=== PATIENT | male | born 1945 | race Caucasian/White ===

== ENCOUNTER → 2020-10-26 13:08 | Outpatient (CLI) | payer MEDICARE, OTHER, SELFPAY ==
--- NOTE | ~2020-10-26 | XR_ITS ---
XR chest 2V DATE: 10/26/2020 13:53 INDICATION: Diaphragm disorder TECHNIQUE: 2 views COMPARISON: 05/25/2016 portable AP chest FINDINGS: Left-sided central venous catheter tip overlies the upper right atrium. Normal heart size. Mild aortic tortuosity. No hilar or mediastinal enlargement is evident. Questionable proximal 0.8 cm soft tissue mass versus summation shadow of overlapping structures at th e lower left lung field. Consider CT thorax to exclude lung mass lesion. Otherwise no pulmonary infiltrate or consolidation, pleural effusion or pulmonary vascular congestion or pneumothorax is evident. There is chronic mild to moderate elevation of the right leaf of the diaphragm. Diffuse osteopenia. Degenerative spurring of the thoracic spine. Surgical clips, right upper quadrant, consistent with cholecystectomy. IMPRESSION: Cannot exclude a left lower lung soft tissue mass versus summation shadow of overlapping vascular and skeletal structures ; CT thorax is recommended. Left central venous catheter in upper right atrium Chronic mild to moderate elevation right leaf of diaphragm Status post cholecystectomy Diffuse osteopenia Reviewed, dictated and finalized at location [facility]. [facility]
--- NOTE | ~2020-10-26 | XR_ITS ---
XR lumbar spine min 4V DATE: 10/26/2020 13:53 INDICATION: Low back pain TECHNIQUE: AP, lateral, coned lateral lumbosacral and bilateral oblique views COMPARISON: None FINDINGS: Diffuse osteopenia. There is mild dextroscoliosis. Normal alignment of the lumbar spine with the exception of minimal anterolisthesis at L5-S1 likely se condary to severe degenerative change noted at the apophyseal joints throughout the mid to lower lumb ar and lumbosacral area. No apparent spondylolysis. There is severe degenerative disc disease at L5-S1. No fracture or bone destruction of the lumbar spine. The sacroiliac joints appear normal. There are multiple osteosclerotic lesions of the iliac bones. Differential diagnosis includes bone is lands versus osteosclerotic metastases of prostate cancer. Surgical clips overlie the right upper quadrant, likely due to cholecystectomy. There are multiple astudillo rgical clips overlying the upper mid abdomen and left lower abdomen. Extensive calcification of the abdominal aorta, without apparent aneurysm. IMPRESSION: Diffuse osteopenia Mild dextroscoliosis Prominent degenerative change at the apophyseal joints in the mid to lower lumbar and lumbosacral are a with associated grade 1 anterolisthesis at L5-S1 Severe degenerative disc disease at L5-S1 Scattered osteosclerotic lesions of the pelvis; differential diagnosis includes bone islands versus o steosclerotic prostate metastases Reviewed, dictated and finalized at location [facility]. [facility] IMPRESSION: Diffuse osteopenia Mild dextroscoliosis Prominent degenerative change at the apophyseal joints in the mid to lower lumb ar and lumbosacral area with associated grade 1 anterolisthesis at L5-S1 Severe degenerative disc disease at L5-S1 Scattered osteosclerotic lesions of the pelvis; differential diagnosis includes bone islands versus osteosclerotic prostate metastases
--- NOTE | ~2020-10-26 | XR_ITS ---
XR sacroiliac joints min 3V DATE: 10/26/2020 13:53 INDICATION: Low back pain TECHNIQUE: AP and oblique views of the sacroiliac joints COMPARISON: None FINDINGS: Diffuse osteopenia. The sacroiliac joints are intact. No erosive change or ankylosis. No sacral fracture or bone destruction is evident. Normal alignment at the pubic symphysis. Asymmetri c narrowing of the left hip joint space. There are osteosclerotic lesions of both iliac bones which may be bone islands versus osteosclerotic metastases from prostate cancer. Recommend clinical correlation and perhaps radionuclide bone scan as clinically appropriate. Severe degenerative disc disease at L5-S1. IMPRESSION: Unremarkable sacroiliac joints Severe degenerative disc disease at L5-S1 Bilateral iliac osteosclerotic lesions; differential diagnosis includes bone islands versus osteoscle rotic metastases of prostate cancer; recommend clinical correlation and perhaps radionuclide bone sca n if appropriate Reviewed, dictated and finalized at [facility]. Reviewed, dictated and finalized at location [facility]. [facility] IMPRESSION: Unremarkable sacroiliac joints Severe degenerative disc disease at L5-S1 Bilateral iliac osteosclerotic lesions; differential diagnosis includes bone is lands versus osteosclerotic metastases of prostate cancer; recommend clinical c orrelation and perhaps radionuclide bone scan if appropriate
== END ==
PROVIDERS: PCP Family Medicine; Visit Provider Family Medicine
DX: M53.3 Sacrococcygeal disorders, not elsewhere classified (principal); M54.5 Low back pain; J98.6 Disorders of diaphragm; M51.37 Other intervertebral disc degeneration, lumbosacral region; M41.86 Other forms of scoliosis, lumbar region; M89.9 Disorder of bone, unspecified; R91.8 Other nonspecific abnormal finding of lung field; Z90.49 Acquired absence of other specified parts of digestive tract; M85.89 Other specified disorders of bone density and structure, multiple sites
CPT/HCPCS: 71046; 72110; 72202

== ENCOUNTER 2020-11-01 07:30 | Outpatient (CLI) | payer MEDICARE, OTHER, SELFPAY ==
--- NOTE | ~2020-11-01 | CT_ITS ---
EXAMINATION: CT diagnostic chest wo con EXAM DATE: 11/01/2020 08:17 INDICATION: Abnormal chest x-ray, possible lung mass. R93.89 - Abnormal findings on diagnostic imagin g of other specified body structures. TECHNIQUE: Spiral CT of the chest without contrast. Axial, coronal and sagittal images were reviewe d. Coronal maximum intensity pixel images of chest reviewed. The dose-length product (DLP) for this examination was 153.52 mGy-cm. The exposure was tailored according to patient size (auto mA exposur e control), and iterative reconstruction (ASIR) was used as additional dose reduction technique. Comp arison is made to prior examination from 04/22/2016. Correlation was made with MR abdomen 02/01/2009. 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 There is mild emphysema. Mild bronchiectasis. Indwelling left subclavian line, t ip at the cavoatrial junction. There is mildly aneurysmal aortic root and ascending aorta at 4.5 cm. There are no pleural or pericardial effusions. Tracheobronchial tree is patent. There is no media stinal, hilar or axillary lymphadenopathy. There is no pneumothorax. Heart normal in size. Ther e is mild coronary arterial calcification, arterial sclerosis. There are surgical changes from left-sided nephrectomy. Stomach is also been resected. There is a jones creatic uncinate 3 cm multicystic mass, size appears unchanged going back to 2008. Scattered small sc lerotic foci are unchanged, stable osseous metastases or bone islands. Probable right thyroid lobe r esection. Cholecystectomy clips. IMPRESSION: 1. No lung mass or acute thoracic findings. 2. Chronic pancreatic multicystic mass. 3. Mildly aneurysmal ascending aorta. 4. Mild bronchiectasis. 5. Mild emphysema. 6. Stable scattered sclerotic lesions. 7. Surgical changes. Reviewed, dictated and finalized at location B. [employer]
== END 2020-11-01 07:31 | disposition home or self-care (01) ==
PROVIDERS: PCP Family Medicine; Visit Provider Family Medicine
DX: R93.89 Abnormal findings on diagnostic imaging of other specified body structures (principal); I71.4 Abdominal aortic aneurysm, without rupture; J47.9 Bronchiectasis, uncomplicated; J43.9 Emphysema, unspecified
CPT/HCPCS: 71250

== ENCOUNTER → 2021-01-25 15:12 | Outpatient (CLI) | payer MEDICARE, OTHER, SELFPAY ==
--- NOTE | ~2021-01-25 | XR_ITS ---
EXAMINATION: XR hand BI arthritis min 3V DATE: 01/25/2021 15:28 INDICATION: Pain in unspecified hand TECHNIQUE: Posteroanterior, lateral, and oblique views of the left and of the right hands as well as a ballcatchers view of both hands were obtained. COMPARISON: None. FINDINGS: Right hand: There is severe osteoarthritis at the triscaphe joint. Mild osteoarthritis is noted at th e first carpometacarpal joint. There is mild osteoarthritis of several interphalangeal joints. The so ft tissues are unremarkable. Bone alignment is normal. There is no fracture. Left hand: There is severe osteoarthritis at the triscaphe joint. Mild osteoarthritis is noted at the first carpometacarpal joint. There is mild osteoarthritis of several interphalangeal joints. The sof t tissues are unremarkable. Bone alignment is normal. There is no fracture. IMPRESSION: 1. Polyarticular osteoarthritis. Reviewed, dictated and finalized at location A.
== END ==
PROVIDERS: PCP Family Medicine; Visit Provider Physician Assistant
DX: M79.643 Pain in unspecified hand (principal); M19.042 Primary osteoarthritis, left hand; M19.041 Primary osteoarthritis, right hand
CPT/HCPCS: 73130

== ENCOUNTER 2023-03-17 12:49 | Outpatient (NON) | payer MEDICARE, OTHER, SELFPAY | END 2023-03-17 12:50 | disposition home or self-care (01) | LOC: ANHLAB 03-18 12:53 | PROVIDERS: PCP Family Medicine; Visit Provider Nurse Practitioner | DX: D49.2 Neoplasm of unspecified behavior of bone, soft tissue, and skin (principal) | CPT/HCPCS: 88305 ==

== ENCOUNTER 2025-04-25 17:34 | Inpatient (IN) | payer MEDICARE, OTHER, SELFPAY ==
--- NOTE | ~2025-04-25 | CT_ITS ---
EXAMINATION: CT chest abdomen pelvis wo con DATE: 04/25/2025 20:28 CDT INDICATION: Sepsis. TECHNIQUE: Computed tomography (CT) of the chest, abdomen, and pelvis was performed without intravenous contrast. The dose-length product was 681.00 mGy- cm. Automated exposure control and iterative reconstruction technique were employed. COMPARISON: Comparison to multiple prior studies sequentially, with oldest reviewed study dated 11/01/2020. FINDINGS: CHEST/abdomen/pelvis CT: There is focal consolidation in the right lower lobe, suspicious for pneumonia. No endobronchial lesions. Dependent atelectasis. There is ascending thoracic aortic aneurysm measuring 4.8 cm. There is atherosclerosis of the aorta and coronary arteries. There are surgical changes of the stomach. There is splenomegaly. 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 Status post cholecystectomy. Left kidney not identified, possibly surgically absent. There are low-density lesions in the right kidney, most likely benign cysts, although not well visualized without contrast. Multiple sclerotic lesions of the pelvis are not significantly changed allowing for differences of technique, suspicious for stable metastases versus bone islands. Correlate for history of malignancy. There is moderate lumbar spondylosis with grade 1 spondylolisthesis at L5-S1. Enlarged prostate gland. There is a right lower quadrant ostomy. No thoracic lymphadenopathy. IMPRESSION: 1. Focal consolidation right lower lobe, suspicious for pneumonia. 2: Increased size of ascending thoracic aortic aneurysm measuring 4.8 cm. 3: Splenomegaly. 4: Stable sclerotic lesions or spine and pelvis, suspicious for stable osseous metastases. Correlate for history of malignancy. Reviewed, dictated and finalized at location A.
--- NOTE | ~2025-04-25 | XR_ITS ---
XR chest 1V portable 04/25/2025 17:59 Indication: Altered mental status Procedure: AP portable chest Comparison: Comparison to multiple prior studies sequentially, with oldest reviewed study dated 05/23/2016. Findings: Elevated right diaphragm which appears chronic. Mild interstitial infiltration bilaterally with peribronchial thickening. Portacatheter tip near the cavoatrial junction. No pneumothorax. No acute osseous abnormality. There are cholecystectomy clips. Impression: 1: Diffuse bilateral interstitial infiltrates which may represent edema or atypical pneumonia. Reviewed, dictated and finalized at location A. Impression: 1: Diffuse bilateral interstitial infiltrates which may represent edema or atyp ical pneumonia.
--- NOTE | ~2025-04-25 | CT_ITS ---
EXAMINATION: CT brain wo con DATE: 04/25/2025 20:19 INDICATION: Altered mental status. TECHNIQUE: Computed tomography (CT) of the head was performed without intravenous contrast. The dose-length product was 681.00 mGy-cm. Automated exposure control and iterative reconstruction technique were employed. COMPARISON: None FINDINGS: Brain parenchymal volume is normal for age. There are scattered moderate periventricular and subcortical white matter changes, most likely related to small vessel ischemic disease (microangiopathy). There is intracranial atherosclerosis. Paranasal sinuses and mastoids are pneumatized. There is mild mucosal thickening of the maxillary sinuses. No depressed skull fractures. IMPRESSION: 1. No acute intracranial abnormality. Reviewed, dictated and finalized at location A.
--- NOTE | ~2025-04-25 | US_ITS ---
EXAMINATION: US renal BI DATE: 05/03/2025 18:00 INDICATION: Acute on chronic kidney disease. TECHNIQUE: Multiple ultrasound grayscale images of the kidneys were obtained. COMPARISON: None. FINDINGS: The right kidney measures 9.9 x 5.7 x 5.1 cm. The left kidney is not visualized and reportedly surgically absent. The right kidney demonstrates normal echogenicity. A couple anechoic right renal cysts the largest measuring 1.2 cm. There is no hydronephrosis. No stones identified. The bladder is normal. IMPRESSION: 1. A couple small right renal cysts. No hydronephrosis. 2. Status post left nephrectomy. Reviewed, dictated and finalized at location A.
[2025-04-25 17:32] VITALS: BP 144/74; PULSE 124; RESP 20; TEMP 37.7; O2SAT 98
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
--- NOTE | 2025-04-25 17:43 | ECG_ITS ---
Test Date: 2025-04-25 17:52:40 Measurements Intervals [place] Rate: 121 P: 8 [place]: 179 QRS: -3 QRSD: 114 T: 25 QT: 332 QTc: 472 Interpretive Statements SINUS TACHYCARDIA RIGHT BUNDLE BRANCH BLOCK CONSIDER INFERIOR INFARCT, AGE INDETERMINATE ABNORMAL ECG No previous ECG available for comparison Electronically Signed On 04-25-2025 19:09:41 CDT by Bharathi Nesbitt D.O.
[2025-04-25 18:02] LABS: Hematocrit 31.4 % (42.0-52.0); Hemoglobin 10.3 g/dL (14.0-18.0); Immature Granulocyte Percent A 0.3 % (0-0.5); Immature Platelet Fraction Pct 3.9 % (0.9-11.2); Lymphocytes Absolute Auto 0.44 K/mm3 (0.9-3.2); Mean Corpuscular HGB Conc 32.8 g/dl (32-36); Mean Corpuscular Hemoglobin 26.8 pg (26-34); Mean Corpuscular Volume 81.8 fl (80-100); Nucleated Red Blood Cells Absolute Auto 0.000 K/mm3 (0.0-0.012); Nucleated Red Blood Cells Perc 0.0 % (0.0-0.2); Platelet Count Result 47 k/mm3 (150-375); Red Blood Count 3.84 M/mm3 (4.6-6.20); White Blood Count 14.5 K/mm3 (4.5-10.0)
[2025-04-25 18:21] LABS: INR 1.2; Prothrombin Time 15.2 Seconds (11.1-14.7)
[2025-04-25 18:22] LABS: Partial Thromboplastin Time 35.9 Seconds (22.3-36.8)
[2025-04-25 18:32] LABS: Ovalocytes 1+; Schistocytes None Seen
[2025-04-25] MEDS: SODIUM CHLORIDE 0.9% IV 1,000 ML 999 ML IV CONT ×2 (18:44)
[2025-04-25] MEDS: SODIUM CHLORIDE 0.9% IV 300 ML 999 ML IV CONT (18:45)
[2025-04-25 18:50] LABS: Alveolar/Arterial O2 Gradient 39.9 mmHg; Carboxyhemoglobin 0.6 % THb (0-2.0); Fractional Inspired Oxygen 21 %; HCO3 ABG 27.0 mEq/l (22.0-26.0); Methemoglobin ABG 0.3 %THb (0-1.5); Oxygen Content ABG 14.9 %vol (16.0-22.0); Oxygen Saturation ABG 94.9 % (95.0-100.0); PCO2 ABG 35.6 mmHg (35.0-45.0); PO2 ABG 67.2 mmHg (80.0-100.0); PO2 FiO2 Ratio Arterial Blood 3.20 %; Reduced Hemoglobin 5.6 %THb (0-5.0)
[2025-04-25 18:51] LABS: Alanine Aminotransferase 16 U/L (6-50); Albumin Level 3.4 g/dL (3.5-5.1); Alkaline Phosphatase 73 U/L (38-126); Anion Gap 7 mmol/L (4-12); Aspartate Amino Transferase 25 U/L (17-59); Bilirubin,Total 1.1 mg/dL (0.2-1.3); Blood Urea Nitrogen 62 mg/dL (9-20); CRP 3.8 mg/dL (<1.0); Calcium 8.5 mg/dL (8.4-10.2); Carbon Dioxide 26 mmol/L (22-30); Chloride 96 mmol/L (98-107); Estimated CRCL calculation 16 ml/min; Estimated Glomerular Filt Rate 20; Glucose 152 mg/dL (65-110); Lipase 54 U/L (23-300); Potassium 4.3 mmol/L (3.4-5.0); Sodium 129 mmol/L (137-145); Total Protein 6.3 g/dL (6.3-8.2)
[2025-04-25 18:52] LABS: Site Drawn RIGHT BRACHIAL
[2025-04-25] MEDS: CEFEPIME 2 GM in SODIUM CHLORIDE 0.9% IV 50 ML 100 ML IVPB (18:53)
[2025-04-25] MEDS: ACETAMINOPHEN 650 MG SUPPOSITORY RECTAL (18:54)
[2025-04-25 19:00] LABS: NT Pro B Type Natriuretic Pept 708 pg/mL (19.9-100); Troponin I 0.020 ng/mL (0.000-0.034)
[2025-04-25 19:22] VITALS: BP 147/72; PULSE 110; RESP 18; O2SAT 97
[2025-04-25 19:30] LABS: Add Urine Microscopic? YES; Appearance Urine Clear (Clear); Glucose Urine UA Negative (Negative); Leukocyte Esterase Ur Negative LEU/UL (Negative); Nitrate Urine Negative (Negative); Non Pathogenic Casts 0-2; Specific Grav Ur 1.014 (1.001-1.035)
[2025-04-25] MEDS: VANCOMYCIN 1,250 MG/NS 250 ML 1,250 MG/250 ML BAG 166.67 MG IVPB (19:50)
[2025-04-25 20:02] VITALS: TEMP 37.2
--- NOTE | 2025-04-25 20:42 | ECG_ITS ---
Test Date: 2025-04-25 20:48:39 Measurements Intervals [place] Rate: 102 P: 17 DC: 188 QRS: 2 QRSD: 117 T: 26 QT: 380 QTc: 496 Interpretive Statements SINUS TACHYCARDIA RIGHT BUNDLE BRANCH BLOCK BASELINE WANDER- II, III ABNORMAL ECG Compared to ECG 04/25/2025 17:52:40 HEART RATE HAS DECREASED Electronically Signed On 04-26-2025 06:15:54 CDT by Bharathi Nesbitt D.O.
[2025-04-25 21:50] LABS: Troponin I 0.022 ng/mL (0.000-0.034)
[2025-04-25] MEDS: SODIUM CHLORIDE 0.9% IV 1,000 ML 75 ML IV CONT (23:10)
[2025-04-26] VITALS (9 sets, daily range): BP systolic 133–155; BP diastolic 71–77; PULSE 92–100; RESP 16–18; TEMP 36.7–37.6; O2SAT 94–99; BMI 26.6
--- NOTE | 2025-04-26 00:50 | PC.NURSE ---
Called placed to to obtain information related to medication. did not answer phone and pt is unable to answer questions related to medication.
[2025-04-26 02:05] LABS: Estimated CRCL calculation 17 ml/min; Estimated Glomerular Filt Rate 21
[2025-04-26 02:17] LABS: Troponin I 0.019 ng/mL (0.000-0.034)
[2025-04-26 09:38] LABS: Influenza A QL RT-PCR Negative (Negative); Influenza B QL RT-PCR Negative (Negative); RSV RNA, RT-PCR Negative (Negative); SARS-CoV-2 RNA PCR Negative (Negative)
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
[2025-04-26] MEDS: SODIUM CHLORIDE 0.9% IV 1,000 ML 75 ML IV CONT (13:45)
[2025-04-26] MEDS: AMINO ACIDS 5%/D15W/E-LYTES/CA 1,000 ML with MULTIVITAMINS-12 INJ VIAL 1 1.25 ML, MULTI... 70 ML IV CONT (15:16)
[2025-04-26 15:21] LABS: Partial Thromboplastin Time 35.7 Seconds (22.3-36.8)
[2025-04-26 15:41] LABS: Alanine Aminotransferase 19 U/L (6-50); Albumin Level 2.9 g/dL (3.5-5.1); Alkaline Phosphatase 65 U/L (38-126); Anion Gap 8 mmol/L (4-12); Aspartate Amino Transferase 26 U/L (17-59); Bilirubin,Total 0.9 mg/dL (0.2-1.3); Blood Urea Nitrogen 47 mg/dL (9-20); Calcium 7.6 mg/dL (8.4-10.2); Carbon Dioxide 22 mmol/L (22-30); Chloride 102 mmol/L (98-107); Estimated CRCL calculation 17 ml/min; Estimated Glomerular Filt Rate 21; Glucose 168 mg/dL (65-110); Magnesium 1.5 mg/dL (1.6-2.3); Potassium 4.3 mmol/L (3.4-5.0); Sodium 132 mmol/L (137-145); Total Protein 5.4 g/dL (6.3-8.2); Transferrin 211 mg/dL (206-381)
[2025-04-26] MEDS: CEFEPIME 2 GM in SODIUM CHLORIDE 0.9% IV 50 ML 100 ML IVPB (19:54)
[2025-04-26] MEDS: VANCOMYCIN 1,250 MG/NS 250 ML 1,250 MG/250 ML BAG 166.67 MG IVPB (20:56)
[2025-04-27] VITALS (9 sets, daily range): BP systolic 142–149; BP diastolic 74–83; PULSE 80–100; RESP 16–20; TEMP 36.4–36.8; O2SAT 97–98
[2025-04-27 05:42] LABS: Hematocrit 27.7 % (42.0-52.0); Hemoglobin 8.6 g/dL (14.0-18.0); Immature Granulocyte Percent A 0.3 % (0-0.5); Immature Platelet Fraction Pct 4.5 % (0.9-11.2); Lymphocytes Absolute Auto 0.44 K/mm3 (0.9-3.2); Mean Corpuscular HGB Conc 31.0 g/dl (32-36); Mean Corpuscular Hemoglobin 26.1 pg (26-34); Mean Corpuscular Volume 83.9 fl (80-100); Nucleated Red Blood Cells Absolute Auto 0.000 K/mm3 (0.0-0.012); Nucleated Red Blood Cells Perc 0.0 % (0.0-0.2); Platelet Count Result 33 k/mm3 (150-375); Red Blood Count 3.30 M/mm3 (4.6-6.20); White Blood Count 6.2 K/mm3 (4.5-10.0)
[2025-04-27 05:55] LABS: Alanine Aminotransferase 14 U/L (6-50); Albumin Level 2.7 g/dL (3.5-5.1); Alkaline Phosphatase 64 U/L (38-126); Anion Gap 5 mmol/L (4-12); Aspartate Amino Transferase 23 U/L (17-59); Bilirubin,Total 0.7 mg/dL (0.2-1.3); Blood Urea Nitrogen 50 mg/dL (9-20); Calcium 7.5 mg/dL (8.4-10.2); Carbon Dioxide 25 mmol/L (22-30); Chloride 102 mmol/L (98-107); Estimated CRCL calculation 18 ml/min; Estimated Glomerular Filt Rate 22; Glucose 223 mg/dL (65-110); Magnesium 1.8 mg/dL (1.6-2.3); Potassium 4.0 mmol/L (3.4-5.0); Sodium 132 mmol/L (137-145); Total Protein 5.6 g/dL (6.3-8.2)
[2025-04-27] MEDS: AMINO ACIDS 5%/D15W/E-LYTES/CA 1,000 ML with MULTIVITAMINS-12 INJ VIAL 1 1.25 ML, MULTI... 70 ML IV CONT ×2 (05:58→20:33)
[2025-04-27 06:00] LABS: Band Neutrophils Percent 0 % (0-6)
[2025-04-27 06:01] LABS: Ovalocytes 1+; Schistocytes None Seen; Triglycerides 46 mg/dL (<150)
--- NOTE | 2025-04-27 08:17 | P.PNIM_ITS ---
Progress Note: A&P Assessment and Plan (1) CKD (chronic kidney disease): Qualifiers: Chronic kidney disease stage: unspecified stage Qualified Code(s): N18.9 - Chronic kidney disease, unspecified Code(s): N18.9 - Chronic kidney disease, unspecified Status: Acute (2) Hyponatremia: Code(s): E87.1 - Hypo-osmolality and hyponatremia Status: Acute (3) AMS (altered mental status): Qualifiers: Altered mental status type: unspecified Qualified Code(s): R41.82 - Altered mental status, unspecified Code(s): R41.82 - Altered mental status, unspecified Status: Acute (4) Pneumonia: Qualifiers: Laterality: right Lung location: lower lobe of lung Pneumonia type: due to unspecified organism Qualified Code(s): J18.9 - Pneumonia, unspecified organism Code(s): J18.9 - Pneumonia, unspecified organism Status: Acute (5) Sepsis: Qualifiers: Sepsis acute organ dysfunction status: unspecified Sepsis type: sepsis due to unspecified organism Qualified Code(s): A41.9 - Sepsis, unspecified organism Code(s): A41.9 - Sepsis, unspecified organism Status: Acute (6) Hypertension: Code(s): I10 - Essential (primary) hypertension Status: Acute (7) On total parenteral nutrition (TPN): Code(s): Z78.9 - Other specified health status Status: Acute Plan Sepsis Secondary to pneumonia Continue with IV antibiotic Follow cultures Continue to monitor CKD stage 4 Baseline creatinine 2.9 Continue to monitor TPN chronic dietitian on board Continue to monitor Hyponatremia Monitor for now acute on chronic anemia no bleeding reported possible dilutional transfuse if Hb<7 continue to monitor Dm2 not on meds A1c 7 in 2020. 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 Patient has been more confused and weak for past couple of days. Yesterday afternoon his symptoms got worse and was brought to ER for further management. In ER patient was found to have WBC 14.5, tachycardic and LILLY CKD CT head negative for acute abnormality. CT chest concerning for right lower lobe pneumonia. Treatment started for sepsis pneumonia with vanc and cefepime. Blood culture was sent. This morning patient is more alert oriented. Follow cultures. Continue antibiotics. Discussed with dietitian. We will start TPN. Creatinine 2.9. Sodium 129. Reviewed previous history. Patient has been in the [facility] several times with similar problem. has been treated for infection. Urine culture previously positive for E coli. 04/27/25 Patient was seen examined at bedside. He is intubated. Denies any chest pain, shortness a friend, abdominal pain, nausea vomiting. WBC improved to 6.2. Hemoglobin dropped to 8.6. No bleeding reported. Continue with IV antibiotics. Continue with TPN. Possible discharge in 1-2 days pending culture result. Exam Narrative: GENERAL: Ill appearing, alert and oriented, in no acute distress. HEAD: Normocephalic, atraumatic. RESPIRATORY: Airway patent, respirations mildly tachypneic, scattered rhonchi ariela, no wheezing. CARDIOVASCULAR: Tachycardic with regular rhythm without murmurs, rubs, or gallops. ABDOMINAL: Soft, no appreciable tenderness, colostomy in LLQ, nondistended. N ormoactive BS. MUSCULOSKELETAL: Moves all extremities. No gross deformities. No peripheral edema. SKIN: Warm, dry, normal color. NEURO: i. Speech clear.alert and oriented, Cranial nerves II-XII grossly intact. No ataxic movements. PSYCHIATRIC: alert and oriented Objective Data Vital Signs Vital Signs: Vital Signs - 24 hr 04/26/25 08:45 04/26/25 12:00 04/26/25 13:51 Temperature 98.9 F Pulse Rate 96 99 Respiratory Rate 18 Blood Pressure 153/77 H Pulse Oximetry 99 Oxygen Delivery Room Air 04/26/25 16:00 04/26/25 20:00 04/26/25 20:35 Temperature Pulse Rate 96 100 Respiratory Rate Blood Pressure Pulse Oximetry 94 Oxygen Delivery Room Air Room Air 04/26/25 21:48 04/27/25 00:00 04/27/25 04:00 Temperature 99.6 F Pulse Rate 98 93 86 Respiratory Rate 16 Blood Pressure 155/71 H Pulse Oximetry 95 Oxygen Delivery 04/27/25 06:00 Temperature 98.2 F Pulse Rate 80 Respiratory Rate 16 Blood Pressure 142/74 H Pulse Oximetry 97 Oxygen Delivery Intake/Output Intake/Output: Intake & Output 04/24/25 04/25/25 04/26/25 04/27/25 23:59 23:59 23:59 23:59 Intake Total 2600 1850 1002.5 Output Total 2550 750 Balance 2600 -700 252.5 Meds/Results Medications: Active Medications Generic Name Dose Route Start Last Admin Trade Name Freq PRN Reason Stop Dose Admin Acetaminophen 650 mg 04/25/25 22:50 Acetaminophen 650 Mg Suppository RECTAL Q6H PRN Mild Pain (1-3) or Fever Allopurinol 100 mg 04/27/25 09:00 Allopurinol 100 Mg Tablet PO DAILY [facility] Cyanocobalamin 100 mcg 05/26/25 09:00 Cyanocobalamin Inj 1,000 Mcg/Ml Vial IM MONTHLY [facility] Cyclobenzaprine HCl 10 mg 04/26/25 13:46 Cyclobenzaprine Hcl 10 Mg Tablet PO TID PRN Muscle Spasm Dextrose 12.5 gm 04/25/25 22:50 Dextrose 50% 25 Gm/50 Ml Syringe IV PUSH PRN PRN Hypoglycemia Protocol Enoxaparin Sodium 30 mg 04/27/25 09:00 Enoxaparin 30 Mg/0.3 Ml Syringe SUB-Q DAILY [facility] Finasteride 5 mg 04/27/25 09:00 Finasteride 5 Mg Tablet PO DAILY ZHANNA Folic Acid 1 mg 04/27/25 09:00 Folic Acid 1 Mg Tablet PO DAILY ZHANNA Glucagon 1 mg 04/25/25 22:50 Glucagon For Inj 1 Mg Vial IM PRN PRN Hypoglycemia Protocol Glucose 15 gm 04/25/25 22:50 Glucose Oral Gel 15 Gm Of Glucse In 37.5 Gm Tube PO PRN PRN Hypoglycemia Protocol Cefepime HCl 2 gm/ Sodium 50 mls @ 100 mls/hr 04/26/25 19:00 04/26/25 20:25 Chloride IVPB Infused Q24H ZHANNA Infusion Dextrose 1,000 mls @ 100 mls/hr 04/25/25 22:50 Dextrose 5% 1,000 Ml IVPB PRN PRN Hypoglycemia Protocol Dextrose 1,000 mls @ 50 mls/hr 04/26/25 13:47 Dextrose 10% IV CONT .Q20H PRN if PN is interrupted Multivitamins 1.25 ml/ 1,002.5 mls @ 70 mls/hr 04/26/25 15:00 04/27/25 05:58 Multivitamins 1.25 ml/ Amino IV CONT 70 mls/hr Acids/Electrolytes/Dextrose .[id number] ZHANNA Administration Protocol Losartan Potassium 25 mg 04/27/25 09:00 Losartan Potassium 25 Mg Tablet PO DAILY ZHANNA Ondansetron HCl 4 mg 04/25/25 22:50 Ondansetron Inj 4 Mg/2 Ml Vial IV PUSH Q4H PRN Nausea Tramadol HCl 50 mg 04/26/25 13:46 Tramadol Hcl (*Crx) 50 Mg Tablet PO Q6H PRN Pain 4-6 Vancomycin HCl 1 each 04/25/25 18:58 Vancomycin For Acute Kidney Injury IVPB PRN PRN Vancomycin Protocol Radiology Results: ITS Impressions Chest X-Ray 04/25/25 18:06 Impression: 1: Diffuse bilateral interstitial infiltrates which may represent edema or atypical pneumonia. Head CT 04/25/25 20:26 IMPRESSION: 1. No acute intracranial abnormality. Chest/Abdomen/Pelvis CT 04/25/25 20:28 IMPRESSION: 1. Focal consolidation right lower lobe, suspicious for pneumonia. 2: Increased size of ascending thoracic aortic aneurysm measuring 4.8 cm. 3: Splenomegaly. 4: Stable sclerotic lesions or spine and pelvis, suspicious for stable osseous metastases. Correlate for history of malignancy. Labs Labs: Laboratory Results - last 24 hr 04/26/25 04/26/25 04/26/25 08:48 14:57 17:47 WBC RBC Hgb Hct MCV MCH MCHC RDW Plt Count MPV Immature Gran % (Auto) Neut % (Auto) Lymph % (Auto) [place] % (Auto) Eos % (Auto) Baso % (Auto) Lymph # (Auto) [place] # (Auto) Eos # (Auto) Baso # (Auto) Abs Immat Gran (auto) Absolute Neuts (auto) Absolute Nucleated RBC Band Neutrophils % Nucleated RBC % Platelet Estimate % Immature Plt Fraction Ovalocytes Schistocytes APTT 35.7 Sodium 132 L Potassium 4.3 Chloride 102 Carbon Dioxide 22 Anion Gap 8 BUN 47 H D Creatinine 2.87 H Estim Creat Clear Calc 17 Estimated GFR 21 L Glucose 168 H POC Capillary Glucose 183 H Calcium 7.6 L Phosphorus Magnesium 1.5 L Transferrin 211 Total Bilirubin 0.9 AST 26 ALT 19 Alkaline Phosphatase 65 Total Protein 5.4 L Albumin 2.9 L Triglycerides Random Vancomycin Influenza A (RT-PCR) Negative Influenza B (RT-PCR) Negative RSV (RT-PCR) Negative SARS-CoV-2 RNA (RT-PCR) Negative 04/26/25 04/26/25 04/27/25 18:53 23:42 05:35 WBC 6.2 RBC 3.30 L Hgb 8.6 L Hct 27.7 L MCV 83.9 MCH 26.1 MCHC 31.0 L RDW 14.0 Plt Count 33 L MPV 11.5 H Immature Gran % (Auto) 0.3 Neut % (Auto) 84.8 H Lymph % (Auto) 7.1 L [place] % (Auto) 6.9 Eos % (Auto) 0.6 Baso % (Auto) 0.3 Lymph # (Auto) 0.44 L [place] # (Auto) 0.4 Eos # (Auto) 0.0 Baso # (Auto) 0.0 Abs Immat Gran (auto) 0.02 Absolute Neuts (auto) 5.3 Absolute Nucleated RBC 0.000 Band Neutrophils % 0 Nucleated RBC % 0.0 Platelet Estimate Decreased % Immature Plt Fraction 4.5 Ovalocytes 1+ Schistocytes None seen APTT Sodium 132 L Potassium 4.0 Chloride 102 Carbon Dioxide 25 Anion Gap 5 BUN 50 H Creatinine 2.83 H Estim Creat Clear Calc 18 Estimated GFR 22 L Glucose 223 H POC Capillary Glucose 214 H Calcium 7.5 L Phosphorus 3.1 Magnesium 1.8 Transferrin Total Bilirubin 0.7 AST 23 ALT 14 Alkaline Phosphatase 64 Total Protein 5.6 L Albumin 2.7 L Triglycerides 46 Random Vancomycin 8.9 L Influenza A (RT-PCR) Influenza B (RT-PCR) RSV (RT-PCR) SARS-CoV-2 RNA (RT-PCR) 04/27/25 05:38 WBC RBC Hgb Hct MCV MCH MCHC RDW Plt Count MPV Immature Gran % (Auto) Neut % (Auto) Lymph % (Auto) [place] % (Auto) Eos % (Auto) Baso % (Auto) Lymph # (Auto) [place] # (Auto) Eos # (Auto) Baso # (Auto) Abs Immat Gran (auto) Absolute Neuts (auto) Absolute Nucleated RBC Band Neutrophils % Nucleated RBC % Platelet Estimate % Immature Plt Fraction Ovalocytes Schistocytes APTT Sodium Potassium Chloride Carbon Dioxide Anion Gap BUN Creatinine Estim Creat Clear Calc Estimated GFR Glucose POC Capillary Glucose 211 H Calcium Phosphorus Magnesium Transferrin Total Bilirubin AST ALT Alkaline Phosphatase Total Protein Albumin Triglycerides Random Vancomycin Influenza A (RT-PCR) Influenza B (RT-PCR) RSV (RT-PCR) SARS-CoV-2 RNA (RT-PCR)
[2025-04-27 09:01] LABS: Hemoglobin A1C 5.6 % (<5.7)
[2025-04-27] MEDS: FOLIC ACID 1 MG TABLET PO (10:29)
[2025-04-27] MEDS: FINASTERIDE 5 MG TABLET PO (10:29)
[2025-04-27] MEDS: LOSARTAN POTASSIUM 25 MG TABLET PO (10:29)
[2025-04-27 11:37] LABS: Partial Thromboplastin Time 36.6 Seconds (22.3-36.8)
[2025-04-27 11:55] LABS: Transferrin 222 mg/dL (206-381)
[2025-04-27] MEDS: FAT EMULSIONS IV 20% 250 ML 20.83 ML IVPB (12:28)
[2025-04-27] MEDS: INSULIN ASPART (*BKC) 100 UNITS/ML SUB-Q ×2 (12:29→17:41)
[2025-04-27] MEDS: CEFEPIME 2 GM in SODIUM CHLORIDE 0.9% IV 50 ML 100 ML IVPB (19:35)
[2025-04-27] MEDS: VANCOMYCIN 1,250 MG/NS 250 ML 1,250 MG/250 ML BAG 166.67 MG IVPB (21:38)
[2025-04-28] VITALS (9 sets, daily range): BP systolic 143–158; BP diastolic 71–78; PULSE 78–91; RESP 16–18; TEMP 36.1–36.8; O2SAT 96–100
[2025-04-28 05:57] LABS: Anion Gap 6 mmol/L (4-12); Blood Urea Nitrogen 48 mg/dL (9-20); Calcium 7.7 mg/dL (8.4-10.2); Carbon Dioxide 24 mmol/L (22-30); Chloride 101 mmol/L (98-107); Estimated CRCL calculation 18 ml/min; Estimated Glomerular Filt Rate 23; Glucose 201 mg/dL (65-110); Potassium 4.0 mmol/L (3.4-5.0); Sodium 131 mmol/L (137-145); Triglycerides 37 mg/dL (<150)
[2025-04-28] MEDS: FOLIC ACID 1 MG TABLET PO (09:02)
[2025-04-28] MEDS: INSULIN ASPART (*BKC) 100 UNITS/ML SUB-Q ×2 (09:02→22:18)
[2025-04-28] MEDS: LOSARTAN POTASSIUM 25 MG TABLET PO (09:02)
[2025-04-28] MEDS: FINASTERIDE 5 MG TABLET PO (09:02)
[2025-04-28] MEDS: FAT EMULSIONS IV 20% 250 ML 20.83 ML IVPB (10:43)
[2025-04-28] MEDS: AMINO ACIDS 5%/D15W/E-LYTES/CA 1,000 ML with MULTIVITAMINS-12 INJ VIAL 1 1.25 ML, MULTI... 70 ML IV CONT (10:43)
--- NOTE | 2025-04-28 12:22 | PCNFU ---
Nutrition Follow-Up Complete: Inability to meet nutrition needs PO related to altered GI function as evidenced by need for full TPN Meet estimated nutrition needs - Goal is being met with TPN and oral intake Goal: Pt current nutrition is Diabetic consistent carb diet, Glucerna BID (220 kcal, 10 g protein); +TPN Clinmix E 5/15 with lipids @ 70 ml/h. Nutrition recommendation: No new recommendations. Continue current nutrition care plan and orders Last recorded weight is 74.1 kg. Bowel Motility: +1 BM 04/27. Colostomy Labs Reviewed: Na 131, BUN 48, Cre 2.69, Glu 201 Meds Noted: Zofran, novolog, Vit B12 Skin: No skin issues Additional Notes: Tolerating TPN and oral diet with intakes 25-100%. TPn Clinmix E 5/15 2 70 ml/h provides 1693 kcal, 84 g protein, 1930 ml total volume. Meets needs @ 23 kcal/kg, 1.1 g protein.kg. Adequate for needs with PO diet. Monitoring intakes, weights, labs, TPN tolerance, plan of care Follow up Thursday/Thursday/
--- NOTE | 2025-04-28 15:22 | P.PNIM_ITS ---
Progress Note: A&P Assessment and Plan (1) CKD (chronic kidney disease): Qualifiers: Chronic kidney disease stage: unspecified stage Qualified Code(s): N18.9 - Chronic kidney disease, unspecified Code(s): N18.9 - Chronic kidney disease, unspecified Status: Acute (2) Hyponatremia: Code(s): E87.1 - Hypo-osmolality and hyponatremia Status: Acute (3) AMS (altered mental status): Qualifiers: Altered mental status type: unspecified Qualified Code(s): R41.82 - Altered mental status, unspecified Code(s): R41.82 - Altered mental status, unspecified Status: Acute (4) Pneumonia: Qualifiers: Laterality: right Lung location: lower lobe of lung Pneumonia type: due to unspecified organism Qualified Code(s): J18.9 - Pneumonia, unspecified organism Code(s): J18.9 - Pneumonia, unspecified organism Status: Acute (5) Sepsis: Qualifiers: Sepsis acute organ dysfunction status: unspecified Sepsis type: sepsis due to unspecified organism Qualified Code(s): A41.9 - Sepsis, unspecified organism Code(s): A41.9 - Sepsis, unspecified organism Status: Acute (6) Hypertension: Code(s): I10 - Essential (primary) hypertension Status: Acute (7) On total parenteral nutrition (TPN): Code(s): Z78.9 - Other specified health status Status: Acute Plan Sepsis Secondary to pneumonia Continue with IV antibiotic blood culture Gram positive cocci Follow cultures Continue to monitor CKD stage 4 Baseline creatinine 2.9 Continue to monitor TPN chronic dietitian on board Continue to monitor Hyponatremia Monitor for now acute on chronic anemia no bleeding reported possible dilutional transfuse if Hb<7 continue to monitor Dm2 not on meds A1c 7 in 2020. 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 Patient has been more confused and weak for past couple of days. Yesterday af ternoon his symptoms got worse and was brought to ER for further management. In ER patient was found to have WBC 14.5, tachycardic and LILLY CKD CT head negative for acute abnormality. CT chest concerning for right lower lobe pneumonia. Treatment started for sepsis pneumonia with vanc and cefepime. Blood culture was sent. This morning patient is more alert oriented. Follow cultures. Continue an tibiotics. Discussed with dietitian. We will start TPN. Creatinine 2.9. Sodium 129. Reviewed previous history. Patient has been in the [facility] several times with similar problem. has been treated for infection. Urine culture previously positive for E coli. 04/27/25 Patient was seen examined at bedside. He is alert and oriented, Denies any chest pain, shortness a friend, abdominal pain, nausea vomiting. WBC improved to 6.2. Hemoglobin dropped to 8.6. No bleeding reported. Continue with IV antibiotics. Continue with TPN. Possible discharge in 1-2 days pending culture result. 04/28/25 Patient was seen examined at bedside. He is alert and oriented, Denies any chest pain, shortness a friend, abdominal pain, nausea vomiting. blood culture positive for Gram positive Cocci. continue vanc and cefepime . follow repeat blood culture results Exam Narrative: GENERAL: Ill appearing, alert and oriented, in no acute distress. HEAD: Normocephalic, atraumatic. RESPIRATORY: Airway patent, respirations mildly tachypneic, scattered rhonchi ariela, no wheezing. CARDIOVASCULAR: Tachycardic with regular rhythm without murmurs, rubs, or gallops. ABDOMINAL: Soft, no appreciable tenderness, colostomy in LLQ, nondistended. Normoactive BS. MUSCULOSKELETAL: Moves all extremities. No gross deformities. No peripheral edema. SKIN: Warm, dry, normal color. NEURO: i. Speech clear.alert and oriented, Cranial nerves II-XII grossly intact. No ataxic movements. PSYCHIATRIC: alert and oriented Objective Data Vital Signs Vital Signs: Vital Signs - 24 hr 04/27/25 16:00 04/27/25 20:00 04/27/25 20:00 Temperature Pulse Rate 97 91 Respiratory Rate Blood Pressure Pulse Oximetry Oxygen Delivery Room Air 04/27/25 21:12 04/28/25 00:00 04/28/25 04:00 Temperature 97.6 F Pulse Rate 92 89 82 Respiratory Rate 20 Blood Pressure 143/78 H Pulse Oximetry 98 Oxygen Delivery 04/28/25 06:00 04/28/25 09:00 Temperature 97.9 F Pulse Rate 78 Respiratory Rate 16 Blood Pressure 143/74 H Pulse Oximetry 96 Oxygen Delivery Room Air Intake/Output Intake/Output: Intake & Output 04/25/25 04/26/25 04/27/25 04/28/25 23:59 23:59 23:59 23:59 Intake Total 2600 1850 2905.0 2451.7 Output Total 2550 1700 1000 Balance 2600 -700 1205.0 1451.7 Meds/Results Medications: Active Medications Generic Name Dose Route Start Last Admin Trade Name Freq PRN Reason Stop Dose Admin Acetaminophen 650 mg 04/25/25 22:50 Acetaminophen 650 Mg Suppository RECTAL Q6H PRN Mild Pain (1-3) or Fever Allopurinol 100 mg 04/27/25 09:00 04/28/25 09:02 Allopurinol 100 Mg Tablet PO 100 mg DAILY [facility] Administration Cyanocobalamin 100 mcg 05/26/25 09:00 Cyanocobalamin Inj 1,000 Mcg/Ml Vial IM MONTHLY [facility] Cyclobenzaprine HCl 10 mg 04/26/25 13:46 Cyclobenzaprine Hcl 10 Mg Tablet PO TID PRN Muscle Spasm Dextrose 12.5 gm 04/27/25 08:27 Dextrose 50% 25 Gm/50 Ml Syringe IV PUSH PRN PRN Hypoglycemia Protocol Enoxaparin Sodium 30 mg 04/27/25 09:00 04/28/25 14:31 Enoxaparin 30 Mg/0.3 Ml Syringe SUB-Q Not Given DAILY [facility] Finasteride 5 mg 04/27/25 09:00 04/28/25 09:02 Finasteride 5 Mg Tablet PO 5 mg DAILY [facility] Administration Folic Acid 1 mg 04/27/25 09:00 04/28/25 09:02 Folic Acid 1 Mg Tablet PO 1 mg DAILY [facility] Administration Glucagon 1 mg 04/27/25 08:27 Glucagon For Inj 1 Mg Vial IM PRN PRN Hypoglycemia Protocol Glucose 15 gm 04/27/25 08:27 Glucose Oral Gel 15 Gm Of Glucse In 37.5 Gm Tube PO PRN PRN Hypoglycemia Protocol Cefepime HCl 2 gm/ Sodium 50 mls @ 100 mls/hr 04/26/25 19:00 04/27/25 20:10 Chloride IVPB Infused Q24H [facility] Infusion Dextrose 1,000 mls @ 50 mls/hr 04/26/25 13:47 Dextrose 10% IV CONT .Q20H PRN if PN is interrupted Multivitamins 1.25 ml/ 1,002.5 mls @ 70 mls/hr 04/26/25 15:00 04/28/25 10:43 Multivitamins 1.25 ml/ Amino IV CONT 70 mls/hr Acids/Electrolytes/Dextrose .[id number] [facility] Administration Protocol Dextrose 1,000 mls @ 100 mls/hr 04/27/25 08:27 Dextrose 5% 1,000 Ml IVPB PRN PRN Hypoglycemia Protocol Fat Emulsion Intravenous 250 mls @ 20.833 mls/hr 04/27/25 11:00 04/28/25 10:43 Lipids 20% IVPB 20.83 mls/hr Q24H [facility] Administration Insulin Aspart 1 - 2 units 04/27/25 21:00 04/27/25 20:51 Insulin Aspart (*Bkc) 100 Units/Ml SUB-Q Not Given HS [facility] Protocol Insulin Aspart 2 - 5 units 04/27/25 12:00 04/28/25 14:31 Insulin Aspart (*Bkc) 100 Units/Ml SUB-Q Not Given TIDWM [facility] Protocol Losartan Potassium 25 mg 04/27/25 09:00 04/28/25 09:02 Losartan Potassium 25 Mg Tablet PO 25 mg DAILY [facility] Administration Ondansetron HCl 4 mg 04/25/25 22:50 Ondansetron Inj 4 Mg/2 Ml Vial IV PUSH Q4H PRN Nausea Tramadol HCl 50 mg 04/26/25 13:46 Tramadol Hcl (*Crx) 50 Mg Tablet PO Q6H PRN Pain 4-6 Vancomycin HCl 1 each 04/25/25 18:58 Vancomycin For Acute Kidney Injury IVPB PRN PRN Vancomycin Protocol Radiology Results: ITS Impressions Chest X-Ray 04/25/25 18:06 Impression: 1: Diffuse bilateral interstitial infiltrates which may represent edema or atypical pneumonia. Head CT 04/25/25 20:26 IMPRESSION: 1. No acute intracranial abnormality. Chest/Abdomen/Pelvis CT 04/25/25 20:28 IMPRESSION: 1. Focal consolidation right lower lobe, suspicious for pneumonia. 2: Increased size of ascending thoracic aortic aneurysm measuring 4.8 cm. 3: Splenomegaly. 4: Stable sclerotic lesions or spine and pelvis, suspicious for stable osseous metastases. Correlate for history of malignancy. Labs Labs: Laboratory Results - last 24 hr 04/27/25 04/27/25 04/27/25 17:02 20:27 20:35 Sodium Potassium Chloride Carbon Dioxide Anion Gap BUN Creatinine Estim Creat Clear Calc Estimated GFR Glucose POC Capillary Glucose 242 H 161 H Calcium Phosphorus Triglycerides Random Vancomycin 12.9 04/28/25 04/28/25 04/28/25 05:32 07:58 11:50 Sodium 131 L Potassium 4.0 Chloride 101 Carbon Dioxide 24 Anion Gap 6 BUN 48 H Creatinine 2.69 H Estim Creat Clear Calc 18 Estimated GFR 23 L Glucose 201 H POC Capillary Glucose 230 H 187 H Calcium 7.7 L Phosphorus 3.3 Triglycerides 37 Random Vancomycin
[2025-04-28] MEDS: CEFEPIME 2 GM in SODIUM CHLORIDE 0.9% IV 50 ML 100 ML IVPB (19:34)
[2025-04-29] VITALS (10 sets, daily range): BP systolic 128–140; BP diastolic 64–71; PULSE 79–90; RESP 16–18; TEMP 36.6–36.9; O2SAT 99–100
[2025-04-29] MEDS: VANCOMYCIN 1,250 MG/NS 250 ML 1,250 MG/250 ML BAG 166.67 MG IVPB (00:33)
[2025-04-29] MEDS: AMINO ACIDS 5%/D15W/E-LYTES/CA 1,000 ML with MULTIVITAMINS-12 INJ VIAL 1 1.25 ML, MULTI... 70 ML IV CONT ×2 (01:24→15:30)
--- NOTE | 2025-04-29 07:37 | P.PNIM_ITS ---
Progress Note: A&P Assessment and Plan (1) CKD (chronic kidney disease): Qualifiers: Chronic kidney disease stage: unspecified stage Qualified Code(s): N18.9 - Chronic kidney disease, unspecified Code(s): N18.9 - Chronic kidney disease, unspecified Status: Acute (2) Hyponatremia: Code(s): E87.1 - Hypo-osmolality and hyponatremia Status: Acute (3) AMS (altered mental status): Qualifiers: Altered mental status type: unspecified Qualified Code(s): R41.82 - Altered mental status, unspecified Code(s): R41.82 - Altered mental status, unspecified Status: Acute (4) Pneumonia: Qualifiers: Laterality: right Lung location: lower lobe of lung Pneumonia type: due to unspecified organism Qualified Code(s): J18.9 - Pneumonia, unspecified organism Code(s): J18.9 - Pneumonia, unspecified organism Status: Acute (5) Sepsis: Qualifiers: Sepsis acute organ dysfunction status: unspecified Sepsis type: sepsis due to unspecified organism Qualified Code(s): A41.9 - Sepsis, unspecified organism Code(s): A41.9 - Sepsis, unspecified organism Status: Acute (6) Hypertension: Code(s): I10 - Essential (primary) hypertension Status: Acute (7) On total parenteral nutrition (TPN): Code(s): Z78.9 - Other specified health status Status: Acute Plan Sepsis Secondary to pneumonia Continue with IV antibiotic blood culture Gram positive cocci Follow cultures Continue to monitor CKD stage 4 Baseline creatinine 2.9 Continue to monitor TPN chronic dietitian on board Continue to monitor Hyponatremia Monitor for now acute on chronic anemia no bleeding reported possible dilutional transfuse if Hb<7 continue to monitor Dm2 not on meds A1c 7 in 2020. 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 Patient has been more confused and weak for past couple of days. Yesterday af ternoon his symptoms got worse and was brought to ER for further management. In ER patient was found to have WBC 14.5, tachycardic and LILLY CKD CT head negative for acute abnormality. CT chest concerning for right lower lobe pneumonia. Treatment started for sepsis pneumonia with vanc and cefepime. Blood culture was sent. This morning patient is more alert oriented. Follow cultures. Continue an tibiotics. Discussed with dietitian. We will start TPN. Creatinine 2.9. Sodium 129. Reviewed previous history. Patient has been in the [facility] several times with similar problem. has been treated for infection. Urine culture previously positive for E coli. 04/27/25 Patient was seen examined at bedside. He is alert and oriented, Denies any chest pain, shortness a friend, abdominal pain, nausea vomiting. WBC improved to 6.2. Hemoglobin dropped to 8.6. No bleeding reported. Continue with IV antibiotics. Continue with TPN. Possible discharge in 1-2 days pending culture result. 04/28/25 Patient was seen examined at bedside. He is alert and oriented, Denies any chest pain, shortness a friend, abdominal pain, nausea vomiting. blood culture positive for Gram positive Cocci. continue vanc and cefepime . follow repeat blood culture results 04/29/25: No acute events reported overnight. Pending blood culture and urine culture. Review of Systems Review of Systems: ROS unobtainable: Yes unobtainable due to mental status Exam Narrative: GENERAL: Ill appearing, alert and oriented, in no acute distress. HEAD: Normocephalic, atraumatic. RESPIRATORY: Airway patent, respirations mildly tachypneic, scattered rhonchi ariela, no wheezing. CARDIOVASCULAR: Tachycardic with regular rhythm without murmurs, rubs, or gallops. ABDOMINAL: Soft, no appreciable tenderness, colostomy in LLQ, nondistended. Normoactive BS. MUSCULOSKELETAL: Moves all extremities. No gross deformities. No peripheral edema. SKIN: Warm, dry, normal color. NEURO: i. Speech clear.alert and oriented, Cranial nerves II-XII grossly intact. No ataxic movements. PSYCHIATRIC: alert and oriented Objective Data Vital Signs Vital Signs: Vital Signs - 24 hr 04/28/25 08:00 04/28/25 09:00 04/28/25 12:00 Temperature Pulse Rate 82 80 Respiratory Rate Blood Pressure Pulse Oximetry Oxygen Delivery Room Air 04/28/25 14:00 04/28/25 16:00 04/28/25 20:00 Temperature 98.2 F Pulse Rate 91 88 Respiratory Rate 16 Blood Pressure 146/71 H Pulse Oximetry 100 Oxygen Delivery Room Air 04/28/25 20:00 04/28/25 20:39 04/29/25 00:00 Temperature 96.9 F L Pulse Rate 82 82 84 Respiratory Rate 18 Blood Pressure 158/78 H Pulse Oximetry 99 Oxygen Delivery 04/29/25 04:00 04/29/25 06:52 Temperature 98.0 F Pulse Rate 90 85 Respiratory Rate 16 Blood Pressure 128/64 Pulse Oximetry 99 Oxygen Delivery Intake/Output Intake/Output: Intake & Output 04/26/25 04/27/25 04/28/25 04/29/25 23:59 23:59 23:59 23:59 Intake Total 1850 2905.0 4051.7 1202.5 Output Total 2550 1700 2700 700 Balance -700 1205.0 1351.7 502.5 Meds/Results Medications: Active Medications Generic Name Dose Route Start Last Admin Trade Name Freq PRN Reason Stop Dose Admin Acetaminophen 650 mg 04/25/25 22:50 Acetaminophen 650 Mg Suppository RECTAL Q6H PRN Mild Pain (1-3) or Fever Allopurinol 100 mg 04/27/25 09:00 04/28/25 09:02 Allopurinol 100 Mg Tablet PO 100 mg DAILY [facility] Administration Cyanocobalamin 100 mcg 05/26/25 09:00 Cyanocobalamin Inj 1,000 Mcg/Ml Vial IM MONTHLY [facility] Cyclobenzaprine HCl 10 mg 04/26/25 13:46 Cyclobenzaprine Hcl 10 Mg Tablet PO TID PRN Muscle Spasm Dextrose 12.5 gm 04/27/25 08:27 Dextrose 50% 25 Gm/50 Ml Syringe IV PUSH PRN PRN Hypoglycemia Protocol Enoxaparin Sodium 30 mg 04/27/25 09:00 04/28/25 14:31 Enoxaparin 30 Mg/0.3 Ml Syringe SUB-Q Not Given DAILY [facility] Finasteride 5 mg 04/27/25 09:00 04/28/25 09:02 Finasteride 5 Mg Tablet PO 5 mg DAILY [facility] Administration Folic Acid 1 mg 04/27/25 09:00 04/28/25 09:02 Folic Acid 1 Mg Tablet PO 1 mg DAILY [facility] Administration Glucagon 1 mg 04/27/25 08:27 Glucagon For Inj 1 Mg Vial IM PRN PRN Hypoglycemia Protocol Glucose 15 gm 04/27/25 08:27 Glucose Oral Gel 15 Gm Of Glucse In 37.5 Gm Tube PO PRN PRN Hypoglycemia Protocol Cefepime HCl 2 gm/ Sodium 50 mls @ 100 mls/hr 04/26/25 19:00 04/28/25 20:05 Chloride IVPB Infused Q24H [facility] Infusion Dextrose 1,000 mls @ 50 mls/hr 04/26/25 13:47 Dextrose 10% IV CONT .Q20H PRN if PN is interrupted Multivitamins 1.25 ml/ 1,002.5 mls @ 70 mls/hr 04/26/25 15:00 04/29/25 01:24 Multivitamins 1.25 ml/ Amino IV CONT 70 mls/hr Acids/Electrolytes/Dextrose .[id number] [facility] Administration Protocol Dextrose 1,000 mls @ 100 mls/hr 04/27/25 08:27 Dextrose 5% 1,000 Ml IVPB PRN PRN Hypoglycemia Protocol Fat Emulsion Intravenous 250 mls @ 20.833 mls/hr 04/27/25 11:00 04/28/25 22:45 Lipids 20% IVPB Infused Q24H [facility] Infusion Insulin Aspart 1 - 2 units 04/27/25 21:00 04/28/25 22:18 Insulin Aspart (*Bkc) 100 Units/Ml SUB-Q 1 units HS [facility] Administration Protocol Insulin Aspart 2 - 5 units 04/27/25 12:00 04/28/25 17:11 Insulin Aspart (*Bkc) 100 Units/Ml SUB-Q Not Given TIDWM [facility] Protocol Losartan Potassium 25 mg 04/27/25 09:00 04/28/25 09:02 Losartan Potassium 25 Mg Tablet PO 25 mg DAILY [facility] Administration Ondansetron HCl 4 mg 04/25/25 22:50 Ondansetron Inj 4 Mg/2 Ml Vial IV PUSH Q4H PRN Nausea Tramadol HCl 50 mg 04/26/25 13:46 Tramadol Hcl (*Crx) 50 Mg Tablet PO Q6H PRN Pain 4-6 Vancomycin HCl 1 each 04/25/25 18:58 Vancomycin For Acute Kidney Injury IVPB PRN PRN Vancomycin Protocol Radiology Results: ITS Impressions Chest X-Ray 04/25/25 18:06 Impression: 1: Diffuse bilateral interstitial infiltrates which may represent edema or atypical pneumonia. Head CT 04/25/25 20:26 IMPRESSION: 1. No acute intracranial abnormality. Chest/Abdomen/Pelvis CT 04/25/25 20:28 IMPRESSION: 1. Focal consolidation right lower lobe, suspicious for pneumonia. 2: Increased size of ascending thoracic aortic aneurysm measuring 4.8 cm. 3: Splenomegaly. 4: Stable sclerotic lesions or spine and pelvis, suspicious for stable osseous metastases. Correlate for history of malignancy. Labs Labs: Laboratory Results - last 24 hr 04/28/25 04/28/25 04/28/25 07:58 11:50 17:02 POC Capillary Glucose 230 H 187 H 186 H Phosphorus Random Vancomycin 04/28/25 04/28/25 04/29/25 20:43 23:18 05:44 POC Capillary Glucose 206 H Phosphorus 4.4 Random Vancomycin 16.2 Hospitalist MIPS Advance Care Plan I have confirmed that the patient's Advanced Care Plan is present, code status is documented, or surrogate decision maker is listed in patient medical record.: Yes Medication Reconciliation I have utilized all available resources to obtain, update and review the patients current medications (includes all prescriptions, OTC, herbals, cannabis, and nutritional supplements).: Yes
[2025-04-29 08:13] LABS: Hematocrit 28.5 % (42.0-52.0); Hemoglobin 8.9 g/dL (14.0-18.0); Immature Platelet Fraction Pct 7.6 % (0.9-11.2); Mean Corpuscular HGB Conc 31.2 g/dl (32-36); Mean Corpuscular Hemoglobin 26.0 pg (26-34); Mean Corpuscular Volume 83.3 fl (80-100); Platelet Count Result 43 k/mm3 (150-375); Red Blood Count 3.42 M/mm3 (4.6-6.20); White Blood Count 6.8 K/mm3 (4.5-10.0)
[2025-04-29] MEDS: INSULIN ASPART (*BKC) 100 UNITS/ML SUB-Q (08:13)
[2025-04-29] MEDS: LOSARTAN POTASSIUM 25 MG TABLET PO (08:15)
[2025-04-29] MEDS: FINASTERIDE 5 MG TABLET PO (08:15)
[2025-04-29] MEDS: ENOXAPARIN 30 MG/0.3 ML SYRINGE SUB-Q (08:15)
[2025-04-29] MEDS: FOLIC ACID 1 MG TABLET PO (08:16)
[2025-04-29 08:31] LABS: Alanine Aminotransferase 15 U/L (6-50); Albumin Level 2.9 g/dL (3.5-5.1); Alkaline Phosphatase 81 U/L (38-126); Anion Gap 6 mmol/L (4-12); Aspartate Amino Transferase 20 U/L (17-59); Bilirubin,Total 0.4 mg/dL (0.2-1.3); Blood Urea Nitrogen 50 mg/dL (9-20); Calcium 8.1 mg/dL (8.4-10.2); Carbon Dioxide 23 mmol/L (22-30); Chloride 102 mmol/L (98-107); Estimated CRCL calculation 19 ml/min; Estimated Glomerular Filt Rate 24; Glucose 218 mg/dL (65-110); Potassium 4.5 mmol/L (3.4-5.0); Sodium 131 mmol/L (137-145); Total Protein 5.9 g/dL (6.3-8.2)
[2025-04-29] MEDS: FAT EMULSIONS IV 20% 250 ML 20.83 ML IVPB (10:52)
[2025-04-29] MEDS: CENTRAL LINE FLUSH 10 ML IV PUSH ×2 (13:43→20:33)
[2025-04-29] MEDS: CYCLOBENZAPRINE HCL 10 MG TABLET PO (14:15)
[2025-04-29] MEDS: CEFEPIME 2 GM in SODIUM CHLORIDE 0.9% IV 50 ML 100 ML IVPB (18:09)
[2025-04-30] VITALS (10 sets, daily range): BP systolic 128–150; BP diastolic 75–84; PULSE 78–100; RESP 16–20; TEMP 36.6–36.7; O2SAT 95–100
[2025-04-30 04:44] LABS: Hematocrit 29.0 % (42.0-52.0); Hemoglobin 9.1 g/dL (14.0-18.0); Immature Platelet Fraction Pct 7.4 % (0.9-11.2); Mean Corpuscular HGB Conc 31.4 g/dl (32-36); Mean Corpuscular Hemoglobin 26.3 pg (26-34); Mean Corpuscular Volume 83.8 fl (80-100); Red Blood Count 3.46 M/mm3 (4.6-6.20); White Blood Count 9.0 K/mm3 (4.5-10.0)
[2025-04-30 04:45] LABS: Platelet Count Result 49 k/mm3 (150-375)
[2025-04-30 05:04] LABS: Alanine Aminotransferase 17 U/L (6-50); Albumin Level 3.0 g/dL (3.5-5.1); Alkaline Phosphatase 83 U/L (38-126); Anion Gap 8 mmol/L (4-12); Aspartate Amino Transferase 23 U/L (17-59); Bilirubin,Total 0.4 mg/dL (0.2-1.3); Blood Urea Nitrogen 55 mg/dL (9-20); Calcium 8.4 mg/dL (8.4-10.2); Carbon Dioxide 20 mmol/L (22-30); Chloride 102 mmol/L (98-107); Estimated CRCL calculation 19 ml/min; Estimated Glomerular Filt Rate 23; Glucose 310 mg/dL (65-110); Potassium 4.9 mmol/L (3.4-5.0); Sodium 130 mmol/L (137-145); Total Protein 6.1 g/dL (6.3-8.2)
[2025-04-30] MEDS: CENTRAL LINE FLUSH 10 ML IV PUSH ×3 (06:00→21:49)
[2025-04-30] MEDS: AMINO ACIDS 5%/D15W/E-LYTES/CA 1,000 ML with MULTIVITAMINS-12 INJ VIAL 1 1.25 ML, MULTI... 70 ML IV CONT ×2 (06:00→23:42)
[2025-04-30] MEDS: VANCOMYCIN HCL 1,000 MG in SODIUM CHLORIDE 0.9% IV 250 ML 250 MG IVPB (06:32)
--- NOTE | 2025-04-30 07:40 | PM.IMPN ---
Progress Note: A&P Assessment and Plan (1) CKD (chronic kidney disease): Qualifiers: Chronic kidney disease stage: unspecified stage Qualified Code(s): N18.9 - Chronic kidney disease, unspecified Code(s): N18.9 - Chronic kidney disease, unspecified Status: Acute (2) Hyponatremia: Code(s): E87.1 - Hypo-osmolality and hyponatremia Status: Acute (3) AMS (altered mental status): Qualifiers: Altered mental status type: unspecified Qualified Code(s): R41.82 - Altered mental status, unspecified Code(s): R41.82 - Altered mental status, unspecified Status: Acute (4) Pneumonia: Qualifiers: Laterality: right Lung location: lower lobe of lung Pneumonia type: due to unspecified organism Qualified Code(s): J18.9 - Pneumonia, unspecified organism Code(s): J18.9 - Pneumonia, unspecified organism Status: Acute (5) Sepsis: Qualifiers: Sepsis acute organ dysfunction status: unspecified Sepsis type: sepsis due to unspecified organism Qualified Code(s): A41.9 - Sepsis, unspecified organism Code(s): A41.9 - Sepsis, unspecified organism Status: Acute (6) Hypertension: Code(s): I10 - Essential (primary) hypertension Status: Acute (7) On total parenteral nutrition (TPN): Code(s): Z78.9 - Other specified health status Status: Acute Plan Sepsis Secondary to pneumonia Continue with IV antibiotic Blood culture Gram positive cocci Follow cultures Continue to monitor Bacteremia Possible source PNA Blood culture from 04/25 shows Staph aureus Repeat blood culture pending No echo on file Consulted cardiology for TIMUR Started Vancomycin Monitor leukocytosis Continue cefepime Consulted ID CKD stage 4 Baseline creatinine 2.9 Continue to monitor TPN chronic dietitian on board Continue to monitor Hyponatremia Monitor for now acute on chronic anemia no bleeding reported possible dilutional transfuse if Hb<7 continue to monitor Dm2 not on meds A1c 7 in 2020. 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 Patient has been more confused and weak for past couple of days. Yesterday afternoon his symptoms got worse and was brought to ER for further management.In ER patient was found to have WBC 14.5, tachycardic and LILLY on CKD .CT head negative for acute abnormality. CT chest concerning for right lower lobe pneumonia. Treatment started for sepsis pneumonia with vanc and cefepime. Blood culture was sent. This morning patient is more alert oriented. Follow cultures. Continue antibiotics. Discussed with dietitian. We will start TPN.Creatinine 2.9. Sodium 129.Reviewed previous history. Patient has been in the [facility] several times with similar problem. has been treated for infection. Urine culture previously positive for E coli. 04/27/25 Patient was seen examined at bedside. He is alert and oriented, Denies any chest pain, shortness a friend, abdominal pain, nausea vomiting.WBC improved to 6.2. Hemoglobin dropped to 8.6. No bleeding reported. Continue with IV antibiotics. Continue with TPN.Possible discharge in 1-2 days pending culture result. 04/28/25 Patient was seen examined at bedside. He is alert and oriented, Denies any chest pain, shortness a friend, abdominal pain, nausea vomiting.blood culture positive for Gram positive Cocci. continue vanc and cefepime . follow repeat blood culture results 04/29/25: No acute events reported overnight. Pending blood culture and urine culture. 04/30/25:Patient BC positive for Staph Aureus. Will need to talk to ID or ID pharmacist in regards to culture report which says both susceptible and resistant to PCN to distinguish between MRSA vs MSSA. Will start Vancomycin and consult cardiology for possible TIMUR. Discussed the plan with and the patient who agrees with the plan Review of Systems Review of Systems: ROS unobtainable: Yes unobtainable due to mental status Exam Narrative: GENERAL: Ill appearing, alert and oriented, in no acute distress. HEAD: Normocephalic, atraumatic. RESPIRATORY: Airway patent, respirations mildly tachypneic, scattered rhonchi ariela, no wheezing. CARDIOVASCULAR: Tachycardic with regular rhythm without murmurs, rubs, or gallops. ABDOMINAL: Soft, no appreciable tenderness, colostomy in LLQ, nondistended. Normoactive BS. MUSCULOSKELETAL: Moves all extremities. No gross deformities. No peripheral edema. SKIN: Warm, dry, normal color. NEURO: i. Speech clear.alert and oriented, Cranial nerves II-XII grossly intact. No ataxic movements. PSYCHIATRIC: alert and oriented Objective Data Vital Signs Vital Signs: Vital Signs - 24 hr 04/29/25 08:00 04/29/25 08:16 04/29/25 12:02 Temperature Pulse Rate 79 86 Respiratory Rate 16 Blood Pressure Pulse Oximetry 99 Oxygen Delivery Room Air 04/29/25 14:00 04/29/25 16:03 04/29/25 20:00 Temperature 98.4 F Pulse Rate 84 82 86 Respiratory Rate 18 18 Blood Pressure 138/64 Pulse Oximetry 100 100 Oxygen Delivery Room Air 04/29/25 20:00 04/29/25 20:42 04/30/25 00:00 Temperature 97.9 F Pulse Rate 86 89 79 Respiratory Rate 18 Blood Pressure 140/71 Pulse Oximetry 100 Oxygen Delivery 04/30/25 04:00 04/30/25 06:00 Temperature 98.0 F Pulse Rate 95 83 Respiratory Rate 18 Blood Pressure 150/84 H Pulse Oximetry 98 Oxygen Delivery Intake/Output Intake/Output: Intake & Output 04/27/25 04/28/25 04/29/25 04/30/25 23:59 23:59 23:59 23:59 Intake Total 2905.0 4051.7 3809.5 1002.5 Output Total 1700 2700 3650 300 Balance 1205.0 1351.7 159.5 702.5 Meds/Results Medications: Active Medications Generic Name Dose Route Start Last Admin Trade Name Freq PRN Reason Stop Dose Admin Acetaminophen 650 mg 04/25/25 22:50 Acetaminophen 650 Mg Suppository RECTAL Q6H PRN Mild Pain (1-3) or Fever Allopurinol 100 mg 04/27/25 09:00 04/29/25 08:16 Allopurinol 100 Mg Tablet PO 100 mg DAILY ZHANNA Administration Cyanocobalamin 100 mcg 05/26/25 09:00 Cyanocobalamin Inj 1,000 Mcg/Ml Vial IM MONTHLY ZHANNA Cyclobenzaprine HCl 10 mg 04/26/25 13:46 04/29/25 14:15 Cyclobenzaprine Hcl 10 Mg Tablet PO 10 mg TID PRN Administration Muscle Spasm Dextrose 12.5 gm 04/27/25 08:27 Dextrose 50% 25 Gm/50 Ml Syringe IV PUSH PRN PRN Hypoglycemia Protocol Enoxaparin Sodium 30 mg 04/27/25 09:00 04/29/25 08:15 Enoxaparin 30 Mg/0.3 Ml Syringe SUB-Q 30 mg DAILY ZHANNA Administration Finasteride 5 mg 04/27/25 09:00 04/29/25 08:15 Finasteride 5 Mg Tablet PO 5 mg DAILY ZHANNA Administration Folic Acid 1 mg 04/27/25 09:00 04/29/25 08:16 Folic Acid 1 Mg Tablet PO 1 mg DAILY ZHANNA Administration Glucagon 1 mg 04/27/25 08:27 Glucagon For Inj 1 Mg Vial IM PRN PRN Hypoglycemia Protocol Glucose 15 gm 04/27/25 08:27 Glucose Oral Gel 15 Gm Of Glucse In 37.5 Gm Tube PO PRN PRN Hypoglycemia Protocol Cefepime HCl 2 gm/ Sodium 50 mls @ 100 mls/hr 04/26/25 19:00 04/29/25 18:40 Chloride IVPB Infused Q24H ZHANNA Infusion Dextrose 1,000 mls @ 50 mls/hr 04/26/25 13:47 Dextrose 10% IV CONT .Q20H PRN if PN is interrupted Multivitamins 1.25 ml/ 1,002.5 mls @ 70 mls/hr 04/26/25 15:00 04/30/25 06:00 Multivitamins 1.25 ml/ Amino IV CONT 70 mls/hr Acids/Electrolytes/Dextrose .[id number] ZHANNA Administration Protocol Dextrose 1,000 mls @ 100 mls/hr 04/27/25 08:27 Dextrose 5% 1,000 Ml IVPB PRN PRN Hypoglycemia Protocol Fat Emulsion Intravenous 250 mls @ 20.833 mls/hr 04/27/25 11:00 04/29/25 22:55 Lipids 20% IVPB Infused Q24H ZHANNA Infusion Insulin Aspart 1 - 2 units 04/27/25 21:00 04/29/25 20:33 Insulin Aspart (*Bkc) 100 Units/Ml SUB-Q Not Given HS [facility] Protocol Insulin Aspart 2 - 5 units 04/27/25 12:00 04/29/25 17:17 Insulin Aspart (*Bkc) 100 Units/Ml SUB-Q Not Given TIDWM [facility] Protocol Losartan Potassium 25 mg 04/27/25 09:00 04/29/25 08:15 Losartan Potassium 25 Mg Tablet PO 25 mg DAILY ZHANNA Administration Ondansetron HCl 4 mg 04/25/25 22:50 Ondansetron Inj 4 Mg/2 Ml Vial IV PUSH Q4H PRN Nausea Sodium Chloride 10 ml 04/29/25 14:00 04/30/25 06:00 Central Line Flush IV PUSH 10 ml Q8HR ZHANNA Administration Sodium Chloride 10 ml 04/29/25 07:58 Central Line Flush IV PUSH PRN PRN with TPN bag changes Sodium Chloride 20 ml 04/29/25 07:58 Central Line Flush IV PUSH PRN PRN after blood draws Tramadol HCl 50 mg 04/26/25 13:46 Tramadol Hcl (*Crx) 50 Mg Tablet PO Q6H PRN Pain 4-6 Vancomycin HCl 1 each 04/25/25 18:58 Vancomycin For Acute Kidney Injury IVPB PRN PRN Vancomycin Protocol Radiology Results: ITS Impressions Chest X-Ray 04/25/25 18:06 Impression: 1: Diffuse bilateral interstitial infiltrates which may represent edema or atypical pneumonia. Head CT 04/25/25 20:26 IMPRESSION: 1. No acute intracranial abnormality. Chest/Abdomen/Pelvis CT 04/25/25 20:28 IMPRESSION: 1. Focal consolidation right lower lobe, suspicious for pneumonia. 2: Increased size of ascending thoracic aortic aneurysm measuring 4.8 cm. 3: Splenomegaly. 4: Stable sclerotic lesions or spine and pelvis, suspicious for stable osseous metastases. Correlate for history of malignancy. Labs Labs: Laboratory Results - last 24 hr 04/29/25 04/29/25 04/29/25 07:58 08:05 11:53 WBC 6.8 RBC 3.42 L Hgb 8.9 L Hct 28.5 L MCV 83.3 MCH 26.0 MCHC 31.2 L RDW 14.0 Plt Count 43 L MPV 12.1 H % Immature Plt Fraction 7.6 Sodium 131 L Potassium 4.5 Chloride 102 Carbon Dioxide 23 Anion Gap 6 BUN 50 H Creatinine 2.55 H Estim Creat Clear Calc 19 Estimated GFR 24 L Glucose 218 H POC Capillary Glucose 224 H 165 H Calcium 8.1 L Phosphorus Total Bilirubin 0.4 AST 20 ALT 15 Alkaline Phosphatase 81 Total Protein 5.9 L Albumin 2.9 L Random Vancomycin 04/29/25 04/29/25 04/29/25 17:06 20:22 20:31 WBC RBC Hgb Hct MCV MCH MCHC RDW Plt Count MPV % Immature Plt Fraction Sodium Potassium Chloride Carbon Dioxide Anion Gap BUN Creatinine Estim Creat Clear Calc Estimated GFR Glucose POC Capillary Glucose 180 H 132 H 162 H Calcium Phosphorus Total Bilirubin AST ALT Alkaline Phosphatase Total Protein Albumin Random Vancomycin 04/30/25 04/30/25 04:33 04:34 WBC 9.0 RBC 3.46 L Hgb 9.1 L Hct 29.0 L MCV 83.8 MCH 26.3 MCHC 31.4 L RDW 13.8 Plt Count 49 L MPV 11.7 H % Immature Plt Fraction 7.4 Sodium 130 L Potassium 4.9 Chloride 102 Carbon Dioxide 20 L Anion Gap 8 BUN 55 H Creatinine 2.66 H Estim Creat Clear Calc 19 Estimated GFR 23 L Glucose 310 H POC Capillary Glucose Calcium 8.4 Phosphorus 4.7 H Total Bilirubin 0.4 AST 23 ALT 17 Alkaline Phosphatase 83 Total Protein 6.1 L Albumin 3.0 L Random Vancomycin 18.6 Hospitalist MIPS Advance Care Plan I have confirmed that the patient's Advanced Care Plan is present, code status is documented, or surrogate decision maker is listed in patient medical record.: Yes Medication Reconciliation I have utilized all available resources to obtain, update and review the patients current medications (includes all prescriptions, OTC, herbals, cannabis, and nutritional supplements).: Yes
[2025-04-30] MEDS: FINASTERIDE 5 MG TABLET PO (08:22)
[2025-04-30] MEDS: FOLIC ACID 1 MG TABLET PO (08:22)
[2025-04-30] MEDS: LOSARTAN POTASSIUM 25 MG TABLET PO (08:22)
[2025-04-30 10:18] LABS: Triglycerides 35 mg/dL (<150)
[2025-04-30] MEDS: FAT EMULSIONS IV 20% 250 ML 20.83 ML IVPB (12:43)
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
[2025-04-30] MEDS: ceFAZolin 2 GM in SODIUM CHLORIDE 0.9% IV 50 ML 100 ML IVPB (18:35)
[2025-05-01] VITALS (9 sets, daily range): BP systolic 124–148; BP diastolic 64–71; PULSE 8–105; RESP 16–20; TEMP 36.7–37.2; O2SAT 98–100
--- NOTE | 2025-05-01 | ECHO_ITS ---
Patient Info Name: Qing Reinoso Age: 79 years : 1945 Gender: Male Ht: 66 in Wt: 164 lbs BSA: 1.88 m2 HR: 95 bpm BP: 124 / 64 mmHg Technical Quality: Fair Exam Date: 05/01/2025 10:05 AM Patient Status: I Admit Date: 04/25/2025 Exam Type: CA echo doppler color flow Complete two-dimensional, color flow and Doppler transthoracic echocardiogram is performed. Staff Referring Physician: Allison Torres Tapper Hand: Anamaria Villarreal Attending Provider: Leticia Reese DO Summary 1. Complete two-dimensional, color flow and Doppler transthoracic echocardiogram is performed. 2. Left ventricular chamber dimension is normal. 3. Left ventricular systolic function is normal, estimated at 60-65. 4. There is mild concentric increased left ventricular wall thickness. 5. The left ventricular diastolic function is grade I diastolic dysfunction. 6. E/e' 6 is not elevated. 7. There is trace mitral valve regurgitation. 8. There is mild tricuspid valve regurgitation. 9. No pulmonary hypertension, estimated pulmonary arterial systolic pressure is 30 mmHg. 10. The aortic root size at the sinus of Valsalva is borderline dilated at 4.2 cm. Left Ventricle E/e' 6 is not elevated. Left ventricular chamber dimension is normal. Left ventricular systolic function is normal, estimated at 60-65. There is mild concentric increased left ventricular wall thickness. The left ventricular diastolic function is grade I diastolic dysfunction. Right Ventricle Right ventricular chamber dimension is normal. Right ventricular systolic function is normal. Left Atria Left atrial chamber dimension is normal. Right Atria Right atrial chamber dimension is normal. Aortic Valve The aortic valve is trileaflet. There is no aortic valve stenosis. There is no aortic valve regurgitation. No aortic valve vegetation visualized. Pulmonic Valve There is no pulmonic regurgitation. No pulmonic valve vegetation visualized. Mitral Valve There is no mitral valve stenosis. There is trace mitral valve regurgitation. No mitral valve vegetation visualized. Tricuspid Valve There is mild tricuspid valve regurgitation. No pulmonary hypertension, estimated pulmonary arterial systolic pressure is 30 mmHg. No tricuspid valve vegetation visualized. Pericardium/Pleural There is no pericardial effusion. Inferior Vena Cava Normal inferior vena cava with >50% collapse upon inspiration consistent with normal right atrial pressure, 5 mmHg. Aorta The aortic root size at the sinus of Valsalva is borderline dilated at 4.2 cm. Left Ventricular Outflow Tract Name Value Normal LVOT 2D LVOT Diameter 2.2 cm LVOT Doppler LVOT Peak Velocity 88 cm/s LVOT Peak Gradient 3 mmHg LVOT Mean Gradient 2 mmHg LVOT VTI 17 cm LVOT VTI/AV VTI Ratio 0.8 LVOT Stroke Volume 66 ml LVOT CO 14.8 l/min LVOT CI 7.9 l/min/m2 Pulmonic Valve Name Value Normal PV Doppler PV Peak Velocity 124 cm/s PV Peak Gradient 6 mmHg Mitral Valve Name Value Normal MV Diastolic Function MV E Peak Velocity 67 cm/s MV A Peak Velocity 125 cm/s MV E/A 0.5 MV Decel Time (PW) 192 ms MV Annular TDI MV E/e' (Lateral) 6.8 Tricuspid Valve Name Value Normal TV Regurgitation Doppler TR Peak Velocity 252 cm/s TR Peak Gradient 25 mmHg Estimated PAP/RSVP RA Pressure 5 mmHg <=5 PA Systolic Pressure 30 mmHg <36 RV Systolic Pressure 30 mmHg <36 TV Annular TDI TV Lateral Kelly s' Velocity 12.9 cm/s >=9.5 Aorta Name Value Normal Ascending Aorta Ao Root Diameter (MM) 4.4 cm Ao Root Diam Index (MM) 2.4 cm/m2 Aortic Valve Name Value Normal AV Doppler AV Peak Velocity 110 cm/s AV Peak Gradient 5 mmHg AV Mean Gradient 3 mmHg AV VTI 21 cm AV Area (Cont Eq VTI) 3.2 cm2 >=3.0 AV Area (Cont Eq Carlos) 3.1 cm2 AV DI (Carlos) 0.80 AV Regurgitation 2D LVOT Area 3.9 cm2 Ventricles Name Value Normal LV Dimensions 2D/MM IVS Diastolic Thickness (2D) 1.3 cm 0.6-1.0 LVID Diastole (2D) 4.3 cm 4.2-5.8 LVIW Diastolic Thickness (2D) 1.0 cm 0.6-1.0 LVID Systole (2D) 3.2 cm 2.5-4.0 LVOT Diameter 2.2 cm LV Mass (2D Cubed) 177.97 g 88.00-224.00 LV Mass Index (2D Cubed) 95 g/m2 49-115 Relative Wall Thickness (2D) 0.48 <=0.42 LV Fractional Shortening/Ejection Fraction 2D/MM LV Fractional Shortening (2D) 26 % 25-43 LV EF (2D Teichholz) 51 % LV Diastolic Volume (4C MOD) 96 ml LV EF (4C MOD) 47 % LV Diastolic Volume (2C MOD) 79 ml LV EF (2C MOD) 53 % LV Diastolic Volume (BP MOD) 86 ml 62-150 LV Diastolic Volume Index (BP MOD) 46 ml/m2 34-74 LV Systolic Volume (BP MOD) 45 ml 21-61 LV Systolic Volume Index (BP MOD) 24 ml/m2 11-31 LV EF (BP MOD) 48 % 52-72 LV Diastolic Length (4C) 8.4 cm LV Systolic Length (4C) 6.2 cm LV Stroke Volume (4C MOD) 45 ml RV Dimensions 2D/MM RVID Diastole (2D) 3.3 cm 2.1-3.5 Atria Name Value Normal LA Dimensions LA Dimension (MM) 2.8 cm 3.0-4.0 LA Volume (4C A-L) 46 ml LA Volume (BP A-L) 50 ml RA Dimensions RA Systolic Major [place] Length (4C) 4.7 cm 2.1-2.7 RA Area (4C) 15.0 cm2 <=18.0 Report Signatures
[2025-05-01] MEDS: CENTRAL LINE FLUSH 10 ML IV PUSH ×2 (05:30→18:05)
[2025-05-01] MEDS: ceFAZolin 2 GM in SODIUM CHLORIDE 0.9% IV 50 ML 100 ML IVPB ×2 (05:34→18:05)
[2025-05-01 05:38] LABS: Hematocrit 27.3 % (42.0-52.0); Hemoglobin 8.8 g/dL (14.0-18.0); Immature Granulocyte Percent A 1.5 % (0-0.5); Immature Platelet Fraction Pct 6.1 % (0.9-11.2); Lymphocytes Absolute Auto 0.46 K/mm3 (0.9-3.2); Mean Corpuscular HGB Conc 32.2 g/dl (32-36); Mean Corpuscular Hemoglobin 26.3 pg (26-34); Mean Corpuscular Volume 81.7 fl (80-100); Nucleated Red Blood Cells Absolute Auto 0.000 K/mm3 (0.0-0.012); Nucleated Red Blood Cells Perc 0.0 % (0.0-0.2); Platelet Count Result 53 k/mm3 (150-375); Red Blood Count 3.34 M/mm3 (4.6-6.20); White Blood Count 12.9 K/mm3 (4.5-10.0)
[2025-05-01 05:56] LABS: Alanine Aminotransferase 18 U/L (6-50); Albumin Level 3.0 g/dL (3.5-5.1); Alkaline Phosphatase 93 U/L (38-126); Anion Gap 6 mmol/L (4-12); Aspartate Amino Transferase 27 U/L (17-59); Bilirubin,Total 0.3 mg/dL (0.2-1.3); Blood Urea Nitrogen 63 mg/dL (9-20); Calcium 8.2 mg/dL (8.4-10.2); Carbon Dioxide 20 mmol/L (22-30); Chloride 103 mmol/L (98-107); Estimated CRCL calculation 18 ml/min; Estimated Glomerular Filt Rate 23; Glucose 289 mg/dL (65-110); INR 1.2; Magnesium 1.9 mg/dL (1.6-2.3); Partial Thromboplastin Time 30.6 Seconds (22.3-36.8); Potassium 5.0 mmol/L (3.4-5.0); Prothrombin Time 15.1 Seconds (11.1-14.7); Sodium 129 mmol/L (137-145); Total Protein 6.0 g/dL (6.3-8.2)
[2025-05-01 06:02] LABS: Transferrin 261 mg/dL (206-381)
[2025-05-01 06:04] LABS: Anisocytosis 1+; Hypochromasia 1+; Poikilocytosis 1+
[2025-05-01 06:05] LABS: Crenated RBC 1+; Microcytosis 2+ (NORMAL); Ovalocytes 2+; Schistocytes Rare
--- NOTE | 2025-05-01 07:56 | PM.PNCARD ---
Progress Note: A&P Assessment and Plan (1) Hypertension: Code(s): I10 - Essential (primary) hypertension Status: Acute Assessment and Plan: Stable. (2) Pneumonia: Qualifiers: Laterality: right Lung location: lower lobe of lung Pneumonia type: due to unspecified organism Qualified Code(s): J18.9 - Pneumonia, unspecified organism Code(s): J18.9 - Pneumonia, unspecified organism Status: Acute Assessment and Plan: On antibiotics. (3) Bacteremia: Code(s): R78.81 - Bacteremia Status: Acute Assessment and Plan: Discuss risks/benefits/alternative to TIMUR and patient states he wants to think about it. At first, he said all of his doctors are at [facility] and he wants to be transferred there. Obtain echo today. We'll see if there is a need for TIMUR depending on quality of images. Subjective Date/time seen: 05/01/25 07:56 Interval history: Denies chest pain or sob. Exam Const: General: cooperative, healthy appearing and comfortable Orientation/consciousness: oriented to person, oriented to place and oriented to time Resp: Auscultation: clear to auscultation bilaterally, no crackles, no rales, no rhonchi and no wheezes Cardio: Rate: regular rate Rhythm: regular rhythm Heart sounds: no murmurs Peripheral pulses: dorsalis pedis present Neuro: General: oriented to person, oriented to place and oriented to time Extrem: Right lower extremity: no edema Left lower extremity: no edema Objective Data Vital Signs Vital Signs: Vital Signs - 24 hr 04/30/25 08:00 04/30/25 08:00 04/30/25 12:00 Temperature Pulse Rate 78 93 Respiratory Rate Blood Pressure Pulse Oximetry Oxygen Delivery Room Air Fraction of Inspired Oxygen 04/30/25 14:00 04/30/25 16:00 04/30/25 20:00 Temperature 98 F Pulse Rate 96 98 97 Respiratory Rate 18 16 Blood Pressure 130/75 Pulse Oximetry 100 100 Oxygen Delivery Room Air Fraction of Inspired Oxygen 04/30/25 20:00 04/30/25 21:24 04/30/25 21:25 Temperature 98.0 F Pulse Rate 97 100 98 Respiratory Rate 20 20 Blood Pressure 128/78 Pulse Oximetry 99 95 Oxygen Delivery Room Air Fraction of Inspired Oxygen 05/01/25 00:00 05/01/25 04:00 05/01/25 06:00 Temperature 99.0 F Pulse Rate 87 103 H 105 H Respiratory Rate 20 Blood Pressure 124/64 Pulse Oximetry 98 Oxygen Delivery Fraction of Inspired Oxygen Intake/Output Intake/Output: Intake & Output 04/28/25 04/29/25 04/30/25 05/01/25 23:59 23:59 23:59 23:59 Intake Total 4051.7 3809.5 3535.0 500 Output Total 2700 3650 1100 900 Balance 1351.7 159.5 2435.0 -400 Meds/Results Medications: Active Medications Generic Name Dose Route Start Last Admin Trade Name Freq PRN Reason Stop Dose Admin Acetaminophen 650 mg 04/25/25 22:50 Acetaminophen 650 Mg Suppository RECTAL Q6H PRN Mild Pain (1-3) or Fever Allopurinol 100 mg 04/27/25 09:00 04/30/25 08:22 Allopurinol 100 Mg Tablet PO 100 mg DAILY ZHANNA Administration Cyanocobalamin 100 mcg 05/26/25 09:00 Cyanocobalamin Inj 1,000 Mcg/Ml Vial IM MONTHLY [facility]ANNA Cyclobenzaprine HCl 10 mg 04/26/25 13:46 04/29/25 14:15 Cyclobenzaprine Hcl 10 Mg Tablet PO 10 mg TID PRN Administration Muscle Spasm Dextrose 12.5 gm 04/27/25 08:27 Dextrose 50% 25 Gm/50 Ml Syringe IV PUSH PRN PRN Hypoglycemia Protocol Enoxaparin Sodium 30 mg 04/27/25 09:00 04/30/25 08:08 Enoxaparin 30 Mg/0.3 Ml Syringe SUB-Q Not Given DAILY [facility]ANNA Finasteride 5 mg 04/27/25 09:00 04/30/25 08:22 Finasteride 5 Mg Tablet PO 5 mg DAILY ZHANNA Administration Folic Acid 1 mg 04/27/25 09:00 04/30/25 08:22 Folic Acid 1 Mg Tablet PO 1 mg DAILY ZHANNA Administration Glucagon 1 mg 04/27/25 08:27 Glucagon For Inj 1 Mg Vial IM PRN PRN Hypoglycemia Protocol Glucose 15 gm 04/27/25 08:27 Glucose Oral Gel 15 Gm Of Glucse In 37.5 Gm Tube PO PRN PRN Hypoglycemia Protocol Dextrose 1,000 mls @ 50 mls/hr 04/26/25 13:47 Dextrose 10% IV CONT .Q20H PRN if PN is interrupted Multivitamins 1.25 ml/ 1,002.5 mls @ 70 mls/hr 04/26/25 15:00 04/30/25 23:42 Multivitamins 1.25 ml/ Amino IV CONT 70 mls/hr Acids/Electrolytes/Dextrose .[id number] ZHANNA Administration Protocol Dextrose 1,000 mls @ 100 mls/hr 04/27/25 08:27 Dextrose 5% 1,000 Ml IVPB PRN PRN Hypoglycemia Protocol Fat Emulsion Intravenous 250 mls @ 20.833 mls/hr 04/27/25 11:00 05/01/25 00:44 Lipids 20% IVPB Infused Q24H [facility]ANNA Infusion Cefazolin Sodium 2 gm/ Sodium 50 mls @ 100 mls/hr 04/30/25 18:00 05/01/25 06:04 Chloride IVPB Infused Q12H Z[facility]ANNA Infusion Insulin Aspart 1 - 2 units 04/27/25 21:00 04/30/25 21:46 Insulin Aspart (*Bkc) 100 Units/Ml SUB-Q Not Given HS [facility] Protocol Insulin Aspart 2 - 5 units 04/27/25 12:00 04/30/25 17:31 Insulin Aspart (*Bkc) 100 Units/Ml SUB-Q Not Given TIDWM [facility] Protocol Losartan Potassium 25 mg 04/27/25 09:00 04/30/25 08:22 Losartan Potassium 25 Mg Tablet PO 25 mg DAILY [facility]ANNA Administration Ondansetron HCl 4 mg 04/25/25 22:50 Ondansetron Inj 4 Mg/2 Ml Vial IV PUSH Q4H PRN Nausea Perflutren Lipid Microsphere 0 ml 04/30/25 15:48 Perflutren Lipid Microspheres 1.5 Ml Vial Diluted To 10 Ml Total Volume IV PUSH 05/03/25 15:48 ONCE PRN adequate visualization Protocol Sodium Chloride 10 ml 04/29/25 14:00 05/01/25 05:30 Central Line Flush IV PUSH 10 ml Q8HR ZHANNA Administration Sodium Chloride 10 ml 04/29/25 07:58 Central Line Flush IV PUSH PRN PRN with TPN bag changes Sodium Chloride 20 ml 04/29/25 07:58 Central Line Flush IV PUSH PRN PRN after blood draws Tramadol HCl 50 mg 04/26/25 13:46 Tramadol Hcl (*Crx) 50 Mg Tablet PO Q6H PRN Pain 4-6 Vancomycin HCl 1 each 04/25/25 18:58 Vancomycin For Acute Kidney Injury IVPB PRN PRN Vancomycin Protocol Radiology Results: ITS Impressions Chest X-Ray 04/25/25 18:06 Impression: 1: Diffuse bilateral interstitial infiltrates which may represent edema or atypical pneumonia. Head CT 04/25/25 20:26 IMPRESSION: 1. No acute intracranial abnormality. Chest/Abdomen/Pelvis CT 04/25/25 20:28 IMPRESSION: 1. Focal consolidation right lower lobe, suspicious for pneumonia. 2: Increased size of ascending thoracic aortic aneurysm measuring 4.8 cm. 3: Splenomegaly. 4: Stable sclerotic lesions or spine and pelvis, suspicious for stable osseous metastases. Correlate for history of malignancy. Labs Labs: Laboratory Results - last 24 hr 04/30/25 04/30/25 04/30/25 04:34 07:51 11:14 WBC RBC Hgb Hct MCV MCH MCHC RDW Plt Count MPV Immature Gran % (Auto) Neut % (Auto) Lymph % (Auto) Crisp % (Auto) Eos % (Auto) Baso % (Auto) Lymph # (Auto) Crisp # (Auto) Eos # (Auto) Baso # (Auto) Abs Immat Gran (auto) Absolute Neuts (auto) Absolute Nucleated RBC Band Neutrophils % Nucleated RBC % Platelet Estimate % Immature Plt Fraction Hypochromasia Poikilocytosis Anisocytosis Microcytosis Ovalocytes Crenated Cell Schistocytes PT INR APTT Sodium Potassium Chloride Carbon Dioxide Anion Gap BUN Creatinine Estim Creat Clear Calc Estimated GFR Glucose POC Capillary Glucose 191 H 151 H Calcium Phosphorus Magnesium Transferrin Total Bilirubin AST ALT Alkaline Phosphatase Total Protein Albumin Triglycerides 35 Random Vancomycin 04/30/25 04/30/25 05/01/25 16:18 21:18 05:22 WBC 12.9 H RBC 3.34 L Hgb 8.8 L Hct 27.3 L MCV 81.7 MCH 26.3 MCHC 32.2 RDW 14.0 Plt Count 53 L MPV 11.3 H Immature Gran % (Auto) 1.5 H Neut % (Auto) 88.0 H Lymph % (Auto) 3.6 L Crisp % (Auto) 5.8 Eos % (Auto) 0.9 Baso % (Auto) 0.2 Lymph # (Auto) 0.46 L Crisp # (Auto) 0.8 H Eos # (Auto) 0.1 Baso # (Auto) 0.0 Abs Immat Gran (auto) 0.19 H Absolute Neuts (auto) 11.3 H Absolute Nucleated RBC 0.000 Band Neutrophils % Not Reportable Nucleated RBC % 0.0 Platelet Estimate Decreased % Immature Plt Fraction 6.1 Hypochromasia 1+ Poikilocytosis 1+ Anisocytosis 1+ Microcytosis 2+ Ovalocytes 2+ Crenated Cell 1+ Schistocytes Rare PT 15.1 H INR 1.2 APTT 30.6 Sodium 129 L Potassium 5.0 Chloride 103 Carbon Dioxide 20 L Anion Gap 6 BUN 63 H Creatinine 2.73 H Estim Creat Clear Calc 18 Estimated GFR 23 L Glucose 289 H POC Capillary Glucose 159 H 131 H Calcium 8.2 L Phosphorus 4.0 Magnesium 1.9 Transferrin 261 Total Bilirubin 0.3 AST 27 ALT 18 Alkaline Phosphatase 93 Total Protein 6.0 L Albumin 3.0 L Triglycerides Random Vancomycin 23.9 H
[2025-05-01] MEDS: FOLIC ACID 1 MG TABLET PO (09:17)
[2025-05-01] MEDS: LOSARTAN POTASSIUM 25 MG TABLET PO (09:17)
[2025-05-01] MEDS: FINASTERIDE 5 MG TABLET PO (09:17)
[2025-05-01] MEDS: AMINO ACIDS 5%/D15W/E-LYTES/CA 1,000 ML with MULTIVITAMINS-12 INJ VIAL 1 1.25 ML, MULTI... 70 ML IV CONT (10:54)
[2025-05-01] MEDS: FAT EMULSIONS IV 20% 250 ML 20.8 ML IVPB (10:54)
--- NOTE | 2025-05-01 15:14 | P.PNIM_ITS ---
Progress Note: A&P Assessment and Plan (1) CKD (chronic kidney disease): Qualifiers: Chronic kidney disease stage: unspecified stage Qualified Code(s): N18.9 - Chronic kidney disease, unspecified Code(s): N18.9 - Chronic kidney disease, unspecified Status: Acute (2) Hyponatremia: Code(s): E87.1 - Hypo-osmolality and hyponatremia Status: Acute (3) AMS (altered mental status): Qualifiers: Altered mental status type: unspecified Qualified Code(s): R41.82 - Altered mental status, unspecified Code(s): R41.82 - Altered mental status, unspecified Status: Acute (4) Pneumonia: Qualifiers: Laterality: right Lung location: lower lobe of lung Pneumonia type: due to unspecified organism Qualified Code(s): J18.9 - Pneumonia, unspecified organism Code(s): J18.9 - Pneumonia, unspecified organism Status: Acute (5) Sepsis: Qualifiers: Sepsis acute organ dysfunction status: unspecified Sepsis type: sepsis due to unspecified organism Qualified Code(s): A41.9 - Sepsis, unspecified organism Code(s): A41.9 - Sepsis, unspecified organism Status: Acute (6) Hypertension: Code(s): I10 - Essential (primary) hypertension Status: Acute (7) On total parenteral nutrition (TPN): Code(s): Z78.9 - Other specified health status Status: Acute Plan Sepsis Secondary to pneumonia Continue with IV antibiotic Blood culture Gram positive cocci identified as MSSA Follow cultures Continue to monitor Bacteremia Possible source PNA Blood culture from 04/25 shows Staph aureus Repeat blood culture coming back positive again No echo on file TTE with no endocarditis. Cardiology on board potential TIMUR planned Started Vancomycin Monitor leukocytosis Antibiotics switched to Ancef Consulted ID CKD stage 4 Baseline creatinine 2.9 Continue to monitor TPN chronic dietitian on board Continue to monitor Hyponatremia Monitor for now acute on chronic anemia no bleeding reported possible dilutional transfuse if Hb<7 continue to monitor Dm2 not on meds A1c 7 in 2020. 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 Remains afebrile. Getting TTE today. Cardiology on board. Review of Systems Review of Systems: All systems reviewed & are unremarkable except as noted in HPI and below Exam Narrative: GENERAL: Ill appearing, alert and oriented, in no acute distress. HEAD: Normocephalic, atraumatic. RESPIRATORY: Airway patent, no respiratory distress clear to auscultation CARDIOVASCULAR: Regular rate regular rhythm without murmurs, rubs, or gallops. ABDOMINAL: Soft, no appreciable tenderness, colostomy in LLQ, nondistended. Normoactive BS. MUSCULOSKELETAL: Moves all extremities. No gross deformities. No peripheral edema. SKIN: Warm, dry, normal color. NEURO: i. Speech clear.alert and oriented, Cranial nerves II-XII grossly intact. No ataxic movements. PSYCHIATRIC: alert and oriented Objective Data Vital Signs Vital Signs: Vital Signs - 24 hr 04/30/25 16:00 04/30/25 20:00 04/30/25 20:00 Temperature Pulse Rate 98 97 97 Respiratory Rate 16 Blood Pressure Pulse Oximetry 100 Oxygen Delivery Room Air Fraction of Inspired Oxygen 04/30/25 21:24 04/30/25 21:25 05/01/25 00:00 Temperature 98.0 F Pulse Rate 100 98 87 Respiratory Rate 20 20 Blood Pressure 128/78 Pulse Oximetry 99 95 Oxygen Delivery Room Air Fraction of Inspired Oxygen 21 05/01/25 04:00 05/01/25 06:00 05/01/25 08:00 Temperature 99.0 F Pulse Rate 103 H 105 H 96 Respiratory Rate 20 Blood Pressure 124/64 Pulse Oximetry 98 Oxygen Delivery Fraction of Inspired Oxygen 05/01/25 08:00 05/01/25 13:45 Temperature 98.6 F Pulse Rate 93 Respiratory Rate 16 Blood Pressure 134/71 Pulse Oximetry 100 Oxygen Delivery Room Air Fraction of Inspired Oxygen Intake/Output Intake/Output: Intake & Output 04/28/25 04/29/25 04/30/25 05/01/25 23:59 23:59 23:59 23:59 Intake Total 4051.7 3809.5 3535.0 1524 Output Total 2700 3650 1100 900 Balance 1351.7 159.5 2435.0 624 Meds/Results Medications: Active Medications Generic Name Dose Route Start Last Admin Trade Name Micheleq PRN Reason Stop Dose Admin Acetaminophen 650 mg 04/25/25 22:50 Acetaminophen 650 Mg Suppository RECTAL Q6H PRN Mild Pain (1-3) or Fever Allopurinol 100 mg 04/27/25 09:00 05/01/25 09:17 Allopurinol 100 Mg Tablet PO 100 mg DAILY ZHANNA Administration Cyanocobalamin 100 mcg 05/26/25 09:00 Cyanocobalamin Inj 1,000 Mcg/Ml Vial IM MONTHLY [facility] Cyclobenzaprine HCl 10 mg 04/26/25 13:46 04/29/25 14:15 Cyclobenzaprine Hcl 10 Mg Tablet PO 10 mg TID PRN Administration Muscle Spasm Dextrose 12.5 gm 04/27/25 08:27 Dextrose 50% 25 Gm/50 Ml Syringe IV PUSH PRN PRN Hypoglycemia Protocol Enoxaparin Sodium 30 mg 04/27/25 09:00 05/01/25 09:02 Enoxaparin 30 Mg/0.3 Ml Syringe SUB-Q Not Given DAILY [facility] Finasteride 5 mg 04/27/25 09:00 05/01/25 09:17 Finasteride 5 Mg Tablet PO 5 mg DAILY ZHANNA Administration Folic Acid 1 mg 04/27/25 09:00 05/01/25 09:17 Folic Acid 1 Mg Tablet PO 1 mg DAILY ZHANNA Administration Glucagon 1 mg 04/27/25 08:27 Glucagon For Inj 1 Mg Vial IM PRN PRN Hypoglycemia Protocol Glucose 15 gm 04/27/25 08:27 Glucose Oral Gel 15 Gm Of Glucse In 37.5 Gm Tube PO PRN PRN Hypoglycemia Protocol Dextrose 1,000 mls @ 50 mls/hr 04/26/25 13:47 Dextrose 10% IV CONT .Q20H PRN if PN is interrupted Multivitamins 1.25 ml/ 1,002.5 mls @ 70 mls/hr 04/26/25 15:00 05/01/25 10:54 Multivitamins 1.25 ml/ Amino IV CONT 70 mls/hr Acids/Electrolytes/Dextrose .[id number] ZHANNA Administration Protocol Dextrose 1,000 mls @ 100 mls/hr 04/27/25 08:27 Dextrose 5% 1,000 Ml IVPB PRN PRN Hypoglycemia Protocol Fat Emulsion Intravenous 250 mls @ 20.833 mls/hr 04/27/25 11:00 05/01/25 10:54 Lipids 20% IVPB 20.8 mls/hr Q24H [facility] Administration Cefazolin Sodium 2 gm/ Sodium 50 mls @ 100 mls/hr 04/30/25 18:00 05/01/25 06 :04 Chloride IVPB Infused Q12H [facility]HANNA Infusion Insulin Aspart 1 - 2 units 04/27/25 21:00 04/30/25 21:46 Insulin Aspart (*Bkc) 100 Units/Ml SUB-Q Not Given HS [facility] Protocol Insulin Aspart 2 - 5 units 04/27/25 12:00 05/01/25 11:47 Insulin Aspart (*Bkc) 100 Units/Ml SUB-Q Not Given TIDWM [facility] Protocol Losartan Potassium 25 mg 04/27/25 09:00 05/01/25 09:17 Losartan Potassium 25 Mg Tablet PO 25 mg DAILY ZHANNA Administration Ondansetron HCl 4 mg 04/25/25 22:50 Ondansetron Inj 4 Mg/2 Ml Vial IV PUSH Q4H PRN Nausea Perflutren Lipid Microsphere 0 ml 04/30/25 15:48 Perflutren Lipid Microspheres 1.5 Ml Vial Diluted To 10 Ml Total Volume IV PUSH 05/03/25 15:48 ONCE PRN adequate visualization Protocol Sodium Chloride 10 ml 04/29/25 14:00 05/01/25 05:30 Central Line Flush IV PUSH 10 ml Q8HR ZHANNA Administration Sodium Chloride 10 ml 04/29/25 07:58 Central Line Flush IV PUSH PRN PRN with TPN bag changes Sodium Chloride 20 ml 04/29/25 07:58 Central Line Flush IV PUSH PRN PRN after blood draws Tramadol HCl 50 mg 04/26/25 13:46 Tramadol Hcl (*Crx) 50 Mg Tablet PO Q6H PRN Pain 4-6 Trazodone HCl 25 mg 05/01/25 21:00 Trazodone Hcl 25 Mg Tablet PO [facility] Radiology Results: ITS Impressions Chest X-Ray 04/25/25 18:06 Impression: 1: Diffuse bilateral interstitial infiltrates which may represent edema or atypi shoaib pneumonia. Head CT 04/25/25 20:26 IMPRESSION: 1. No acute intracranial abnormality. Chest/Abdomen/Pelvis CT 04/25/25 20:28 IMPRESSION: 1. Focal consolidation right lower lobe, suspicious for pneumonia. 2: Increased size of ascending thoracic aortic aneurysm measuring 4.8 cm. 3: Splenomegaly. 4: Stable sclerotic lesions or spine and pelvis, suspicious for stable osseous metastases. Correlate for history of malignancy. Labs Labs: Laboratory Results - last 24 hr 04/30/25 04/30/25 05/01/25 16:18 21:18 05:22 WBC 12.9 H RBC 3.34 L Hgb 8.8 L Hct 27.3 L MCV 81.7 MCH 26.3 MCHC 32.2 RDW 14.0 Plt Count 53 L MPV 11.3 H Immature Gran % (Auto) 1.5 H Neut % (Auto) 88.0 H Lymph % (Auto) 3.6 L [place]ansom % (Auto) 5.8 Eos % (Auto) 0.9 Baso % (Auto) 0.2 Lymph # (Auto) 0.46 L [place]ansom # (Auto) 0.8 H Eos # (Auto) 0.1 Baso # (Auto) 0.0 Abs Immat Gran (auto) 0.19 H Absolute Neuts (auto) 11.3 H Absolute Nucleated RBC 0.000 Band Neutrophils % Not Reportable Nucleated RBC % 0.0 Platelet Estimate Decreased % Immature Plt Fraction 6.1 Hypochromasia 1+ Poikilocytosis 1+ Anisocytosis 1+ Microcytosis 2+ Ovalocytes 2+ Crenated Cell 1+ Schistocytes Rare PT 15.1 H INR 1.2 APTT 30.6 Sodium 129 L Potassium 5.0 Chloride 103 Carbon Dioxide 20 L Anion Gap 6 BUN 63 H Creatinine 2.73 H Estim Creat Clear Calc 18 Estimated GFR 23 L Glucose 289 H POC Capillary Glucose 159 H 131 H Calcium 8.2 L Phosphorus 4.0 Magnesium 1.9 Transferrin 261 Total Bilirubin 0.3 AST 27 ALT 18 Alkaline Phosphatase 93 Total Protein 6.0 L Albumin 3.0 L Random Vancomycin 23.9 H 05/01/25 05/01/25 07:51 12:08 WBC RBC Hgb Hct MCV MCH MCHC RDW Plt Count MPV Immature Gran % (Auto) Neut % (Auto) Lymph % (Auto) [place] % (Auto) Eos % (Auto) Baso % (Auto) Lymph # (Auto) [place]ansom # (Auto) Eos # (Auto) Baso # (Auto) Abs Immat Gran (auto) Absolute Neuts (auto) Absolute Nucleated RBC Band Neutrophils % Nucleated RBC % Platelet Estimate % Immature Plt Fraction Hypochromasia Poikilocytosis Anisocytosis Microcytosis Ovalocytes Crenated Cell Schistocytes PT INR APTT Sodium Potassium Chloride Carbon Dioxide Anion Gap BUN Creatinine Estim Creat Clear Calc Estimated GFR Glucose POC Capillary Glucose 191 H 157 H Calcium Phosphorus Magnesium Transferrin Total Bilirubin AST ALT Alkaline Phosphatase Total Protein Albumin Random Vancomycin
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
[2025-05-02] VITALS (10 sets, daily range): BP systolic 120–135; BP diastolic 63–75; PULSE 88–107; RESP 18–20; TEMP 36.6–36.7; O2SAT 100
[2025-05-02] MEDS: CENTRAL LINE FLUSH 10 ML IV PUSH ×4 (00:02→22:43)
[2025-05-02] MEDS: AMINO ACIDS 5%/D15W/E-LYTES/CA 1,000 ML with MULTIVITAMINS-12 INJ VIAL 1 1.25 ML, MULTI... 70 ML IV CONT ×2 (01:35→15:43)
[2025-05-02 05:00] LABS: Triglycerides 35 mg/dL (<150)
[2025-05-02] MEDS: ceFAZolin 2 GM in SODIUM CHLORIDE 0.9% IV 50 ML 100 ML IVPB ×2 (05:23→17:44)
--- NOTE | 2025-05-02 07:40 | PM.PNCARD ---
Progress Note: A&P Assessment and Plan (1) Hypertension: Code(s): I10 - Essential (primary) hypertension Status: Acute Assessment and Plan: Stable. (2) Pneumonia: Qualifiers: Laterality: right Lung location: lower lobe of lung Pneumonia type: due to unspecified organism Qualified Code(s): J18.9 - Pneumonia, unspecified organism Code(s): J18.9 - Pneumonia, unspecified organism Status: Acute Assessment and Plan: On antibiotics. (3) Bacteremia: Code(s): R78.81 - Bacteremia Status: Acute Assessment and Plan: Discuss risks/benefits/alternative to TIMUR and patient states he wants to think about it. At first, he said all of his doctors are at [facility] and he wants to be transferred there. 05/01/25 TTE: Good quality images. EF 60-65%, mild LVH, grade I diastolic dysfunction (E/e' 6), trace MR, mild TR, aortic root dilated at 4.2 cm, no vegetations involving valves. He had another set of blood cultures drawn on 05/01/25. If positive for bacteremia, then will need TIMUR. Subjective Date/time seen: 05/02/25 07:40 Interval history: Denies chest pain or sob. No complaints today. Exam Const: General: cooperative, healthy appearing and comfortable Orientation/consciousness: oriented to person, oriented to place and oriented to time Resp: Auscultation: clear to auscultation bilaterally, no crackles, no rales, no rhonchi and no wheezes Cardio: Rate: regular rate Rhythm: regular rhythm Heart sounds: no murmurs Peripheral pulses: dorsalis pedis present Neuro: General: oriented to person, oriented to place and oriented to time Extrem: Right lower extremity: no edema Left lower extremity: no edema Objective Data Vital Signs Vital Signs: Vital Signs - 24 hr 05/01/25 08:00 05/01/25 08:00 05/01/25 12:00 Temperature Pulse Rate 96 91 Respiratory Rate Blood Pressure Pulse Oximetry Oxygen Delivery Room Air 05/01/25 13:45 05/01/25 16:00 05/01/25 20:00 Temperature 98.6 F Pulse Rate 93 90 Respiratory Rate 16 Blood Pressure 134/71 Pulse Oximetry 100 Oxygen Delivery Room Air 05/01/25 20:00 05/01/25 20:32 05/02/25 00:00 Temperature 98.0 F Pulse Rate 8 L 84 107 H Respiratory Rate 18 Blood Pressure 148/71 H Pulse Oximetry 100 Oxygen Delivery 05/02/25 04:00 05/02/25 04:26 Temperature 97.9 F Pulse Rate 100 101 H Respiratory Rate 20 Blood Pressure 120/75 Pulse Oximetry 100 Oxygen Delivery Intake/Output Intake/Output: Intake & Output 04/29/25 04/30/25 05/01/25 05/02/25 23:59 23:59 23:59 23:59 Intake Total 3809.5 3535.0 2164 1172.5 Output Total 3650 1100 900 Balance 159.5 2435.0 1264 1172.5 Meds/Results Medications: Active Medications Generic Name Dose Route Start Last Admin Trade Name Freq PRN Reason Stop Dose Admin Acetaminophen 650 mg 04/25/25 22:50 Acetaminophen 650 Mg Suppository RECTAL Q6H PRN Mild Pain (1-3) or Fever Allopurinol 100 mg 04/27/25 09:00 05/01/25 09:17 Allopurinol 100 Mg Tablet PO 100 mg DAILY ZHANNA Administration Cyanocobalamin 100 mcg 05/26/25 09:00 Cyanocobalamin Inj 1,000 Mcg/Ml Vial IM MONTHLY ZHANNA Cyclobenzaprine HCl 10 mg 04/26/25 13:46 04/29/25 14:15 Cyclobenzaprine Hcl 10 Mg Tablet PO 10 mg TID PRN Administration Muscle Spasm Dextrose 12.5 gm 04/27/25 08:27 Dextrose 50% 25 Gm/50 Ml Syringe IV PUSH PRN PRN Hypoglycemia Protocol Enoxaparin Sodium 30 mg 04/27/25 09:00 05/01/25 09:02 Enoxaparin 30 Mg/0.3 Ml Syringe SUB-Q Not Given DAILY ZHANNA Finasteride 5 mg 04/27/25 09:00 05/01/25 09:17 Finasteride 5 Mg Tablet PO 5 mg DAILY ZHANNA Administration Folic Acid 1 mg 04/27/25 09:00 05/01/25 09:17 Folic Acid 1 Mg Tablet PO 1 mg DAILY ZHANNA Administration Glucagon 1 mg 04/27/25 08:27 Glucagon For Inj 1 Mg Vial IM PRN PRN Hypoglycemia Protocol Glucose 15 gm 04/27/25 08:27 Glucose Oral Gel 15 Gm Of Glucse In 37.5 Gm Tube PO PRN PRN Hypoglycemia Protocol Dextrose 1,000 mls @ 50 mls/hr 04/26/25 13:47 Dextrose 10% IV CONT .Q20H PRN if PN is interrupted Multivitamins 1.25 ml/ 1,002.5 mls @ 70 mls/hr 04/26/25 15:00 05/02/25 01:35 Multivitamins 1.25 ml/ Amino IV CONT 70 mls/hr Acids/Electrolytes/Dextrose .[id number] ZHANNA Administration Protocol Dextrose 1,000 mls @ 100 mls/hr 04/27/25 08:27 Dextrose 5% 1,000 Ml IVPB PRN PRN Hypoglycemia Protocol Fat Emulsion Intravenous 250 mls @ 20.833 mls/hr 04/27/25 11:00 05/01/25 10:54 Lipids 20% IVPB 20.8 mls/hr Q24H ZHANNA Administration Cefazolin Sodium 2 gm/ Sodium 50 mls @ 100 mls/hr 04/30/25 18:00 05/02/25 05:53 Chloride IVPB Infused Q12H ZHANNA Infusion Insulin Aspart 1 - 2 units 04/27/25 21:00 05/01/25 21:22 Insulin Aspart (*Bkc) 100 Units/Ml SUB-Q Not Given HS ZHANNA Protocol Insulin Aspart 2 - 5 units 04/27/25 12:00 05/01/25 17:07 Insulin Aspart (*Bkc) 100 Units/Ml SUB-Q Not Given TIDWM ZHANNA Protocol Losartan Potassium 25 mg 04/27/25 09:00 05/01/25 09:17 Losartan Potassium 25 Mg Tablet PO 25 mg DAILY ZHANNA Administration Ondansetron HCl 4 mg 04/25/25 22:50 Ondansetron Inj 4 Mg/2 Ml Vial IV PUSH Q4H PRN Nausea Perflutren Lipid Microsphere 0 ml 04/30/25 15:48 Perflutren Lipid Microspheres 1.5 Ml Vial Diluted To 10 Ml Total Volume IV PUSH 05/03/25 15:48 ONCE PRN adequate visualization Protocol Sodium Chloride 10 ml 04/29/25 14:00 05/02/25 05:54 Central Line Flush IV PUSH 10 ml Q8HR ZHANNA Administration Sodium Chloride 10 ml 04/29/25 07:58 Central Line Flush IV PUSH PRN PRN with TPN bag changes Sodium Chloride 20 ml 04/29/25 07:58 Central Line Flush IV PUSH PRN PRN after blood draws Tramadol HCl 50 mg 04/26/25 13:46 Tramadol Hcl (*Crx) 50 Mg Tablet PO Q6H PRN Pain 4-6 Trazodone HCl 25 mg 05/01/25 21:00 05/01/25 20:28 Trazodone Hcl 25 Mg Tablet PO 25 mg HS ZHANNA Administration Radiology Results: ITS Impressions Chest X-Ray 04/25/25 18:06 Impression: 1: Diffuse bilateral interstitial infiltrates which may represent edema or atypical pneumonia. Head CT 04/25/25 20:26 IMPRESSION: 1. No acute intracranial abnormality. Chest/Abdomen/Pelvis CT 04/25/25 20:28 IMPRESSION: 1. Focal consolidation right lower lobe, suspicious for pneumonia. 2: Increased size of ascending thoracic aortic aneurysm measuring 4.8 cm. 3: Splenomegaly. 4: Stable sclerotic lesions or spine and pelvis, suspicious for stable osseous metastases. Correlate for history of malignancy. Labs Labs: Laboratory Results - last 24 hr 05/01/25 05/01/25 05/01/25 07:51 12:08 16:49 POC Capillary Glucose 191 H 157 H 172 H Phosphorus Triglycerides 05/01/25 05/02/25 20:36 04:26 POC Capillary Glucose 168 H Phosphorus 4.4 Triglycerides 35
[2025-05-02] MEDS: ENOXAPARIN 30 MG/0.3 ML SYRINGE SUB-Q (08:47)
[2025-05-02] MEDS: LOSARTAN POTASSIUM 25 MG TABLET PO (08:48)
[2025-05-02] MEDS: FOLIC ACID 1 MG TABLET PO (08:48)
[2025-05-02] MEDS: FINASTERIDE 5 MG TABLET PO (08:48)
--- NOTE | 2025-05-02 10:22 | WPDINFPN2 ---
Progress Note: A&P Assessment and Plan (1) MSSA bacteremia: Code(s): R78.81 - Bacteremia; B95.61 - Methicillin susceptible Staphylococcus aureus infection as the cause of diseases classified elsewhere Status: Acute (2) CLABSI (central line-associated bloodstream infection): Code(s): T80.211A - Bloodstream infection due to central venous catheter, initial encounter Status: Acute (3) On total parenteral nutrition (TPN): Code(s): Z78.9 - Other specified health status Status: Acute (4) CKD (chronic kidney disease): Qualifiers: Chronic kidney disease stage: unspecified stage Qualified Code(s): N18.9 - Chronic kidney disease, unspecified Code(s): N18.9 - Chronic kidney disease, unspecified Status: Acute (5) Sepsis: Qualifiers: Sepsis acute organ dysfunction status: unspecified Sepsis type: sepsis due to unspecified organism Qualified Code(s): A41.9 - Sepsis, unspecified organism Code(s): A41.9 - Sepsis, unspecified organism Status: Acute Plan # MSSA bacteremia present on admission. Likely secondary to longstanding PICC ( CLABSI ) versus MSSA pneumonia. -- immediate follow-up blood cultures still positive but in less number of bottles. # Chronic PICC use for supplemental TPN in the setting of distal esophageal and total gastrectomy. -- History of prior PICC CLBSI's. -- may have limited access sites for new PICC placement. 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 # Chronic kidney disease stage 4. Plan: -- continue cefazolin 2 g IV q.12 hours. -- follow repeat blood cultures. -- if 05/01 repeat blood cultures again positive for MSSA would proceed with TIMUR. -- ideally, would recommend PICC removal and replacement. However, per patient history he may be running out of IV access sites. Consequently, if able to clear blood stream may consider an attempt at a line salvage with plan for 2 weeks of IV antibiotics from 1st true negative blood culture (05/01?) followed by a variable course of oral antibiotics (Keflex). -- patient requested if line absolutely requires removal and replacement he be transferred to [facility]. -- further recommendations to follow. Patient was seen via video telehealth consultation with the assistance of staff. Chart, data, and patient independently reviewed. Patient was located at [facility] while I was located in my [place] office. Received verbal consent from patient. Subjective Date/time seen: 05/02/25 10:22 Interval history: 05/02/2025: afebrile and with stable vital signs. Repeat blood cultures pending. at bedside and confirms patient's prior CLABSI's have involved multiple organisms over time. However, last line infection appears to also have involved MSSA in December or January and PICC was changed at that time. Blood cultures 04/25: Positive MSSA In multiple bottles. Blood cultures 04/27: Positive MSSA in 1/4 bottles. Blood cultures 05/01: Pending Review of Systems Review of Systems: Improved weakness. No pain to left chest PICC site. All systems reviewed & are unremarkable except as noted in HPI and below Exam Narrative: Awake and alert and interactive. Normocephalic and without conjunctivitis. Nonlabored respirations. Abdomen without significant distention. No rash. Left upper extremity PICC site without inflammation. Objective Data Vital Signs Vital Signs: Vital Signs - 24 hr 05/01/25 12:00 05/01/25 13:45 05/01/25 16:00 Temperature 98.6 F Pulse Rate 91 93 90 Respiratory Rate 16 Blood Pressure 134/71 Pulse Oximetry 100 Oxygen Delivery 05/01/25 20:00 05/01/25 20:00 05/01/25 20:32 Temperature 98.0 F Pulse Rate 8 L 84 Respiratory Rate 18 Blood Pressure 148/71 H Pulse Oximetry 100 Oxygen Delivery Room Air 05/02/25 00:00 05/02/25 04:00 05/02/25 04:26 Temperature 97.9 F Pulse Rate 107 H 100 101 H Respiratory Rate 20 Blood Pressure 120/75 Pulse Oximetry 100 Oxygen Delivery Intake/Output Intake/Output: Intake & Output 04/29/25 04/30/25 05/01/25 05/02/25 23:59 23:59 23:59 23:59 Intake Total 3809.5 3535.0 2414 1172.5 Output Total 3650 1100 900 Balance 159.5 2435.0 1514 1172.5 Meds/Results Medications: Active Medications Generic Name Dose Route Start Last Admin Trade Name Freq PRN Reason Stop Dose Admin Acetaminophen 650 mg 04/25/25 22:50 Acetaminophen 650 Mg Suppository RECTAL Q6H PRN Mild Pain (1-3) or Fever Allopurinol 100 mg 04/27/25 09:00 05/02/25 08:48 Allopurinol 100 Mg Tablet PO 100 mg DAILY ZHANNA Administration Cyanocobalamin 100 mcg 05/26/25 09:00 Cyanocobalamin Inj 1,000 Mcg/Ml Vial IM MONTHLY ZHANNA Cyclobenzaprine HCl 10 mg 04/26/25 13:46 04/29/25 14:15 Cyclobenzaprine Hcl 10 Mg Tablet PO 10 mg TID PRN Administration Muscle Spasm Dextrose 12.5 gm 04/27/25 08:27 Dextrose 50% 25 Gm/50 Ml Syringe IV PUSH PRN PRN Hypoglycemia Protocol Enoxaparin Sodium 30 mg 04/27/25 09:00 05/02/25 08:47 Enoxaparin 30 Mg/0.3 Ml Syringe SUB-Q 30 mg DAILY ZHANNA Administration Finasteride 5 mg 04/27/25 09:00 05/02/25 08:48 Finasteride 5 Mg Tablet PO 5 mg DAILY ZHANNA Administration Folic Acid 1 mg 04/27/25 09:00 05/02/25 08:48 Folic Acid 1 Mg Tablet PO 1 mg DAILY ZHANNA Administration Glucagon 1 mg 04/27/25 08:27 Glucagon For Inj 1 Mg Vial IM PRN PRN Hypoglycemia Protocol Glucose 15 gm 04/27/25 08:27 Glucose Oral Gel 15 Gm Of Glucse In 37.5 Gm Tube PO PRN PRN Hypoglycemia Protocol Dextrose 1,000 mls @ 50 mls/hr 04/26/25 13:47 Dextrose 10% IV CONT .Q20H PRN if PN is interrupted Multivitamins 1.25 ml/ 1,002.5 mls @ 70 mls/hr 04/26/25 15:00 05/02/25 01:35 Multivitamins 1.25 ml/ Amino IV CONT 70 mls/hr Acids/Electrolytes/Dextrose .[id number] ZHANNA Administration Protocol Dextrose 1,000 mls @ 100 mls/hr 04/27/25 08:27 Dextrose 5% 1,000 Ml IVPB PRN PRN Hypoglycemia Protocol Fat Emulsion Intravenous 250 mls @ 20.833 mls/hr 04/27/25 11:00 05/01/25 22:56 Lipids 20% IVPB Infused Q24H ZHANNA Infusion Cefazolin Sodium 2 gm/ Sodium 50 mls @ 100 mls/hr 04/30/25 18:00 05/02/25 05:53 Chloride IVPB Infused Q12H ZHANNA Infusion Insulin Aspart 1 - 2 units 04/27/25 21:00 05/01/25 21:22 Insulin Aspart (*Bkc) 100 Units/Ml SUB-Q Not Given HS ZHANNA Protocol Insulin Aspart 2 - 5 units 04/27/25 12:00 05/02/25 08:10 Insulin Aspart (*Bkc) 100 Units/Ml SUB-Q Not Given TIDWM [facility] Protocol Losartan Potassium 25 mg 04/27/25 09:00 05/02/25 08:48 Losartan Potassium 25 Mg Tablet PO 25 mg DAILY ZHANNA Administration Ondansetron HCl 4 mg 04/25/25 22:50 Ondansetron Inj 4 Mg/2 Ml Vial IV PUSH Q4H PRN Nausea Perflutren Lipid Microsphere 0 ml 04/30/25 15:48 Perflutren Lipid Microspheres 1.5 Ml Vial Diluted To 10 Ml Total Volume IV PUSH 05/03/25 15:48 ONCE PRN adequate visualization Protocol Sodium Chloride 10 ml 04/29/25 14:00 05/02/25 05:54 Central Line Flush IV PUSH 10 ml Q8HR ZHANNA Administration Sodium Chloride 10 ml 04/29/25 07:58 Central Line Flush IV PUSH PRN PRN with TPN bag changes Sodium Chloride 20 ml 04/29/25 07:58 Central Line Flush IV PUSH PRN PRN after blood draws Tramadol HCl 50 mg 04/26/25 13:46 Tramadol Hcl (*Crx) 50 Mg Tablet PO Q6H PRN Pain 4-6 Trazodone HCl 25 mg 05/01/25 21:00 05/01/25 20:28 Trazodone Hcl 25 Mg Tablet PO 25 mg HS ZHANNA Administration Radiology Results: ITS Impressions Chest X-Ray 04/25/25 18:06 Impression: 1: Diffuse bilateral interstitial infiltrates which may represent edema or atypical pneumonia. Head CT 04/25/25 20:26 IMPRESSION: 1. No acute intracranial abnormality. Chest/Abdomen/Pelvis CT 04/25/25 20:28 IMPRESSION: 1. Focal consolidation right lower lobe, suspicious for pneumonia. 2: Increased size of ascending thoracic aortic aneurysm measuring 4.8 cm. 3: Splenomegaly. 4: Stable sclerotic lesions or spine and pelvis, suspicious for stable osseous metastases. Correlate for history of malignancy. Labs Labs: Laboratory Results - last 24 hr 05/01/25 05/01/25 05/01/25 12:08 16:49 20:36 POC Capillary Glucose 157 H 172 H 168 H Phosphorus Triglycerides 05/02/25 05/02/25 04:26 07:55 POC Capillary Glucose 189 H Phosphorus 4.4 Triglycerides 35
[2025-05-02] MEDS: FAT EMULSIONS IV 20% 250 ML 20.8 ML IVPB (10:30)
--- NOTE | 2025-05-02 10:59 | PCNFU ---
Nutrition Follow-Up Complete: Inability to meet nutrition needs PO related to altered GI function as evidenced by need for full TPN Goal:Meet estimated nutrition needs Pt current nutrition is TPN at 70 ml/hr with DBCC diet and supplements. Last recorded weight is 74.4 kg, stable Bowel Motility: Last reported BM 05/01 Labs Reviewed:Glu 289, BUN 63, Cr 2.73, Na 129, Alb 3.0 Meds Noted: B12, NovoLog, Folic Acid Skin: WNL Additional Notes: Patient remains on TPN at 70 ml/hr, which is providing 1693 kcal/84 gm protein. Patient is tolerating DBCC diet with Glucerna BID. Plans for TIMUR. Agree with diet orders at this time. Monitoring intakes, weights, labs, TPN tolerance, plan of care Follow up Thursday/Thursday
--- NOTE | 2025-05-02 12:05 | PM.IMPN ---
Progress Note: A&P Assessment and Plan (1) CKD (chronic kidney disease): Qualifiers: Chronic kidney disease stage: unspecified stage Qualified Code(s): N18.9 - Chronic kidney disease, unspecified Code(s): N18.9 - Chronic kidney disease, unspecified Status: Acute (2) Hyponatremia: Code(s): E87.1 - Hypo-osmolality and hyponatremia Status: Acute (3) AMS (altered mental status): Qualifiers: Altered mental status type: unspecified Qualified Code(s): R41.82 - Altered mental status, unspecified Code(s): R41.82 - Altered mental status, unspecified Status: Acute (4) Pneumonia: Qualifiers: Laterality: right Lung location: lower lobe of lung Pneumonia type: due to unspecified organism Qualified Code(s): J18.9 - Pneumonia, unspecified organism Code(s): J18.9 - Pneumonia, unspecified organism Status: Acute (5) Sepsis: Qualifiers: Sepsis acute organ dysfunction status: unspecified Sepsis type: sepsis due to unspecified organism Qualified Code(s): A41.9 - Sepsis, unspecified organism Code(s): A41.9 - Sepsis, unspecified organism Status: Acute (6) Hypertension: Code(s): I10 - Essential (primary) hypertension Status: Acute (7) On total parenteral nutrition (TPN): Code(s): Z78.9 - Other specified health status Status: Acute Plan Sepsis Secondary to pneumonia Continue with IV antibiotic Blood culture Gram positive cocci identified as MSSA Follow cultures Continue to monitor Bacteremia Possible source PNA Blood culture from 04/25 12/09 shows Staph aureus Repeat blood culture 04/27 09/10 positive for Gram-positive cocci Repeat blood culture 05/01: Pending TTE with no endocarditis. 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 Remains afebrile. TTE discussed with the patient. Review of Systems Review of Systems: All systems reviewed & are unremarkable except as noted in HPI and below Exam Narrative: GENERAL: Well appearing, alert and oriented, in no acute distress. HEAD: Normocephalic, atraumatic. RESPIRATORY: Airway patent, no respiratory distress clear to auscultation CARDIOVASCULAR: Regular rate regular rhythm without murmurs, rubs, or gallops. ABDOMINAL: Soft, no appreciable tenderness, colostomy in LLQ, nondistended. Normoactive BS. MUSCULOSKELETAL: Moves all extremities. No gross deformities. No peripheral edema. SKIN: Warm, dry, normal color. NEURO: Speech clear.alert and oriented, Cranial nerves II-XII grossly intact. No ataxic movements. PSYCHIATRIC: alert and oriented Objective Data Vital Signs Vital Signs: Vital Signs - 24 hr 05/01/25 13:45 05/01/25 16:00 05/01/25 20:00 Temperature 98.6 F Pulse Rate 93 90 Respiratory Rate 16 Blood Pressure 134/71 Pulse Oximetry 100 Oxygen Delivery Room Air Fraction of Inspired Oxygen 05/01/25 20:00 05/01/25 20:32 05/02/25 00:00 Temperature 98.0 F Pulse Rate 8 L 84 107 H Respiratory Rate 18 Blood Pressure 148/71 H Pulse Oximetry 100 Oxygen Delivery Fraction of Inspired Oxygen 05/02/25 04:00 05/02/25 04:26 05/02/25 08:03 Temperature 97.9 F Pulse Rate 100 101 H 95 Respiratory Rate 20 Blood Pressure 120/75 Pulse Oximetry 100 Oxygen Delivery Fraction of Inspired Oxygen 05/02/25 08:48 Temperature Pulse Rate Respiratory Rate 20 Blood Pressure Pulse Oximetry 100 Oxygen Delivery Room Air Fraction of Inspired Oxygen 21 Intake/Output Intake/Output: Intake & Output 04/29/25 04/30/25 05/01/25 05/02/25 23:59 23:59 23:59 23:59 Intake Total 3809.5 3535.0 2414 1292.5 Output Total 3650 1100 900 350 Balance 159.5 2435.0 1514 942.5 Meds/Results Medications: Active Medications Generic Name Dose Route Start Last Admin Trade Name Freq PRN Reason Stop Dose Admin Acetaminophen 650 mg 04/25/25 22:50 Acetaminophen 650 Mg Suppository RECTAL Q6H PRN Mild Pain (1-3) or Fever Allopurinol 100 mg 04/27/25 09:00 05/02/25 08:48 Allopurinol 100 Mg Tablet PO 100 mg DAILY ZHANNA Administration Cyanocobalamin 100 mcg 05/26/25 09:00 Cyanocobalamin Inj 1,000 Mcg/Ml Vial IM MONTHLY ZHANNA Cyclobenzaprine HCl 10 mg 04/26/25 13:46 04/29/25 14:15 Cyclobenzaprine Hcl 10 Mg Tablet PO 10 mg TID PRN Administration Muscle Spasm Dextrose 12.5 gm 04/27/25 08:27 Dextrose 50% 25 Gm/50 Ml Syringe IV PUSH PRN PRN Hypoglycemia Protocol Enoxaparin Sodium 30 mg 04/27/25 09:00 05/02/25 08:47 Enoxaparin 30 Mg/0.3 Ml Syringe SUB-Q 30 mg DAILY ZHANNA Administration Finasteride 5 mg 04/27/25 09:00 05/02/25 08:48 Finasteride 5 Mg Tablet PO 5 mg DAILY ZHANNA Administration Folic Acid 1 mg 04/27/25 09:00 05/02/25 08:48 Folic Acid 1 Mg Tablet PO 1 mg DAILY ZHANNA Administration Glucagon 1 mg 04/27/25 08:27 Glucagon For Inj 1 Mg Vial IM PRN PRN Hypoglycemia Protocol Glucose 15 gm 04/27/25 08:27 Glucose Oral Gel 15 Gm Of Glucse In 37.5 Gm Tube PO PRN PRN Hypoglycemia Protocol Dextrose 1,000 mls @ 50 mls/hr 04/26/25 13:47 Dextrose 10% IV CONT .Q20H PRN if PN is interrupted Multivitamins 1.25 ml/ 1,002.5 mls @ 70 mls/hr 04/26/25 15:00 05/02/25 01:35 Multivitamins 1.25 ml/ Amino IV CONT 70 mls/hr Acids/Electrolytes/Dextrose .[id number] ZHANNA Administration Protocol Dextrose 1,000 mls @ 100 mls/hr 04/27/25 08:27 Dextrose 5% 1,000 Ml IVPB PRN PRN Hypoglycemia Protocol Fat Emulsion Intravenous 250 mls @ 20.833 mls/hr 04/27/25 11:00 05/02/25 10:30 Lipids 20% IVPB 20.8 mls/hr Q24H ZHANNA Administration Cefazolin Sodium 2 gm/ Sodium 50 mls @ 100 mls/hr 04/30/25 18:00 05/02/25 05:53 Chloride IVPB Infused Q12H ZHANNA Infusion Insulin Aspart 1 - 2 units 04/27/25 21:00 05/01/25 21:22 Insulin Aspart (*Bkc) 100 Units/Ml SUB-Q Not Given HS ZHANNA Protocol Insulin Aspart 2 - 5 units 04/27/25 12:00 05/02/25 11:41 Insulin Aspart (*Bkc) 100 Units/Ml SUB-Q Not Given TIDWM ZHANNA Protocol Losartan Potassium 25 mg 04/27/25 09:00 05/02/25 08:48 Losartan Potassium 25 Mg Tablet PO 25 mg DAILY ZHANNA Administration Ondansetron HCl 4 mg 04/25/25 22:50 Ondansetron Inj 4 Mg/2 Ml Vial IV PUSH Q4H PRN Nausea Perflutren Lipid Microsphere 0 ml 04/30/25 15:48 Perflutren Lipid Microspheres 1.5 Ml Vial Diluted To 10 Ml Total Volume IV PUSH 05/03/25 15:48 ONCE PRN adequate visualization Protocol Sodium Chloride 10 ml 04/29/25 14:00 05/02/25 05:54 Central Line Flush IV PUSH 10 ml Q8HR ZHANNA Administration Sodium Chloride 10 ml 04/29/25 07:58 Central Line Flush IV PUSH PRN PRN with TPN bag changes Sodium Chloride 20 ml 04/29/25 07:58 Central Line Flush IV PUSH PRN PRN after blood draws Tramadol HCl 50 mg 04/26/25 13:46 Tramadol Hcl (*Crx) 50 Mg Tablet PO Q6H PRN Pain 4-6 Trazodone HCl 25 mg 05/01/25 21:00 05/01/25 20:28 Trazodone Hcl 25 Mg Tablet PO 25 mg HS ZHANNA Administration Radiology Results: ITS Impressions Chest X-Ray 04/25/25 18:06 Impression: 1: Diffuse bilateral interstitial infiltrates which may represent edema or atypical pneumonia. Head CT 04/25/25 20:26 IMPRESSION: 1. No acute intracranial abnormality. Chest/Abdomen/Pelvis CT 04/25/25 20:28 IMPRESSION: 1. Focal consolidation right lower lobe, suspicious for pneumonia. 2: Increased size of ascending thoracic aortic aneurysm measuring 4.8 cm. 3: Splenomegaly. 4: Stable sclerotic lesions or spine and pelvis, suspicious for stable osseous metastases. Correlate for history of malignancy. Labs Labs: Laboratory Results - last 24 hr 05/01/25 05/01/25 05/01/25 12:08 16:49 20:36 POC Capillary Glucose 157 H 172 H 168 H Phosphorus Triglycerides 05/02/25 05/02/25 05/02/25 04:26 07:55 11:23 POC Capillary Glucose 189 H 166 H Phosphorus 4.4 Triglycerides 35
[2025-05-03] VITALS (10 sets, daily range): BP systolic 105–134; BP diastolic 57–76; PULSE 85–113; RESP 16–20; TEMP 36.7–37.5; O2SAT 96–100
[2025-05-03] MEDS: traMADol HCL (*CRX) 50 MG TABLET PO (05:17)
[2025-05-03] MEDS: ceFAZolin 2 GM in SODIUM CHLORIDE 0.9% IV 50 ML 100 ML IVPB ×2 (05:18→17:20)
[2025-05-03] MEDS: CENTRAL LINE FLUSH 10 ML IV PUSH ×2 (05:22→16:38)
[2025-05-03] MEDS: CENTRAL LINE FLUSH 20 ML IV PUSH (05:22)
[2025-05-03 05:26] LABS: Hematocrit 28.2 % (42.0-52.0); Hemoglobin 9.0 g/dL (14.0-18.0); Immature Granulocyte Percent A 3.4 % (0-0.5); Immature Platelet Fraction Pct 5.5 % (0.9-11.2); Lymphocytes Absolute Auto 0.54 K/mm3 (0.9-3.2); Mean Corpuscular HGB Conc 31.9 g/dl (32-36); Mean Corpuscular Hemoglobin 26.1 pg (26-34); Mean Corpuscular Volume 81.7 fl (80-100); Nucleated Red Blood Cells Absolute Auto 0.000 K/mm3 (0.0-0.012); Nucleated Red Blood Cells Perc 0.0 % (0.0-0.2); Platelet Count Result 64 k/mm3 (150-375); Red Blood Count 3.45 M/mm3 (4.6-6.20); White Blood Count 13.3 K/mm3 (4.5-10.0)
[2025-05-03 05:44] LABS: Band Neutrophils Percent 0 % (0-6); Crenated RBC Occasional; Ovalocytes 1+; Schistocytes None Seen
[2025-05-03 05:48] LABS: Alanine Aminotransferase 14 U/L (6-50); Albumin Level 3.3 g/dL (3.5-5.1); Alkaline Phosphatase 134 U/L (38-126); Anion Gap 9 mmol/L (4-12); Aspartate Amino Transferase 30 U/L (17-59); Bilirubin,Total 0.4 mg/dL (0.2-1.3); Blood Urea Nitrogen 73 mg/dL (9-20); Calcium 8.2 mg/dL (8.4-10.2); Carbon Dioxide 17 mmol/L (22-30); Chloride 103 mmol/L (98-107); Estimated CRCL calculation 16 ml/min; Estimated Glomerular Filt Rate 20; Glucose 195 mg/dL (65-110); Magnesium 2.1 mg/dL (1.6-2.3); Potassium 5.3 mmol/L (3.4-5.0); Sodium 129 mmol/L (137-145); Total Protein 6.4 g/dL (6.3-8.2)
[2025-05-03] MEDS: AMINO ACIDS 5%/D15W/E-LYTES/CA 1,000 ML with MULTIVITAMINS-12 INJ VIAL 1 1.25 ML, MULTI... 70 ML IV CONT (06:10)
[2025-05-03] MEDS: LOSARTAN POTASSIUM 25 MG TABLET PO (09:15)
[2025-05-03] MEDS: FINASTERIDE 5 MG TABLET PO (09:15)
[2025-05-03] MEDS: CYCLOBENZAPRINE HCL 10 MG TABLET PO (09:15)
[2025-05-03] MEDS: FOLIC ACID 1 MG TABLET PO (09:15)
--- NOTE | 2025-05-03 10:58 | WPDINFPN2 ---
Progress Note: A&P Assessment and Plan (1) MSSA bacteremia: Code(s): R78.81 - Bacteremia; B95.61 - Methicillin susceptible Staphylococcus aureus infection as the cause of diseases classified elsewhere Status: Acute (2) CLABSI (central line-associated bloodstream infection): Code(s): T80.211A - Bloodstream infection due to central venous catheter, initial encounter Status: Acute (3) On total parenteral nutrition (TPN): Code(s): Z78.9 - Other specified health status Status: Acute (4) CKD (chronic kidney disease): Qualifiers: Chronic kidney disease stage: unspecified stage Qualified Code(s): N18.9 - Chronic kidney disease, unspecified Code(s): N18.9 - Chronic kidney disease, unspecified Status: Acute (5) Sepsis: Qualifiers: Sepsis acute organ dysfunction status: unspecified Sepsis type: sepsis due to unspecified organism Qualified Code(s): A41.9 - Sepsis, unspecified organism Code(s): A41.9 - Sepsis, unspecified organism Status: Acute Plan # MSSA bacteremia present on admission. Likely secondary to longstanding PICC ( CLABSI ) versus MSSA pneumonia. -- immediate follow-up blood cultures still positive but in less number of bottles. -- 05/01 blood cultures preliminarily negative # Chronic PICC use for supplemental TPN in the setting of distal esophageal and total gastrectomy. -- History of prior PICC CLBSI's. -- may have limited access sites for new PICC placement. 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 # Chronic kidney disease stage 4. Plan: -- continue cefazolin 2 g IV q.12 hours. -- follow repeat blood cultures. -- if 05/01 repeat blood cultures again positive for MSSA would proceed with TIMUR. -- ideally, would recommend PICC removal and replacement. However, per patient history he may be running out of IV access sites. Consequently, if able to clear blood stream may consider an attempt at a line salvage with plan for 2 weeks of IV antibiotics from 1st true negative blood culture (05/01?) followed by a variable course of oral antibiotics (Keflex). -- patient requested if line absolutely requires removal and replacement he be transferred to [facility]. -- further recommendations to follow. Patient was seen via video telehealth consultation with the assistance of staff. Chart, data, and patient independently reviewed. Patient was located at [facility] while I was located in my [place] office. Received verbal consent from patient. Subjective Date/time seen: 05/03/25 10:58 Interval history: 05/02/2025: afebrile and with stable vital signs. Repeat blood cultures pending. at bedside and confirms patient's prior CLABSI's have involved multiple organisms over time. However, last line infection appears to also have involved MSSA in December or January and PICC was changed at that time. 05/03/2025: No new complaints today. 05/01 blood cultures reported as preliminarily negative. Blood cultures 04/25: Positive MSSA In multiple bottles. Blood cultures 04/27: Positive MSSA in 1/4 bottles. Blood cultures 05/01: Preliminary negative Review of Systems Review of Systems: Improved weakness. No pain to left chest PICC site. All systems reviewed & are unremarkable except as noted in HPI and below Exam Narrative: Awake and alert and interactive. sleepy this morning. Normocephalic and without conjunctivitis. Nonlabored respirations. Abdomen without significant distention. No rash. Left upper extremity PICC site without inflammation. Objective Data Vital Signs Vital Signs: Vital Signs - 24 hr 05/02/25 12:03 05/02/25 14:00 05/02/25 16:03 Temperature Pulse Rate 102 H 97 92 Respiratory Rate 18 Blood Pressure 131/63 Pulse Oximetry 100 Oxygen Delivery 05/02/25 19:52 05/02/25 20:00 05/02/25 20:00 Temperature 98.0 F Pulse Rate 89 88 Respiratory Rate 20 Blood Pressure 135/72 Pulse Oximetry 100 Oxygen Delivery Room Air 05/03/25 00:00 05/03/25 04:00 05/03/25 04:15 Temperature 98.0 F Pulse Rate 102 H 113 H 111 H Respiratory Rate 20 Blood Pressure 134/76 Pulse Oximetry 96 Oxygen Delivery 05/03/25 09:40 05/03/25 09:40 Temperature Pulse Rate 108 H Respiratory Rate Blood Pressure Pulse Oximetry Oxygen Delivery Room Air Intake/Output Intake/Output: Intake & Output 04/30/25 05/01/25 05/02/25 05/03/25 23:59 23:59 23:59 23:59 Intake Total 3535.0 2414 3531.8 1315 Output Total 7244 379 9136 525 Balance 2435.0 1514 2356.8 790 Meds/Results Medications: Active Medications Generic Name Dose Route Start Last Admin Trade Name Freq PRN Reason Stop Dose Admin Acetaminophen 650 mg 04/25/25 22:50 Acetaminophen 650 Mg Suppository RECTAL Q6H PRN Mild Pain (1-3) or Fever Allopurinol 100 mg 04/27/25 09:00 05/03/25 09:15 Allopurinol 100 Mg Tablet PO 100 mg DAILY ZHANNA Administration Cyanocobalamin 100 mcg 05/26/25 09:00 Cyanocobalamin Inj 1,000 Mcg/Ml Vial IM MONTHLY ZHANNA Cyclobenzaprine HCl 10 mg 04/26/25 13:46 05/03/25 09:15 Cyclobenzaprine Hcl 10 Mg Tablet PO 10 mg TID PRN Administration Muscle Spasm Dextrose 12.5 gm 04/27/25 08:27 Dextrose 50% 25 Gm/50 Ml Syringe IV PUSH PRN PRN Hypoglycemia Protocol Enoxaparin Sodium 30 mg 04/27/25 09:00 05/03/25 09:15 Enoxaparin 30 Mg/0.3 Ml Syringe SUB-Q Not Given DAILY [facility] Finasteride 5 mg 04/27/25 09:00 05/03/25 09:15 Finasteride 5 Mg Tablet PO 5 mg DAILY ZHANNA Administration Folic Acid 1 mg 04/27/25 09:00 05/03/25 09:15 Folic Acid 1 Mg Tablet PO 1 mg DAILY ZHANNA Administration Glucagon 1 mg 04/27/25 08:27 Glucagon For Inj 1 Mg Vial IM PRN PRN Hypoglycemia Protocol Glucose 15 gm 04/27/25 08:27 Glucose Oral Gel 15 Gm Of Glucse In 37.5 Gm Tube PO PRN PRN Hypoglycemia Protocol Dextrose 1,000 mls @ 50 mls/hr 04/26/25 13:47 Dextrose 10% IV CONT .Q20H PRN if PN is interrupted Multivitamins 1.25 ml/ 1,002.5 mls @ 70 mls/hr 04/26/25 15:00 05/03/25 06:10 Multivitamins 1.25 ml/ Amino IV CONT 70 mls/hr Acids/Electrolytes/Dextrose .[id number] ZHANNA Administration Protocol Dextrose 1,000 mls @ 100 mls/hr 04/27/25 08:27 Dextrose 5% 1,000 Ml IVPB PRN PRN Hypoglycemia Protocol Fat Emulsion Intravenous 250 mls @ 20.833 mls/hr 04/27/25 11:00 05/02/25 22:43 Lipids 20% IVPB Infused Q24H ZHANNA Infusion Cefazolin Sodium 2 gm/ Sodium 50 mls @ 100 mls/hr 04/30/25 18:00 05/03/25 05:48 Chloride IVPB Infused Q12H ZHANNA Infusion Insulin Aspart 1 - 2 units 04/27/25 21:00 05/02/25 22:41 Insulin Aspart (*Bkc) 100 Units/Ml SUB-Q Not Given HS ZHANNA Protocol Insulin Aspart 2 - 5 units 04/27/25 12:00 05/03/25 09:14 Insulin Aspart (*Bkc) 100 Units/Ml SUB-Q Not Given TIDWM ZHANNA Protocol Losartan Potassium 25 mg 04/27/25 09:00 05/03/25 09:15 Losartan Potassium 25 Mg Tablet PO 25 mg DAILY ZHANNA Administration Ondansetron HCl 4 mg 04/25/25 22:50 Ondansetron Inj 4 Mg/2 Ml Vial IV PUSH Q4H PRN Nausea Perflutren Lipid Microsphere 0 ml 04/30/25 15:48 Perflutren Lipid Microspheres 1.5 Ml Vial Diluted To 10 Ml Total Volume IV PUSH 05/03/25 15:48 ONCE PRN adequate visualization Protocol Sodium Chloride 10 ml 04/29/25 14:00 05/03/25 05:22 Central Line Flush IV PUSH 10 ml Q8HR ZHANNA Administration Sodium Chloride 10 ml 04/29/25 07:58 Central Line Flush IV PUSH PRN PRN with TPN bag changes Sodium Chloride 20 ml 04/29/25 07:58 05/03/25 05:22 Central Line Flush IV PUSH 20 ml PRN PRN Administration after blood draws Tramadol HCl 50 mg 04/26/25 13:46 05/03/25 05:17 Tramadol Hcl (*Crx) 50 Mg Tablet PO 50 mg Q6H PRN Administration Pain 4-6 Trazodone HCl 25 mg 05/01/25 21:00 05/02/25 22:43 Trazodone Hcl 25 Mg Tablet PO 25 mg HS ZHANNA Administration Radiology Results: ITS Impressions Chest X-Ray 04/25/25 18:06 Impression: 1: Diffuse bilateral interstitial infiltrates which may represent edema or atypical pneumonia. Head CT 04/25/25 20:26 IMPRESSION: 1. No acute intracranial abnormality. Chest/Abdomen/Pelvis CT 04/25/25 20:28 IMPRESSION: 1. Focal consolidation right lower lobe, suspicious for pneumonia. 2: Increased size of ascending thoracic aortic aneurysm measuring 4.8 cm. 3: Splenomegaly. 4: Stable sclerotic lesions or spine and pelvis, suspicious for stable osseous metastases. Correlate for history of malignancy. Labs Labs: Laboratory Results - last 24 hr 05/02/25 05/02/25 05/02/25 11:23 16:33 19:54 WBC RBC Hgb Hct MCV MCH MCHC RDW Plt Count MPV Immature Gran % (Auto) Neut % (Auto) Lymph % (Auto) Arroyo % (Auto) Eos % (Auto) Baso % (Auto) Lymph # (Auto) [place]roy[place] # (Auto) Eos # (Auto) Baso # (Auto) Abs Immat Gran (auto) Absolute Neuts (auto) Absolute Nucleated RBC Band Neutrophils % Nucleated RBC % Platelet Estimate % Immature Plt Fraction Ovalocytes Crenated Cell Schistocytes Sodium Potassium Chloride Carbon Dioxide Anion Gap BUN Creatinine Estim Creat Clear Calc Estimated GFR Glucose POC Capillary Glucose 166 H 169 H 196 H Calcium Phosphorus Magnesium Total Bilirubin AST ALT Alkaline Phosphatase Total Protein Albumin 05/03/25 05/03/25 05/03/25 05:00 05:01 07:55 WBC 13.3 H RBC 3.45 L Hgb 9.0 L Hct 28.2 L MCV 81.7 MCH 26.1 MCHC 31.9 L RDW 13.9 Plt Count 64 L MPV 11.0 H Immature Gran % (Auto) 3.4 H Neut % (Auto) 86.3 H Lymph % (Auto) 4.1 L Arroyo % (Auto) 5.3 Eos % (Auto) 0.7 Baso % (Auto) 0.2 Lymph # (Auto) 0.54 L [place]royo # (Auto) 0.7 H Eos # (Auto) 0.1 Baso # (Auto) 0.0 Abs Immat Gran (auto) 0.45 H Absolute Neuts (auto) 11.5 H Absolute Nucleated RBC 0.000 Band Neutrophils % 0 Nucleated RBC % 0.0 Platelet Estimate Decreased % Immature Plt Fraction 5.5 Ovalocytes 1+ Crenated Cell Occasional Schistocytes None seen Sodium 129 L Potassium 5.3 H Chloride 103 Carbon Dioxide 17 L Anion Gap 9 BUN 73 H D Creatinine 3.03 H Estim Creat Clear Calc 16 Estimated GFR 20 L Glucose 195 H POC Capillary Glucose 182 H Calcium 8.2 L Phosphorus 4.6 H Magnesium 2.1 Total Bilirubin 0.4 AST 30 ALT 14 Alkaline Phosphatase 134 H Total Protein 6.4 Albumin 3.3 L
--- NOTE | 2025-05-03 13:41 | PM.IMPN ---
Progress Note: A&P Assessment and Plan (1) Hyperkalemia: Code(s): E87.5 - Hyperkalemia Status: Acute (2) Sepsis: Qualifiers: Sepsis acute organ dysfunction status: unspecified Sepsis type: sepsis due to unspecified organism Qualified Code(s): A41.9 - Sepsis, unspecified organism Code(s): A41.9 - Sepsis, unspecified organism Status: Acute (3) Bacteremia: Code(s): R78.81 - Bacteremia Status: Acute (4) Pneumonia: Qualifiers: Laterality: right Lung location: lower lobe of lung Pneumonia type: due to unspecified organism Qualified Code(s): J18.9 - Pneumonia, unspecified organism Code(s): J18.9 - Pneumonia, unspecified organism Status: Acute (5) CKD (chronic kidney disease): Qualifiers: Chronic kidney disease stage: unspecified stage Qualified Code(s): N18.9 - Chronic kidney disease, unspecified Code(s): N18.9 - Chronic kidney disease, unspecified Status: Acute (6) On total parenteral nutrition (TPN): Code(s): Z78.9 - Other specified health status Status: Acute (7) Hyponatremia: Code(s): E87.1 - Hypo-osmolality and hyponatremia Status: Acute (8) AMS (altered mental status): Qualifiers: Altered mental status type: unspecified Qualified Code(s): R41.82 - Altered mental status, unspecified Code(s): R41.82 - Altered mental status, unspecified Status: Acute (9) Anemia: Code(s): D64.9 - Anemia, unspecified Status: Acute Plan Hyperkalemia Potassium elevated this morning. Repeat potassium was even higher at 6.6. Appropriate treatment was started. Lokelma started. Nephrology consulted. Stop TPN. IV fluids started. Start telemetry Check TSH. Check cortisol. Stop Cozaar. Repeat potassium improved. Follow closely. Sepsis Secondary to pneumonia and/or bacteremia. Blood cultures growing oxacillin sensitive Staph aureus. Continue with IV antibiotic ID consulted. Appreciate input. Follow cultures Continue to monitor Bacteremia Possible source PNA versus central line. BCx 04/25 4/4 positive for DANE BCx 04/27 1/4 positive for DANE BCx 05/01 NGTD TTE with no endocarditis. Cardiology on board for potential TIMUR if patient with persistent bacteremia Plan for line salvage goal as very limited option for IV line Started Vancomycin which has now been discontinued. Abx switched to Ancef No fevers. WBC climbed to 13K and unchanged today. Continue Ancef. Monitor leukocytosis PNA As above CKD stage 4 Baseline creatinine 2.9. Cr stable but up to 35 today. Stop TPN. Start IV fluids. Nephrology consult Continue to monitor and remained stable TPN chronic. Takes TPN 3x/week. Dietitian on board Continue to monitor Hyponatremia Sodium low but stable 129-132 range. Probably chronic. Check TSH and cortisol Nephrology consult Monitor for now AMS Patient confused. Head CT showing no acute process. Check TSH, B12, folate Acute on chronic anemia Hgb low but stable in the 8-9 range. No bleeding reported possible dilutional Check B12, folate, iron studies transfuse if Hgb<7 to a stable Hgb continue to monitor Dm2 A1c 5.6%. Diet controlled. The patient's blood glucose was reviewed on 05/03 Glucose remains reasonably well controlled. Continue AccuCheks covering with sliding scale. Hypoglycemia protocol available as needed. 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 Eating okay here. Monitor calorie intake Thyroid carcinoma status post resection Not on levothyroxine No recent TSH. 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 Assuming care. Chart reviewed. Patient states he is feeling well. Denies chest pain or shortness of breath. He has not been up walking. No nausea or vomiting. He feels tired and did sleep poorly last night. He is confused at the time my evaluation thus history is suspect. Nursing has noted that he becomes mildly tachycardic with activity. He is eating reasonably well. He only uses TPN 3 days a week at home. Exam Narrative: AF 99.5 105/57 95 18 99% ra Gen - Somnolent but easily arousable. No acute respiratory distress. Chest - CTA bilaterally, nml RR. Left upper chest tunneled dual lumen catheter CV - RRR S1/S. Tele showing occasional episodes of sinus tachycardia to 130's Abd - Soft, NT/ND, Positive BS, RLQ colostomy noted Ext - No pedal edema Neuro - Alert but confused. Oriented x1. PEDERSEN. Psych - somnolent but easily arouses and answers questions appropriately Skin - Warm to touch Objective Data Vital Signs Vital Signs: Vital Signs - 24 hr 05/02/25 14:00 05/02/25 16:03 05/02/25 19:52 Temperature 98.0 F Pulse Rate 97 92 89 Respiratory Rate 18 20 Blood Pressure 131/63 135/72 Pulse Oximetry 100 100 Oxygen Delivery 05/02/25 20:00 05/02/25 20:00 05/03/25 00:00 Temperature Pulse Rate 88 102 H Respiratory Rate Blood Pressure Pulse Oximetry Oxygen Delivery Room Air 05/03/25 04:00 05/03/25 04:15 05/03/25 09:40 Temperature 98.0 F Pulse Rate 113 H 111 H Respiratory Rate 20 Blood Pressure 134/76 Pulse Oximetry 96 Oxygen Delivery Room Air 05/03/25 09:40 05/03/25 12:00 05/03/25 12:48 Temperature 99.5 F Pulse Rate 108 H 97 95 Respiratory Rate 18 Blood Pressure 105/57 L Pulse Oximetry 99 Oxygen Delivery Intake/Output Intake/Output: Intake & Output 04/30/25 05/01/25 05/02/25 05/03/25 23:59 23:59 23:59 23:59 Intake Total 3535.0 2414 3531.8 1315 Output Total 3179 036 0253 525 Balance 2435.0 1514 2356.8 790 Meds/Results Medications: Active Medications Generic Name Dose Route Start Last Admin Trade Name Freq PRN Reason Stop Dose Admin Acetaminophen 650 mg 04/25/25 22:50 Acetaminophen 650 Mg Suppository RECTAL Q6H PRN Mild Pain (1-3) or Fever Allopurinol 100 mg 04/27/25 09:00 05/03/25 09:15 Allopurinol 100 Mg Tablet PO 100 mg DAILY ZHANNA Administration Cyanocobalamin 100 mcg 05/26/25 09:00 Cyanocobalamin Inj 1,000 Mcg/Ml Vial IM MONTHLY ZHANNA Cyclobenzaprine HCl 10 mg 04/26/25 13:46 05/03/25 09:15 Cyclobenzaprine Hcl 10 Mg Tablet PO 10 mg TID PRN Administration Muscle Spasm Dextrose 12.5 gm 04/27/25 08:27 Dextrose 50% 25 Gm/50 Ml Syringe IV PUSH PRN PRN Hypoglycemia Protocol Enoxaparin Sodium 30 mg 04/27/25 09:00 05/03/25 09:15 Enoxaparin 30 Mg/0.3 Ml Syringe SUB-Q Not Given DAILY [facility] Finasteride 5 mg 04/27/25 09:00 05/03/25 09:15 Finasteride 5 Mg Tablet PO 5 mg DAILY ZHANNA Administration Folic Acid 1 mg 04/27/25 09:00 05/03/25 09:15 Folic Acid 1 Mg Tablet PO 1 mg DAILY ZHANNA Administration Glucagon 1 mg 04/27/25 08:27 Glucagon For Inj 1 Mg Vial IM PRN PRN Hypoglycemia Protocol Glucose 15 gm 04/27/25 08:27 Glucose Oral Gel 15 Gm Of Glucse In 37.5 Gm Tube PO PRN PRN Hypoglycemia Protocol Dextrose 1,000 mls @ 50 mls/hr 04/26/25 13:47 Dextrose 10% IV CONT .Q20H PRN if PN is interrupted Multivitamins 1.25 ml/ 1,002.5 mls @ 70 mls/hr 04/26/25 15:00 05/03/25 06:10 Multivitamins 1.25 ml/ Amino IV CONT 70 mls/hr Acids/Electrolytes/Dextrose .[id number] ZHANNA Administration Protocol Dextrose 1,000 mls @ 100 mls/hr 04/27/25 08:27 Dextrose 5% 1,000 Ml IVPB PRN PRN Hypoglycemia Protocol Fat Emulsion Intravenous 250 mls @ 20.833 mls/hr 04/27/25 11:00 05/03/25 12:54 Lipids 20% IVPB Not Given Q24H [facility] Cefazolin Sodium 2 gm/ Sodium 50 mls @ 100 mls/hr 04/30/25 18:00 05/03/25 05:48 Chloride IVPB Infused Q12H ZHANNA Infusion Insulin Aspart 1 - 2 units 04/27/25 21:00 05/02/25 22:41 Insulin Aspart (*Bkc) 100 Units/Ml SUB-Q Not Given HS ZHANNA Protocol Insulin Aspart 2 - 5 units 04/27/25 12:00 05/03/25 11:55 Insulin Aspart (*Bkc) 100 Units/Ml SUB-Q Not Given TIDWM ZHANNA Protocol Losartan Potassium 25 mg 04/27/25 09:00 05/03/25 09:15 Losartan Potassium 25 Mg Tablet PO 25 mg DAILY ZHANNA Administration Miscellaneous Information 0 each 05/03/25 00:01 Clarify Dose Of Vitamin B12 Monthyly Injection- Dose Normally Is 1000mcg. Thank You. XX 06/02/25 00:00 CLARIFY ZHANNA Ondansetron HCl 4 mg 04/25/25 22:50 Ondansetron Inj 4 Mg/2 Ml Vial IV PUSH Q4H PRN Nausea Perflutren Lipid Microsphere 0 ml 04/30/25 15:48 Perflutren Lipid Microspheres 1.5 Ml Vial Diluted To 10 Ml Total Volume IV PUSH 05/03/25 15:48 ONCE PRN adequate visualization Protocol Sodium Chloride 10 ml 04/29/25 14:00 05/03/25 05:22 Central Line Flush IV PUSH 10 ml Q8HR ZHANNA Administration Sodium Chloride 10 ml 04/29/25 07:58 Central Line Flush IV PUSH PRN PRN with TPN bag changes Sodium Chloride 20 ml 04/29/25 07:58 05/03/25 05:22 Central Line Flush IV PUSH 20 ml PRN PRN Administration after blood draws Tramadol HCl 50 mg 04/26/25 13:46 05/03/25 05:17 Tramadol Hcl (*Crx) 50 Mg Tablet PO 50 mg Q6H PRN Administration Pain 4-6 Trazodone HCl 25 mg 05/01/25 21:00 05/02/25 22:43 Trazodone Hcl 25 Mg Tablet PO 25 mg HS ZHANNA Administration Radiology Results: ITS Impressions Chest X-Ray 04/25/25 18:06 Impression: 1: Diffuse bilateral interstitial infiltrates which may represent edema or atypical pneumonia. Head CT 04/25/25 20:26 IMPRESSION: 1. No acute intracranial abnormality. Chest/Abdomen/Pelvis CT 04/25/25 20:28 IMPRESSION: 1. Focal consolidation right lower lobe, suspicious for pneumonia. 2: Increased size of ascending thoracic aortic aneurysm measuring 4.8 cm. 3: Splenomegaly. 4: Stable sclerotic lesions or spine and pelvis, suspicious for stable osseous metastases. Correlate for history of malignancy. Labs Labs: Laboratory Results - last 24 hr 05/02/25 05/02/25 05/03/25 16:33 19:54 05:00 WBC 13.3 H RBC 3.45 L Hgb 9.0 L Hct 28.2 L MCV 81.7 MCH 26.1 MCHC 31.9 L RDW 13.9 Plt Count 64 L MPV 11.0 H Immature Gran % (Auto) 3.4 H Neut % (Auto) 86.3 H Lymph % (Auto) 4.1 L [place] % (Auto) 5.3 Eos % (Auto) 0.7 Baso % (Auto) 0.2 Lymph # (Auto) 0.54 L [place] # (Auto) 0.7 H Eos # (Auto) 0.1 Baso # (Auto) 0.0 Abs Immat Gran (auto) 0.45 H Absolute Neuts (auto) 11.5 H Absolute Nucleated RBC 0.000 Band Neutrophils % 0 Nucleated RBC % 0.0 Platelet Estimate Decreased % Immature Plt Fraction 5.5 Ovalocytes 1+ Crenated Cell Occasional Schistocytes None seen Sodium Potassium Chloride Carbon Dioxide Anion Gap BUN Creatinine Estim Creat Clear Calc Estimated GFR Glucose POC Capillary Glucose 169 H 196 H Calcium Phosphorus Magnesium Total Bilirubin AST ALT Alkaline Phosphatase Total Protein Albumin 05/03/25 05/03/25 05/03/25 05:01 07:55 11:24 WBC RBC Hgb Hct MCV MCH MCHC RDW Plt Count MPV Immature Gran % (Auto) Neut % (Auto) Lymph % (Auto) [place] % (Auto) Eos % (Auto) Baso % (Auto) Lymph # (Auto) [place] # (Auto) Eos # (Auto) Baso # (Auto) Abs Immat Gran (auto) Absolute Neuts (auto) Absolute Nucleated RBC Band Neutrophils % Nucleated RBC % Platelet Estimate % Immature Plt Fraction Ovalocytes Crenated Cell Schistocytes Sodium 129 L Potassium 5.3 H Chloride 103 Carbon Dioxide 17 L Anion Gap 9 BUN 73 H D Creatinine 3.03 H Estim Creat Clear Calc 16 Estimated GFR 20 L Glucose 195 H POC Capillary Glucose 182 H 165 H Calcium 8.2 L Phosphorus 4.6 H Magnesium 2.1 Total Bilirubin 0.4 AST 30 ALT 14 Alkaline Phosphatase 134 H Total Protein 6.4 Albumin 3.3 L
[2025-05-03 16:11] LABS: Anion Gap 8 mmol/L (4-12); Blood Urea Nitrogen 76 mg/dL (9-20); Calcium 8.1 mg/dL (8.4-10.2); Carbon Dioxide 18 mmol/L (22-30); Chloride 103 mmol/L (98-107); Estimated CRCL calculation 14 ml/min; Estimated Glomerular Filt Rate 17; Glucose 201 mg/dL (65-110); Potassium 6.6 mmol/L (3.4-5.0); Sodium 129 mmol/L (137-145)
--- NOTE | 2025-05-03 16:20 | ECG_ITS ---
Test Date: 2025-05-03 16:39:03 Measurements Intervals [place] Rate: 91 P: 19 [place]: 175 QRS: 3 QRSD: 118 T: 22 QT: 369 QTc: 454 Interpretive Statements SINUS RHYTHM RIGHT BUNDLE BRANCH BLOCK ABNORMAL ECG Compared to ECG 04/25/2025 20:48:39 HEART RATE HAS DECREASED Electronically Signed On 05-03-2025 18:49:41 CDT by Bharathi Nesbitt D.O.
[2025-05-03 16:27] LABS: Iron 19 ug/dL (49-181)
[2025-05-03 16:35] LABS: Percent Iron Saturation 5 % (20-50)
[2025-05-03] MEDS: SODIUM ZIRCONIUM CYCLOSILICATE 10 GM POWD.PACK PO ×2 (16:38→21:06)
[2025-05-03] MEDS: SODIUM BICARBONATE 8.4% 50 MEQ/50 ML SYRINGE IV PUSH (16:38)
[2025-05-03] MEDS: CALCIUM GLUC 1,000 MG/NS 50 ML 1,000 MG/50 ML BAG 100 MG IVPB (16:38)
[2025-05-03] MEDS: SODIUM CHLORIDE 0.9% IV 1,000 ML 70 ML IV CONT (16:40)
[2025-05-03 17:03] LABS: Ferritin 35.00 ng/mL (11.1-264)
[2025-05-03] MEDS: ALBUTEROL SULFATE NEB 2.5 MG/3 ML INH INHALATION (17:17)
[2025-05-03 17:18] LABS: Add Urine Microscopic? YES; Appearance Urine Clear (Clear); Glucose Urine UA Negative (Negative); Leukocyte Esterase Ur Trace LEU/UL (Negative); Nitrate Urine Negative (Negative); Non Pathogenic Casts 0-2; Specific Grav Ur 1.016 (1.001-1.035)
[2025-05-03 17:23] LABS: Vitamin B12 960.0 pg/mL (239-931)
[2025-05-03 17:41] LABS: Total Protein Urine Random 245 mg/dL; Ur Ttl Prot Creatinine Ratio 2.32 mg/mg (0-0.20)
[2025-05-03 17:51] LABS: Urine Eos QC 2nd Tech Confirmed
[2025-05-03 18:28] LABS: Anion Gap 8 mmol/L (4-12); Blood Urea Nitrogen 79 mg/dL (9-20); Calcium 8.8 mg/dL (8.4-10.2); Carbon Dioxide 19 mmol/L (22-30); Chloride 103 mmol/L (98-107); Creatine Kinase 31 U/L (55-170); Estimated CRCL calculation 15 ml/min; Estimated Glomerular Filt Rate 19; Glucose 126 mg/dL (65-110); Potassium 5.4 mmol/L (3.4-5.0); Sodium 130 mmol/L (137-145)
[2025-05-03 20:47] LABS: Thyroid Stimulating Hormone Reflex 2.860 uIU/mL (0.465-4.68)
[2025-05-04] VITALS (10 sets, daily range): BP systolic 104–145; BP diastolic 63–72; PULSE 78–104; RESP 16–18; TEMP 36.2–36.6; O2SAT 98–100
[2025-05-04] MEDS: CENTRAL LINE FLUSH 10 ML IV PUSH ×3 (00:24→23:09)
[2025-05-04 00:35] LABS: Potassium 5.9 mmol/L (3.4-5.0)
--- NOTE | 2025-05-04 00:55 | P.PNCROSS_ITS ---
Event Note Event Note Event Note: 0050: RN reported that potassium level was drawn at midnight per order of cros s-coverage provider and result was 5.9 which is elevated from the 5.4 result after initial treatment for hyperkalemia. Patient has been getting more TPN while in the hospital than he usually uses. Renal function has also been slowly worsening. Earlier today Nephrology consult was requested but they have not seen patient or made recommendations yet. 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 I reviewed Hospitalist note and labs before placing orders for insulin, dextrose, sodium bicarb and furosemide. Patient is already on Lokelma and has received 2 doses. Bladder scan showed just over 500 mL in the bladder and patient was able to void 500 mL when asked to do so. We will check potassium again with morning labs and really appreciate Nephrology review and recommendations.
[2025-05-04] MEDS: FUROSEMIDE INJ 40 MG/4 ML VIAL IV PUSH (01:02)
[2025-05-04] MEDS: DEXTROSE 50% 25 GM/50 ML SYRINGE IV PUSH ×2 (01:09→21:28)
[2025-05-04] MEDS: SODIUM BICARBONATE 8.4% 50 MEQ/50 ML SYRINGE IV PUSH (01:09)
[2025-05-04] MEDS: INSULIN HUMAN REGULAR (*BKC) 100 UNITS/ML 10 UNITS IV PUSH ×2 (01:13→21:32)
[2025-05-04] MEDS: ceFAZolin 2 GM in SODIUM CHLORIDE 0.9% IV 50 ML 100 ML IVPB ×2 (05:33→18:07)
[2025-05-04] MEDS: CENTRAL LINE FLUSH 20 ML IV PUSH ×2 (05:36→23:08)
[2025-05-04 05:54] LABS: Hematocrit 27.2 % (42.0-52.0); Hemoglobin 8.6 g/dL (14.0-18.0); Immature Granulocyte Percent A 3.3 % (0-0.5); Immature Platelet Fraction Pct 5.1 % (0.9-11.2); Lymphocytes Absolute Auto 0.70 K/mm3 (0.9-3.2); Mean Corpuscular HGB Conc 31.6 g/dl (32-36); Mean Corpuscular Hemoglobin 25.7 pg (26-34); Mean Corpuscular Volume 81.2 fl (80-100); Nucleated Red Blood Cells Absolute Auto 0.000 K/mm3 (0.0-0.012); Nucleated Red Blood Cells Perc 0.0 % (0.0-0.2); Platelet Count Result 71 k/mm3 (150-375); Red Blood Count 3.35 M/mm3 (4.6-6.20); White Blood Count 11.4 K/mm3 (4.5-10.0)
[2025-05-04 05:57] LABS: Alanine Aminotransferase 24 U/L (6-50); Albumin Level 3.2 g/dL (3.5-5.1); Alkaline Phosphatase 172 U/L (38-126); Anion Gap 10 mmol/L (4-12); Aspartate Amino Transferase 53 U/L (17-59); Bilirubin,Total 0.4 mg/dL (0.2-1.3); Blood Urea Nitrogen 82 mg/dL (9-20); Calcium 8.0 mg/dL (8.4-10.2); Carbon Dioxide 20 mmol/L (22-30); Chloride 102 mmol/L (98-107); Estimated CRCL calculation 14 ml/min; Estimated Glomerular Filt Rate 17; Glucose 132 mg/dL (65-110); Magnesium 2.2 mg/dL (1.6-2.3); Potassium 4.7 mmol/L (3.4-5.0); Sodium 132 mmol/L (137-145); Total Protein 6.4 g/dL (6.3-8.2); Triglycerides 67 mg/dL (<150)
[2025-05-04 06:17] LABS: Anisocytosis 1+; Burr Cells 1+; Ovalocytes 1+
[2025-05-04 06:18] LABS: Schistocytes None Seen
[2025-05-04] MEDS: FINASTERIDE 5 MG TABLET PO (08:45)
[2025-05-04] MEDS: FOLIC ACID 1 MG TABLET PO (08:45)
[2025-05-04] MEDS: SODIUM CHLORIDE 0.9% IV 1,000 ML 70 ML IV CONT (08:49)
[2025-05-04] MEDS: SODIUM ZIRCONIUM CYCLOSILICATE 10 GM POWD.PACK PO ×2 (10:50→21:38)
--- NOTE | 2025-05-04 11:02 | P.PNINF_ITS ---
Progress Note: A&P Assessment and Plan (1) MSSA bacteremia: Code(s): R78.81 - Bacteremia; B95.61 - Methicillin susceptible Staphylococcus aureus infection as the cause of diseases classified elsewhere Status: Acute (2) CLABSI (central line-associated bloodstream infection): Code(s): T80.211A - Bloodstream infection due to central venous catheter, initial encounter Status: Acute (3) On total parenteral nutrition (TPN): Code(s): Z78.9 - Other specified health status Status: Acute (4) CKD (chronic kidney disease): Qualifiers: Chronic kidney disease stage: unspecified stage Qualified Code(s): N18.9 - Chronic kidney disease, unspecified Code(s): N18.9 - Chronic kidney disease, unspecified Status: Acute (5) Sepsis: Qualifiers: Sepsis acute organ dysfunction status: unspecified Sepsis type: sepsis due to unspecified organism Qualified Code(s): A41.9 - Sepsis, unspecified organism Code(s): A41.9 - Sepsis, unspecified organism Status: Acute Plan # MSSA bacteremia present on admission. Likely secondary to longstanding PICC ( CLABSI ) versus MSSA pneumonia. -- immediate follow-up blood cultures still positive but in less number of bottles. -- 05/01 blood cultures preliminarily negative In 24 hours. # Chronic PICC use for supplemental TPN in the setting of distal esophageal and total gastrectomy. -- History of prior PICC CLBSI's. -- may have limited access sites for new PICC placement. 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 # Chronic kidney disease stage 4. Plan: -- continue cefazolin 2 g IV q.12 hours. -- follow repeat blood cultures. -- if 05/01 repeat blood cultures again positive for MSSA would proceed with TIMUR. -- ideally, would recommend PICC removal and replacement. However, per patient history he may be running out of IV access sites. Consequently, if able to clear blood stream may consider an attempt at a line salvage with plan for 2 weeks of IV antibiotics from 1st true negative blood culture (05/01?) followed by a variable course of oral antibiotics (Keflex -- likely an additional 2 weeks). -- patient requested if line absolutely requires removal and replacement he be transferred to [facility]. -- discussed with patient and his was at bedside. Patient was seen via video telehealth consultation with the assistance of staff. Chart, data, and patient independently reviewed. Patient was located at [facility] while I was located in my [place] office. Received verbal consent from patient. Subjective Date/time seen: 05/04/25 11:02 Interval history: 05/02/2025: afebrile and with stable vital signs. Repeat blood cultures pending. at bedside and confirms patient's prior CLABSI's have involved multiple organisms over time. However, last line infection appears to also have involved MSSA in December or January and PICC was changed at that time. 05/03/2025: No new complaints today. 05/01 blood cultures reported as preliminarily negative. 05/04/2025: Afebrile with resolving leukocytosis. 05/01 blood cultures negative at 24 hours. Feels better. Blood cultures 04/25: Positive MSSA In multiple bottles. Blood cultures 04/27: Positive MSSA in 1/4 bottles. Blood cultures 05/01: Negative at 24 hours. Review of Systems Review of Systems: Improved weakness. No pain to left chest PICC site. All systems reviewed & are unremarkable except as noted in HPI and below Exam Narrative: Awake and alert and interactive. Normocephalic and without conjunctivitis. Nonlabored respirations. Abdomen without significant distention. No rash. Left upper extremity PICC site without inflammation. Objective Data Vital Signs Vital Signs: Vital Signs - 24 hr 05/03/25 12:00 05/03/25 12:48 05/03/25 16:00 Temperature 99.5 F Pulse Rate 97 95 94 Respiratory Rate 18 Blood Pressure 105/57 L Pulse Oximetry 99 Oxygen Delivery Fraction of Inspired Oxygen 05/03/25 20:00 05/03/25 20:05 05/03/25 21:38 Temperature 98.5 F Pulse Rate 94 86 85 Respiratory Rate 16 Blood Pressure 134/64 Pulse Oximetry 100 100 Oxygen Delivery Room Air Fraction of Inspired Oxygen 21 05/04/25 00:00 05/04/25 04:00 05/04/25 05:47 Temperature 97.2 F L Pulse Rate 82 103 H 104 H Respiratory Rate 16 Blood Pressure 104/63 Pulse Oximetry 98 Oxygen Delivery Fraction of Inspired Oxygen 05/04/25 08:44 05/04/25 08:45 05/04/25 08:45 Temperature 97.5 F L Pulse Rate 95 95 95 Respiratory Rate 16 16 Blood Pressure 129/70 Pulse Oximetry 99 99 Oxygen Delivery Room Air Fraction of Inspired Oxygen 05/04/25 09:10 Temperature Pulse Rate Respiratory Rate Blood Pressure Pulse Oximetry Oxygen Delivery Room Air Fraction of Inspired Oxygen Intake/Output Intake/Output: Intake & Output 05/01/25 05/02/25 05/03/25 05/04/25 23:59 23:59 23:59 23:59 Intake Total 2414 3531.8 1685 1540 Output Total 900 1175 1225 1200 Balance 1514 2356.8 460 340 Meds/Results Medications: Active Medications Generic Name Dose Route Start Last Admin Trade Name Freq PRN Reason Stop Dose Admin Acetaminophen 650 mg 04/25/25 22:50 Acetaminophen 650 Mg Suppository RECTAL Q6H PRN Mild Pain (1-3) or Fever Allopurinol 100 mg 04/27/25 09:00 05/04/25 08:45 Allopurinol 100 Mg Tablet PO 100 mg DAILY ZHANNA Administration Cyanocobalamin 1,000 mcg 05/26/25 09:00 Cyanocobalamin Inj 1,000 Mcg/Ml Vial IM MONTHLY ZHANNA Cyclobenzaprine HCl 10 mg 04/26/25 13:46 05/03/25 09:15 Cyclobenzaprine Hcl 10 Mg Tablet PO 10 mg TID PRN Administration Muscle Spasm Dextrose 12.5 gm 04/27/25 08:27 Dextrose 50% 25 Gm/50 Ml Syringe IV PUSH PRN PRN Hypoglycemia Protocol Enoxaparin Sodium 30 mg 04/27/25 09:00 05/04/25 08:54 Enoxaparin 30 Mg/0.3 Ml Syringe SUB-Q Not Given DAILY ZHANNA Finasteride 5 mg 04/27/25 09:00 05/04/25 08:45 Finasteride 5 Mg Tablet PO 5 mg DAILY ZHANNA Administration Folic Acid 1 mg 04/27/25 09:00 05/04/25 08:45 Folic Acid 1 Mg Tablet PO 1 mg DAILY ZHANNA Administration Glucagon 1 mg 04/27/25 08:27 Glucagon For Inj 1 Mg Vial IM PRN PRN Hypoglycemia Protocol Glucose 15 gm 04/27/25 08:27 Glucose Oral Gel 15 Gm Of Glucse In 37.5 Gm Tube PO PRN PRN Hypoglycemia Protocol Dextrose 1,000 mls @ 50 mls/hr 04/26/25 13:47 Dextrose 10% IV CONT .Q20H PRN if PN is interrupted Dextrose 1,000 mls @ 100 mls/hr 04/27/25 08:27 Dextrose 5% 1,000 Ml IVPB PRN PRN Hypoglycemia Protocol Cefazolin Sodium 2 gm/ Sodium 50 mls @ 100 mls/hr 04/30/25 18:00 05/04/25 06:05 Chloride IVPB Infused Q12H ZHANNA Infusion Multivitamins 1.25 ml/ 1,002.5 mls @ 70 mls/hr 05/05/25 20:00 Multivitamins 1.25 ml/ Amino IV CONT Acids/Electrolytes/Dextrose [id number] ZHANNA Protocol Sodium Chloride 1,000 mls @ 70 mls/hr 05/03/25 16:25 05/04/25 08:49 Normal Saline Iv IV CONT 70 mls/hr .[id number] ZHANNA Administration Insulin Aspart 1 - 2 units 04/27/25 21:00 05/04/25 00:23 Insulin Aspart (*Bkc) 100 Units/Ml SUB-Q Not Given HS ZHNANA Protocol Insulin Aspart 2 - 5 units 04/27/25 12:00 05/04/25 08:40 Insulin Aspart (*Bkc) 100 Units/Ml SUB-Q Not Given TIDWM ZHANNA Protocol Sodium Chloride 10 ml 04/29/25 14:00 05/04/25 05:36 Central Line Flush IV PUSH 10 ml Q8HR ZHANNA Administration Sodium Chloride 10 ml 04/29/25 07:58 Central Line Flush IV PUSH PRN PRN with TPN bag changes Sodium Chloride 20 ml 04/29/25 07:58 05/04/25 05:36 Central Line Flush IV PUSH 20 ml PRN PRN Administration after blood draws Sodium Zirconium Cyclosilicate 10 gm 05/03/25 16:20 05/04/25 10:50 Sodium Zirconium Cyclosilicate 10 Gm Powd.Pack PO 05/05/25 16:19 10 gm TID@1000,1500,2200 ZHANNA Administration Trazodone HCl 25 mg 05/01/25 21:00 05/03/25 21:06 Trazodone Hcl 25 Mg Tablet PO 25 mg HS ZHANNA Administration Radiology Results: ITS Impressions Chest X-Ray 04/25/25 18:06 Impression: 1: Diffuse bilateral interstitial infiltrates which may represent edema or atypical pneumonia. Head CT 04/25/25 20:26 IMPRESSION: 1. No acute intracranial abnormality. Chest/Abdomen/Pelvis CT 04/25/25 20:28 IMPRESSION: 1. Focal consolidation right lower lobe, suspicious for pneumonia. 2: Increased size of ascending thoracic aortic aneurysm measuring 4.8 cm. 3: Splenomegaly. 4: Stable sclerotic lesions or spine and pelvis, suspicious for stable osseous metastases. Correlate for history of malignancy. Renal Ultrasound 05/03/25 18:21 IMPRESSION: 1. A couple small right renal cysts. No hydronephrosis. 2. Status post left nephrectomy. Labs Labs: Laboratory Results - last 24 hr 05/03/25 05/03/25 05/03/25 11:24 14:02 14:03 WBC RBC Hgb Hct MCV MCH MCHC RDW Plt Count MPV Immature Gran % (Auto) Neut % (Auto) Lymph % (Auto) [place] % (Auto) Eos % (Auto) Baso % (Auto) Lymph # (Auto) [place] # (Auto) Eos # (Auto) Baso # (Auto) Abs Immat Gran (auto) Absolute Neuts (auto) Absolute Nucleated RBC Band Neutrophils % Nucleated RBC % Platelet Estimate % Immature Plt Fraction Anisocytosis Ovalocytes [place] Cells Schistocytes Sodium 129 L Potassium 6.6 H* Chloride 103 Carbon Dioxide 18 L Anion Gap 8 BUN 76 H Creatinine 3.50 H Estim Creat Clear Calc 14 Estimated GFR 17 L Glucose 201 H POC Capillary Glucose 165 H Calcium 8.1 L Phosphorus Magnesium Iron 19 L TIBC 348 % Saturation 5 L Ferritin 35.00 Total Bilirubin AST ALT Alkaline Phosphatase Total Creatine Kinase Total Protein Albumin Triglycerides Vitamin B12 960.0 H Folate > 20.0 H TSH (Reflex) 2.860 Random Cortisol Urine Color Urine Appearance Urine pH Ur Specific [place] Urine Protein Urine Glucose (UA) Urine Ketones Ur Blood (Man) Urine Nitrate Urine Bilirubin Urine Urobilinogen Leukocyte Esterase Rfl Urine RBC Urine WBC Ur Squamous Epith Cells Urine Bacteria Urine Casts Urine Eosinophils U Random Total Protein Ur Random Sodium Urine Creatinine Protein/Creat Ratio 2 Complement C3 Complement C4 05/03/25 05/03/25 05/03/25 16:40 17:07 17:07 WBC RBC Hgb Hct MCV MCH MCHC RDW Plt Count MPV Immature Gran % (Auto) Neut % (Auto) Lymph % (Auto) [place] % (Auto) Eos % (Auto) Baso % (Auto) Lymph # (Auto) [place] # (Auto) Eos # (Auto) Baso # (Auto) Abs Immat Gran (auto) Absolute Neuts (auto) Absolute Nucleated RBC Band Neutrophils % Nucleated RBC % Platelet Estimate % Immature Plt Fraction Anisocytosis Ovalocytes [place] Cells Schistocytes Sodium Potassium Chloride Carbon Dioxide Anion Gap BUN Creatinine Estim Creat Clear Calc Estimated GFR Glucose POC Capillary Glucose 149 H Calcium Phosphorus Magnesium Iron TIBC % Saturation Ferritin Total Bilirubin AST ALT Alkaline Phosphatase Total Creatine Kinase Total Protein Albumin Triglycerides Vitamin B12 Folate TSH (Reflex) Random Cortisol Urine Color Yellow Urine Appearance Clear Urine pH 5.5 Ur Specific [place] 1.016 Urine Protein 3+ H Urine Glucose (UA) Negative Urine Ketones Negative Ur Blood (Man) 1+ H Urine Nitrate Negative Urine Bilirubin Negative Urine Urobilinogen 0.2 Leukocyte Esterase Rfl Trace H Urine RBC 0-2 Urine WBC 0-5 Ur Squamous Epith Cells None seen Urine Bacteria None seen Urine Casts 0-2 Urine Eosinophils None seen U Random Total Protein 245 Ur Random Sodium 29 Urine Creatinine 105.8 Cancelled Protein/Creat Ratio 2 2.32 H Complement C3 Complement C4 05/03/25 05/03/25 05/04/25 17:49 21:01 00:00 WBC RBC Hgb Hct MCV MCH MCHC RDW Plt Count MPV Immature Gran % (Auto) Neut % (Auto) Lymph % (Auto) [place] % (Auto) Eos % (Auto) Baso % (Auto) Lymph # (Auto) [place] # (Auto) Eos # (Auto) Baso # (Auto) Abs Immat Gran (auto) Absolute Neuts (auto) Absolute Nucleated RBC Band Neutrophils % Nucleated RBC % Platelet Estimate % Immature Plt Fraction Anisocytosis Ovalocytes [place] Cells Schistocytes Sodium 130 L Potassium 5.4 H 5.9 H Chloride 103 Carbon Dioxide 19 L Anion Gap 8 BUN 79 H Creatinine 3.24 H Estim Creat Clear Calc 15 Estimated GFR 19 L Glucose 126 H POC Capillary Glucose 124 H Calcium 8.8 Phosphorus Magnesium Iron TIBC % Saturation Ferritin Total Bilirubin AST ALT Alkaline Phosphatase Total Creatine Kinase 31 L Total Protein Albumin Triglycerides Vitamin B12 Folate TSH (Reflex) Random Cortisol Urine Color Urine Appearance Urine pH Ur Specific [place] Urine Protein Urine Glucose (UA) Urine Ketones Ur Blood (Man) Urine Nitrate Urine Bilirubin Urine Urobilinogen Leukocyte Esterase Rfl Urine RBC Urine WBC Ur Squamous Epith Cells Urine Bacteria Urine Casts Urine Eosinophils U Random Total Protein Ur Random Sodium Urine Creatinine Protein/Creat Ratio 2 Complement C3 97 Complement C4 24.4 05/04/25 05/04/25 05/04/25 01:58 05:31 05:31 WBC 11.4 H RBC 3.35 L Hgb 8.6 L Hct 27.2 L MCV 81.2 MCH 25.7 L MCHC 31.6 L RDW 14.1 Plt Count 71 L MPV 11.7 H Immature Gran % (Auto) 3.3 H Neut % (Auto) 82.1 H Lymph % (Auto) 6.2 L [place] % (Auto) 7.2 Eos % (Auto) 0.8 Baso % (Auto) 0.4 Lymph # (Auto) 0.70 L [place] # (Auto) 0.8 H Eos # (Auto) 0.1 Baso # (Auto) 0.0 Abs Immat Gran (auto) 0.37 H Absolute Neuts (auto) 9.4 H Absolute Nucleated RBC 0.000 Band Neutrophils % Not Reportable Nucleated RBC % 0.0 Platelet Estimate Decreased % Immature Plt Fraction 5.1 Anisocytosis 1+ Ovalocytes 1+ [place] Cells 1+ Schistocytes None seen Sodium 132 L Cancelled Potassium 4.7 Chloride Carbon Dioxide Anion Gap BUN Creatinine Estim Creat Clear Calc Estimated GFR Glucose POC Capillary Glucose 179 H Calcium Phosphorus Magnesium Iron TIBC % Saturation Ferritin Total Bilirubin AST ALT Alkaline Phosphatase Total Creatine Kinase Total Protein Albumin Triglycerides Vitamin B12 Folate TSH (Reflex) Random Cortisol Urine Color Urine Appearance Urine pH Ur Specific [place] Urine Protein Urine Glucose (UA) Urine Ketones Ur Blood (Man) Urine Nitrate Urine Bilirubin Urine Urobilinogen Leukocyte Esterase Rfl Urine RBC Urine WBC Ur Squamous Epith Cells Urine Bacteria Urine Casts Urine Eosinophils U Random Total Protein Ur Random Sodium Urine Creatinine Protein/Creat Ratio 2 Complement C3 Complement C4 05/04/25 05/04/25 05/04/25 05:31 05:31 05:31 WBC RBC Hgb Hct MCV MCH MCHC RDW Plt Count MPV Immature Gran % (Auto) Neut % (Auto) Lymph % (Auto) [place] % (Auto) Eos % (Auto) Baso % (Auto) Lymph # (Auto) [place] # (Auto) Eos # (Auto) Baso # (Auto) Abs Immat Gran (auto) Absolute Neuts (auto) Absolute Nucleated RBC Band Neutrophils % Nucleated RBC % Platelet Estimate % Immature Plt Fraction Anisocytosis Ovalocytes [place] Cells Schistocytes Sodium Potassium Cancelled Chloride 102 Cancelled Carbon Dioxide 20 L Cancelled Anion Gap 10 BUN Creatinine Estim Creat Clear Calc Estimated GFR Glucose POC Capillary Glucose Calcium Phosphorus Magnesium Iron TIBC % Saturation Ferritin Total Bilirubin AST ALT Alkaline Phosphatase Total Creatine Kinase Total Protein Albumin Triglycerides Vitamin B12 Folate TSH (Reflex) Random Cortisol Urine Color Urine Appearance Urine pH Ur Specific [place] Urine Protein Urine Glucose (UA) Urine Ketones Ur Blood (Man) Urine Nitrate Urine Bilirubin Urine Urobilinogen Leukocyte Esterase Rfl Urine RBC Urine WBC Ur Squamous Epith Cells Urine Bacteria Urine Casts Urine Eosinophils U Random Total Protein Ur Random Sodium Urine Creatinine Protein/Creat Ratio 2 Complement C3 Complement C4 05/04/25 05/04/25 05/04/25 05:31 05:31 05:31 WBC RBC Hgb Hct MCV MCH MCHC RDW Plt Count MPV Immature Gran % (Auto) Neut % (Auto) Lymph % (Auto) [place] % (Auto) Eos % (Auto) Baso % (Auto) Lymph # (Auto) [place] # (Auto) Eos # (Auto) Baso # (Auto) Abs Immat Gran (auto) Absolute Neuts (auto) Absolute Nucleated RBC Band Neutrophils % Nucleated RBC % Platelet Estimate % Immature Plt Fraction Anisocytosis Ovalocytes [place] Cells Schistocytes Sodium Potassium Chloride Carbon Dioxide Anion Gap Cancelled BUN 82 H Cancelled Creatinine 3.55 H Cancelled Estim Creat Clear Calc 14 Estimated GFR Glucose POC Capillary Glucose Calcium Phosphorus Magnesium Iron TIBC % Saturation Ferritin Total Bilirubin AST ALT Alkaline Phosphatase Total Creatine Kinase Total Protein Albumin Triglycerides Vitamin B12 Folate TSH (Reflex) Random Cortisol Urine Color Urine Appearance Urine pH Ur Specific [place] Urine Protein Urine Glucose (UA) Urine Ketones Ur Blood (Man) Urine Nitrate Urine Bilirubin Urine Urobilinogen Leukocyte Esterase Rfl Urine RBC Urine WBC Ur Squamous Epith Cells Urine Bacteria Urine Casts Urine Eosinophils U Random Total Protein Ur Random Sodium Urine Creatinine Protein/Creat Ratio 2 Complement C3 Complement C4 05/04/25 05/04/25 05/04/25 05:31 05:31 05:31 WBC RBC Hgb Hct MCV MCH MCHC RDW Plt Count MPV Immature Gran % (Auto) Neut % (Auto) Lymph % (Auto) [place] % (Auto) Eos % (Auto) Baso % (Auto) Lymph # (Auto) [place] # (Auto) Eos # (Auto) Baso # (Auto) Abs Immat Gran (auto) Absolute Neuts (auto) Absolute Nucleated RBC Band Neutrophils % Nucleated RBC % Platelet Estimate % Immature Plt Fraction Anisocytosis Ovalocytes [place] Cells Schistocytes Sodium Potassium Chloride Carbon Dioxide Anion Gap BUN Creatinine Estim Creat Clear Calc Cancelled Estimated GFR 17 L Cancelled Glucose 132 H Cancelled POC Capillary Glucose Calcium 8.0 L Phosphorus Magnesium Iron TIBC % Saturation Ferritin Total Bilirubin AST ALT Alkaline Phosphatase Total Creatine Kinase Total Protein Albumin Triglycerides Vitamin B12 Folate TSH (Reflex) Random Cortisol Urine Color Urine Appearance Urine pH Ur Specific [place] Urine Protein Urine Glucose (UA) Urine Ketones Ur Blood (Man) Urine Nitrate Urine Bilirubin Urine Urobilinogen Leukocyte Esterase Rfl Urine RBC Urine WBC Ur Squamous Epith Cells Urine Bacteria Urine Casts Urine Eosinophils U Random Total Protein Ur Random Sodium Urine Creatinine Protein/Creat Ratio 2 Complement C3 Complement C4 05/04/25 05/04/25 05/04/25 05:31 05:31 05:31 WBC RBC Hgb Hct MCV MCH MCHC RDW Plt Count MPV Immature Gran % (Auto) Neut % (Auto) Lymph % (Auto) [place] % (Auto) Eos % (Auto) Baso % (Auto) Lymph # (Auto) [place] # (Auto) Eos # (Auto) Baso # (Auto) Abs Immat Gran (auto) Absolute Neuts (auto) Absolute Nucleated RBC Band Neutrophils % Nucleated RBC % Platelet Estimate % Immature Plt Fraction Anisocytosis Ovalocytes [place] Cells Schistocytes Sodium Potassium Chloride Carbon Dioxide Anion Gap BUN Creatinine Estim Creat Clear Calc Estimated GFR Glucose POC Capillary Glucose Calcium Cancelled Phosphorus 5.8 H Cancelled Magnesium 2.2 Iron TIBC % Saturation Ferritin Total Bilirubin 0.4 AST 53 ALT 24 Alkaline Phosphatase 172 H Total Creatine Kinase Total Protein 6.4 Albumin 3.2 L Cancelled Triglycerides 67 Vitamin B12 Folate TSH (Reflex) Random Cortisol Urine Color Urine Appearance Urine pH Ur Specific [place] Urine Protein Urine Glucose (UA) Urine Ketones Ur Blood (Man) Urine Nitrate Urine Bilirubin Urine Urobilinogen Leukocyte Esterase Rfl Urine RBC Urine WBC Ur Squamous Epith Cells Urine Bacteria Urine Casts Urine Eosinophils U Random Total Protein Ur Random Sodium Urine Creatinine Protein/Creat Ratio 2 Complement C3 Complement C4 05/04/25 05/04/25 05:31 08:19 WBC RBC Hgb Hct MCV MCH MCHC RDW Plt Count MPV Immature Gran % (Auto) Neut % (Auto) Lymph % (Auto) [place] % (Auto) Eos % (Auto) Baso % (Auto) Lymph # (Auto) [place] # (Auto) Eos # (Auto) Baso # (Auto) Abs Immat Gran (auto) Absolute Neuts (auto) Absolute Nucleated RBC Band Neutrophils % Nucleated RBC % Platelet Estimate % Immature Plt Fraction Anisocytosis Ovalocytes [place] Cells Schistocytes Sodium Potassium Chloride Carbon Dioxide Anion Gap BUN Creatinine Estim Creat Clear Calc Estimated GFR Glucose POC Capillary Glucose 114 H Calcium Phosphorus Magnesium Iron TIBC % Saturation Ferritin Total Bilirubin AST ALT Alkaline Phosphatase Total Creatine Kinase Total Protein Albumin Triglycerides Cancelled Vitamin B12 Folate TSH (Reflex) Random Cortisol 8.15 Urine Color Urine Appearance Urine pH Ur Specific [place] Urine Protein Urine Glucose (UA) Urine Ketones Ur Blood (Man) Urine Nitrate Urine Bilirubin Urine Urobilinogen Leukocyte Esterase Rfl Urine RBC Urine WBC Ur Squamous Epith Cells Urine Bacteria Urine Casts Urine Eosinophils U Random Total Protein Ur Random Sodium Urine Creatinine Protein/Creat Ratio 2 Complement C3 Complement C4
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
--- NOTE | 2025-05-04 17:06 | P.PNIM_ITS ---
Progress Note: A&P Assessment and Plan (1) Hyperkalemia: Code(s): E87.5 - Hyperkalemia Status: Acute (2) Sepsis: Qualifiers: Sepsis acute organ dysfunction status: unspecified Sepsis type: sepsis due to unspecified organism Qualified Code(s): A41.9 - Sepsis, unspecified organism Code(s): A41.9 - Sepsis, unspecified organism Status: Acute (3) Bacteremia: Code(s): R78.81 - Bacteremia Status: Acute (4) Pneumonia: Qualifiers: Laterality: right Lung location: lower lobe of lung Pneumonia type: due to unspecified organism Qualified Code(s): J18.9 - Pneumonia, unspecified organism Code(s): J18.9 - Pneumonia, unspecified organism Status: Acute (5) CKD (chronic kidney disease): Qualifiers: Chronic kidney disease stage: unspecified stage Qualified Code(s): N18.9 - Chronic kidney disease, unspecified Code(s): N18.9 - Chronic kidney disease, unspecified Status: Acute (6) On total parenteral nutrition (TPN): Code(s): Z78.9 - Other specified health status Status: Acute (7) Hyponatremia: Code(s): E87.1 - Hypo-osmolality and hyponatremia Status: Acute (8) AMS (altered mental status): Qualifiers: Altered mental status type: unspecified Qualified Code(s): R41.82 - Altered mental status, unspecified Code(s): R41.82 - Altered mental status, unspecified Status: Acute (9) Anemia: Code(s): D64.9 - Anemia, unspecified Status: Acute Plan Hyperkalemia Potassium elevated yesterday to 6.6 treated appropriately with improvement. He received a 2nd round and potassium normal today. TSH normal. Cortisol normal. Cozaar stopped. TPN held Nephrology consulted and appreciate their input. Follow potassium level. Follow closely. Sepsis Secondary to pneumonia and/or bacteremia. Blood cultures growing oxacillin sensitive Staph aureus. Continue with IV antibiotic ID consulted. Appreciate thier input. Follow cultures Continue to monitor Bacteremia Possible source PNA versus central line. BCx 04/25 4/4 positive for DANE BCx 04/27 1/3 positive for DANE BCx 05/01 1/2 positive for gram positive cocci in one of the aerobic bottles TTE with no endocarditis. Cardiology on board Plan for line salvage goal as very limited option for IV line Started Vancomycin which has now been discontinued. Abx switched to Ancef No fevers. WBC better at 11K BCx (05/01) could be contaminant vs persistent infection. ID feels best to proceed with TIMUR at this point. If BCx (05/01) set shows Staph, then he shannon need the central line removed. Spoke with Cardiology and they will attempt to get TIMUR performed tomorrow. Patient was made aware of these findings and the plan. Continue Ancef. Monitor WBC PNA CT of chest showing focal consolidation in the RLL. Will have bedside swallow evaluation As above CKD stage 4 Baseline creatinine 2.9 but worsened past few days to 3.5. Complement normal. Urine eos negative. Prot/Cr ratio 2.3gm. FENa 0.7% TPN stopped. Started IV fluids. Nephrology consulted and appreciate their input Continue to monitor TPN chronic. Takes TPN 4x/week. Dietitian on board. TPN on hold Continue to monitor Hyponatremia Sodium low but stable 129-132 range. Probably chronic. TSH and cortisol okay Nephrology consulted Monitor for now AMS Patient was confused. Head CT showing no acute process. TSH, B12, folate levels okay Mental status much better. Follow for now Acute on chronic anemia Hgb low but stable in the 8-9 range. No bleeding reported possible dilutional B12, folate normal. Iron studies consistent with iron deficiency. Related to poor dietary iron absorption? transfuse if Hgb<7 to a stable Hgb. IV iron if okay with others continue to monitor Dm2 A1c 5.6%. Diet controlled. The patient's blood glucose was reviewed on 05/04 Glucose remains well controlled. Continue AccuCheks covering with sliding scale. Hypoglycemia protocol available as needed. 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 Eating okay here. Monitor calorie intake Thyroid carcinoma status post partial resection Not on levothyroxine TSH okay. 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 Slept well. No CP or SOB. Slight cough. Patient now states he takes TPN 4 days /week for 10hrs/day. He uses TPN on various days Exam Narrative: AF 97.7 126/67 94 17 100% ra Gen - NARD. Sitting up in chair reading a book. Chest - scattered inspiratory rhonchi. Left upper chest tunneled dual lumen catheter CV - RRR S1/S. Tele showing PVCs Abd - Soft, NT/ND, Positive BS, RLQ colostomy noted Ext - No pedal edema Neuro - Alert and oriented x4. PEDERSEN. Psych - pleasant and cooperative Skin - warm and dry Objective Data Vital Signs Vital Signs: Vital Signs - 24 hr 05/03/25 20:00 05/03/25 20:05 05/03/25 21:38 Temperature 98.5 F Pulse Rate 94 86 85 Respiratory Rate 16 Blood Pressure 134/64 Pulse Oximetry 100 100 Oxygen Delivery Room Air Fraction of Inspired Oxygen 21 05/04/25 00:00 05/04/25 04:00 05/04/25 05:47 Temperature 97.2 F L Pulse Rate 82 103 H 104 H Respiratory Rate 16 Blood Pressure 104/63 Pulse Oximetry 98 Oxygen Delivery Fraction of Inspired Oxygen 05/04/25 08:44 05/04/25 08:45 05/04/25 08:45 Temperature 97.5 F L Pulse Rate 95 95 95 Respiratory Rate 16 16 Blood Pressure 129/70 Pulse Oximetry 99 99 Oxygen Delivery Room Air Fraction of Inspired Oxygen 05/04/25 09:10 05/04/25 12:00 05/04/25 14:00 Temperature 97.7 F Pulse Rate 93 94 Respiratory Rate 17 Blood Pressure 126/67 Pulse Oximetry 100 Oxygen Delivery Room Air Fraction of Inspired Oxygen Intake/Output Intake/Output: Intake & Output 05/01/25 05/02/25 05/03/25 05/04/25 23:59 23:59 23:59 23:59 Intake Total 2414 3531.8 1685 1762 Output Total 900 1175 1225 1200 Balance 1514 2356.8 414 562 Meds/Results Medications: Active Medications Generic Name Dose Route Start Last Admin Trade Name Freq PRN Reason Stop Dose Admin Acetaminophen 650 mg 04/25/25 22:50 Acetaminophen 650 Mg Suppository RECTAL Q6H PRN Mild Pain (1-3) or Fever Allopurinol 100 mg 04/27/25 09:00 05/04/25 08:45 Allopurinol 100 Mg Tablet PO 100 mg DAILY ZHANNA Administration Cyanocobalamin 1,000 mcg 05/26/25 09:00 Cyanocobalamin Inj 1,000 Mcg/Ml Vial IM MONTHLY ZHANNA Cyclobenzaprine HCl 10 mg 04/26/25 13:46 05/03/25 09:15 Cyclobenzaprine Hcl 10 Mg Tablet PO 10 mg TID PRN Administration Muscle Spasm Dextrose 12.5 gm 04/27/25 08:27 Dextrose 50% 25 Gm/50 Ml Syringe IV PUSH PRN PRN Hypoglycemia Protocol Enoxaparin Sodium 30 mg 04/27/25 09:00 05/04/25 08:54 Enoxaparin 30 Mg/0.3 Ml Syringe SUB-Q Not Given DAILY ZHANNA Finasteride 5 mg 04/27/25 09:00 05/04/25 08:45 Finasteride 5 Mg Tablet PO 5 mg DAILY ZHANNA Administration Folic Acid 1 mg 04/27/25 09:00 05/04/25 08:45 Folic Acid 1 Mg Tablet PO 1 mg DAILY ZHANNA Administration Glucagon 1 mg 04/27/25 08:27 Glucagon For Inj 1 Mg Vial IM PRN PRN Hypoglycemia Protocol Glucose 15 gm 04/27/25 08:27 Glucose Oral Gel 15 Gm Of Glucse In 37.5 Gm Tube PO PRN PRN Hypoglycemia Protocol Dextrose 1,000 mls @ 50 mls/hr 04/26/25 13:47 Dextrose 10% IV CONT .Q20H PRN if PN is interrupted Dextrose 1,000 mls @ 100 mls/hr 04/27/25 08:27 Dextrose 5% 1,000 Ml IVPB PRN PRN Hypoglycemia Protocol Cefazolin Sodium 2 gm/ Sodium 50 mls @ 100 mls/hr 04/30/25 18:00 05/04/25 06:05 Chloride IVPB Infused Q12H ZHANNA Infusion Multivitamins 1.25 ml/ 1,002.5 mls @ 70 mls/hr 05/05/25 20:00 Multivitamins 1.25 ml/ Amino IV CONT Acids/Electrolytes/Dextrose MoWeFr@2000 [facility] Protocol Sodium Chloride 1,000 mls @ 70 mls/hr 05/03/25 16:25 05/04/25 08:49 Normal Saline Iv IV CONT 70 mls/hr .[id number] ZHANNA Administration Insulin Aspart 1 - 2 units 04/27/25 21:00 05/04/25 00:23 Insulin Aspart (*Bkc) 100 Units/Ml SUB-Q Not Given HS ZHANNA Protocol Insulin Aspart 2 - 5 units 04/27/25 12:00 05/04/25 13:00 Insulin Aspart (*Bkc) 100 Units/Ml SUB-Q Not Given TIDWM [facility] Protocol Sodium Chloride 10 ml 04/29/25 14:00 05/04/25 05:36 Central Line Flush IV PUSH 10 ml Q8HR ZHANNA Administration Sodium Chloride 10 ml 04/29/25 07:58 Central Line Flush IV PUSH PRN PRN with TPN bag changes Sodium Chloride 20 ml 04/29/25 07:58 05/04/25 05:36 Central Line Flush IV PUSH 20 ml PRN PRN Administration after blood draws Sodium Zirconium Cyclosilicate 10 gm 05/03/25 16:20 05/04/25 10:50 Sodium Zirconium Cyclosilicate 10 Gm Powd.Pack PO 05/05/25 16:19 10 gm On Hold: 05/04/25 13:01 TID@1000,1500,2200 ZHANNA Administration Trazodone HCl 25 mg 05/01/25 21:00 05/03/25 21:06 Trazodone Hcl 25 Mg Tablet PO 25 mg HS ZHANNA Administration Radiology Results: ITS Impressions Chest X-Ray 04/25/25 18:06 Impression: 1: Diffuse bilateral interstitial infiltrates which may represent edema or atypical pneumonia. Head CT 04/25/25 20:26 IMPRESSION: 1. No acute intracranial abnormality. Chest/Abdomen/Pelvis CT 04/25/25 20:28 IMPRESSION: 1. Focal consolidation right lower lobe, suspicious for pneumonia. 2: Increased size of ascending thoracic aortic aneurysm measuring 4.8 cm. 3: Splenomegaly. 4: Stable sclerotic lesions or spine and pelvis, suspicious for stable osseous metastases. Correlate for history of malignancy. Renal Ultrasound 05/03/25 18:21 IMPRESSION: 1. A couple small right renal cysts. No hydronephrosis. 2. Status post left nephrectomy. Labs Labs: Laboratory Results - last 24 hr 05/03/25 05/03/25 05/03/25 14:02 14:03 17:07 WBC RBC Hgb Hct MCV MCH MCHC RDW Plt Count MPV Immature Gran % (Auto) Neut % (Auto) Lymph % (Auto) [place] % (Auto) Eos % (Auto) Baso % (Auto) Lymph # (Auto) [place] # (Auto) Eos # (Auto) Baso # (Auto) Abs Immat Gran (auto) Absolute Neuts (auto) Absolute Nucleated RBC Band Neutrophils % Nucleated RBC % Platelet Estimate % Immature Plt Fraction Anisocytosis Ovalocytes [place] Cells Schistocytes Sodium Potassium Chloride Carbon Dioxide Anion Gap BUN Creatinine Estim Creat Clear Calc Estimated GFR Glucose POC Capillary Glucose Calcium Phosphorus Magnesium Total Bilirubin AST ALT Alkaline Phosphatase Total Creatine Kinase Total Protein Albumin Triglycerides Vitamin B12 960.0 H Folate > 20.0 H TSH (Reflex) 2.860 Random Cortisol Urine Color Yellow Urine Appearance Clear Urine pH 5.5 Ur Specific [place] 1.016 Urine Protein 3+ H Urine Glucose (UA) Negative Urine Ketones Negative Ur Blood (Man) 1+ H Urine Nitrate Negative Urine Bilirubin Negative Urine Urobilinogen 0.2 Leukocyte Esterase Rfl Trace H Urine RBC 0-2 Urine WBC 0-5 Ur Squamous Epith Cells None seen Urine Bacteria None seen Urine Casts 0-2 Urine Eosinophils None seen U Random Total Protein 245 Ur Random Sodium 29 Urine Creatinine 105.8 Protein/Creat Ratio 2 Complement C3 Complement C4 05/03/25 05/03/25 05/03/25 17:07 17:49 21:01 WBC RBC Hgb Hct MCV MCH MCHC RDW Plt Count MPV Immature Gran % (Auto) Neut % (Auto) Lymph % (Auto) [place] % (Auto) Eos % (Auto) Baso % (Auto) Lymph # (Auto) [place] # (Auto) Eos # (Auto) Baso # (Auto) Abs Immat Gran (auto) Absolute Neuts (auto) Absolute Nucleated RBC Band Neutrophils % Nucleated RBC % Platelet Estimate % Immature Plt Fraction Anisocytosis Ovalocytes [place] Cells Schistocytes Sodium 130 L Potassium 5.4 H Chloride 103 Carbon Dioxide 19 L Anion Gap 8 BUN 79 H Creatinine 3.24 H Estim Creat Clear Calc 15 Estimated GFR 19 L Glucose 126 H POC Capillary Glucose 124 H Calcium 8.8 Phosphorus Magnesium Total Bilirubin AST ALT Alkaline Phosphatase Total Creatine Kinase 31 L Total Protein Albumin Triglycerides Vitamin B12 Folate TSH (Reflex) Random Cortisol Urine Color Urine Appearance Urine pH Ur Specific [place] Urine Protein Urine Glucose (UA) Urine Ketones Ur Blood (Man) Urine Nitrate Urine Bilirubin Urine Urobilinogen Leukocyte Esterase Rfl Urine RBC Urine WBC Ur Squamous Epith Cells Urine Bacteria Urine Casts Urine Eosinophils U Random Total Protein Ur Random Sodium Urine Creatinine Cancelled Protein/Creat Ratio 2 2.32 H Complement C3 97 Complement C4 24.4 05/04/25 05/04/25 05/04/25 00:00 01:58 05:31 WBC 11.4 H RBC 3.35 L Hgb 8.6 L Hct 27.2 L MCV 81.2 MCH 25.7 L MCHC 31.6 L RDW 14.1 Plt Count 71 L MPV 11.7 H Immature Gran % (Auto) 3.3 H Neut % (Auto) 82.1 H Lymph % (Auto) 6.2 L [place] % (Auto) 7.2 Eos % (Auto) 0.8 Baso % (Auto) 0.4 Lymph # (Auto) 0.70 L [place] # (Auto) 0.8 H Eos # (Auto) 0.1 Baso # (Auto) 0.0 Abs Immat Gran (auto) 0.37 H Absolute Neuts (auto) 9.4 H Absolute Nucleated RBC 0.000 Band Neutrophils % Not Reportable Nucleated RBC % 0.0 Platelet Estimate Decreased % Immature Plt Fraction 5.1 Anisocytosis 1+ Ovalocytes 1+ Brina Cells 1+ Schistocytes None seen Sodium 132 L Potassium 5.9 H Chloride Carbon Dioxide Anion Gap BUN Creatinine Estim Creat Clear Calc Estimated GFR Glucose POC Capillary Glucose 179 H Calcium Phosphorus Magnesium Total Bilirubin AST ALT Alkaline Phosphatase Total Creatine Kinase Total Protein Albumin Triglycerides Vitamin B12 Folate TSH (Reflex) Random Cortisol Urine Color Urine Appearance Urine pH Ur Specific [place] Urine Protein Urine Glucose (UA) Urine Ketones Ur Blood (Man) Urine Nitrate Urine Bilirubin Urine Urobilinogen Leukocyte Esterase Rfl Urine RBC Urine WBC Ur Squamous Epith Cells Urine Bacteria Urine Casts Urine Eosinophils U Random Total Protein Ur Random Sodium Urine Creatinine Protein/Creat Ratio 2 Complement C3 Complement C4 05/04/25 05/04/25 05/04/25 05:31 05:31 05:31 WBC RBC Hgb Hct MCV MCH MCHC RDW Plt Count MPV Immature Gran % (Auto) Neut % (Auto) Lymph % (Auto) [place] % (Auto) Eos % (Auto) Baso % (Auto) Lymph # (Auto) [place] # (Auto) Eos # (Auto) Baso # (Auto) Abs Immat Gran (auto) Absolute Neuts (auto) Absolute Nucleated RBC Band Neutrophils % Nucleated RBC % Platelet Estimate % Immature Plt Fraction Anisocytosis Ovalocytes [place] Cells Schistocytes Sodium Cancelled Potassium 4.7 Cancelled Chloride 102 Cancelled Carbon Dioxide 20 L Anion Gap BUN Creatinine Estim Creat Clear Calc Estimated GFR Glucose POC Capillary Glucose Calcium Phosphorus Magnesium Total Bilirubin AST ALT Alkaline Phosphatase Total Creatine Kinase Total Protein Albumin Triglycerides Vitamin B12 Folate TSH (Reflex) Random Cortisol Urine Color Urine Appearance Urine pH Ur Specific [place] Urine Protein Urine Glucose (UA) Urine Ketones Ur Blood (Man) Urine Nitrate Urine Bilirubin Urine Urobilinogen Leukocyte Esterase Rfl Urine RBC Urine WBC Ur Squamous Epith Cells Urine Bacteria Urine Casts Urine Eosinophils U Random Total Protein Ur Random Sodium Urine Creatinine Protein/Creat Ratio 2 Complement C3 Complement C4 05/04/25 05/04/25 05/04/25 05:31 05:31 05:31 WBC RBC Hgb Hct MCV MCH MCHC RDW Plt Count MPV Immature Gran % (Auto) Neut % (Auto) Lymph % (Auto) [place] % (Auto) Eos % (Auto) Baso % (Auto) Lymph # (Auto) [place] # (Auto) Eos # (Auto) Baso # (Auto) Abs Immat Gran (auto) Absolute Neuts (auto) Absolute Nucleated RBC Band Neutrophils % Nucleated RBC % Platelet Estimate % Immature Plt Fraction Anisocytosis Ovalocytes [place] Cells Schistocytes Sodium Potassium Chloride Carbon Dioxide Cancelled Anion Gap 10 Cancelled BUN 82 H Cancelled Creatinine 3.55 H Estim Creat Clear Calc Estimated GFR Glucose POC Capillary Glucose Calcium Phosphorus Magnesium Total Bilirubin AST ALT Alkaline Phosphatase Total Creatine Kinase Total Protein Albumin Triglycerides Vitamin B12 Folate TSH (Reflex) Random Cortisol Urine Color Urine Appearance Urine pH Ur Specific [place] Urine Protein Urine Glucose (UA) Urine Ketones Ur Blood (Man) Urine Nitrate Urine Bilirubin Urine Urobilinogen Leukocyte Esterase Rfl Urine RBC Urine WBC Ur Squamous Epith Cells Urine Bacteria Urine Casts Urine Eosinophils U Random Total Protein Ur Random Sodium Urine Creatinine Protein/Creat Ratio 2 Complement C3 Complement C4 05/04/25 05/04/25 05/04/25 05:31 05:31 05:31 WBC RBC Hgb Hct MCV MCH MCHC RDW Plt Count MPV Immature Gran % (Auto) Neut % (Auto) Lymph % (Auto) [place] % (Auto) Eos % (Auto) Baso % (Auto) Lymph # (Auto) [place] # (Auto) Eos # (Auto) Baso # (Auto) Abs Immat Gran (auto) Absolute Neuts (auto) Absolute Nucleated RBC Band Neutrophils % Nucleated RBC % Platelet Estimate % Immature Plt Fraction Anisocytosis Ovalocytes [place] Cells Schistocytes Sodium Potassium Chloride Carbon Dioxide Anion Gap BUN Creatinine Cancelled Estim Creat Clear Calc 14 Cancelled Estimated GFR 17 L Cancelled Glucose 132 H POC Capillary Glucose Calcium Phosphorus Magnesium Total Bilirubin AST ALT Alkaline Phosphatase Total Creatine Kinase Total Protein Albumin Triglycerides Vitamin B12 Folate TSH (Reflex) Random Cortisol Urine Color Urine Appearance Urine pH Ur Specific [place] Urine Protein Urine Glucose (UA) Urine Ketones Ur Blood (Man) Urine Nitrate Urine Bilirubin Urine Urobilinogen Leukocyte Esterase Rfl Urine RBC Urine WBC Ur Squamous Epith Cells Urine Bacteria Urine Casts Urine Eosinophils U Random Total Protein Ur Random Sodium Urine Creatinine Protein/Creat Ratio 2 Complement C3 Complement C4 05/04/25 05/04/25 05/04/25 05:31 05:31 05:31 WBC RBC Hgb Hct MCV MCH MCHC RDW Plt Count MPV Immature Gran % (Auto) Neut % (Auto) Lymph % (Auto) [place] % (Auto) Eos % (Auto) Baso % (Auto) Lymph # (Auto) [place] # (Auto) Eos # (Auto) Baso # (Auto) Abs Immat Gran (auto) Absolute Neuts (auto) Absolute Nucleated RBC Band Neutrophils % Nucleated RBC % Platelet Estimate % Immature Plt Fraction Anisocytosis Ovalocytes [place] Cells Schistocytes Sodium Potassium Chloride Carbon Dioxide Anion Gap BUN Creatinine Estim Creat Clear Calc Estimated GFR Glucose Cancelled POC Capillary Glucose Calcium 8.0 L Cancelled Phosphorus 5.8 H Cancelled Magnesium 2.2 Total Bilirubin 0.4 AST 53 ALT 24 Alkaline Phosphatase 172 H Total Creatine Kinase Total Protein 6.4 Albumin 3.2 L Triglycerides Vitamin B12 Folate TSH (Reflex) Random Cortisol Urine Color Urine Appearance Urine pH Ur Specific [place] Urine Protein Urine Glucose (UA) Urine Ketones Ur Blood (Man) Urine Nitrate Urine Bilirubin Urine Urobilinogen Leukocyte Esterase Rfl Urine RBC Urine WBC Ur Squamous Epith Cells Urine Bacteria Urine Casts Urine Eosinophils U Random Total Protein Ur Random Sodium Urine Creatinine Protein/Creat Ratio 2 Complement C3 Complement C4 05/04/25 05/04/25 05/04/25 05:31 05:31 08:19 WBC RBC Hgb Hct MCV MCH MCHC RDW Plt Count MPV Immature Gran % (Auto) Neut % (Auto) Lymph % (Auto) [place] % (Auto) Eos % (Auto) Baso % (Auto) Lymph # (Auto) [place] # (Auto) Eos # (Auto) Baso # (Auto) Abs Immat Gran (auto) Absolute Neuts (auto) Absolute Nucleated RBC Band Neutrophils % Nucleated RBC % Platelet Estimate % Immature Plt Fraction Anisocytosis Ovalocytes [place] Cells Schistocytes Sodium Potassium Chloride Carbon Dioxide Anion Gap BUN Creatinine Estim Creat Clear Calc Estimated GFR Glucose POC Capillary Glucose 114 H Calcium Phosphorus Magnesium Total Bilirubin AST ALT Alkaline Phosphatase Total Creatine Kinase Total Protein Albumin Cancelled Triglycerides 67 Cancelled Vitamin B12 Folate TSH (Reflex) Random Cortisol 8.15 Urine Color Urine Appearance Urine pH Ur Specific [place] Urine Protein Urine Glucose (UA) Urine Ketones Ur Blood (Man) Urine Nitrate Urine Bilirubin Urine Urobilinogen Leukocyte Esterase Rfl Urine RBC Urine WBC Ur Squamous Epith Cells Urine Bacteria Urine Casts Urine Eosinophils U Random Total Protein Ur Random Sodium Urine Creatinine Protein/Creat Ratio 2 Complement C3 Complement C4 05/04/25 11:57 WBC RBC Hgb Hct MCV MCH MCHC RDW Plt Count MPV Immature Gran % (Auto) Neut % (Auto) Lymph % (Auto) [place] % (Auto) Eos % (Auto) Baso % (Auto) Lymph # (Auto) [place] # (Auto) Eos # (Auto) Baso # (Auto) Abs Immat Gran (auto) Absolute Neuts (auto) Absolute Nucleated RBC Band Neutrophils % Nucleated RBC % Platelet Estimate % Immature Plt Fraction Anisocytosis Ovalocytes [place] Cells Schistocytes Sodium Potassium Chloride Carbon Dioxide Anion Gap BUN Creatinine Estim Creat Clear Calc Estimated GFR Glucose POC Capillary Glucose 131 H Calcium Phosphorus Magnesium Total Bilirubin AST ALT Alkaline Phosphatase Total Creatine Kinase Total Protein Albumin Triglycerides Vitamin B12 Folate TSH (Reflex) Random Cortisol Urine Color Urine Appearance Urine pH Ur Specific [place] Urine Protein Urine Glucose (UA) Urine Ketones Ur Blood (Man) Urine Nitrate Urine Bilirubin Urine Urobilinogen Leukocyte Esterase Rfl Urine RBC Urine WBC Ur Squamous Epith Cells Urine Bacteria Urine Casts Urine Eosinophils U Random Total Protein Ur Random Sodium Urine Creatinine Protein/Creat Ratio 2 Complement C3 Complement C4
[2025-05-04 17:52] LABS: Thyroid Stimulating Hormone 1.860 uIU/mL (0.465-4.680)
[2025-05-04 20:02] LABS: Anion Gap 11 mmol/L (4-12); Blood Urea Nitrogen 77 mg/dL (9-20); Calcium 8.0 mg/dL (8.4-10.2); Carbon Dioxide 18 mmol/L (22-30); Chloride 104 mmol/L (98-107); Estimated CRCL calculation 14 ml/min; Estimated Glomerular Filt Rate 17; Glucose 153 mg/dL (65-110); Potassium 5.8 mmol/L (3.4-5.0); Sodium 133 mmol/L (137-145)
--- NOTE | 2025-05-04 20:09 | PC.NURSE ---
MARK HODGSON NOTIFIED OF POTASSIUM 5.8
[2025-05-04] MEDS: CALCIUM GLUC 1,000 MG/NS 50 ML 1,000 MG/50 ML BAG 100 MG IVPB (21:33)
[2025-05-04 23:26] LABS: Anion Gap 9 mmol/L (4-12); Blood Urea Nitrogen 78 mg/dL (9-20); Calcium 8.3 mg/dL (8.4-10.2); Carbon Dioxide 19 mmol/L (22-30); Chloride 105 mmol/L (98-107); Estimated CRCL calculation 14 ml/min; Estimated Glomerular Filt Rate 16; Glucose 136 mg/dL (65-110); Potassium 4.9 mmol/L (3.4-5.0); Sodium 133 mmol/L (137-145)
[2025-05-05] VITALS (15 sets, daily range): BP systolic 119–158; BP diastolic 61–90; PULSE 93–108; RESP 15–24; TEMP 36.5–36.7; O2SAT 98–100
--- NOTE | 2025-05-05 | ECHO_ITS ---
Patient Info Name: Qing Reinoso Age: 79 years : 1945 Gender: Male Ht: 66 in Wt: 157 lbs BSA: 1.83 m2 Technical Quality: Good Exam Date: 05/05/2025 11:29 AM Patient Status: I Admit Date: 04/25/2025 Exam Type: CA echo transesophageal Complete two-dimensional, color flow and Doppler transesophageal study is performed. Staff Referring Physician: Jerald Jimenes MD Tool Lathe Operator: Maribell Moore Attending Provider: Leticia Reese DO Summary 1. Left ventricular chamber dimension is normal. 2. Left ventricular systolic function is normal with an ejection fraction of 60-65% by visual estimation. 3. The left ventricular diastolic function is indeterminate as it was not assessed. 4. Left atrial chamber dimension is mildly enlarged. 5. There is mild mitral valve regurgitation. 6. There is trace tricuspid valve regurgitation. Procedure Details Risks/benefits/alternative to TIMUR discuss with patient and he gave informed consent. He was monitored electrocardiographically, vitals and pulse ox. He was in normal rhythm HR 95 bpm, BP 150/80 mmHg, pulse ox 95% on NC. Cetcaine spray x 1 to posterior oropharynx. Versed 2 mg and Fentanyl 50 mcg IV given for conscious sedation. TIMUR probe advanced without incident but could not get images of the heart. TIMUR probe withdrawn and reinserted and he swallowed without incident into esophagus. Multiple images obtained. TIMUR probe withdrawn and no blood noted on TIMUR probe tip. He tolerated procedure well with no complications. Left Ventricle Left ventricular chamber dimension is normal. Left ventricular systolic function is normal with an ejection fraction of 60-65% by visual estimation. The left ventricular diastolic function is indeterminate as it was not assessed. Right Ventricle Right ventricular chamber dimension is normal. Right ventricular systolic function is normal. Left Atria Left atrial chamber dimension is mildly enlarged. Right Atria Right atrial chamber dimension is normal. Atrial Septum Intact interatrial septum visualized by 2D and color flow imaging. Atrial Appendage There is no mass visualized in the left atrial appendage. Aortic Valve The aortic valve is trileaflet. There is no aortic valve stenosis. There is no aortic valve regurgitation. No aortic valve vegetation visualized. Pulmonic Valve There is no pulmonic regurgitation. No pulmonic valve vegetation visualized. Mitral Valve There is no mitral valve stenosis. There is mild mitral valve regurgitation. No mitral valve vegetation visualized. Tricuspid Valve There is trace tricuspid valve regurgitation. RVSP is not measured. Pericardium/Pleural There is no pericardial effusion. Inferior Vena Cava Inferior vena cava is not well visualized. Aorta The aortic root size at the sinus of Valsalva is not well visualized. Report Signatures
[2025-05-05] MEDS: CYCLOBENZAPRINE HCL 10 MG TABLET PO ×2 (00:12→09:06)
[2025-05-05] MEDS: SODIUM CHLORIDE 0.9% IV 1,000 ML 70 ML IV CONT ×2 (00:15→16:26)
[2025-05-05] MEDS: ceFAZolin 2 GM in SODIUM CHLORIDE 0.9% IV 50 ML 100 ML IVPB ×2 (05:19→17:30)
[2025-05-05] MEDS: CENTRAL LINE FLUSH 20 ML IV PUSH (05:22)
[2025-05-05] MEDS: CENTRAL LINE FLUSH 10 ML IV PUSH ×2 (05:23→21:30)
[2025-05-05 05:51] LABS: Hematocrit 27.2 % (42.0-52.0); Hemoglobin 8.5 g/dL (14.0-18.0); Immature Granulocyte Percent A 2.3 % (0-0.5); Immature Platelet Fraction Pct 4.7 % (0.9-11.2); Lymphocytes Absolute Auto 0.73 K/mm3 (0.9-3.2); Mean Corpuscular HGB Conc 31.3 g/dl (32-36); Mean Corpuscular Hemoglobin 26.0 pg (26-34); Mean Corpuscular Volume 83.2 fl (80-100); Nucleated Red Blood Cells Absolute Auto 0.000 K/mm3 (0.0-0.012); Nucleated Red Blood Cells Perc 0.0 % (0.0-0.2); Platelet Count Result 71 k/mm3 (150-375); Red Blood Count 3.27 M/mm3 (4.6-6.20); White Blood Count 12.5 K/mm3 (4.5-10.0)
[2025-05-05 06:11] LABS: Albumin Level 3.2 g/dL (3.5-5.1); Anion Gap 9 mmol/L (4-12); Blood Urea Nitrogen 76 mg/dL (9-20); Calcium 8.0 mg/dL (8.4-10.2); Carbon Dioxide 19 mmol/L (22-30); Chloride 107 mmol/L (98-107); Estimated CRCL calculation 14 ml/min; Estimated Glomerular Filt Rate 17; Glucose 101 mg/dL (65-110); Magnesium 2.1 mg/dL (1.6-2.3); Potassium 4.9 mmol/L (3.4-5.0); Sodium 135 mmol/L (137-145)
--- NOTE | 2025-05-05 06:14 | PC.NURSE ---
10 BEAT RUN OF V-TACH NOTED ON TELEMETRY, STRIP SHOWN TO DR MCLAUGHLIN
--- NOTE | 2025-05-05 08:28 | PC.NURSE ---
RN called Dr. Jimenes and got the okay to put Lovenox on hold and give morning medications. RN called cardiology to see if patient was going to have TIMUR done today. Cardiology said they were going to return call and let RN know. Dr. Jimenes spoke to them last night and said they were doing it today. RN is keeping patient NPO other than medications.
[2025-05-05] MEDS: FOLIC ACID 1 MG TABLET PO (09:06)
[2025-05-05] MEDS: FINASTERIDE 5 MG TABLET PO (09:06)
[2025-05-05] MEDS: SODIUM ZIRCONIUM CYCLOSILICATE 10 GM POWD.PACK PO ×2 (09:06→16:19)
--- NOTE | 2025-05-05 09:49 | PC.NURSE ---
RN ordered BMP for hour after Lokelma administration per provider communication notification.
--- NOTE | 2025-05-05 10:06 | PCSTNOTE ---
Bedside swallow evaluation on hold while awaiting TIMUR procedure today, unsure of time. BSE to follow, if possible, or tomorrow. Dr. Jimenes requested hold; ALEIDA Cooper, aware.
--- NOTE | 2025-05-05 10:37 | PC.NURSE ---
RN called patient's to update her on procedure, but no call and no voice message box.
--- NOTE | 2025-05-05 10:45 | PC.NURSE ---
BMP order was canceled by verbal order from Dr. Jimenes. Lab was already in process of drawing. RN spoke to r and d lab technician on floor and lab management.
--- NOTE | 2025-05-05 10:46 | PC.NURSE ---
RN obtained consent for TIMUR.
--- NOTE | 2025-05-05 11:15 | P.PNINF_ITS ---
Progress Note: A&P Assessment and Plan (1) MSSA bacteremia: Code(s): R78.81 - Bacteremia; B95.61 - Methicillin susceptible Staphylococcus aureus infection as the cause of diseases classified elsewhere Status: Acute (2) CLABSI (central line-associated bloodstream infection): Code(s): T80.211A - Bloodstream infection due to central venous catheter, initial encounter Status: Acute (3) On total parenteral nutrition (TPN): Code(s): Z78.9 - Other specified health status Status: Acute (4) CKD (chronic kidney disease): Qualifiers: Chronic kidney disease stage: unspecified stage Qualified Code(s): N18.9 - Chronic kidney disease, unspecified Code(s): N18.9 - Chronic kidney disease, unspecified Status: Acute (5) Sepsis: Qualifiers: Sepsis acute organ dysfunction status: unspecified Sepsis type: sepsis due to unspecified organism Qualified Code(s): A41.9 - Sepsis, unspecified organism Code(s): A41.9 - Sepsis, unspecified organism Status: Acute Plan # MSSA bacteremia present on admission. Likely secondary to longstanding PICC ( CLABSI ). -- blood cultures positive through 05/01. -- immediate follow-up blood cultures (04/27) still positive but in less number of bottles. -- TTE performed today negative for vegetations. # Chronic PICC use for supplemental TPN in the setting of distal esophageal and total gastrectomy. -- History of prior PICC CLABSI's. -- may have limited access sites for new PICC placement. 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 # Chronic kidney disease stage 4. Plan: -- continue cefazolin 2 g IV q.12 hours. -- add daptomycin 500 mg IV Q 48 hours. -- repeat 2 sets of blood cultures 05/07/2025. Continue to monitor blood cultures performed 05/05. -- typically, staphylococcus aureus-associated CLABSI warrants line removal and replacement. This has been delayed pending response to therapy given patient's report of limited further access sites. However, with positive blood cultures through 05/01 line salvage may no longer be possible. Discussed with Dr. Jimenes: Plan to reach out to [facility] for possible transfer for new line placement in the setting of limited access sites. Patient was seen via video telehealth consultation with the assistance of staff. Chart, data, and patient independently reviewed. Patient was located at [facility] while I was located in my [place] office. Received verbal consent from patient. Subjective Date/time seen: 05/05/25 11:15 Interval history: 05/02/2025: afebrile and with stable vital signs. Repeat blood cultures pending. at bedside and confirms patient's prior CLABSI's have involved multiple organisms over time. However, last line infection appears to also have involved MSSA in December or January and PICC was changed at that time. 05/03/2025: No new complaints today. 05/01 blood cultures reported as preliminarily negative. 05/04/2025: Afebrile with resolving leukocytosis. / blood cultures negative at 24 hours. Feels better. 05/05/2025: Afebrile. Slight increase in white blood cell count. Most recent blood culture performed 05/01 now with report of delayed growth Staph coccus aureus in 1 of 2 bottles. Blood cultures 04/25: Positive MSSA In multiple bottles. Blood cultures 04/27: Positive MSSA in 1/4 bottles. Blood cultures 05/01: delayed positive growth of staph aureus in 1 of 2 bottles. Review of Systems Review of Systems: Improved weakness. No pain to left chest PICC site. All systems reviewed & are unremarkable except as noted in HPI and below Exam Narrative: Awake and alert and interactive. Normocephalic and without conjunctivitis. Nonlabored respirations. Abdomen without significant distention. No rash. Left upper chest PICC site without inflammation. Objective Data Vital Signs Vital Signs: Vital Signs - 24 hr 05/04/25 12:00 05/04/25 14:00 05/04/25 16:00 Temperature 97.7 F Pulse Rate 93 94 87 Respiratory Rate 17 Blood Pressure 126/67 Pulse Oximetry 100 Oxygen Delivery 05/04/25 20:00 05/04/25 22:00 05/05/25 00:00 Temperature 98 F Pulse Rate 78 85 103 H Respiratory Rate 18 Blood Pressure 145/72 H Pulse Oximetry 100 Oxygen Delivery 05/05/25 04:00 05/05/25 05:20 05/05/25 08:00 Temperature 98.1 F Pulse Rate 102 H 100 96 Respiratory Rate 16 Blood Pressure 119/61 Pulse Oximetry 98 Oxygen Delivery 05/05/25 09:15 Temperature Pulse Rate Respiratory Rate Blood Pressure Pulse Oximetry Oxygen Delivery Room Air Intake/Output Intake/Output: Intake & Output 05/02/25 05/03/25 05/04/25 05/05/25 23:59 23:59 23:59 23:59 Intake Total 3531.8 1685 2937 200 Output Total 1175 1225 1200 500 Balance 2356.8 460 1737 -300 Meds/Results Medications: Active Medications Generic Name Dose Route Start Last Admin Trade Name Freq PRN Reason Stop Dose Admin Acetaminophen 650 mg 04/25/25 22:50 Acetaminophen 650 Mg Suppository RECTAL Q6H PRN Mild Pain (1-3) or Fever Allopurinol 100 mg 04/27/25 09:00 05/05/25 09:06 Allopurinol 100 Mg Tablet PO 100 mg DAILY [facility]NA Administration Cyanocobalamin 1,000 mcg 05/26/25 09:00 Cyanocobalamin Inj 1,000 Mcg/Ml Vial IM MONTHLY [facility] Cyclobenzaprine HCl 10 mg 04/26/25 13:46 05/05/25 09:06 Cyclobenzaprine Hcl 10 Mg Tablet PO 10 mg TID PRN Administration Muscle Spasm Dextrose 12.5 gm 04/27/25 08:27 Dextrose 50% 25 Gm/50 Ml Syringe IV PUSH PRN PRN Hypoglycemia Protocol Enoxaparin Sodium 30 mg 04/27/25 09:00 05/05/25 07:51 Enoxaparin 30 Mg/0.3 Ml Syringe SUB-Q Not Given On Hold: 05/05/25 09:00 DAILY [facility]ANNA Resume: 05/12/25 09:00 Finasteride 5 mg 04/27/25 09:00 05/05/25 09:06 Finasteride 5 Mg Tablet PO 5 mg DAILY [facility]NA Administration Folic Acid 1 mg 04/27/25 09:00 05/05/25 09:06 Folic Acid 1 Mg Tablet PO 1 mg DAILY [facility]NA Administration Glucagon 1 mg 04/27/25 08:27 Glucagon For Inj 1 Mg Vial IM PRN PRN Hypoglycemia Protocol Glucose 15 gm 04/27/25 08:27 Glucose Oral Gel 15 Gm Of Glucse In 37.5 Gm Tube PO PRN PRN Hypoglycemia Protocol Dextrose 1,000 mls @ 50 mls/hr 04/26/25 13:47 Dextrose 10% IV CONT .Q20H PRN if PN is interrupted Dextrose 1,000 mls @ 100 mls/hr 04/27/25 08:27 Dextrose 5% 1,000 Ml IVPB PRN PRN Hypoglycemia Protocol Cefazolin Sodium 2 gm/ Sodium 50 mls @ 100 mls/hr 04/30/25 18:00 05/05/25 05:50 Chloride IVPB Infused Q12H Z[facility]ANNA Infusion Multivitamins 1.25 ml/ 1,002.5 mls @ 70 mls/hr 05/05/25 20:00 Multivitamins 1.25 ml/ Amino IV CONT Acids/Electrolytes/Dextrose MoWeFr@2000 [facility]NA Protocol Sodium Chloride 1,000 mls @ 70 mls/hr 05/03/25 16:25 05/05/25 00:15 Normal Saline Iv IV CONT 70 mls/hr .[id number] Z[facility]ANNA Administration Insulin Aspart 1 - 2 units 04/27/25 21:00 05/04/25 21:41 Insulin Aspart (*Bkc) 100 Units/Ml SUB-Q Not Given HS [facility]NA Protocol Insulin Aspart 2 - 5 units 04/27/25 12:00 05/05/25 09:13 Insulin Aspart (*Bkc) 100 Units/Ml SUB-Q Not Given TIDWM [facility] Protocol Sodium Chloride 10 ml 04/29/25 14:00 05/05/25 05:23 Central Line Flush IV PUSH 10 ml Q8HR ZHANNA Administration Sodium Chloride 10 ml 04/29/25 07:58 Central Line Flush IV PUSH PRN PRN with TPN bag changes Sodium Chloride 20 ml 04/29/25 07:58 05/05/25 05:22 Central Line Flush IV PUSH 20 ml PRN PRN Administration after blood draws Sodium Zirconium Cyclosilicate 10 gm 05/03/25 16:20 05/05/25 09:06 Sodium Zirconium Cyclosilicate 10 Gm Powd.Pack PO 05/05/25 16:19 10 gm TID@1000,1500,2200 [facility]ANNA Administration Trazodone HCl 25 mg 05/01/25 21:00 05/04/25 23:08 Trazodone Hcl 25 Mg Tablet PO 25 mg HS ZHANNA Administration Radiology Results: ITS Impressions Chest X-Ray 04/25/25 18:06 Impression: 1: Diffuse bilateral interstitial infiltrates which may represent edema or atypical pneumonia. Head CT 04/25/25 20:26 IMPRESSION: 1. No acute intracranial abnormality. Chest/Abdomen/Pelvis CT 04/25/25 20:28 IMPRESSION: 1. Focal consolidation right lower lobe, suspicious for pneumonia. 2: Increased size of ascending thoracic aortic aneurysm measuring 4.8 cm. 3: Splenomegaly. 4: Stable sclerotic lesions or spine and pelvis, suspicious for stable osseous metastases. Correlate for history of malignancy. Renal Ultrasound 05/03/25 18:21 IMPRESSION: 1. A couple small right renal cysts. No hydronephrosis. 2. Status post left nephrectomy. Labs Labs: Laboratory Results - last 24 hr 05/04/25 05/04/25 05/04/25 05:28 11:57 17:07 WBC RBC Hgb Hct MCV MCH MCHC RDW Plt Count MPV Immature Gran % (Auto) Neut % (Auto) Lymph % (Auto) [place] % (Auto) Eos % (Auto) Baso % (Auto) Lymph # (Auto) [place] # (Auto) Eos # (Auto) Baso # (Auto) Abs Immat Gran (auto) Absolute Neuts (auto) Absolute Nucleated RBC Nucleated RBC % % Immature Plt Fraction Sodium Potassium Chloride Carbon Dioxide Anion Gap BUN Creatinine Estim Creat Clear Calc Estimated GFR Glucose POC Capillary Glucose 131 H 119 H Calcium Phosphorus Magnesium Albumin TSH 1.860 05/04/25 05/04/25 05/04/25 19:43 21:50 23:03 WBC RBC Hgb Hct MCV MCH MCHC RDW Plt Count MPV Immature Gran % (Auto) Neut % (Auto) Lymph % (Auto) [place] % (Auto) Eos % (Auto) Baso % (Auto) Lymph # (Auto) [place] # (Auto) Eos # (Auto) Baso # (Auto) Abs Immat Gran (auto) Absolute Neuts (auto) Absolute Nucleated RBC Nucleated RBC % % Immature Plt Fraction Sodium 133 L 133 L Potassium 5.8 H 4.9 Chloride 104 105 Carbon Dioxide 18 L 19 L Anion Gap 11 9 BUN 77 H 78 H Creatinine 3.58 H 3.64 H Estim Creat Clear Calc 14 14 Estimated GFR 17 L 16 L Glucose 153 H 136 H POC Capillary Glucose 210 H Calcium 8.0 L 8.3 L Phosphorus Magnesium Albumin TSH 05/05/25 05/05/25 05:01 07:50 WBC 12.5 H RBC 3.27 L Hgb 8.5 L Hct 27.2 L MCV 83.2 MCH 26.0 MCHC 31.3 L RDW 14.1 Plt Count 71 L MPV 11.1 H Immature Gran % (Auto) 2.3 H Neut % (Auto) 83.9 H Lymph % (Auto) 5.8 L [place] % (Auto) 6.7 Eos % (Auto) 1.1 Baso % (Auto) 0.2 Lymph # (Auto) 0.73 L [place] # (Auto) 0.8 H Eos # (Auto) 0.1 Baso # (Auto) 0.0 Abs Immat Gran (auto) 0.29 H Absolute Neuts (auto) 10.5 H Absolute Nucleated RBC 0.000 Nucleated RBC % 0.0 % Immature Plt Fraction 4.7 Sodium 135 L Potassium 4.9 Chloride 107 Carbon Dioxide 19 L Anion Gap 9 BUN 76 H Creatinine 3.58 H Estim Creat Clear Calc 14 Estimated GFR 17 L Glucose 101 POC Capillary Glucose 103 Calcium 8.0 L Phosphorus 5.3 H Magnesium 2.1 Albumin 3.2 L TSH
--- NOTE | 2025-05-05 11:35 | PCNFU ---
Nutrition Follow-Up Complete: Inability to meet nutrition needs PO related to altered GI function as evidenced by need for full TPN Meet estimated nutrition needs - Progressing. TPN is on hold but likely to resume this evening. Goal: Pt current nutrition is NPO. Nutrition on hold because of hypokalemia, TIMUR scheduled. Nutrition recommendation: Resume TPN when medically appropriate: Suggest plain formula without electrolytes. Resume lipids. Clinmix Plain 01/19 with lipids: 1 bag 4x per week. Run 70 ml/h for 14 hours. Diabetic consistent carbs diet. Last recorded weight is 71.3 kg. Bowel Motility: +1 BM 05/05 Labs Reviewed: Hgb 8.5, Hct 27.2, Alb 3.2, Na 135, GFR 17, BUN 76, Cre 3.58 Meds Noted: B12, Novolog, Zofran Skin: WNL Additional Notes: Spoke to MD and pharmacist. Current orders are 1 bag TPN 3x week, without lipids. 1 bag provides 710 kcal, 50 g protein. Recommending adding lipids with each bag. MD said pt told him he runs TPn 4 days a week and not 3. Can increase to 4x week if desired. Also recommend TPN without lipids because of persistent hypokalemia. Monitoring intakes, weights, labs, TPN tolerance, plan of care Follow up Thursday/Thursday/
[2025-05-05] MEDS: fentaNYL CITRATE INJ (*CRX) 100 MCG/2 ML VIAL 50 MCG IV PUSH (11:52)
[2025-05-05] MEDS: MIDAZOLAM HCL (*CRX) 2 MG/2 ML VIAL IV PUSH (11:52)
--- NOTE | 2025-05-05 12:30 | P.PNCA_ITS ---
Progress Note: A&P Assessment and Plan (1) Hypertension: Code(s): I10 - Essential (primary) hypertension Status: Acute Assessment and Plan: Stable. (2) Pneumonia: Qualifiers: Laterality: right Lung location: lower lobe of lung Pneumonia type: due to unspecified organism Qualified Code(s): J18.9 - Pneumonia, unspecified organism Code(s): J18.9 - Pneumonia, unspecified organism Status: Acute Assessment and Plan: On antibiotics. (3) Bacteremia: Code(s): R78.81 - Bacteremia Status: Acute Assessment and Plan: Discuss risks/benefits/alternative to TIMUR and patient states he wants to think about it. At first, he said all of his doctors are at [facility] and he wants to be transferred there. 05/01/25 TTE: Good quality images. EF 60-65%, mild LVH, grade I diastolic dysfunction (E/e' 6), trace MR, mild TR, aortic root dilated at 4.2 cm, no vegetations involving valves. He had another set of blood cultures drawn on 05/01/25 that showed positive gram positive. Performed TIMUR today which showed no vegetations and therefore no endocarditis. Will sign off, please call with any questions. Subjective Date/time seen: 05/05/25 12:30 Interval history: Denies chest pain or sob. No complaints today. Exam Const: General: cooperative, healthy appearing and comfortable Orientation/consciousness: oriented to person, oriented to place and oriented to time Resp: Auscultation: clear to auscultation bilaterally, no crackles, no rales, no rhonchi and no wheezes Cardio: Rate: regular rate Rhythm: regular rhythm Heart sounds: no murmurs Peripheral pulses: dorsalis pedis present Neuro: General: oriented to person, oriented to place and oriented to time Extrem: Right lower extremity: no edema Left lower extremity: no edema Objective Data Vital Signs Vital Signs: Vital Signs - 24 hr 05/04/25 14:00 05/04/25 16:00 05/04/25 20:00 Temperature 97.7 F Pulse Rate 94 87 78 Respiratory Rate 17 Blood Pressure 126/67 Pulse Oximetry 100 Oxygen Delivery Oxygen Flow Rate 05/04/25 22:00 05/05/25 00:00 05/05/25 04:00 Temperature 98 F Pulse Rate 85 103 H 102 H Respiratory Rate 18 Blood Pressure 145/72 H Pulse Oximetry 100 Oxygen Delivery Oxygen Flow Rate 05/05/25 05:20 05/05/25 08:00 05/05/25 09:15 Temperature 98.1 F Pulse Rate 100 96 Respiratory Rate 16 Blood Pressure 119/61 Pulse Oximetry 98 Oxygen Delivery Room Air Oxygen Flow Rate 05/05/25 11:35 05/05/25 11:40 05/05/25 11:45 Temperature Pulse Rate 102 H 101 H 108 H Respiratory Rate 19 16 24 H Blood Pressure 127/81 123/88 158/90 H Pulse Oximetry 100 100 100 Oxygen Delivery Room Air Nasal Cannula Nasal Cannula Oxygen Flow Rate 2.0 2.0 05/05/25 11:50 05/05/25 11:55 05/05/25 12:00 Temperature Pulse Rate 105 H 107 H 105 H Respiratory Rate 21 H 23 H 15 Blood Pressure 143/78 H 138/81 119/69 Pulse Oximetry 100 100 98 Oxygen Delivery Nasal Cannula Nasal Cannula Room Air Oxygen Flow Rate 2.0 2.0 05/05/25 12:00 05/05/25 12:15 Temperature Pulse Rate 106 H 105 H Respiratory Rate 20 Blood Pressure 119/69 Pulse Oximetry 100 Oxygen Delivery Room Air Oxygen Flow Rate Intake/Output Intake/Output: Intake & Output 05/02/25 05/03/25 05/04/25 05/05/25 23:59 23:59 23:59 23:59 Intake Total 3531.8 1685 2937 200 Output Total 1175 1225 1200 500 Balance 2356.8 460 1737 -300 Meds/Results Medications: Active Medications Generic Name Dose Route Start Last Admin Trade Name Micheleq PRN Reason Stop Dose Admin Acetaminophen 650 mg 04/25/25 22:50 Acetaminophen 650 Mg Suppository RECTAL Q6H PRN Mild Pain (1-3) or Fever Allopurinol 100 mg 04/27/25 09:00 05/05/25 09:06 Allopurinol 100 Mg Tablet PO 100 mg DAILY [facility] Administration Cyanocobalamin 1,000 mcg 05/26/25 09:00 Cyanocobalamin Inj 1,000 Mcg/Ml Vial IM MONTHLY [facility]ANNA Cyclobenzaprine HCl 10 mg 04/26/25 13:46 05/05/25 09:06 Cyclobenzaprine Hcl 10 Mg Tablet PO 10 mg TID PRN Administration Muscle Spasm Dextrose 12.5 gm 04/27/25 08:27 Dextrose 50% 25 Gm/50 Ml Syringe IV PUSH PRN PRN Hypoglycemia Protocol Enoxaparin Sodium 30 mg 04/27/25 09:00 05/05/25 07:51 Enoxaparin 30 Mg/0.3 Ml Syringe SUB-Q Not Given On Hold: 05/05/25 09:00 DAILY ZHANNA Resume: 05/12/25 09:00 Finasteride 5 mg 04/27/25 09:00 05/05/25 09:06 Finasteride 5 Mg Tablet PO 5 mg DAILY ZHANNA Administration Folic Acid 1 mg 04/27/25 09:00 05/05/25 09:06 Folic Acid 1 Mg Tablet PO 1 mg DAILY ZHANNA Administration Glucagon 1 mg 04/27/25 08:27 Glucagon For Inj 1 Mg Vial IM PRN PRN Hypoglycemia Protocol Glucose 15 gm 04/27/25 08:27 Glucose Oral Gel 15 Gm Of Glucse In 37.5 Gm Tube PO PRN PRN Hypoglycemia Protocol Dextrose 1,000 mls @ 50 mls/hr 04/26/25 13:47 Dextrose 10% IV CONT .Q20H PRN if PN is interrupted Dextrose 1,000 mls @ 100 mls/hr 04/27/25 08:27 Dextrose 5% 1,000 Ml IVPB PRN PRN Hypoglycemia Protocol Cefazolin Sodium 2 gm/ Sodium 50 mls @ 100 mls/hr 04/30/25 18:00 05/05/25 05:50 Chloride IVPB Infused Q12H [facility]ANNA Infusion Multivitamins 1.25 ml/ 1,002.5 mls @ 70 mls/hr 05/05/25 20:00 Multivitamins 1.25 ml/ Amino IV CONT Acids/Electrolytes/Dextrose MoWeFr@2000 [facility] Protocol Sodium Chloride 1,000 mls @ 70 mls/hr 05/03/25 16:25 05/05/25 00:15 Normal Saline Iv IV CONT 70 mls/hr .[id number] ZHANNA Administration Insulin Aspart 1 - 2 units 04/27/25 21:00 05/04/25 21:41 Insulin Aspart (*Bkc) 100 Units/Ml SUB-Q Not Given HS [facility]ANNA Protocol Insulin Aspart 2 - 5 units 04/27/25 12:00 05/05/25 09:13 Insulin Aspart (*Bkc) 100 Units/Ml SUB-Q Not Given TIDWM [facility] Protocol Sodium Chloride 10 ml 04/29/25 14:00 05/05/25 05:23 Central Line Flush IV PUSH 10 ml Q8HR Z[facility]ANNA Administration Sodium Chloride 10 ml 04/29/25 07:58 Central Line Flush IV PUSH PRN PRN with TPN bag changes Sodium Chloride 20 ml 04/29/25 07:58 05/05/25 05:22 Central Line Flush IV PUSH 20 ml PRN PRN Administration after blood draws Sodium Zirconium Cyclosilicate 10 gm 05/03/25 16:20 05/05/25 09:06 Sodium Zirconium Cyclosilicate 10 Gm Powd.Pack PO 05/05/25 16:19 10 gm TID@1000,1500,2200 [facility]NA Administration Trazodone HCl 25 mg 05/01/25 21:00 05/04/25 23:08 Trazodone Hcl 25 Mg Tablet PO 25 mg HS ZHANNA Administration Radiology Results: ITS Impressions Chest X-Ray 04/25/25 18:06 Impression: 1: Diffuse bilateral interstitial infiltrates which may represent edema or atypical pneumonia. Head CT 04/25/25 20:26 IMPRESSION: 1. No acute intracranial abnormality. Chest/Abdomen/Pelvis CT 04/25/25 20:28 IMPRESSION: 1. Focal consolidation right lower lobe, suspicious for pneumonia. 2: Increased size of ascending thoracic aortic aneurysm measuring 4.8 cm. 3: Splenomegaly. 4: Stable sclerotic lesions or spine and pelvis, suspicious for stable osseous metastases. Correlate for history of malignancy. Renal Ultrasound 05/03/25 18:21 IMPRESSION: 1. A couple small right renal cysts. No hydronephrosis. 2. Status post left nephrectomy. Labs Labs: Laboratory Results - last 24 hr 05/04/25 05/04/25 05/04/25 05:28 17:07 19:43 WBC RBC Hgb Hct MCV MCH MCHC RDW Plt Count MPV Immature Gran % (Auto) Neut % (Auto) Lymph % (Auto) [place] % (Auto) Eos % (Auto) Baso % (Auto) Lymph # (Auto) [place] # (Auto) Eos # (Auto) Baso # (Auto) Abs Immat Gran (auto) Absolute Neuts (auto) Absolute Nucleated RBC Nucleated RBC % % Immature Plt Fraction Sodium 133 L Potassium 5.8 H Chloride 104 Carbon Dioxide 18 L Anion Gap 11 BUN 77 H Creatinine 3.58 H Estim Creat Clear Calc 14 Estimated GFR 17 L Glucose 153 H POC Capillary Glucose 119 H Calcium 8.0 L Phosphorus Magnesium Albumin TSH 1.860 05/04/25 05/04/25 05/05/25 21:50 23:03 05:01 WBC 12.5 H RBC 3.27 L Hgb 8.5 L Hct 27.2 L MCV 83.2 MCH 26.0 MCHC 31.3 L RDW 14.1 Plt Count 71 L MPV 11.1 H Immature Gran % (Auto) 2.3 H Neut % (Auto) 83.9 H Lymph % (Auto) 5.8 L [place] % (Auto) 6.7 Eos % (Auto) 1.1 Baso % (Auto) 0.2 Lymph # (Auto) 0.73 L [place] # (Auto) 0.8 H Eos # (Auto) 0.1 Baso # (Auto) 0.0 Abs Immat Gran (auto) 0.29 H Absolute Neuts (auto) 10.5 H Absolute Nucleated RBC 0.000 Nucleated RBC % 0.0 % Immature Plt Fraction 4.7 Sodium 133 L 135 L Potassium 4.9 4.9 Chloride 105 107 Carbon Dioxide 19 L 19 L Anion Gap 9 9 BUN 78 H 76 H Creatinine 3.64 H 3.58 H Estim Creat Clear Calc 14 14 Estimated GFR 16 L 17 L Glucose 136 H 101 POC Capillary Glucose 210 H Calcium 8.3 L 8.0 L Phosphorus 5.3 H Magnesium 2.1 Albumin 3.2 L TSH 05/05/25 07:50 WBC RBC Hgb Hct MCV MCH MCHC RDW Plt Count MPV Immature Gran % (Auto) Neut % (Auto) Lymph % (Auto) [place] % (Auto) Eos % (Auto) Baso % (Auto) Lymph # (Auto) [place] # (Auto) Eos # (Auto) Baso # (Auto) Abs Immat Gran (auto) Absolute Neuts (auto) Absolute Nucleated RBC Nucleated RBC % % Immature Plt Fraction Sodium Potassium Chloride Carbon Dioxide Anion Gap BUN Creatinine Estim Creat Clear Calc Estimated GFR Glucose POC Capillary Glucose 103 Calcium Phosphorus Magnesium Albumin TSH
--- NOTE | 2025-05-05 13:06 | P.PNNP_ITS ---
Progress Note: A&P Assessment and Plan (1) Acute kidney injury: Code(s): N17.9 - Acute kidney failure, unspecified Status: Acute Assessment and Plan: * as noted by trend of labs on 05/03 * suspect due to several issues: * prerenal factors * continues ARB use * sepsis/infection/bactermia * other(?) * evaluation to date noted: * renal ultrasound with solitary right kidney without obstruction * urine electrolytes prerenal * urine eosinophils negative * ++ proteinuria * CPK low * continues to make reasonable urine output * follow trend of repeat labs and UOP 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) * previous obstruction with bouts of nephrolithiasis (s/p lithotripsy) * recurrent infections/bacteremia & hospitalizations with associated LILLY/ARF episodes * previous history of DM (resolved with weight loss) * hypertension * age-related change * follows with [facility] for CKD management (3) Hyperkalemia: Code(s): E87.5 - Hyperkalemia Status: Acute Assessment and Plan: * doing better at this itme * suspect due to several issues: * ARB use * worsening CKD * TPN * infection * TSH and cortisol okay * off losartan * off TPN * on scheduled lokelma * follow trend of repeat K+ levels (4) Sepsis: Qualifiers: Sepsis acute organ dysfunction status: unspecified Sepsis type: sepsis due to unspecified organism Qualified Code(s): A41.9 - Sepsis, unspecified organism Code(s): A41.9 - Sepsis, unspecified organism Status: Acute Assessment and Plan: * presumed secondary to pneumonia and/or bacteremia * culture data noted (see #5) * stable hemodynamics noted * continue current therapy (5) Bacteremia: Code(s): R78.81 - Bacteremia Status: Acute Assessment and Plan: * suspected source is pneumonia versus central line * culture data noted: * blood cultures from 04/25 -- 4/4 positive for DANE * blood culture from 04/27 -- 1/3 positive for DANE * blood culture from 05/01 -- 1/2 positive for DANE in one of the aerobic bottles * blood culture from 05/05 -- pending * Infectious Disease following * was on Vancomycin but switched to Ancef * attempting line salvage since very limited option for IV access * TTE (on 05/01) and TIMUR (on 05/05) - both negative for endocarditis/vegetations * need central line changed/exchanged (would likely transfer to [facility] since he gets majority of his care there) (6) Pneumonia: Qualifiers: Laterality: right Lung location: lower lobe of lung Pneumonia type: d ue to unspecified organism Qualified Code(s): J18.9 - Pneumonia, unspecified organism Code(s): J18.9 - Pneumonia, unspecified organism Status: Acute Assessment and Plan: * CT of chest showing focal consolidation in the RLL * culture data as already noted (see #5) * contine current therapy (7) Hyponatremia: Code(s): E87.1 - Hypo-osmolality and hyponatremia Status: Acute Assessment and Plan: * suspect a chronic issues * running in the 129 - 135mmol/L range * TSH and cortisol okay; extensive malignancy history noted (but no active issues) * pneumonia playing a role as well(?) * porbably more related to TPN, CKD, and now LILLY * follow trend of sodium (8) Anemia: Code(s): D64.9 - Anemia, unspecified Status: Acute Assessment and Plan: * probably related to known CKD worsened by LILLY and acute illness * anemia studies with iron deficiency with normal b12 and folate * unable to give IV iron in the context of infection/bacteremia * PRBC transfusion per protocol * follow trend of H/H (9) On total parenteral nutrition (TPN): Code(s): Z78.9 - Other specified health status Status: Acute Assessment and Plan: * chronic issue. * takes TPN 4x/week * TPN on hold as unable to remove potassium from TPN (10) Diabetes: Code(s): E11.9 - Type 2 diabetes mellitus without complications Status: Chronic Assessment and Plan: * controlled by diet * improved/stabilized with weight loss * follow accu-cheks * glycemic control per hospitalist Will continue to follow. L Subjective Date/time seen: 05/05/25 13:06 Interval history: Follow-up for acute kidney injury/acute renal failure on chronic kidney disease and hyperkalemia. Eating and drinking okay and TPN remains on hold due to issues with hyperkalemia; renal function/creatinine continues to fluctuate but making reasonable urine output; s/p TIMUR earlier today without evidenece of vegatations/endocarditis; no apparent distress noted at the time of my visit. Exam 2 Narrative: General: elderly but WD/WN male in NAD Heart: tachycardic, normal S1 and S2; no rub Lungs: some bibasilar crackles (L > R) Abdomen: soft, nontender, nondistended, positive bowel sounds; + RLQ colostomy Extremities: no cyanosis or clubbing; no edema Skin: warm and dry Objective Data Vital Signs Vital Signs: Vital Signs Temp Pulse Resp BP Pulse Ox O2 Del Method O2 Flow Rate 05/05/25 12:15 105 H 20 119/69 100 Room Air 05/05/25 12:00 106 H 05/05/25 12:00 105 H 15 119/69 98 Room Air 05/05/25 11:55 107 H 23 H 138/81 100 Nasal Cannula 2.0 05/05/25 11:50 105 H 21 H 143/78 H 100 Nasal Cannula 2.0 05/05/25 11:45 108 H 24 H 158/90 H 100 Nasal Cannula 2.0 05/05/25 11:40 101 H 16 123/88 100 Nasal Cannula 2.0 05/05/25 11:35 102 H 19 127/81 100 Room Air 05/05/25 09:15 Room Air 05/05/25 08:00 96 05/05/25 05:20 98.1 F 100 16 119/61 98 05/05/25 04:00 102 H 05/05/25 00:00 103 H 05/04/25 22:00 98 F 85 18 145/72 H 100 05/04/25 20:00 78 Intake/Output Intake/Output: Intake & Output 05/02/25 05/03/25 05/04/25 05/05/25 23:59 23:59 23:59 23:59 Intake Total 3531.8 1685 2937 1200 Output Total 1175 1225 1200 500 Balance 2356.8 460 1737 700 Meds/Results Medications: Active Medications Generic Name Dose Route Start Last Admin Trade Name Micheleq PRN Reason Stop Dose Admin Acetaminophen 650 mg 04/25/25 22:50 Acetaminophen 650 Mg Suppository RECTAL Q6H PRN Mild Pain (1-3) or Fever Allopurinol 100 mg 04/27/25 09:00 05/05/25 09:06 Allopurinol 100 Mg Tablet PO 100 mg DAILY ZHANNA Administration Cyanocobalamin 1,000 mcg 05/26/25 09:00 Cyanocobalamin Inj 1,000 Mcg/Ml Vial IM MONTHLY ZHANNA Cyclobenzaprine HCl 10 mg 04/26/25 13:46 05/05/25 09:06 Cyclobenzaprine Hcl 10 Mg Tablet PO 10 mg TID PRN Administration Muscle Spasm Dextrose 12.5 gm 04/27/25 08:27 Dextrose 50% 25 Gm/50 Ml Syringe IV PUSH PRN PRN Hypoglycemia Protocol Enoxaparin Sodium 30 mg 04/27/25 09:00 05/05/25 07:51 Enoxaparin 30 Mg/0.3 Ml Syringe SUB-Q Not Given On Hold: 05/05/25 09:00 DAILY ZHANNA Resume: 05/12/25 09:00 Finasteride 5 mg 04/27/25 09:00 05/05/25 09:06 Finasteride 5 Mg Tablet PO 5 mg DAILY ZHANNA Administration Folic Acid 1 mg 04/27/25 09:00 05/05/25 09:06 Folic Acid 1 Mg Tablet PO 1 mg DAILY ZHANNA Administration Glucagon 1 mg 04/27/25 08:27 Glucagon For Inj 1 Mg Vial IM PRN PRN Hypoglycemia Protocol Glucose 15 gm 04/27/25 08:27 Glucose Oral Gel 15 Gm Of Glucse In 37.5 Gm Tube PO PRN PRN Hypoglycemia Protocol Dextrose 1,000 mls @ 50 mls/hr 04/26/25 13:47 Dextrose 10% IV CONT .Q20H PRN if PN is interrupted Dextrose 1,000 mls @ 100 mls/hr 04/27/25 08:27 Dextrose 5% 1,000 Ml IVPB PRN PRN Hypoglycemia Protocol Cefazolin Sodium 2 gm/ Sodium 50 mls @ 100 mls/hr 04/30/25 18:00 05/05/25 05:50 Chloride IVPB Infused Q12H ZHANNA Infusion Multivitamins 1.25 ml/ 1,002.5 mls @ 70 mls/hr 05/05/25 20:00 Multivitamins 1.25 ml/ Amino IV CONT Acids/Electrolytes/Dextrose [id number] [facility] Protocol Sodium Chloride 1,000 mls @ 70 mls/hr 05/03/25 16:25 05/05/25 16:26 Normal Saline Iv IV CONT 70 mls/hr .[id number] ZHANNA Administration Daptomycin 500 mg/ Sodium 50 mls @ 100 mls/hr 05/05/25 16:00 05/05/25 16:19 Chloride IVPB 100 mls/hr Q48H ZHANNA Administration Insulin Aspart 1 - 2 units 04/27/25 21:00 05/04/25 21:41 Insulin Aspart (*Bkc) 100 Units/Ml SUB-Q Not Given HS [facility] Protocol Insulin Aspart 2 - 5 units 04/27/25 12:00 05/05/25 16:16 Insulin Aspart (*Bkc) 100 Units/Ml SUB-Q Not Given TIDWM [facility] Protocol Sodium Chloride 10 ml 04/29/25 14:00 05/05/25 16:17 Central Line Flush IV PUSH Not Given Q8HR ZHANNA Sodium Chloride 10 ml 04/29/25 07:58 Central Line Flush IV PUSH PRN PRN with TPN bag changes Sodium Chloride 20 ml 04/29/25 07:58 05/05/25 05:22 Central Line Flush IV PUSH 20 ml PRN PRN Administration after blood draws Trazodone HCl 25 mg 05/01/25 21:00 05/04/25 23:08 Trazodone Hcl 25 Mg Tablet PO 25 mg HS ZHANNA Administration Radiology Results: ITS Impressions Chest X-Ray 04/25/25 18:06 Impression: 1: Diffuse bilateral interstitial infiltrates which may represent edema or atypical pneumonia. Head CT 04/25/25 20:26 IMPRESSION: 1. No acute intracranial abnormality. Chest/Abdomen/Pelvis CT 04/25/25 20:28 IMPRESSION: 1. Focal consolidation right lower lobe, suspicious for pneumonia. 2: Increased size of ascending thoracic aortic aneurysm measuring 4.8 cm. 3: Splenomegaly. 4: Stable sclerotic lesions or spine and pelvis, suspicious for stable osseous metastases. Correlate for history of malignancy. Renal Ultrasound 05/03/25 18:21 IMPRESSION: 1. A couple small right renal cysts. No hydronephrosis. 2. Status post left nephrectomy. Labs Labs: Laboratory Tests 05/05/25 05:01 05/05/25 05:01 Calcium 8.0 L Phosphorus 5.3 H Magnesium 2.1 Albumin 3.2 L Microbiology 05/01/25 15:52 Blood Blood Culture - Final Staphylococcus aureus 05/01/25 15:52 Blood Blood Culture - Preliminary 04/27/25 18:06 Blood Blood Culture - Final
--- NOTE | 2025-05-05 13:50 | PCOTNOTE ---
Attempted to see pt for OT evaluation twice today. First time, pt was getting ready to leave for a TIMUR. Second attempt, pt with infectious disease doctor and still drowsy from earlier procedure. Will continue to follow.
--- NOTE | 2025-05-05 15:21 | P.PNIM_ITS ---
Progress Note: A&P Assessment and Plan (1) Hyperkalemia: Code(s): E87.5 - Hyperkalemia Status: Acute Assessment and Plan: Potassium was elevated to 6.6 treated appropriately with improvement. TSH normal. Cortisol normal. Cozaar stopped. TPN held Potassium better at 4.9 Nephrology consulted and appreciate their input. Follow potassium level. Follow closely. (2) Sepsis: Qualifiers: Sepsis acute organ dysfunction status: unspecified Sepsis type: sepsis due to unspecified organism Qualified Code(s): A41.9 - Sepsis, unspecified organism Code(s): A41.9 - Sepsis, unspecified organism Status: Acute Assessment and Plan: Secondary to pneumonia and/or bacteremia. Blood cultures growing oxacillin sensitive Staph aureus. Continue with IV antibiotic ID consulted. Appreciate their input. Follow cultures Continue to monitor (3) Bacteremia: Code(s): R78.81 - Bacteremia Status: Acute Assessment and Plan: Possible source PNA versus central line. BCx 04/25 4/4 positive for DANE BCx 04/27 1/3 positive for DANE BCx 05/01 1/2 positive for DANE in one of the aerobic bottles BCx 05/05 pending Started Vancomycin but now discontinued. Abx switched to Ancef Attempting line salvage since very limited option for IV access No fevers. WBC better at 11-13K past few days Cardiology consulted and appreciate their input. TTE 05/01 with no endocarditis. Spoke with Cardiology and patient had TIMUR today again showing no vegetations. Continue Ancef. Monitor WBC. Discussed with ID: Plan to add Daptomycin and recommended talking to [facility] about transfer for central line exchange. Repeat BCx on Thursday (4) Pneumonia: Qualifiers: Laterality: right Lung location: lower lobe of lung Pneumonia type: due to unspecified organism Qualified Code(s): J18.9 - Pneumonia, unspecified organism Code(s): J18.9 - Pneumonia, unspecified organism Status: Acute Assessment and Plan: CT of chest showing focal consolidation in the RLL. Bedside swallow evaluation ordered As above (5) CKD (chronic kidney disease): Qualifiers: Chronic kidney disease stage: unspecified stage Qualified Code(s): N18.9 - Chronic kidney disease, unspecified Code(s): N18.9 - Chronic kidney disease, unspecified Status: Acute Assessment and Plan: Baseline creatinine 2.9 but worsened past few days to 3.6 Complement normal. Urine eos negative. Prot/Cr ratio 2.3gm. FENa 0.7%. TPN stopped. Started IV fluids. Nephrology consulted and appreciate their input Continue to monitor (6) On total parenteral nutrition (TPN): Code(s): Z78.9 - Other specified health status Status: Acute Assessment and Plan: chronic. Takes TPN 4x/week. Dietitian on board. TPN on hold because can't remove potassium from TPN Continue to monitor. Discuss with Nephrology - continue to hold TPN (7) Hyponatremia: Code(s): E87.1 - Hypo-osmolality and hyponatremia Status: Acute Assessment and Plan: Sodium low but stable 129-135 range. Probably chronic. TSH and cortisol okay Nephrology consulted Monitor for now (8) AMS (altered mental status): Qualifiers: Altered mental status type: unspecified Qualified Code(s): R41.82 - Altered mental status, unspecified Code(s): R41.82 - Altered mental status, unspecified Status: Acute Assessment and Plan: Patient was confused. Head CT showing no acute process. TSH, B12, folate levels okay Mental status much better. Follow for now (9) Anemia: Code(s): D64.9 - Anemia, unspecified Status: Acute Assessment and Plan: Acute on chronic anemia. Hgb low but stable in the 8-9 range. No bleeding reported so possibly dilutional B12, folate normal. Iron studies consistent with iron deficiency. Related to poor dietary iron absorption? Transfuse if Hgb<7 to a stable Hgb. IV iron when okay with others and BCx clear continue to monitor (10) NSVT (nonsustained ventricular tachycardia): Code(s): I47.29 - Other ventricular tachycardia Status: Acute Assessment and Plan: Patient with 2 runs of NSVT. Potassium >4 but <5. Mag >2. Echo as above. Monitor on tele. Plan DM2 - A1c 5.6%. Diet controlled. The patient's blood glucose was reviewed on 05/05 Glucose remains well controlled. Continue AccuCheks covering with sliding scale. Hypoglycemia protocol available as needed. 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 Eating okay here. Tank House Operator following Monitor calorie intake Thyroid carcinoma - status post partial thyroid resection Not on levothyroxine TSH okay. 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 He slept poorly last night. No CP or SOB. Eating okay. Voiding well. +BMs. Exam Narrative: AF 97.7 122/76 100 18 99% ra Gen - NARD Chest - left base crackles, nml RR. Left upper chest tunneled dual lumen catheter CV - RRR S1/S. Tele showing 10b and 8b run NSVT Abd - Soft, NT/ND, Positive BS, RLQ ostomy noted Ext - No pedal edema Neuro - Alert and appropriate Psych - pleasant and cooperative Skin - warm and dry Objective Data Vital Signs Vital Signs: Vital Signs - 24 hr 05/04/25 16:00 05/04/25 20:00 05/04/25 22:00 Temperature 98 F Pulse Rate 87 78 85 Respiratory Rate 18 Blood Pressure 145/72 H Pulse Oximetry 100 Oxygen Delivery Oxygen Flow Rate 05/05/25 00:00 05/05/25 04:00 05/05/25 05:20 Temperature 98.1 F Pulse Rate 103 H 102 H 100 Respiratory Rate 16 Blood Pressure 119/61 Pulse Oximetry 98 Oxygen Delivery Oxygen Flow Rate 05/05/25 08:00 05/05/25 09:15 05/05/25 11:35 Temperature Pulse Rate 96 102 H Respiratory Rate 19 Blood Pressure 127/81 Pulse Oximetry 100 Oxygen Delivery Room Air Room Air Oxygen Flow Rate 05/05/25 11:40 05/05/25 11:45 05/05/25 11:50 Temperature Pulse Rate 101 H 108 H 105 H Respiratory Rate 16 24 H 21 H Blood Pressure 123/88 158/90 H 143/78 H Pulse Oximetry 100 100 100 Oxygen Delivery Nasal Cannula Nasal Cannula Nasal Cannula Oxygen Flow Rate 2.0 2.0 2.0 05/05/25 11:55 05/05/25 12:00 05/05/25 12:00 Temperature Pulse Rate 107 H 105 H 106 H Respiratory Rate 23 H 15 Blood Pressure 138/81 119/69 Pulse Oximetry 100 98 Oxygen Delivery Nasal Cannula Room Air Oxygen Flow Rate 2.0 05/05/25 12:15 05/05/25 14:09 Temperature 97.7 F Pulse Rate 105 H 100 Respiratory Rate 20 18 Blood Pressure 119/69 122/76 Pulse Oximetry 100 99 Oxygen Delivery Room Air Oxygen Flow Rate Intake/Output Intake/Output: Intake & Output 05/02/25 05/03/25 05/04/25 05/05/25 23:59 23:59 23:59 23:59 Intake Total 3531.8 1685 2937 200 Output Total 1175 1225 1200 500 Balance 2356.8 460 1737 -300 Meds/Results Medications: Active Medications Generic Name Dose Route Start Last Admin Trade Name Freq PRN Reason Stop Dose Admin Acetaminophen 650 mg 04/25/25 22:50 Acetaminophen 650 Mg Suppository RECTAL Q6H PRN Mild Pain (1-3) or Fever Allopurinol 100 mg 04/27/25 09:00 05/05/25 09:06 Allopurinol 100 Mg Tablet PO 100 mg DAILY [facility] Administration Cyanocobalamin 1,000 mcg 05/26/25 09:00 Cyanocobalamin Inj 1,000 Mcg/Ml Vial IM MONTHLY ZHANNA Cyclobenzaprine HCl 10 mg 04/26/25 13:46 05/05/25 09:06 Cyclobenzaprine Hcl 10 Mg Tablet PO 10 mg TID PRN Administration Muscle Spasm Dextrose 12.5 gm 04/27/25 08:27 Dextrose 50% 25 Gm/50 Ml Syringe IV PUSH PRN PRN Hypoglycemia Protocol Enoxaparin Sodium 30 mg 04/27/25 09:00 05/05/25 07:51 Enoxaparin 30 Mg/0.3 Ml Syringe SUB-Q Not Given On Hold: 05/05/25 09:00 DAILY ZHANNA Resume: 05/12/25 09:00 Finasteride 5 mg 04/27/25 09:00 05/05/25 09:06 Finasteride 5 Mg Tablet PO 5 mg DAILY ZHANNA Administration Folic Acid 1 mg 04/27/25 09:00 05/05/25 09:06 Folic Acid 1 Mg Tablet PO 1 mg DAILY ZHANNA Administration Glucagon 1 mg 04/27/25 08:27 Glucagon For Inj 1 Mg Vial IM PRN PRN Hypoglycemia Protocol Glucose 15 gm 04/27/25 08:27 Glucose Oral Gel 15 Gm Of Glucse In 37.5 Gm Tube PO PRN PRN Hypoglycemia Protocol Dextrose 1,000 mls @ 50 mls/hr 04/26/25 13:47 Dextrose 10% IV CONT .Q20H PRN if PN is interrupted Dextrose 1,000 mls @ 100 mls/hr 04/27/25 08:27 Dextrose 5% 1,000 Ml IVPB PRN PRN Hypoglycemia Protocol Cefazolin Sodium 2 gm/ Sodium 50 mls @ 100 mls/hr 04/30/25 18:00 05/05/25 05:50 Chloride IVPB Infused Q12H ZHANNA Infusion Multivitamins 1.25 ml/ 1,002.5 mls @ 70 mls/hr 05/05/25 20:00 Multivitamins 1.25 ml/ Amino IV CONT Acids/Electrolytes/Dextrose [id number] [facility] Protocol Sodium Chloride 1,000 mls @ 70 mls/hr 05/03/25 16:25 05/05/25 00:15 Normal Saline Iv IV CONT 70 mls/hr .[id number] ZHANNA Administration Daptomycin 500 mg/ Sodium 50 mls @ 100 mls/hr 05/05/25 16:00 Chloride IVPB Q48H ZHANNA Insulin Aspart 1 - 2 units 04/27/25 21:00 05/04/25 21:41 Insulin Aspart (*Bkc) 100 Units/Ml SUB-Q Not Given HS [facility] Protocol Insulin Aspart 2 - 5 units 04/27/25 12:00 05/05/25 09:13 Insulin Aspart (*Bkc) 100 Units/Ml SUB-Q Not Given TIDWM [facility] Protocol Sodium Chloride 10 ml 04/29/25 14:00 05/05/25 05:23 Central Line Flush IV PUSH 10 ml Q8HR ZHANNA Administration Sodium Chloride 10 ml 04/29/25 07:58 Central Line Flush IV PUSH PRN PRN with TPN bag changes Sodium Chloride 20 ml 04/29/25 07:58 05/05/25 05:22 Central Line Flush IV PUSH 20 ml PRN PRN Administration after blood draws Sodium Zirconium Cyclosilicate 10 gm 05/03/25 16:20 05/05/25 09:06 Sodium Zirconium Cyclosilicate 10 Gm Powd.Pack PO 05/05/25 16:19 10 gm TID@1000,1500,2200 ZHANNA Administration Trazodone HCl 25 mg 05/01/25 21:00 05/04/25 23:08 Trazodone Hcl 25 Mg Tablet PO 25 mg HS ZHANNA Administration Radiology Results: ITS Impressions Chest X-Ray 04/25/25 18:06 Impression: 1: Diffuse bilateral interstitial infiltrates which may represent edema or atypical pneumonia. Head CT 04/25/25 20:26 IMPRESSION: 1. No acute intracranial abnormality. Chest/Abdomen/Pelvis CT 04/25/25 20:28 IMPRESSION: 1. Focal consolidation right lower lobe, suspicious for pneumonia. 2: Increased size of ascending thoracic aortic aneurysm measuring 4.8 cm. 3: Splenomegaly. 4: Stable sclerotic lesions or spine and pelvis, suspicious for stable osseous metastases. Correlate for history of malignancy. Renal Ultrasound 05/03/25 18:21 IMPRESSION: 1. A couple small right renal cysts. No hydronephrosis. 2. Status post left nephrectomy. Labs Labs: Laboratory Results - last 24 hr 05/03/25 05/04/25 05/04/25 17:49 05:28 17:07 WBC RBC Hgb Hct MCV MCH MCHC RDW Plt Count MPV Immature Gran % (Auto) Neut % (Auto) Lymph % (Auto) [place] % (Auto) Eos % (Auto) Baso % (Auto) Lymph # (Auto) [place] # (Auto) Eos # (Auto) Baso # (Auto) Abs Immat Gran (auto) Absolute Neuts (auto) Absolute Nucleated RBC Nucleated RBC % % Immature Plt Fraction Sodium Potassium Chloride Carbon Dioxide Anion Gap BUN Creatinine Estim Creat Clear Calc Estimated GFR Glucose POC Capillary Glucose 119 H Calcium Phosphorus Magnesium Albumin TSH 1.860 Tot Complement (CH50) 48 05/04/25 05/04/25 05/04/25 19:43 21:50 23:03 WBC RBC Hgb Hct MCV MCH MCHC RDW Plt Count MPV Immature Gran % (Auto) Neut % (Auto) Lymph % (Auto) [place] % (Auto) Eos % (Auto) Baso % (Auto) Lymph # (Auto) [place] # (Auto) Eos # (Auto) Baso # (Auto) Abs Immat Gran (auto) Absolute Neuts (auto) Absolute Nucleated RBC Nucleated RBC % % Immature Plt Fraction Sodium 133 L 133 L Potassium 5.8 H 4.9 Chloride 104 105 Carbon Dioxide 18 L 19 L Anion Gap 11 9 BUN 77 H 78 H Creatinine 3.58 H 3.64 H Estim Creat Clear Calc 14 14 Estimated GFR 17 L 16 L Glucose 153 H 136 H POC Capillary Glucose 210 H Calcium 8.0 L 8.3 L Phosphorus Magnesium Albumin TSH Tot Complement (CH50) 05/05/25 05/05/25 05/05/25 05:01 07:50 12:48 WBC 12.5 H RBC 3.27 L Hgb 8.5 L Hct 27.2 L MCV 83.2 MCH 26.0 MCHC 31.3 L RDW 14.1 Plt Count 71 L MPV 11.1 H Immature Gran % (Auto) 2.3 H Neut % (Auto) 83.9 H Lymph % (Auto) 5.8 L [place] % (Auto) 6.7 Eos % (Auto) 1.1 Baso % (Auto) 0.2 Lymph # (Auto) 0.73 L [place] # (Auto) 0.8 H Eos # (Auto) 0.1 Baso # (Auto) 0.0 Abs Immat Gran (auto) 0.29 H Absolute Neuts (auto) 10.5 H Absolute Nucleated RBC 0.000 Nucleated RBC % 0.0 % Immature Plt Fraction 4.7 Sodium 135 L Potassium 4.9 Chloride 107 Carbon Dioxide 19 L Anion Gap 9 BUN 76 H Creatinine 3.58 H Estim Creat Clear Calc 14 Estimated GFR 17 L Glucose 101 POC Capillary Glucose 103 99 Calcium 8.0 L Phosphorus 5.3 H Magnesium 2.1 Albumin 3.2 L TSH Tot Complement (CH50)
[2025-05-05] MEDS: DAPTOmycin 500 MG in SODIUM CHLORIDE 0.9% IV 50 ML 100 MG IVPB (16:19)
[2025-05-05] MEDS: INSULIN ASPART (*BKC) 100 UNITS/ML SUB-Q (21:28)
[2025-05-06] VITALS (9 sets, daily range): BP systolic 124–149; BP diastolic 64–75; PULSE 76–97; RESP 16–20; TEMP 36.1–36.6; O2SAT 98–100
[2025-05-06] MEDS: ACETAMINOPHEN 325 MG TABLET 650 MG PO (01:09)
[2025-05-06] MEDS: CENTRAL LINE FLUSH 10 ML IV PUSH ×3 (05:17→21:20)
[2025-05-06] MEDS: ceFAZolin 2 GM in SODIUM CHLORIDE 0.9% IV 50 ML 100 ML IVPB ×2 (05:17→17:51)
[2025-05-06 05:32] LABS: Hematocrit 26.1 % (42.0-52.0); Hemoglobin 8.2 g/dL (14.0-18.0); Mean Corpuscular HGB Conc 31.4 g/dl (32-36); Mean Corpuscular Hemoglobin 26.1 pg (26-34); Mean Corpuscular Volume 83.1 fl (80-100); Red Blood Count 3.14 M/mm3 (4.6-6.20); White Blood Count 13.0 K/mm3 (4.5-10.0)
[2025-05-06 05:35] LABS: Platelet Count Result 73 k/mm3 (150-375)
[2025-05-06 06:04] LABS: Albumin Level 3.0 g/dL (3.5-5.1); Anion Gap 11 mmol/L (4-12); Blood Urea Nitrogen 67 mg/dL (9-20); Calcium 7.7 mg/dL (8.4-10.2); Carbon Dioxide 17 mmol/L (22-30); Chloride 110 mmol/L (98-107); Creatine Kinase 39 U/L (55-170); Estimated CRCL calculation 14 ml/min; Estimated Glomerular Filt Rate 17; Glucose 95 mg/dL (65-110); Potassium 5.0 mmol/L (3.4-5.0); Sodium 138 mmol/L (137-145)
[2025-05-06] MEDS: FOLIC ACID 1 MG TABLET PO (08:52)
[2025-05-06] MEDS: FINASTERIDE 5 MG TABLET PO (08:52)
[2025-05-06] MEDS: SODIUM BICARBONATE TAB 325 MG TABLET PO ×2 (08:52→17:52)
[2025-05-06] MEDS: SODIUM CHLORIDE 0.9% IV 1,000 ML 70 ML IV CONT (08:54)
--- NOTE | 2025-05-06 09:25 | PCSTNOTE ---
Please refer to the Bedside Swallow Evaluation in the EMR. Please note, silent aspiration cannot be ruled out at bedside. The patient is a 79 year old male admitted for Sepsis and possible Pneumonia. Orders received to complete a BSE and r/o aspiration risk. The patient was assessed with his morning meal seated upright in a chair. Nursing and FOOT TENDER reported no noted difficulty. The patient demonstrates good oral motor movement and range. He does state he has a few missing teeth which impacts how long he needs to chew. Oral Stage: Timely oral preparation and transit for all consistencies. Some extra time required with meats(serna) to effectively masticate due to dentition. Pharyngeal Stage: Timely swallow initiation for all consistencies without viewed clinical signs of aspiration such as coughing, choking, or change in vocal quality. Recommend continue current diet and no further speech services indicated at this time.
[2025-05-06 10:23] LABS: Triglycerides 85 mg/dL (<150)
--- NOTE | 2025-05-06 10:47 | P.PNNP_ITS ---
Progress Note: A&P Assessment and Plan (1) Acute kidney injury: Code(s): N17.9 - Acute kidney failure, unspecified Status: Acute Assessment and Plan: * creatinine is above his usual baseline. * suspect due to several issues: * prerenal factors * continues ARB use * sepsis/infection/bactermia * other(?) * evaluation to date noted: * renal ultrasound with solitary right kidney without obstruction * urine electrolytes prerenal * urine eosinophils negative * ++ proteinuria * CPK low * Creatinine is around the same for the last 3-4 days With some variation from draw to draw. * patient still has positive blood cultures. * TIMUR done and no vegetations seen. * He is getting antibiotics but may need that line out. 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) * previous obstruction with bouts of nephrolithiasis (s/p lithotripsy) * recurrent infections/bacteremia & hospitalizations with associated LILLY/ARF episodes * previous history of DM (resolved with weight loss) * hypertension * age-related change * follows with [facility] for CKD management (3) Hyperkalemia: Code(s): E87.5 - Hyperkalemia Status: Acute Assessment and Plan: * doing better at this itme * suspect due to several issues: * ARB use * worsening CKD * TPN * infection * TSH and cortisol okay * off losartan * Potassium doing okay off the Lokelma * check another level tomorrow (4) Sepsis: Qualifiers: Sepsis acute organ dysfunction status: unspecified Sepsis type: sepsis due to unspecified organism Qualified Code(s): A41.9 - Sepsis, unspecified organism Code(s): A41.9 - Sepsis, unspecified organism Status: Acute Assessment and Plan: * presumed secondary to pneumonia and/or bacteremia * culture data noted (see #5) * stable hemodynamics noted * id following * continue current therapy (5) Bacteremia: Code(s): R78.81 - Bacteremia Status: Acute Assessment and Plan: * suspected source is pneumonia versus central line * culture data noted: * blood cultures from 04/25 -- / positive for DANE * blood culture from 04/27 -- 1/ positive for DANE * blood culture from 05/01 -- 1/2 positive for DANE in one of the aerobic bottles * blood culture from 05/05 -- pending * Infectious Disease following * was on Vancomycin but switched to Ancef * attempting line salvage since very limited option for IV access * TTE (on 05/01) and TIMUR (on 05/05) - both negative for endocarditis/vegetations * need central line changed/exchanged (would likely transfer to [facility] since he gets majority of his care there) (6) Pneumonia: Qualifiers: Laterality: right Lung location: lower lobe of lung Pneumonia type: due to unspecified organism Qualified Code(s): J18.9 - Pneumonia, unspecified organism Code(s): J18.9 - Pneumonia, unspecified organism Status: Acute Assessment and Plan: * CT of chest showing focal consolidation in the RLL * culture data as already noted (see #5) * contine current therapy (7) Hyponatremia: Code(s): E87.1 - Hypo-osmolality and hyponatremia Status: Acute Assessment and Plan: * suspect a chronic issues * running in the 129 - 135mmol/L range * TSH and cortisol okay; extensive malignancy history noted (but no active issues) * pneumonia playing a role as well(?) * porbably more related to TPN, CKD, and now LILLY * sodium levels normal today (8) Anemia: Code(s): D64.9 - Anemia, unspecified Status: Acute Assessment and Plan: * probably related to known CKD worsened by LILLY and acute illness * anemia studies with iron deficiency with normal b12 and folate * unable to give IV iron in the context of infection/bacteremia * hemoglobin slowly lower. * Will start Epogen (9) On total parenteral nutrition (TPN): Code(s): Z78.9 - Other specified health status Status: Acute Assessment and Plan: * chronic issue. * takes TPN 4x/week * TPN on hold as unable to remove potassium from TPN (10) Diabetes: Code(s): E11.9 - Type 2 diabetes mellitus without complications Status: Chronic Assessment and Plan: * controlled by diet * improved/stabilized with weight loss * follow accu-cheks * glycemic control per hospitalist Will continue to follow. Subjective Date/time seen: 05/06/25 10:47 Interval history: patient is sitting up in a chair. No chest pain or shortness of breath eating okay but does not like the food Exam Narrative: General: elderly but WD/WN male in NAD Heart: tachycardic, normal S1 and S2; no rub or gallop Lungs: fairly clear bilaterally Abdomen: soft, nontender, nondistended, positive bowel sounds; + RLQ colostomy Extremities: no cyanosis or clubbing; no edema Skin: w no rash Objective Data Vital Signs Vital Signs: Vital Signs - 24 hr 05/05/25 11:35 05/05/25 11:40 05/05/25 11:45 Temperature Pulse Rate 102 H 101 H 108 H Respiratory Rate 19 16 24 H Blood Pressure 127/81 123/88 158/90 H Pulse Oximetry 100 100 100 Oxygen Delivery Room Air Nasal Cannula Nasal Cannula Oxygen Flow Rate 2.0 2.0 05/05/25 11:50 05/05/25 11:55 05/05/25 12:00 Temperature Pulse Rate 105 H 107 H 105 H Respiratory Rate 21 H 23 H 15 Blood Pressure 143/78 H 138/81 119/69 Pulse Oximetry 100 100 98 Oxygen Delivery Nasal Cannula Nasal Cannula Room Air Oxygen Flow Rate 2.0 2.0 05/05/25 12:00 05/05/25 12:15 05/05/25 14:09 Temperature 97.7 F Pulse Rate 106 H 105 H 100 Respiratory Rate 20 18 Blood Pressure 119/69 122/76 Pulse Oximetry 100 99 Oxygen Delivery Room Air Oxygen Flow Rate 05/05/25 16:00 05/05/25 20:00 05/05/25 20:00 Temperature Pulse Rate 101 H 95 93 Respiratory Rate Blood Pressure Pulse Oximetry 100 Oxygen Delivery Room Air Oxygen Flow Rate 05/05/25 20:36 05/06/25 00:00 05/06/25 04:00 Temperature 97.9 F Pulse Rate 93 97 97 Respiratory Rate 20 Blood Pressure 137/78 Pulse Oximetry 100 Oxygen Delivery Oxygen Flow Rate 05/06/25 05:45 Temperature 97.9 F Pulse Rate 92 Respiratory Rate 20 Blood Pressure 124/64 Pulse Oximetry 98 Oxygen Delivery Oxygen Flow Rate Intake/Output Intake/Output: Intake & Output 05/03/25 05/04/25 05/05/25 05/06/25 23:59 23:59 23:59 23:59 Intake Total 1685 2937 1450 1368 Output Total 1225 1200 900 100 Balance 460 4089 979 6061 Meds/Results Medications: Active Medications Generic Name Dose Route Start Last Admin Trade Name Freq PRN Reason Stop Dose Admin Acetaminophen 650 mg 04/25/25 22:50 Acetaminophen 650 Mg Suppository RECTAL Q6H PRN Mild Pain (1-3) or Fever Acetaminophen 650 mg 05/06/25 00:58 05/06/25 01:09 Acetaminophen 325 Mg Tablet PO 650 mg Q4H PRN Administration Mild Pain (1-3) or Fever Allopurinol 100 mg 04/27/25 09:00 05/06/25 08:52 Allopurinol 100 Mg Tablet PO 100 mg DAILY ZHANNA Administration Cyanocobalamin 1,000 mcg 05/26/25 09:00 Cyanocobalamin Inj 1,000 Mcg/Ml Vial IM MONTHLY ZHANNA Cyclobenzaprine HCl 10 mg 04/26/25 13:46 05/05/25 09:06 Cyclobenzaprine Hcl 10 Mg Tablet PO 10 mg TID PRN Administration Muscle Spasm Dextrose 12.5 gm 04/27/25 08:27 Dextrose 50% 25 Gm/50 Ml Syringe IV PUSH PRN PRN Hypoglycemia Protocol Enoxaparin Sodium 30 mg 04/27/25 09:00 05/05/25 07:51 Enoxaparin 30 Mg/0.3 Ml Syringe SUB-Q Not Given On Hold: 05/05/25 09:00 DAILY ZHANNA Resume: 05/12/25 09:00 Finasteride 5 mg 04/27/25 09:00 05/06/25 08:52 Finasteride 5 Mg Tablet PO 5 mg DAILY ZHANNA Administration Folic Acid 1 mg 04/27/25 09:00 05/06/25 08:52 Folic Acid 1 Mg Tablet PO 1 mg DAILY ZHANNA Administration Glucagon 1 mg 04/27/25 08:27 Glucagon For Inj 1 Mg Vial IM PRN PRN Hypoglycemia Protocol Glucose 15 gm 04/27/25 08:27 Glucose Oral Gel 15 Gm Of Glucse In 37.5 Gm Tube PO PRN PRN Hypoglycemia Protocol Dextrose 1,000 mls @ 50 mls/hr 04/26/25 13:47 Dextrose 10% IV CONT .Q20H PRN if PN is interrupted Dextrose 1,000 mls @ 100 mls/hr 04/27/25 08:27 Dextrose 5% 1,000 Ml IVPB PRN PRN Hypoglycemia Protocol Cefazolin Sodium 2 gm/ Sodium 50 mls @ 100 mls/hr 04/30/25 18:00 05/06/25 05:47 Chloride IVPB Infused Q12H ZHANNA Infusion Multivitamins 1.25 ml/ 1,002.5 mls @ 70 mls/hr 05/05/25 20:00 Multivitamins 1.25 ml/ Amino IV CONT Acids/Electrolytes/Dextrose [id number] ZHANNA On Hold: 05/05/25 20:00 Protocol Sodium Chloride 1,000 mls @ 70 mls/hr 05/03/25 16:25 05/06/25 08:54 Normal Saline Iv IV CONT 70 mls/hr .[id number] ZHANNA Administration Daptomycin 500 mg/ Sodium 50 mls @ 100 mls/hr 05/05/25 16:00 05/05/25 16:19 Chloride IVPB 100 mls/hr Q48H ZHANNA Administration Insulin Aspart 1 - 2 units 04/27/25 21:00 05/05/25 21:28 Insulin Aspart (*Bkc) 100 Units/Ml SUB-Q 1 units HS ZHANNA Administration Protocol Insulin Aspart 2 - 5 units 04/27/25 12:00 05/06/25 08:50 Insulin Aspart (*Bkc) 100 Units/Ml SUB-Q Not Given TIDWM ZHANNA Protocol Sodium Bicarbonate 325 mg 05/06/25 09:00 05/06/25 08:52 Sodium Bicarbonate Tab 325 Mg Tablet PO 325 mg BID ZHANNA Administration Sodium Chloride 10 ml 04/29/25 14:00 05/06/25 05:17 Central Line Flush IV PUSH 10 ml Q8HR ZHANNA Administration Sodium Chloride 10 ml 04/29/25 07:58 Central Line Flush IV PUSH PRN PRN with TPN bag changes Sodium Chloride 20 ml 04/29/25 07:58 05/05/25 05:22 Central Line Flush IV PUSH 20 ml PRN PRN Administration after blood draws Trazodone HCl 25 mg 05/01/25 21:00 05/05/25 21:29 Trazodone Hcl 25 Mg Tablet PO 25 mg HS ZHANNA Administration Radiology Results: ITS Impressions Chest X-Ray 04/25/25 18:06 Impression: 1: Diffuse bilateral interstitial infiltrates which may represent edema or atypical pneumonia. Head CT 04/25/25 20:26 IMPRESSION: 1. No acute intracranial abnormality. Chest/Abdomen/Pelvis CT 04/25/25 20:28 IMPRESSION: 1. Focal consolidation right lower lobe, suspicious for pneumonia. 2: Increased size of ascending thoracic aortic aneurysm measuring 4.8 cm. 3: Splenomegaly. 4: Stable sclerotic lesions or spine and pelvis, suspicious for stable osseous metastases. Correlate for history of malignancy. Renal Ultrasound 05/03/25 18:21 IMPRESSION: 1. A couple small right renal cysts. No hydronephrosis. 2. Status post left nephrectomy. Labs Labs: Laboratory Results - last 24 hr 05/03/25 05/05/25 05/05/25 17:49 12:48 17:24 WBC RBC Hgb Hct MCV MCH MCHC RDW Plt Count MPV Sodium Potassium Chloride Carbon Dioxide Anion Gap BUN Creatinine Estim Creat Clear Calc Estimated GFR Glucose POC Capillary Glucose 99 134 H Calcium Phosphorus Total Creatine Kinase Albumin Triglycerides Tot Complement (CH50) 48 05/05/25 05/06/25 05/06/25 20:30 05:19 07:54 WBC 13.0 H RBC 3.14 L Hgb 8.2 L Hct 26.1 L MCV 83.1 MCH 26.1 MCHC 31.4 L RDW 13.9 Plt Count 73 L MPV 11.0 H Sodium 138 Potassium 5.0 Chloride 110 H Carbon Dioxide 17 L Anion Gap 11 BUN 67 H Creatinine 3.50 H Estim Creat Clear Calc 14 Estimated GFR 17 L Glucose 95 POC Capillary Glucose 215 H 89 Calcium 7.7 L Phosphorus 5.0 H Total Creatine Kinase 39 L Albumin 3.0 L Triglycerides 85 Tot Complement (CH50)
[2025-05-06] MEDS: NEOMYCIN/POLYMYXIN/BACITRACIN OINTMENT PACKET 1 PACKET (11:53)
[2025-05-06] MEDS: EPOETIN ALFA-EPBX 10,000 UNITS/ML VIAL 10000 UNITS SUB-Q (11:54)
--- NOTE | 2025-05-06 12:39 | PHAR ---
Home meds of VitcD 25176 units, Vitamin A 36894 units and Coral calcium plus (500mg Ca, 250mg Mg per 3 capsules) sent to Pharmacy to verify. Unable to verify due to no markings on pills. Rn advised to enter orders for these meds if patient is to take them while here.
--- NOTE | 2025-05-06 13:45 | P.PNIM_ITS ---
Progress Note: A&P Assessment and Plan (1) Hyperkalemia: Code(s): E87.5 - Hyperkalemia Status: Acute Assessment and Plan: Potassium was elevated to 6.6 treated appropriately with improvement. TSH normal. Cortisol normal. Cozaar stopped. TPN held Lokelma started and Potassium better Lokelma stopped now now. Potassium 5 today. Nephrology consulted and appreciate their input. Follow potassium level. Follow closely. (2) Sepsis: Qualifiers: Sepsis acute organ dysfunction status: unspecified Sepsis type: sepsis due to unspecified organism Qualified Code(s): A41.9 - Sepsis, unspecified organism Code(s): A41.9 - Sepsis, unspecified organism Status: Acute Assessment and Plan: Secondary to pneumonia and/or bacteremia. Blood cultures growing oxacillin sensitive Staph aureus. Continue with IV antibiotic ID consulted. Appreciate their input. Follow cultures Continue to monitor (3) Bacteremia: Code(s): R78.81 - Bacteremia Status: Acute Assessment and Plan: Possible source PNA versus central line. BCx 04/25 4/4 positive for DANE BCx 04/27 1/3 positive for DANE BCx 05/01 1/2 positive for DANE in one of the aerobic bottles BCx 05/05 pending Started Vancomycin but now discontinued. Abx switched to Ancef Attempting line salvage since very limited option for IV access No fevers. WBC stable at 11-13K past few days Cardiology consulted and appreciate their input. TTE 05/01 with no endocarditis. TIMUR 05/05 again showing no vegetations. Discussed with ID: Plan to add Daptomycin (05/05) and repeat BCx on Thursday Spoke with [facility] about transfer for central line exchange but they felt that since patient does not have great options for line exchange, they recommended continuing current plan. If BCx remain positive despite Daptomycin, then transfer to [facility]. Continue Ancef and Dapto. Monitor BCx results. Monitor WBC. (4) Pneumonia: Qualifiers: Laterality: right Lung location: lower lobe of lung Pneumonia type: due to unspecified organism Qualified Code(s): J18.9 - Pneumonia, unspecified organism Code(s): J18.9 - Pneumonia, unspecified organism Status: Acute Assessment and Plan: CT of chest showing focal consolidation in the RLL. Bedside swallow evaluation showing no concerns As above (5) CKD (chronic kidney disease): Qualifiers: Chronic kidney disease stage: unspecified stage Qualified Code(s): N18.9 - Chronic kidney disease, unspecified Code(s): N18.9 - Chronic kidney disease, unspecified Status: Acute Assessment and Plan: Patient s/p left nephrectomy. Baseline creatinine 2.9 but worsened past few days to 3.6 Complement normal. Urine eos negative. Prot/Cr ratio 2.3gm. FENa 0.7%. TPN stopped. Started IV fluids. Cr unchanged at 3.5, bicarb 17. Nephrology consulted and appreciate their input. Continue to monitor. Add oral bicarb (6) On total parenteral nutrition (TPN): Code(s): Z78.9 - Other specified health status Status: Acute Assessment and Plan: chronic. Takes TPN 4x/week. Dietitian on board. TPN on hold because can't remove potassium from TPN Continue to monitor. Discuss with Nephrology yesterday - continue to hold TPN (7) Hyponatremia: Code(s): E87.1 - Hypo-osmolality and hyponatremia Status: Acute Assessment and Plan: Sodium low but improved to 138 TSH and cortisol okay Nephrology following Monitor for now (8) AMS (altered mental status): Qualifiers: Altered mental status type: unspecified Qualified Code(s): R41.82 - Altered mental status, unspecified Code(s): R41.82 - Altered mental status, unspecified Status: Acute Assessment and Plan: Patient with episode of confusion Head CT showing no acute process. TSH, B12, folate levels okay Mental status much better. Follow for now (9) Anemia: Code(s): D64.9 - Anemia, unspecified Status: Acute Assessment and Plan: Acute on chronic anemia. Hgb low but stable in the 8-9 range. No bleeding reported so possibly dilutional B12, folate normal. Iron studies consistent with iron deficiency. Related to poor dietary iron absorption? Transfuse if Hgb<7 to a stable Hgb. IV iron when okay with others and BCx clear Continue to monitor. Add oral iron. (10) NSVT (nonsustained ventricular tachycardia): Code(s): I47.29 - Other ventricular tachycardia Status: Acute Assessment and Plan: Patient with 2 runs of NSVT on 05/05. Potassium 5. Mag >2. Echo as above. No recurrence. Monitor on tele. Plan DM2 - A1c 5.6%. Diet controlled. The patient's blood glucose was reviewed on 05/06 Glucose remains well controlled. Continue AccuCheks covering with sliding scale. Hypoglycemia protocol available as needed. 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 Eating okay here. Customer Manager following Monitor calorie intake off TPN Thyroid carcinoma - status post partial thyroid resection Not on levothyroxine TSH okay. 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 No obvious evidence of dumping. 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 Slept okay. No n/v. No diarrhea. no fever or chills. No night sweats. No CP or SOb. Exam Narrative: AF 97.9 124/64 92 20 98% ra Gen - NARD up to the chair Chest - CTA bilaterally, nml RR. Left upper chest tunneled dual lumen catheter CV - RRR S1/S. Tele showing PVCs Abd - Soft, NT/ND, RLQ ostomy noted Ext - No pedal edema Neuro - Alert and appropriate Psych - pleasant and cooperative Skin - warm and dry Objective Data Vital Signs Vital Signs: Vital Signs - 24 hr 05/05/25 14:09 05/05/25 16:00 05/05/25 20:00 Temperature 97.7 F Pulse Rate 100 101 H 95 Respiratory Rate 18 Blood Pressure 122/76 Pulse Oximetry 99 100 Oxygen Delivery Room Air 05/05/25 20:00 05/05/25 20:36 05/06/25 00:00 Temperature 97.9 F Pulse Rate 93 93 97 Respiratory Rate 20 Blood Pressure 137/78 Pulse Oximetry 100 Oxygen Delivery 05/06/25 04:00 05/06/25 05:45 05/06/25 10:11 Temperature 97.9 F Pulse Rate 97 92 Respiratory Rate 20 Blood Pressure 124/64 Pulse Oximetry 98 Oxygen Delivery Room Air Intake/Output Intake/Output: Intake & Output 05/03/25 05/04/25 05/05/25 05/06/25 23:59 23:59 23:59 23:59 Intake Total 1685 2937 1500 1608 Output Total 1225 1200 900 100 Balance 460 4533 237 9368 Meds/Results Medications: Active Medications Generic Name Dose Route Start Last Admin Trade Name Freq PRN Reason Stop Dose Admin Acetaminophen 650 mg 04/25/25 22:50 Acetaminophen 650 Mg Suppository RECTAL Q6H PRN Mild Pain (1-3) or Fever Acetaminophen 650 mg 05/06/25 00:58 05/06/25 01:09 Acetaminophen 325 Mg Tablet PO 650 mg Q4H PRN Administration Mild Pain (1-3) or Fever Allopurinol 100 mg 04/27/25 09:00 05/06/25 08:52 Allopurinol 100 Mg Tablet PO 100 mg DAILY [facility] Administration Cyanocobalamin 1,000 mcg 05/26/25 09:00 Cyanocobalamin Inj 1,000 Mcg/Ml Vial IM MONTHLY [facility] Cyclobenzaprine HCl 10 mg 04/26/25 13:46 05/05/25 09:06 Cyclobenzaprine Hcl 10 Mg Tablet PO 10 mg TID PRN Administration Muscle Spasm Dextrose 12.5 gm 04/27/25 08:27 Dextrose 50% 25 Gm/50 Ml Syringe IV PUSH PRN PRN Hypoglycemia Protocol Enoxaparin Sodium 30 mg 04/27/25 09:00 05/05/25 07:51 Enoxaparin 30 Mg/0.3 Ml Syringe SUB-Q Not Given On Hold: 05/05/25 09:00 DAILY ZHANNA Resume: 05/12/25 09:00 Epoetin Vic-epbx 10,000 units 05/06/25 10:55 05/06/25 11:54 Epoetin Vic-Epbx 10,000 Units/Ml Vial SUB-Q 10,000 units TUTHSA@09 ZHANNA Administration Finasteride 5 mg 04/27/25 09:00 05/06/25 08:52 Finasteride 5 Mg Tablet PO 5 mg DAILY [facility] Administration Folic Acid 1 mg 04/27/25 09:00 05/06/25 08:52 Folic Acid 1 Mg Tablet PO 1 mg DAILY ZHANNA Administration Glucagon 1 mg 04/27/25 08:27 Glucagon For Inj 1 Mg Vial IM PRN PRN Hypoglycemia Protocol Glucose 15 gm 04/27/25 08:27 Glucose Oral Gel 15 Gm Of Glucse In 37.5 Gm Tube PO PRN PRN Hypoglycemia Protocol Dextrose 1,000 mls @ 50 mls/hr 04/26/25 13:47 Dextrose 10% IV CONT .Q20H PRN if PN is interrupted Dextrose 1,000 mls @ 100 mls/hr 04/27/25 08:27 Dextrose 5% 1,000 Ml IVPB PRN PRN Hypoglycemia Protocol Cefazolin Sodium 2 gm/ Sodium 50 mls @ 100 mls/hr 04/30/25 18:00 05/06/25 05:47 Chloride IVPB Infused Q12H [facility]ANNA Infusion Multivitamins 1.25 ml/ 1,002.5 mls @ 70 mls/hr 05/05/25 20:00 Multivitamins 1.25 ml/ Amino IV CONT Acids/Electrolytes/Dextrose [id number]@2000 ZHANNA On Hold: 05/05/25 20:00 Protocol Sodium Chloride 1,000 mls @ 70 mls/hr 05/03/25 16:25 05/06/25 08:54 Normal Saline Iv IV CONT 70 mls/hr .[id number] [facility]ANNA Administration Daptomycin 500 mg/ Sodium 50 mls @ 100 mls/hr 05/05/25 16:00 05/05/25 16:49 Chloride IVPB Infused Q48H [facility] Infusion Insulin Aspart 1 - 2 units 04/27/25 21:00 05/05/25 21:28 Insulin Aspart (*Bkc) 100 Units/Ml SUB-Q 1 units HS ZHANNA Administration Protocol Insulin Aspart 2 - 5 units 04/27/25 12:00 05/06/25 12:34 Insulin Aspart (*Bkc) 100 Units/Ml SUB-Q Not Given TIDWM [facility] Protocol Sodium Bicarbonate 325 mg 05/06/25 09:00 05/06/25 08:52 Sodium Bicarbonate Tab 325 Mg Tablet PO 325 mg BID [facility]ANNA Administration Sodium Chloride 10 ml 04/29/25 14:00 05/06/25 05:17 Central Line Flush IV PUSH 10 ml Q8HR [facility]NA Administration Sodium Chloride 10 ml 04/29/25 07:58 Central Line Flush IV PUSH PRN PRN with TPN bag changes Sodium Chloride 20 ml 04/29/25 07:58 05/05/25 05:22 Central Line Flush IV PUSH 20 ml PRN PRN Administration after blood draws Trazodone HCl 25 mg 05/01/25 21:00 05/05/25 21:29 Trazodone Hcl 25 Mg Tablet PO 25 mg HS ZHANNA Administration Radiology Results: ITS Impressions Chest X-Ray 04/25/25 18:06 Impression: 1: Diffuse bilateral interstitial infiltrates which may represent edema or atypical pneumonia. Head CT 04/25/25 20:26 IMPRESSION: 1. No acute intracranial abnormality. Chest/Abdomen/Pelvis CT 04/25/25 20:28 IMPRESSION: 1. Focal consolidation right lower lobe, suspicious for pneumonia. 2: Increased size of ascending thoracic aortic aneurysm measuring 4.8 cm. 3: Splenomegaly. 4: Stable sclerotic lesions or spine and pelvis, suspicious for stable osseous metastases. Correlate for history of malignancy. Renal Ultrasound 05/03/25 18:21 IMPRESSION: 1. A couple small right renal cysts. No hydronephrosis. 2. Status post left nephrectomy. Labs Labs: Laboratory Results - last 24 hr 05/03/25 05/05/25 05/05/25 17:49 17:24 20:30 WBC RBC Hgb Hct MCV MCH MCHC RDW Plt Count MPV Sodium Potassium Chloride Carbon Dioxide Anion Gap BUN Creatinine Estim Creat Clear Calc Estimated GFR Glucose POC Capillary Glucose 134 H 215 H Calcium Phosphorus Total Creatine Kinase Albumin Triglycerides Tot Complement (CH50) 48 05/06/25 05/06/25 05/06/25 05:19 07:54 11:24 WBC 13.0 H RBC 3.14 L Hgb 8.2 L Hct 26.1 L MCV 83.1 MCH 26.1 MCHC 31.4 L RDW 13.9 Plt Count 73 L MPV 11.0 H Sodium 138 Potassium 5.0 Chloride 110 H Carbon Dioxide 17 L Anion Gap 11 BUN 67 H Creatinine 3.50 H Estim Creat Clear Calc 14 Estimated GFR 17 L Glucose 95 POC Capillary Glucose 89 85 Calcium 7.7 L Phosphorus 5.0 H Total Creatine Kinase 39 L Albumin 3.0 L Triglycerides 85 Tot Complement (CH50)
[2025-05-06] MEDS: FERROUS SULFATE LIQUID 325 MG/7.4 ML ELIXIR PO (15:35)
[2025-05-07] VITALS (9 sets, daily range): BP systolic 140–146; BP diastolic 71–75; PULSE 78–100; RESP 16–18; TEMP 36.2–36.9; O2SAT 95–100
[2025-05-07] MEDS: ceFAZolin 2 GM in SODIUM CHLORIDE 0.9% IV 50 ML 100 ML IVPB ×2 (05:52→18:05)
[2025-05-07] MEDS: DEXTROSE 5%/0.9% SOD CHL 1,000 ML 60 ML IV CONT (05:52)
[2025-05-07] MEDS: CENTRAL LINE FLUSH 10 ML IV PUSH ×3 (05:52→22:01)
[2025-05-07 07:21] LABS: Anion Gap 16 mmol/L (4-12); Blood Urea Nitrogen 57 mg/dL (9-20); Calcium 8.1 mg/dL (8.4-10.2); Carbon Dioxide 8 mmol/L (22-30); Chloride 113 mmol/L (98-107); Estimated CRCL calculation 15 ml/min; Estimated Glomerular Filt Rate 18; Glucose 99 mg/dL (65-110); Potassium 5.0 mmol/L (3.4-5.0); Sodium 137 mmol/L (137-145)
[2025-05-07] MEDS: SODIUM BICARBONATE TAB 325 MG TABLET PO ×2 (08:33→16:27)
[2025-05-07] MEDS: CALCIUM/VITAMIN D 500 MG/5 MCG (200 I.U.) TABLET PO (08:33)
[2025-05-07] MEDS: FOLIC ACID 1 MG TABLET PO (08:33)
[2025-05-07] MEDS: FINASTERIDE 5 MG TABLET PO (08:33)
[2025-05-07] MEDS: FERROUS SULFATE LIQUID 325 MG/7.4 ML ELIXIR PO (08:33)
--- NOTE | 2025-05-07 11:47 | P.PNNP_ITS ---
Progress Note: A&P Assessment and Plan (1) Acute kidney injury: Code(s): N17.9 - Acute kidney failure, unspecified Status: Acute Assessment and Plan: * creatinine is above his usual baseline. * suspect due to several issues: * prerenal factors * continues ARB use * sepsis/infection/bactermia * other(?) * evaluation to date noted: * renal ultrasound with solitary right kidney without obstruction * urine electrolytes prerenal * urine eosinophils negative * ++ proteinuria * CPK low * Creatinine is a little better than yesterday. * For some reason his bicarbonate level is much lower. He is feeling fine. I think this is probably a lab abnormality. Will repeat this. * patient still has positive blood cultures. * TIMUR done and no vegetations seen. * He is getting antibiotics but may need that line out. 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) * previous obstruction with bouts of nephrolithiasis (s/p lithotripsy) * recurrent infections/bacteremia & hospitalizations with associated LILLY/ARF episodes * previous history of DM (resolved with weight loss) * hypertension * age-related change * follows with [facility] for CKD management (3) Hyperkalemia: Code(s): E87.5 - Hyperkalemia Status: Acute Assessment and Plan: * doing better at this itme * suspect due to several issues: * ARB use * worsening CKD * TPN * infection * TSH and cortisol okay * off losartan * Potassium doing okay off the Lokelma * Will check a potassium in the morning (4) Sepsis: Qualifiers: Sepsis acute organ dysfunction status: unspecified Sepsis type: sepsis due to unspecified organism Qualified Code(s): A41.9 - Sepsis, unspecified organism Code(s): A41.9 - Sepsis, unspecified organism Status: Acute Assessment and Plan: * presumed secondary to pneumonia and/or bacteremia * culture data noted (see #5) * stable hemodynamics and generally he looks good. * id following * continue current therapy (5) Bacteremia: Code(s): R78.81 - Bacteremia Status: Acute Assessment and Plan: * suspected source is pneumonia versus central line * culture data noted: * blood cultures from 04/25 -- / positive for DANE * blood culture from 04/27 -- 1/3 positive for DANE * blood culture from 05/01 -- 1/ positive for DANE in one of the aerobic bottles * blood culture from 05/05 -- pending * Infectious Disease following * was on Vancomycin but switched to Ancef * attempting line salvage since very limited option for IV access * TTE (on 05/01) and TIMUR (on 05/05) - both negative for endocarditis/vegetations * need central line changed/exchanged (would likely transfer to [facility] since he gets majority of his care there) (6) Pneumonia: Qualifiers: Laterality: right Lung location: lower lobe of lung Pneumonia type: due to unspecified organism Qualified Code(s): J18.9 - Pneumonia, unspecified organism Code(s): J18.9 - Pneumonia, unspecified organism Status: Acute Assessment and Plan: * CT of chest showing focal consolidation in the RLL * culture data as already noted (see #5) * contine current therapy (7) Hyponatremia: Code(s): E87.1 - Hypo-osmolality and hyponatremia Status: Acute Assessment and Plan: * sodium levels normal today (8) Anemia: Code(s): D64.9 - Anemia, unspecified Status: Acute Assessment and Plan: * probably related to known CKD worsened by LILLY and acute illness * anemia studies with iron deficiency with normal b12 and folate * unable to give IV iron in the context of infection/bacteremia * hemoglobin slowly lower. * On Epogen. * Check a CBC in the (9) On total parenteral nutrition (TPN): Code(s): Z78.9 - Other specified health status Status: Acute Assessment and Plan: * chronic issue. * takes TPN 4x/week * TPN on hold as unable to remove potassium from TPN (10) Diabetes: Code(s): E11.9 - Type 2 diabetes mellitus without complications Status: Chronic Assessment and Plan: * controlled by diet * improved/stabilized with weight loss * follow accu-cheks * glycemic control per hospitalist Will continue to follow. Subjective Date/time seen: 05/07/25 11:47 Interval history: patient is feeling okay. Up in a chair he is not having any shortness of breath or pain anywhere. He ate a good breakfast. Exam Narrative: General: elderly but WD/WN male in NAD Heart: tachycardic, normal S1 and S2; no rub or gallop Lungs: fairly clear bilaterally Abdomen: soft, nontender, nondistended, positive bowel sounds; + RLQ colostomy Extremities: no cyanosis or clubbing; no edema Skin: no rash Objective Data Vital Signs Vital Signs: Vital Signs - 24 hr 05/06/25 12:00 05/06/25 13:50 05/06/25 16:00 Temperature 97.0 F L Pulse Rate 91 91 76 Respiratory Rate 18 Blood Pressure 141/75 H Pulse Oximetry 100 Oxygen Delivery 05/06/25 20:00 05/06/25 20:00 05/06/25 20:20 Temperature 98 F Pulse Rate 82 79 Respiratory Rate 16 Blood Pressure 149/67 H Pulse Oximetry 98 Oxygen Delivery Room Air 05/07/25 00:00 05/07/25 04:00 05/07/25 04:55 Temperature 97.1 F L Pulse Rate 85 91 97 Respiratory Rate 16 Blood Pressure 140/75 Pulse Oximetry 97 Oxygen Delivery 05/07/25 08:00 05/07/25 08:00 Temperature Pulse Rate 96 Respiratory Rate Blood Pressure Pulse Oximetry Oxygen Delivery Room Air Intake/Output Intake/Output: Intake & Output 05/04/25 05/05/25 05/06/25 05/07/25 23:59 23:59 23:59 23:59 Intake Total 2937 1500 3273 558 Output Total 1200 128 796 2439 Balance [phone] [id number] Meds/Results Medications: Active Medications Generic Name Dose Route Start Last Admin Trade Name Freq PRN Reason Stop Dose Admin Acetaminophen 650 mg 04/25/25 22:50 Acetaminophen 650 Mg Suppository RECTAL Q6H PRN Mild Pain (1-3) or Fever Acetaminophen 650 mg 05/06/25 00:58 05/06/25 01:09 Acetaminophen 325 Mg Tablet PO 650 mg Q4H PRN Administration Mild Pain (1-3) or Fever Allopurinol 100 mg 04/27/25 09:00 05/07/25 08:33 Allopurinol 100 Mg Tablet PO 100 mg DAILY [facility] Administration Calcium Carbonate 500 mg 05/07/25 09:00 05/07/25 08:33 Calcium/Vitamin D 500 Mg/5 Mcg (200 I.U.) Tablet PO 500 mg DAILY [facility] Administration Cyanocobalamin 1,000 mcg 05/26/25 09:00 Cyanocobalamin Inj 1,000 Mcg/Ml Vial IM MONTHLY [facility] Cyclobenzaprine HCl 10 mg 04/26/25 13:46 05/05/25 09:06 Cyclobenzaprine Hcl 10 Mg Tablet PO 10 mg TID PRN Administration Muscle Spasm Dextrose 12.5 gm 04/27/25 08:27 Dextrose 50% 25 Gm/50 Ml Syringe IV PUSH PRN PRN Hypoglycemia Protocol Enoxaparin Sodium 30 mg 04/27/25 09:00 05/05/25 07:51 Enoxaparin 30 Mg/0.3 Ml Syringe SUB-Q Not Given On Hold: 05/05/25 09:00 DAILY [facility] Resume: 05/12/25 09:00 Epoetin Vic-epbx 10,000 units 05/06/25 10:55 05/06/25 11:54 Epoetin Vic-Epbx 10,000 Units/Ml Vial SUB-Q 10,000 units TUTA@09 [facility] Administration Ferrous Sulfate 325 mg 05/06/25 14:00 05/07/25 08:33 Ferrous Sulfate Liquid 325 Mg/7.4 Ml Elixir PO 325 mg QAM [facility] Administration Finasteride 5 mg 04/27/25 09:00 05/07/25 08:33 Finasteride 5 Mg Tablet PO 5 mg DAILY [facility] Administration Folic Acid 1 mg 04/27/25 09:00 05/07/25 08:33 Folic Acid 1 Mg Tablet PO 1 mg DAILY [facility] Administration Glucagon 1 mg 04/27/25 08:27 Glucagon For Inj 1 Mg Vial IM PRN PRN Hypoglycemia Protocol Glucose 15 gm 04/27/25 08:27 Glucose Oral Gel 15 Gm Of Glucse In 37.5 Gm Tube PO PRN PRN Hypoglycemia Protocol Dextrose 1,000 mls @ 50 mls/hr 04/26/25 13:47 Dextrose 10% IV CONT .Q20H PRN if PN is interrupted Dextrose 1,000 mls @ 100 mls/hr 04/27/25 08:27 Dextrose 5% 1,000 Ml IVPB PRN PRN Hypoglycemia Protocol Cefazolin Sodium 2 gm/ Sodium 50 mls @ 100 mls/hr 04/30/25 18:00 05/07/25 05:52 Chloride IVPB 100 mls/hr Q12H [facility] Administration Multivitamins 1.25 ml/ 1,002.5 mls @ 70 mls/hr 05/05/25 20:00 Multivitamins 1.25 ml/ Amino IV CONT Acids/Electrolytes/Dextrose [id number] [facility] On Hold: 05/05/25 20:00 Protocol Daptomycin 500 mg/ Sodium 50 mls @ 100 mls/hr 05/05/25 16:00 05/05/25 16:49 Chloride IVPB Infused Q48H [facility] Infusion Dextrose/Sodium Chloride 1,000 mls @ 60 mls/hr 05/06/25 14:10 05/07/25 05:52 Dextrose 5% Sodium Chloride 0.9% IV CONT 60 mls/hr .[id number] [facility] Administration Insulin Aspart 1 - 2 units 04/27/25 21:00 05/06/25 21:20 Insulin Aspart (*Bkc) 100 Units/Ml SUB-Q Not Given HS [facility] Protocol Insulin Aspart 2 - 5 units 04/27/25 12:00 05/07/25 11:45 Insulin Aspart (*Bkc) 100 Units/Ml SUB-Q Not Given TIDWM [facility] Protocol Non-Formulary Medication 1 each 05/06/25 14:15 Nonformulary Nutritional Supplement XX 05/07/25 14:14 PRN PRN PROTOCOL Non-Formulary Medication 1 each 05/06/25 14:17 Nonformulary Nutritional Supplement XX 05/07/25 14:16 PRN PRN PROTOCOL Sodium Bicarbonate 325 mg 05/06/25 09:00 05/07/25 08:33 Sodium Bicarbonate Tab 325 Mg Tablet PO 325 mg BID [facility] Administration Sodium Chloride 10 ml 04/29/25 14:00 05/07/25 05:52 Central Line Flush IV PUSH 10 ml Q8HR [facility] Administration Sodium Chloride 10 ml 04/29/25 07:58 Central Line Flush IV PUSH PRN PRN with TPN bag changes Sodium Chloride 20 ml 04/29/25 07:58 05/05/25 05:22 Central Line Flush IV PUSH 20 ml PRN PRN Administration after blood draws Trazodone HCl 25 mg 05/01/25 21:00 05/06/25 21:20 Trazodone Hcl 25 Mg Tablet PO 25 mg HS [facility] Administration Radiology Results: ITS Impressions Chest X-Ray 04/25/25 18:06 Impression: 1: Diffuse bilateral interstitial infiltrates which may represent edema or atypical pneumonia. Head CT 04/25/25 20:26 IMPRESSION: 1. No acute intracranial abnormality. Chest/Abdomen/Pelvis CT 04/25/25 20:28 IMPRESSION: 1. Focal consolidation right lower lobe, suspicious for pneumonia. 2: Increased size of ascending thoracic aortic aneurysm measuring 4.8 cm. 3: Splenomegaly. 4: Stable sclerotic lesions or spine and pelvis, suspicious for stable osseous metastases. Correlate for history of malignancy. Renal Ultrasound 05/03/25 18:21 IMPRESSION: 1. A couple small right renal cysts. No hydronephrosis. 2. Status post left nephrectomy. Labs Labs: Laboratory Results - last 24 hr 05/06/25 05/06/25 05/07/25 16:27 20:24 04:30 Sodium 137 Potassium 5.0 Chloride 113 H Carbon Dioxide 8 L Anion Gap 16 H BUN 57 H D Creatinine 3.29 H Estim Creat Clear Calc 15 Estimated GFR 18 L Glucose 99 POC Capillary Glucose 132 H 203 H Calcium 8.1 L Phosphorus 4.2 05/07/25 05/07/25 07:21 11:31 Sodium Potassium Chloride Carbon Dioxide Anion Gap BUN Creatinine Estim Creat Clear Calc Estimated GFR Glucose POC Capillary Glucose 91 113 H Calcium Phosphorus
--- NOTE | 2025-05-07 12:27 | P.PNIM_ITS ---
Progress Note: A&P Assessment and Plan (1) Hyperkalemia: Code(s): E87.5 - Hyperkalemia Status: Acute Assessment and Plan: Potassium was elevated to 6.6 treated appropriately with improvement. TSH normal. Cortisol normal. Cozaar stopped. TPN held Lokelma started and Potassium better Lokelma stopped. Potassium 5 as stale. Nephrology consulted and appreciate their input. Follow potassium level. Follow closely. (2) Sepsis: Qualifiers: Sepsis acute organ dysfunction status: unspecified Sepsis type: sepsis due to unspecified organism Qualified Code(s): A41.9 - Sepsis, unspecified organism Code(s): A41.9 - Sepsis, unspecified organism Status: Acute Assessment and Plan: Secondary to pneumonia and/or bacteremia. Blood cultures growing oxacillin sensitive Staph aureus. Continue with IV antibiotic ID consulted. Appreciate their input. Follow cultures Continue to monitor (3) Bacteremia: Code(s): R78.81 - Bacteremia Status: Acute Assessment and Plan: Possible source PNA versus central line. BCx 04/25 4/4 positive for DANE BCx 04/27 1/3 positive for DANE BCx 05/01 1/2 positive for DANE in one of the aerobic bottles BCx 05/05 pending BCx 05/07 pending Started Vancomycin but now discontinued. Abx switched to Ancef Attempting line salvage since very limited option for IV access No fevers. WBC stable at 11-13K past few days Cardiology consulted and appreciate their input. TTE 05/01 with no endocarditis. TIMUR 05/05 again showing no vegetations. Discussed with ID: Daptomycin added (05/05) Spoke with [facility] 05/05 about transfer for central line exchange but they felt that since patient does not have great options for line exchange, they recommended continuing current plan. If BCx remain positive despite Daptomycin, then transfer to [place]. Continue Ancef and Dapto. Monitor BCx results. Monitor WBC. (4) Pneumonia: Qualifiers: Laterality: right Lung location: lower lobe of lung Pneumonia type: due to unspecified organism Qualified Code(s): J18.9 - Pneumonia, unspecified organism Code(s): J18.9 - Pneumonia, unspecified organism Status: Acute Assessment and Plan: CT of chest showing focal consolidation in the RLL. Bedside swallow evaluation showing no concerns As above (5) CKD (chronic kidney disease): Qualifiers: Chronic kidney disease stage: unspecified stage Qualified Code(s): N18.9 - Chronic kidney disease, unspecified Code(s): N18.9 - Chronic kidney disease, unspecified Status: Acute Assessment and Plan: Patient s/p left nephrectomy. Baseline creatinine 2.9 but worsened past few days to 3.6 Complement normal. Urine eos negative. Prot/Cr ratio 2.3gm. FENa 0.7%. TPN stopped. Started IV fluids. Cr better at 3.3 but bicarb low at 8 (AG 16) -> lab error? Nephrology consulted and appreciate their input. Continue to monitor. Continue oral bicarb (6) On total parenteral nutrition (TPN): Code(s): Z78.9 - Other specified health status Status: Acute Assessment and Plan: chronic. Takes TPN 4x/week. Dietitian on board. TPN on hold because can't remove potassium from TPN Continue to monitor. Discuss with Nephrology - continue to hold TPN (7) Hyponatremia: Code(s): E87.1 - Hypo-osmolality and hyponatremia Status: Acute Assessment and Plan: Sodium was low but improved to 137 TSH and cortisol okay Nephrology following Monitor for now (8) AMS (altered mental status): Qualifiers: Altered mental status type: unspecified Qualified Code(s): R41.82 - Altered mental status, unspecified Code(s): R41.82 - Altered mental status, unspecified Status: Acute Assessment and Plan: Patient with episode of confusion Head CT showing no acute process. TSH, B12, folate levels okay Mental status much better. Follow for now (9) Anemia: Code(s): D64.9 - Anemia, unspecified Status: Acute Assessment and Plan: Acute on chronic anemia. Hgb low but stable in the 8-9 range. No bleeding reported so possibly dilutional B12, folate normal. Iron studies consistent with iron deficiency. Related to poor dietary iron absorption? Transfuse if Hgb<7 to a stable Hgb. IV iron when okay with others and BCx clear Continue to monitor. Continue oral iron. (10) NSVT (nonsustained ventricular tachycardia): Code(s): I47.29 - Other ventricular tachycardia Status: Acute Assessment and Plan: Patient with 2 runs of NSVT on 05/05. Potassium 5. Mag >2. Echo as above. No recurrence. Monitor on tele. Plan Thrombocytopenia - Platelet count 70-90K past few yrs. Plt count 47K on admission and dropped to 33K before rebounding back up to 70K range. [place] drop related to sepsis. Etiology of chronic TCP unclear. Follow DM2 - A1c 5.6%. Diet controlled. The patient's blood glucose was reviewed on 05/07 Glucose remains well controlled. Continue AccuCheks covering with sliding scale. Hypoglycemia protocol available as needed. 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 Eating okay here. Commercial Development Manager following Monitor calorie intake off TPN Thyroid carcinoma - status post partial thyroid resection Not on levothyroxine TSH okay. 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 No obvio us evidence of dumping. 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 Eating okay. No n/v. No CP or SOB. Exam Narrative: AF 97.1 140/75 83 16 97% ra Gen - NARD Chest - CTA bilaterally, nml RR. Left upper chest tunneled dual lumen catheter CV - RRR S1/S. Tele showing no significant dysrhythmias Abd - Soft, NT/ND, RLQ ostomy noted Ext - No pedal edema Psych - pleasant and cooperative Skin - warm and dry Objective Data Vital Signs Vital Signs: Vital Signs - 24 hr 05/06/25 13:50 05/06/25 16:00 05/06/25 20:00 Temperature 97.0 F L Pulse Rate 91 76 82 Respiratory Rate 18 Blood Pressure 141/75 H Pulse Oximetry 100 Oxygen Delivery 05/06/25 20:00 05/06/25 20:20 05/07/25 00:00 Temperature 98 F Pulse Rate 79 85 Respiratory Rate 16 Blood Pressure 149/67 H Pulse Oximetry 98 Oxygen Delivery Room Air 05/07/25 04:00 05/07/25 04:55 05/07/25 08:00 Temperature 97.1 F L Pulse Rate 91 97 96 Respiratory Rate 16 Blood Pressure 140/75 Pulse Oximetry 97 Oxygen Delivery 05/07/25 08:00 05/07/25 12:00 Temperature Pulse Rate 83 Respiratory Rate Blood Pressure Pulse Oximetry Oxygen Delivery Room Air Intake/Output Intake/Output: Intake & Output 05/04/25 05/05/25 05/06/25 05/07/25 23:59 23:59 23:59 23:59 Intake Total 2937 1500 3273 608 Output Total 1200 292 823 0930 Balance 5681 070 3946 -392 Meds/Results Medications: Active Medications Generic Name Dose Route Start Last Admin Trade Name Freq PRN Reason Stop Dose Admin Acetaminophen 650 mg 04/25/25 22:50 Acetaminophen 650 Mg Suppository RECTAL Q6H PRN Mild Pain (1-3) or Fever Acetaminophen 650 mg 05/06/25 00:58 05/06/25 01:09 Acetaminophen 325 Mg Tablet PO 650 mg Q4H PRN Administration Mild Pain (1-3) or Fever Allopurinol 100 mg 04/27/25 09:00 05/07/25 08:33 Allopurinol 100 Mg Tablet PO 100 mg DAILY [facility] Administration Calcium Carbonate 500 mg 05/07/25 09:00 05/07/25 08:33 Calcium/Vitamin D 500 Mg/5 Mcg (200 I.U.) Tablet PO 500 mg DAILY [facility] Administration Cyanocobalamin 1,000 mcg 05/26/25 09:00 Cyanocobalamin Inj 1,000 Mcg/Ml Vial IM [facility]THLY [facility] Cyclobenzaprine HCl 10 mg 04/26/25 13:46 05/05/25 09:06 Cyclobenzaprine Hcl 10 Mg Tablet PO 10 mg TID PRN Administration Muscle Spasm Dextrose 12.5 gm 04/27/25 08:27 Dextrose 50% 25 Gm/50 Ml Syringe IV PUSH PRN PRN Hypoglycemia Protocol Enoxaparin Sodium 30 mg 04/27/25 09:00 05/05/25 07:51 Enoxaparin 30 Mg/0.3 Ml Syringe SUB-Q Not Given On Hold: 05/05/25 09:00 DAILY [facility] Resume: 05/12/25 09:00 Epoetin Vic-epbx 10,000 units 05/06/25 10:55 05/06/25 11:54 Epoetin Vic-Epbx 10,000 Units/Ml Vial SUB-Q 10,000 units TUTHSA@09 [facility] Administration Ferrous Sulfate 325 mg 05/06/25 14:00 05/07/25 08:33 Ferrous Sulfate Liquid 325 Mg/7.4 Ml Elixir PO 325 mg QAM [facility] Administration Finasteride 5 mg 04/27/25 09:00 05/07/25 08:33 Finasteride 5 Mg Tablet PO 5 mg DAILY [facility] Administration Folic Acid 1 mg 04/27/25 09:00 05/07/25 08:33 Folic Acid 1 Mg Tablet PO 1 mg DAILY [facility] Administration Glucagon 1 mg 04/27/25 08:27 Glucagon For Inj 1 Mg Vial IM PRN PRN Hypoglycemia Protocol Glucose 15 gm 04/27/25 08:27 Glucose Oral Gel 15 Gm Of Glucse In 37.5 Gm Tube PO PRN PRN Hypoglycemia Protocol Dextrose 1,000 mls @ 50 mls/hr 04/26/25 13:47 Dextrose 10% IV CONT .Q20H PRN if PN is interrupted Dextrose 1,000 mls @ 100 mls/hr 04/27/25 08:27 Dextrose 5% 1,000 Ml IVPB PRN PRN Hypoglycemia Protocol Cefazolin Sodium 2 gm/ Sodium 50 mls @ 100 mls/hr 04/30/25 18:00 05/07/25 06:22 Chloride IVPB Infused Q12H [facility] Infusion Multivitamins 1.25 ml/ 1,002.5 mls @ 70 mls/hr 05/05/25 20:00 Multivitamins 1.25 ml/ Amino IV CONT Acids/Electrolytes/Dextrose [id number]@2000 [facility] On Hold: 05/05/25 20:00 Protocol Daptomycin 500 mg/ Sodium 50 mls @ 100 mls/hr 05/05/25 16:00 05/05/25 16:49 Chloride IVPB Infused Q48H [facility] Infusion Dextrose/Sodium Chloride 1,000 mls @ 60 mls/hr 05/06/25 14:10 05/07/25 05:52 Dextrose 5% Sodium Chloride 0.9% IV CONT 60 mls/hr .[id number] [facility] Administration Insulin Aspart 1 - 2 units 04/27/25 21:00 05/06/25 21:20 Insulin Aspart (*Bkc) 100 Units/Ml SUB-Q Not Given HS [facility] Protocol Insulin Aspart 2 - 5 units 04/27/25 12:00 05/07/25 11:45 Insulin Aspart (*Bkc) 100 Units/Ml SUB-Q Not Given TIDWM [facility] Protocol Non-Formulary Medication 1 each 05/06/25 14:15 Nonformulary Nutritional Supplement XX 05/07/25 14:14 PRN PRN PROTOCOL Non-Formulary Medication 1 each 05/06/25 14:17 Nonformulary Nutritional Supplement XX 05/07/25 14:16 PRN PRN PROTOCOL Sodium Bicarbonate 325 mg 05/06/25 09:00 05/07/25 08:33 Sodium Bicarbonate Tab 325 Mg Tablet PO 325 mg BID [facility] Administration Sodium Chloride 10 ml 04/29/25 14:00 05/07/25 05:52 Central Line Flush IV PUSH 10 ml Q8HR [facility] Administration Sodium Chloride 10 ml 04/29/25 07:58 Central Line Flush IV PUSH PRN PRN with TPN bag changes Sodium Chloride 20 ml 04/29/25 07:58 05/05/25 05:22 Central Line Flush IV PUSH 20 ml PRN PRN Administration after blood draws Trazodone HCl 25 mg 05/01/25 21:00 05/06/25 21:20 Trazodone Hcl 25 Mg Tablet PO 25 mg HS [facility] Administration Radiology Results: ITS Impressions Chest X-Ray 04/25/25 18:06 Impression: 1: Diffuse bilateral interstitial infiltrates which may represent edema or atypical pneumonia. Head CT 04/25/25 20:26 IMPRESSION: 1. No acute intracranial abnormality. Chest/Abdomen/Pelvis CT 04/25/25 20:28 IMPRESSION: 1. Focal consolidation right lower lobe, suspicious for pneumonia. 2: Increased size of ascending thoracic aortic aneurysm measuring 4.8 cm. 3: Splenomegaly. 4: Stable sclerotic lesions or spine and pelvis, suspicious for stable osseous metastases. Correlate for history of malignancy. Renal Ultrasound 05/03/25 18:21 IMPRESSION: 1. A couple small right renal cysts. No hydronephrosis. 2. Status post left nephrectomy. Labs Labs: Laboratory Results - last 24 hr 05/06/25 05/06/25 05/07/25 16:27 20:24 04:30 Sodium 137 Potassium 5.0 Chloride 113 H Carbon Dioxide 8 L Anion Gap 16 H BUN 57 H D Creatinine 3.29 H Estim Creat Clear Calc 15 Estimated GFR 18 L Glucose 99 POC Capillary Glucose 132 H 203 H Calcium 8.1 L Phosphorus 4.2 05/07/25 05/07/25 07:21 11:31 Sodium Potassium Chloride Carbon Dioxide Anion Gap BUN Creatinine Estim Creat Clear Calc Estimated GFR Glucose POC Capillary Glucose 91 113 H Calcium Phosphorus
[2025-05-07 15:35] LABS: Anion Gap 9 mmol/L (4-12); Blood Urea Nitrogen 51 mg/dL (9-20); Calcium 8.3 mg/dL (8.4-10.2); Carbon Dioxide 17 mmol/L (22-30); Chloride 113 mmol/L (98-107); Estimated CRCL calculation 15 ml/min; Estimated Glomerular Filt Rate 18; Glucose 129 mg/dL (65-110); Potassium 5.3 mmol/L (3.4-5.0); Sodium 139 mmol/L (137-145)
[2025-05-07] MEDS: DAPTOmycin 500 MG in SODIUM CHLORIDE 0.9% IV 50 ML 100 MG IVPB (16:27)
[2025-05-07] MEDS: [UNRECOGNIZED DRUG - OTHER] 3 EACH PO (16:28)
[2025-05-08] VITALS (8 sets, daily range): BP systolic 137–155; BP diastolic 71–83; PULSE 77–94; RESP 18–20; TEMP 36.2–37.2; O2SAT 99–100
[2025-05-08] MEDS: DEXTROSE 5%/0.9% SOD CHL 1,000 ML 60 ML IV CONT ×2 (01:21→21:51)
[2025-05-08] MEDS: ceFAZolin 2 GM in SODIUM CHLORIDE 0.9% IV 50 ML 100 ML IVPB ×2 (05:33→17:07)
[2025-05-08] MEDS: CENTRAL LINE FLUSH 10 ML IV PUSH ×3 (05:33→21:52)
[2025-05-08 06:01] LABS: Hematocrit 25.8 % (42.0-52.0); Hemoglobin 8.3 g/dL (14.0-18.0); Immature Granulocyte Percent A 1.9 % (0-0.5); Immature Platelet Fraction Pct 2.9 % (0.9-11.2); Lymphocytes Absolute Auto 0.99 K/mm3 (0.9-3.2); Mean Corpuscular HGB Conc 32.2 g/dl (32-36); Mean Corpuscular Hemoglobin 26.7 pg (26-34); Mean Corpuscular Volume 83.0 fl (80-100); Nucleated Red Blood Cells Absolute Auto 0.000 K/mm3 (0.0-0.012); Nucleated Red Blood Cells Perc 0.0 % (0.0-0.2); Platelet Count Result 73 k/mm3 (150-375); Red Blood Count 3.11 M/mm3 (4.6-6.20); White Blood Count 11.9 K/mm3 (4.5-10.0)
[2025-05-08 06:11] LABS: Albumin Level 3.0 g/dL (3.5-5.1); Alkaline Phosphatase 117 U/L (38-126); Anion Gap 8 mmol/L (4-12); Aspartate Amino Transferase 18 U/L (17-59); Bilirubin,Total 0.2 mg/dL (0.2-1.3); Blood Urea Nitrogen 42 mg/dL (9-20); Calcium 8.2 mg/dL (8.4-10.2); Carbon Dioxide 17 mmol/L (22-30); Chloride 114 mmol/L (98-107); Estimated CRCL calculation 15 ml/min; Estimated Glomerular Filt Rate 18; Glucose 106 mg/dL (65-110); Magnesium 2.0 mg/dL (1.6-2.3); Potassium 4.6 mmol/L (3.4-5.0); Sodium 139 mmol/L (137-145); Total Protein 6.2 g/dL (6.3-8.2)
[2025-05-08 06:13] LABS: Triglycerides 69 mg/dL (<150)
[2025-05-08 06:15] LABS: Alanine Aminotransferase < 6 U/L (6-50)
[2025-05-08 06:18] LABS: Transferrin 215 mg/dL (206-381)
[2025-05-08 06:31] LABS: INR 1.3; Prothrombin Time 15.8 Seconds (11.1-14.7)
[2025-05-08 06:32] LABS: Partial Thromboplastin Time 35.7 Seconds (22.3-36.8)
[2025-05-08] MEDS: FINASTERIDE 5 MG TABLET PO (08:38)
[2025-05-08] MEDS: FERROUS SULFATE LIQUID 325 MG/7.4 ML ELIXIR PO (08:38)
[2025-05-08] MEDS: FOLIC ACID 1 MG TABLET PO (08:38)
[2025-05-08] MEDS: SODIUM BICARBONATE TAB 650 MG TABLET 1300 MG PO ×2 (08:39→17:06)
[2025-05-08] MEDS: [UNRECOGNIZED DRUG - OTHER] PO (08:39)
[2025-05-08] MEDS: VITAMIN A 25000 UNIT PO (08:39)
[2025-05-08] MEDS: [UNRECOGNIZED DRUG - OTHER] 3 EACH PO ×2 (08:43→17:07)
--- NOTE | 2025-05-08 09:45 | P.PNNP_ITS ---
Progress Note: A&P Assessment and Plan (1) Acute kidney injury: Code(s): N17.9 - Acute kidney failure, unspecified Status: Acute Assessment and Plan: * creatinine is above his usual baseline. * suspect due to several issues: * prerenal factors * continues ARB use * sepsis/infection/bactermia * other(?) * evaluation to date noted: * renal ultrasound with solitary right kidney without obstruction * urine electrolytes prerenal * urine eosinophils negative * ++ proteinuria * CPK low * Creatinine is about the same. * Repeat bicarbonate level was for back to where it was before. * Will continue oral bicarb supplementation. Increase this to 1300 twice a day * blood cultures from the are no growth in 24hours. There are some from yesterday as well. * TIMUR done and no vegetations seen. * He is getting antibiotics but may need that line out. 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) * previous obstruction with bouts of nephrolithiasis (s/p lithotripsy) * recurrent infections/bacteremia & hospitalizations with associated LILLY/ARF episodes * previous history of DM (resolved with weight loss) * hypertension * age-related change * follows with [facility] for CKD management (3) Hyperkalemia: Code(s): E87.5 - Hyperkalemia Status: Acute Assessment and Plan: * doing better at this itme * suspect due to several issues: * ARB use * worsening CKD * TPN * infection * consider renin plus aldosterone levels if the potassium rises again * his cortisol level was not above 15 will check a Cortrosyn stim test * Potassium doing fine today. (4) Sepsis: Qualifiers: Sepsis acute organ dysfunction status: unspecified Sepsis type: sepsis due to unspecified organism Qualified Code(s): A41.9 - Sepsis, unspecified organism Code(s): A41.9 - Sepsis, unspecified organism Status: Acute Assessment and Plan: * presumed secondary to pneumonia and/or bacteremia * culture data noted (see #5) * stable hemodynamics and generally he looks good. * id following * continue current therapy (5) Bacteremia: Code(s): R78.81 - Bacteremia Status: Acute Assessment and Plan: * suspected source is pneumonia versus central line * culture data noted: * blood cultures from 04/25 -- 4/ positive for DANE * blood culture from 04/27 -- 1/3 positive for DANE * blood culture from 05/01 -- 1/ positive for DANE in one of the aerobic bottles * blood culture from 05/05 -- pending * Infectious Disease following * was on Vancomycin but switched to Ancef * attempting line salvage since very limited option for IV access * TTE (on 05/01) and TIMUR (on 05/05) - both negative for endocarditis/vegetations * need central line changed/exchanged (would likely transfer to [facility] since he gets majority of his care there) (6) Pneumonia: Qualifiers: Laterality: right Lung location: lower lobe of lung Pneumonia type: due to unspecified organism Qualified Code(s): J18.9 - Pneumonia, unspecified organism Code(s): J18.9 - Pneumonia, unspecified organism Status: Acute Assessment and Plan: * CT of chest showing focal consolidation in the RLL * culture data as already noted (see #5) * contine current therapy (7) Hyponatremia: Code(s): E87.1 - Hypo-osmolality and hyponatremia Status: Acute Assessment and Plan: * sodium levels normal today (8) Anemia: Code(s): D64.9 - Anemia, unspecified Status: Acute Assessment and Plan: * probably related to known CKD worsened by LILLY and acute illness * anemia studies with iron deficiency with normal b12 and folate * unable to give iron in the context of infection/bacteremia * hemoglobin is about the same today as yesterday * On Epogen. * Check a CBC in the morning (9) On total parenteral nutrition (TPN): Code(s): Z78.9 - Other specified health status Status: Acute Assessment and Plan: * chronic issue. * takes TPN 4x/week * TPN on hold as unable to remove potassium from TPN (10) Diabetes: Code(s): E11.9 - Type 2 diabetes mellitus without complications Status: Chronic Assessment and Plan: * controlled by diet * improved/stabilized with weight loss * follow accu-cheks * glycemic control per hospitalist Will continue to follow. Subjective Date/time seen: 05/08/25 09:45 Interval history: patient is feeling okay. Sitting up in a chair. He ate his entire breakfast no shortness of breath Exam Narrative: General: elderly but WD/WN male in NAD Heart: tachycardic, normal S1 and S2; no rub Lungs: fairly clear bilaterally Abdomen: soft, nontender, nondistended, positive bowel sounds; + RLQ colostomy Extremities: no cyanosis or clubbing; no edema Skin: no rash or subcu nodule Objective Data Vital Signs Vital Signs: Vital Signs - 24 hr 05/07/25 12:00 05/07/25 14:00 05/07/25 16:00 Temperature 98.5 F Pulse Rate 83 86 93 Respiratory Rate 18 Blood Pressure 145/71 H Pulse Oximetry 100 Oxygen Delivery 05/07/25 20:00 05/07/25 20:00 05/07/25 20:35 Temperature 98 F Pulse Rate 100 78 Respiratory Rate 18 Blood Pressure 146/73 H Pulse Oximetry 95 Oxygen Delivery Room Air 05/08/25 00:00 05/08/25 04:00 05/08/25 06:00 Temperature 97.1 F L Pulse Rate 85 86 87 Respiratory Rate 20 Blood Pressure 155/83 H Pulse Oximetry 99 Oxygen Delivery Intake/Output Intake/Output: Intake & Output 05/05/25 05/06/25 05/07/25 05/08/25 23:59 23:59 23:59 23:59 Intake Total 1500 3273 3168 440 Output Total 671 825 7382 575 Balance 600 3173 2168 -135 Meds/Results Medications: Active Medications Generic Name Dose Route Start Last Admin Trade Name Freq PRN Reason Stop Dose Admin Acetaminophen 650 mg 04/25/25 22:50 Acetaminophen 650 Mg Suppository RECTAL Q6H PRN Mild Pain (1-3) or Fever Acetaminophen 650 mg 05/06/25 00:58 05/06/25 01:09 Acetaminophen 325 Mg Tablet PO 650 mg Q4H PRN Administration Mild Pain (1-3) or Fever Allopurinol 100 mg 04/27/25 09:00 05/08/25 08:38 Allopurinol 100 Mg Tablet PO 100 mg DAILY [facility] Administration Cyanocobalamin 1,000 mcg 05/26/25 09:00 Cyanocobalamin Inj 1,000 Mcg/Ml Vial IM MONTHLY [facility] Cyclobenzaprine HCl 10 mg 04/26/25 13:46 05/05/25 09:06 Cyclobenzaprine Hcl 10 Mg Tablet PO 10 mg TID PRN Administration Muscle Spasm Dextrose 12.5 gm 04/27/25 08:27 Dextrose 50% 25 Gm/50 Ml Syringe IV PUSH PRN PRN Hypoglycemia Protocol Enoxaparin Sodium 30 mg 04/27/25 09:00 05/05/25 07:51 Enoxaparin 30 Mg/0.3 Ml Syringe SUB-Q Not Given On Hold: 05/05/25 09:00 DAILY [facility] Resume: 05/12/25 09:00 Epoetin Vic-epbx 10,000 units 05/06/25 10:55 05/06/25 11:54 Epoetin Vic-Epbx 10,000 Units/Ml Vial SUB-Q 10,000 units [id number]@09 [facility] Administration Ferrous Sulfate 325 mg 05/06/25 14:00 05/08/25 08:38 Ferrous Sulfate Liquid 325 Mg/7.4 Ml Elixir PO 325 mg QAM [facility] Administration Finasteride 5 mg 04/27/25 09:00 05/08/25 08:38 Finasteride 5 Mg Tablet PO 5 mg DAILY [facility] Administration Folic Acid 1 mg 04/27/25 09:00 05/08/25 08:38 Folic Acid 1 Mg Tablet PO 1 mg DAILY [facility] Administration Glucagon 1 mg 04/27/25 08:27 Glucagon For Inj 1 Mg Vial IM PRN PRN Hypoglycemia Protocol Glucose 15 gm 04/27/25 08:27 Glucose Oral Gel 15 Gm Of Glucse In 37.5 Gm Tube PO PRN PRN Hypoglycemia Protocol Dextrose 1,000 mls @ 50 mls/hr 04/26/25 13:47 Dextrose 10% IV CONT .Q20H PRN if PN is interrupted Dextrose 1,000 mls @ 100 mls/hr 04/27/25 08:27 Dextrose 5% 1,000 Ml IVPB PRN PRN Hypoglycemia Protocol Cefazolin Sodium 2 gm/ Sodium 50 mls @ 100 mls/hr 04/30/25 18:00 05/08/25 05:33 Chloride IVPB 100 mls/hr Q12H [facility] Administration Multivitamins 1.25 ml/ 1,002.5 mls @ 70 mls/hr 05/05/25 20:00 Multivitamins 1.25 ml/ Amino IV CONT Acids/Electrolytes/Dextrose [id number] [facility] On Hold: 05/05/25 20:00 Protocol Daptomycin 500 mg/ Sodium 50 mls @ 100 mls/hr 05/05/25 16:00 05/07/25 16:27 Chloride IVPB 100 mls/hr Q48H [facility] Administration Dextrose/Sodium Chloride 1,000 mls @ 60 mls/hr 05/06/25 14:10 05/08/25 01:21 Dextrose 5% Sodium Chloride 0.9% IV CONT 60 mls/hr .[id number] [facility] Administration Insulin Aspart 1 - 2 units 04/27/25 21:00 05/07/25 21:41 Insulin Aspart (*Bkc) 100 Units/Ml SUB-Q Not Given HS [facility] Protocol Insulin Aspart 2 - 5 units 04/27/25 12:00 05/08/25 07:45 Insulin Aspart (*Bkc) 100 Units/Ml SUB-Q Not Given TIDWM [facility] Protocol Miscellaneous Information 0 each 05/07/25 00:01 05/07/25 18:13 Please Enter Order For Patient To Take Home Vitamin D 57774 Units. XX 06/06/25 00:00 Not Given On Hold: 05/07/25 17:30 CLARIFY [facility] Nonformulary Drug 3 tab 05/07/25 17:00 05/08/25 08:43 Coral Calcium Plus PO 06/06/25 16:59 3 tab Plant Enzymes BID [facility] Administration Nonformulary Drug 0 units 05/08/25 09:00 05/08/25 08:39 Vitamin A 25,000 PO 06/07/25 08:59 25,000 units Units DAILY [facility] Administration Sodium Bicarbonate 1,300 mg 05/08/25 09:00 05/08/25 08:39 Sodium Bicarbonate Tab 650 Mg Tablet PO 1,300 mg BID [facility] Administration Sodium Chloride 10 ml 04/29/25 14:00 05/08/25 05:33 Central Line Flush IV PUSH 10 ml Q8HR [facility] Administration Sodium Chloride 10 ml 04/29/25 07:58 Central Line Flush IV PUSH PRN PRN with TPN bag changes Sodium Chloride 20 ml 04/29/25 07:58 05/05/25 05:22 Central Line Flush IV PUSH 20 ml PRN PRN Administration after blood draws Trazodone HCl 25 mg 05/01/25 21:00 05/07/25 22:07 Trazodone Hcl 25 Mg Tablet PO 25 mg HS [facility] Administration Radiology Results: ITS Impressions Chest X-Ray 04/25/25 18:06 Impression: 1: Diffuse bilateral interstitial infiltrates which may represent edema or atypical pneumonia. Head CT 04/25/25 20:26 IMPRESSION: 1. No acute intracranial abnormality. Chest/Abdomen/Pelvis CT 04/25/25 20:28 IMPRESSION: 1. Focal consolidation right lower lobe, suspicious for pneumonia. 2: Increased size of ascending thoracic aortic aneurysm measuring 4.8 cm. 3: Splenomegaly. 4: Stable sclerotic lesions or spine and pelvis, suspicious for stable osseous metastases. Correlate for history of malignancy. Renal Ultrasound 05/03/25 18:21 IMPRESSION: 1. A couple small right renal cysts. No hydronephrosis. 2. Status post left nephrectomy. Labs Labs: Laboratory Results - last 24 hr 05/07/25 05/07/25 05/07/25 11:31 15:13 16:21 WBC RBC Hgb Hct MCV MCH MCHC RDW Plt Count MPV Immature Gran % (Auto) Neut % (Auto) Lymph % (Auto) [place] % (Auto) Eos % (Auto) Baso % (Auto) Lymph # (Auto) [place] # (Auto) Eos # (Auto) Baso # (Auto) Abs Immat Gran (auto) Absolute Neuts (auto) Absolute Nucleated RBC Nucleated RBC % % Immature Plt Fraction PT INR APTT Sodium 139 Potassium 5.3 H Chloride 113 H Carbon Dioxide 17 L Anion Gap 9 BUN 51 H Creatinine 3.26 H Estim Creat Clear Calc 15 Estimated GFR 18 L Glucose 129 H POC Capillary Glucose 113 H 123 H Calcium 8.3 L Magnesium Transferrin Total Bilirubin AST ALT Alkaline Phosphatase Total Protein Albumin Triglycerides 05/07/25 05/08/25 05/08/25 20:46 05:54 05:55 WBC 11.9 H RBC 3.11 L Hgb 8.3 L Hct 25.8 L MCV 83.0 MCH 26.7 MCHC 32.2 RDW 14.3 Plt Count 73 L MPV 10.5 H Immature Gran % (Auto) 1.9 H Neut % (Auto) 84.7 H Lymph % (Auto) 8.3 L [place] % (Auto) 4.2 Eos % (Auto) 0.6 Baso % (Auto) 0.3 Lymph # (Auto) 0.99 [place] # (Auto) 0.5 Eos # (Auto) 0.1 Baso # (Auto) 0.0 Abs Immat Gran (auto) 0.22 H Absolute Neuts (auto) 10.1 H Absolute Nucleated RBC 0.000 Nucleated RBC % 0.0 % Immature Plt Fraction 2.9 PT 15.8 H INR 1.3 APTT 35.7 Sodium 139 Potassium 4.6 Chloride 114 H Carbon Dioxide 17 L Anion Gap 8 BUN 42 H Creatinine 3.30 H Estim Creat Clear Calc 15 Estimated GFR 18 L Glucose 106 POC Capillary Glucose 88 Calcium 8.2 L Magnesium 2.0 Transferrin 215 Total Bilirubin 0.2 AST 18 ALT < 6 L Alkaline Phosphatase 117 Total Protein 6.2 L Albumin 3.0 L Triglycerides 69 05/08/25 07:26 WBC RBC Hgb Hct MCV MCH MCHC RDW Plt Count MPV Immature Gran % (Auto) Neut % (Auto) Lymph % (Auto) [place] % (Auto) Eos % (Auto) Baso % (Auto) Lymph # (Auto) [place] # (Auto) Eos # (Auto) Baso # (Auto) Abs Immat Gran (auto) Absolute Neuts (auto) Absolute Nucleated RBC Nucleated RBC % % Immature Plt Fraction PT INR APTT Sodium Potassium Chloride Carbon Dioxide Anion Gap BUN Creatinine Estim Creat Clear Calc Estimated GFR Glucose POC Capillary Glucose 100 Calcium Magnesium Transferrin Total Bilirubin AST ALT Alkaline Phosphatase Total Protein Albumin Triglycerides
[2025-05-08] MEDS: COSYNTROPIN 0.25 MG/ML VIAL IV PUSH (10:08)
[2025-05-08 12:20] LABS: Cortisol 60 Minute 23.20 ug/dL
--- NOTE | 2025-05-08 13:10 | PM.IMPN ---
Progress Note: A&P Assessment and Plan (1) Hyperkalemia: Code(s): E87.5 - Hyperkalemia Status: Acute Assessment and Plan: Potassium was elevated to 6.6 treated appropriately with improvement. TSH normal. Cortisol normal. Cozaar stopped. TPN held Lokelma started and Potassium better Lokelma stopped. Potassium normal today. Nephrology consulted and appreciate their input. Follow potassium level. Continue low potassium diet. Continue oral bicarb. Follow closely. (2) Sepsis: Qualifiers: Sepsis acute organ dysfunction status: unspecified Sepsis type: sepsis due to unspecified organism Qualified Code(s): A41.9 - Sepsis, unspecified organism Code(s): A41.9 - Sepsis, unspecified organism Status: Acute Assessment and Plan: Secondary to pneumonia and/or bacteremia. Blood cultures growing oxacillin sensitive Staph aureus. Continue with IV antibiotic ID consulted and appreciate their input. Follow cultures as below Continue to monitor (3) Bacteremia: Code(s): R78.81 - Bacteremia Status: Acute Assessment and Plan: Possible source PNA versus central line. BCx 04/25 4/4 positive for DANE BCx 04/27 1/3 positive for DANE BCx 05/01 1/2 positive for DANE in one of the aerobic bottles BCx 05/05 NGTD BCx 05/07 pending Started Vancomycin but now discontinued. Abx switched to Ancef Attempting line salvage since very limited option for IV access No fevers. WBC stable at 11-13K Cardiology consulted and appreciate their input. TTE 05/01 with no endocarditis. TIMUR 05/05 again showing no vegetations. Discussed with ID: Daptomycin added (05/05) Spoke with Kyree 05/05 about transfer for central line exchange but they felt that since patient does not have great options for line exchange, they recommended continuing current plan. If BCx remain positive despite Daptomycin, then transfer to [place]. Continue Ancef and Dapto. Monitor BCx results. Monitor WBC. (4) Pneumonia: Qualifiers: Laterality: right Lung location: lower lobe of lung Pneumonia type: due to unspecified organism Qualified Code(s): J18.9 - Pneumonia, unspecified organism Code(s): J18.9 - Pneumonia, unspecified organism Status: Acute Assessment and Plan: CT of chest showing focal consolidation in the RLL. Bedside swallow evaluation showing no concerns As above (5) CKD (chronic kidney disease): Qualifiers: Chronic kidney disease stage: unspecified stage Qualified Code(s): N18.9 - Chronic kidney disease, unspecified Code(s): N18.9 - Chronic kidney disease, unspecified Status: Acute Assessment and Plan: Patient s/p left nephrectomy. Baseline creatinine 2.9 but worsened to 3.6 Complement normal. Urine eos negative. Prot/Cr ratio 2.3gm. FENa 0.7%. TPN stopped. Started IV fluids. Oral bicarb added. Cr better at 3.3. Bicarb 17. Nephrology consulted and appreciate their input. Continue to monitor. Continue oral bicarb (6) On total parenteral nutrition (TPN): Code(s): Z78.9 - Other specified health status Status: Acute Assessment and Plan: Chronic TPN use related to gastrectomy. Takes TPN 4x/week. Dietitian on board. TPN on hold because can't remove potassium from TPN Continue to monitor. Discuss with Nephrology - continue to hold TPN (7) Hyponatremia: Code(s): E87.1 - Hypo-osmolality and hyponatremia Status: Acute Assessment and Plan: Sodium was low but improved to 139 TSH and cortisol okay. Cosyntropin test showing peak cortisol >18 which is an appropriate response. Nephrology following Monitor for now (8) AMS (altered mental status): Qualifiers: Altered mental status type: unspecified Qualified Code(s): R41.82 - Altered mental status, unspecified Code(s): R41.82 - Altered mental status, unspecified Status: Acute Assessment and Plan: Patient with episode of confusion Head CT showing no acute process. TSH, B12, folate levels okay Mental status much better. Follow for now (9) Anemia: Code(s): D64.9 - Anemia, unspecified Status: Acute Assessment and Plan: Acute on chronic anemia. Hgb low but stable in the 8-9 range. No bleeding reported so possibly dilutional B12, folate normal. Iron studies consistent with iron deficiency. Related to poor dietary iron absorption? Transfuse if Hgb<7 to a stable Hgb. IV iron when okay with others and BCx clear Continue to monitor. Continue oral iron. (10) NSVT (nonsustained ventricular tachycardia): Code(s): I47.29 - Other ventricular tachycardia Status: Acute Assessment and Plan: Patient with 2 runs of NSVT on 05/05. Potassium 5. Mag >2. Echo as above. No recurrence. Monitor on tele. Plan Thrombocytopenia - Platelet count 70-90K past few yrs. Plt count 47K on admission and dropped to 33K before rebounding back up to 70K range. Basye drop related to sepsis. Etiology of chronic TCP unclear. Follow DM2 - A1c 5.6%. Diet controlled. The patient's blood glucose was reviewed on 05/08 Glucose remains well controlled. Continue AccuCheks covering with sliding scale. Hypoglycemia protocol available as needed. 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 Eating okay here. Chart Clerk following Monitor calorie intake off TPN Thyroid carcinoma - status post partial thyroid resection Not on levothyroxine TSH okay. 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 No obvious evidence of dumping. 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 Slept off and on. Walking in halls. Eating okay. Exam Narrative: AF 97.1 155/83 87 20 99% ra Gen - NARD Chest - mild right base crackles o/w clear. Left upper chest tunneled dual lumen catheter CV - RRR S1/S. Tele showing no significant dysrhythmias Abd - Soft, NT/ND, RLQ ostomy noted Ext - No pedal edema Psych - pleasant and cooperative Skin - warm and dry Objective Data Vital Signs Vital Signs: Vital Signs - 24 hr 05/07/25 14:00 05/07/25 16:00 05/07/25 20:00 Temperature 98.5 F Pulse Rate 86 93 Respiratory Rate 18 Blood Pressure 145/71 H Pulse Oximetry 100 Oxygen Delivery Room Air 08/31/25 20:00 05/07/25 20:35 05/08/25 00:00 Temperature 98 F Pulse Rate 100 78 85 Respiratory Rate 18 Blood Pressure 146/73 H Pulse Oximetry 95 Oxygen Delivery 05/08/25 04:00 05/08/25 06:00 05/08/25 08:00 Temperature 97.1 F L Pulse Rate 86 87 Respiratory Rate 20 Blood Pressure 155/83 H Pulse Oximetry 99 Oxygen Delivery Room Air Intake/Output Intake/Output: Intake & Output 05/05/25 05/06/25 05/07/25 05/08/25 23:59 23:59 23:59 23:59 Intake Total 1500 3273 3168 680 Output Total 066 479 9042 575 Balance 600 3173 2168 105 Meds/Results Medications: Active Medications Generic Name Dose Route Start Last Admin Trade Name Freq PRN Reason Stop Dose Admin Acetaminophen 650 mg 04/25/25 22:50 Acetaminophen 650 Mg Suppository RECTAL Q6H PRN Mild Pain (1-3) or Fever Acetaminophen 650 mg 05/06/25 00:58 05/06/25 01:09 Acetaminophen 325 Mg Tablet PO 650 mg Q4H PRN Administration Mild Pain (1-3) or Fever Allopurinol 100 mg 04/27/25 09:00 05/08/25 08:38 Allopurinol 100 Mg Tablet PO 100 mg DAILY ZHANNA Administration Cyanocobalamin 1,000 mcg 05/26/25 09:00 Cyanocobalamin Inj 1,000 Mcg/Ml Vial IM MONTHLY ZHANNA Cyclobenzaprine HCl 10 mg 04/26/25 13:46 05/05/25 09:06 Cyclobenzaprine Hcl 10 Mg Tablet PO 10 mg TID PRN Administration Muscle Spasm Dextrose 12.5 gm 04/27/25 08:27 Dextrose 50% 25 Gm/50 Ml Syringe IV PUSH PRN PRN Hypoglycemia Protocol Enoxaparin Sodium 30 mg 04/27/25 09:00 05/05/25 07:51 Enoxaparin 30 Mg/0.3 Ml Syringe SUB-Q Not Given On Hold: 05/05/25 09:00 DAILY ZHANNA Resume: 05/12/25 09:00 Epoetin Vic-epbx 10,000 units 05/06/25 10:55 05/06/25 11:54 Epoetin Vic-Epbx 10,000 Units/Ml Vial SUB-Q 10,000 units TUTHSA@09 ZHANNA Administration Finasteride 5 mg 04/27/25 09:00 05/08/25 08:38 Finasteride 5 Mg Tablet PO 5 mg DAILY ZHANNA Administration Folic Acid 1 mg 04/27/25 09:00 05/08/25 08:38 Folic Acid 1 Mg Tablet PO 1 mg DAILY ZHANNA Administration Glucagon 1 mg 04/27/25 08:27 Glucagon For Inj 1 Mg Vial IM PRN PRN Hypoglycemia Protocol Glucose 15 gm 04/27/25 08:27 Glucose Oral Gel 15 Gm Of Glucse In 37.5 Gm Tube PO PRN PRN Hypoglycemia Protocol Dextrose 1,000 mls @ 50 mls/hr 04/26/25 13:47 Dextrose 10% IV CONT .Q20H PRN if PN is interrupted Dextrose 1,000 mls @ 100 mls/hr 04/27/25 08:27 Dextrose 5% 1,000 Ml IVPB PRN PRN Hypoglycemia Protocol Cefazolin Sodium 2 gm/ Sodium 50 mls @ 100 mls/hr 04/30/25 18:00 05/08/25 05:33 Chloride IVPB 100 mls/hr Q12H ZHANNA Administration Multivitamins 1.25 ml/ 1,002.5 mls @ 70 mls/hr 05/05/25 20:00 Multivitamins 1.25 ml/ Amino IV CONT Acids/Electrolytes/Dextrose [id number] [facility] On Hold: 05/05/25 20:00 Protocol Daptomycin 500 mg/ Sodium 50 mls @ 100 mls/hr 05/05/25 16:00 05/07/25 16:27 Chloride IVPB 100 mls/hr Q48H ZHANNA Administration Dextrose/Sodium Chloride 1,000 mls @ 60 mls/hr 05/06/25 14:10 05/08/25 01:21 Dextrose 5% Sodium Chloride 0.9% IV CONT 60 mls/hr .[id number] ZHANNA Administration Insulin Aspart 1 - 2 units 04/27/25 21:00 05/07/25 21:41 Insulin Aspart (*Bkc) 100 Units/Ml SUB-Q Not Given HS [facility] Protocol Insulin Aspart 2 - 5 units 04/27/25 12:00 05/08/25 11:38 Insulin Aspart (*Bkc) 100 Units/Ml SUB-Q Not Given TIDWM [facility] Protocol Miscellaneous Information 0 each 05/07/25 00:01 05/07/25 18:13 Please Enter Order For Patient To Take Home Vitamin D 16275 Units. XX 06/06/25 00:00 Not Given On Hold: 05/07/25 17:30 CLARIFY ZHANNA Nonformulary Drug 3 tab 05/07/25 17:00 05/08/25 08:43 Coral Calcium Plus PO 06/06/25 16:59 3 tab Plant Enzymes BID ZHANNA Administration Nonformulary Drug 0 units 05/08/25 09:00 05/08/25 08:39 Vitamin A 25,000 PO 06/07/25 08:59 25,000 units Units DAILY ZHANNA Administration Sodium Bicarbonate 1,300 mg 05/08/25 09:00 05/08/25 08:39 Sodium Bicarbonate Tab 650 Mg Tablet PO 1,300 mg BID ZHANNA Administration Sodium Chloride 10 ml 04/29/25 14:00 05/08/25 05:33 Central Line Flush IV PUSH 10 ml Q8HR ZHANNA Administration Sodium Chloride 10 ml 04/29/25 07:58 Central Line Flush IV PUSH PRN PRN with TPN bag changes Sodium Chloride 20 ml 04/29/25 07:58 05/05/25 05:22 Central Line Flush IV PUSH 20 ml PRN PRN Administration after blood draws Trazodone HCl 25 mg 05/01/25 21:00 05/07/25 22:07 Trazodone Hcl 25 Mg Tablet PO 25 mg HS ZHANNA Administration Radiology Results: ITS Impressions Chest X-Ray 04/25/25 18:06 Impression: 1: Diffuse bilateral interstitial infiltrates which may represent edema or atypical pneumonia. Head CT 04/25/25 20:26 IMPRESSION: 1. No acute intracranial abnormality. Chest/Abdomen/Pelvis CT 04/25/25 20:28 IMPRESSION: 1. Focal consolidation right lower lobe, suspicious for pneumonia. 2: Increased size of ascending thoracic aortic aneurysm measuring 4.8 cm. 3: Splenomegaly. 4: Stable sclerotic lesions or spine and pelvis, suspicious for stable osseous metastases. Correlate for history of malignancy. Renal Ultrasound 05/03/25 18:21 IMPRESSION: 1. A couple small right renal cysts. No hydronephrosis. 2. Status post left nephrectomy. Labs Labs: Laboratory Results - last 24 hr 05/07/25 05/07/25 05/07/25 15:13 16:21 20:46 WBC RBC Hgb Hct MCV MCH MCHC RDW Plt Count MPV Immature Gran % (Auto) Neut % (Auto) Lymph % (Auto) Spink % (Auto) Eos % (Auto) Baso % (Auto) Lymph # (Auto) Spink # (Auto) Eos # (Auto) Baso # (Auto) Abs Immat Gran (auto) Absolute Neuts (auto) Absolute Nucleated RBC Nucleated RBC % % Immature Plt Fraction PT INR APTT Sodium 139 Potassium 5.3 H Chloride 113 H Carbon Dioxide 17 L Anion Gap 9 BUN 51 H Creatinine 3.26 H Estim Creat Clear Calc 15 Estimated GFR 18 L Glucose 129 H POC Capillary Glucose 123 H 88 Calcium 8.3 L Magnesium Transferrin Total Bilirubin AST ALT Alkaline Phosphatase Total Protein Albumin Triglycerides Cortisol Baseline Cortisol Resp 30 Min Cortisol Resp 60 Min 05/08/25 05/08/25 05/08/25 05:54 05:55 07:26 WBC 11.9 H RBC 3.11 L Hgb 8.3 L Hct 25.8 L MCV 83.0 MCH 26.7 MCHC 32.2 RDW 14.3 Plt Count 73 L MPV 10.5 H Immature Gran % (Auto) 1.9 H Neut % (Auto) 84.7 H Lymph % (Auto) 8.3 L Spink % (Auto) 4.2 Eos % (Auto) 0.6 Baso % (Auto) 0.3 Lymph # (Auto) 0.99 Spink # (Auto) 0.5 Eos # (Auto) 0.1 Baso # (Auto) 0.0 Abs Immat Gran (auto) 0.22 H Absolute Neuts (auto) 10.1 H Absolute Nucleated RBC 0.000 Nucleated RBC % 0.0 % Immature Plt Fraction 2.9 PT 15.8 H INR 1.3 APTT 35.7 Sodium 139 Potassium 4.6 Chloride 114 H Carbon Dioxide 17 L Anion Gap 8 BUN 42 H Creatinine 3.30 H Estim Creat Clear Calc 15 Estimated GFR 18 L Glucose 106 POC Capillary Glucose 100 Calcium 8.2 L Magnesium 2.0 Transferrin 215 Total Bilirubin 0.2 AST 18 ALT < 6 L Alkaline Phosphatase 117 Total Protein 6.2 L Albumin 3.0 L Triglycerides 69 Cortisol Baseline Cortisol Resp 30 Min Cortisol Resp 60 Min 05/08/25 05/08/25 05/08/25 10:11 10:45 11:15 WBC RBC Hgb Hct MCV MCH MCHC RDW Plt Count MPV Immature Gran % (Auto) Neut % (Auto) Lymph % (Auto) Spink % (Auto) Eos % (Auto) Baso % (Auto) Lymph # (Auto) Spink # (Auto) Eos # (Auto) Baso # (Auto) Abs Immat Gran (auto) Absolute Neuts (auto) Absolute Nucleated RBC Nucleated RBC % % Immature Plt Fraction PT INR APTT Sodium Potassium Chloride Carbon Dioxide Anion Gap BUN Creatinine Estim Creat Clear Calc Estimated GFR Glucose POC Capillary Glucose Calcium Magnesium Transferrin Total Bilirubin AST ALT Alkaline Phosphatase Total Protein Albumin Triglycerides Cortisol Baseline 11.80 Cortisol Resp 30 Min 20.00 Cortisol Resp 60 Min 23.20 05/08/25 11:21 WBC RBC Hgb Hct MCV MCH MCHC RDW Plt Count MPV Immature Gran % (Auto) Neut % (Auto) Lymph % (Auto) Spink % (Auto) Eos % (Auto) Baso % (Auto) Lymph # (Auto) Spink # (Auto) Eos # (Auto) Baso # (Auto) Abs Immat Gran (auto) Absolute Neuts (auto) Absolute Nucleated RBC Nucleated RBC % % Immature Plt Fraction PT INR APTT Sodium Potassium Chloride Carbon Dioxide Anion Gap BUN Creatinine Estim Creat Clear Calc Estimated GFR Glucose POC Capillary Glucose 107 H Calcium Magnesium Transferrin Total Bilirubin AST ALT Alkaline Phosphatase Total Protein Albumin Triglycerides Cortisol Baseline Cortisol Resp 30 Min Cortisol Resp 60 Min
[2025-05-09] VITALS (9 sets, daily range): BP systolic 129–144; BP diastolic 74–83; PULSE 74–97; RESP 14–20; TEMP 36.6–36.7; O2SAT 98–100
[2025-05-09 04:31] LABS: Hematocrit 24.5 % (42.0-52.0); Hemoglobin 7.6 g/dL (14.0-18.0); Immature Granulocyte Percent A 1.6 % (0-0.5); Immature Platelet Fraction Pct 3.6 % (0.9-11.2); Lymphocytes Absolute Auto 1.03 K/mm3 (0.9-3.2); Mean Corpuscular HGB Conc 31.0 g/dl (32-36); Mean Corpuscular Hemoglobin 25.7 pg (26-34); Mean Corpuscular Volume 82.8 fl (80-100); Nucleated Red Blood Cells Absolute Auto 0.000 K/mm3 (0.0-0.012); Nucleated Red Blood Cells Perc 0.0 % (0.0-0.2); Platelet Count Result 79 k/mm3 (150-375); Red Blood Count 2.96 M/mm3 (4.6-6.20); White Blood Count 14.7 K/mm3 (4.5-10.0)
[2025-05-09 04:51] LABS: Albumin Level 2.8 g/dL (3.5-5.1); Anion Gap 5 mmol/L (4-12); Blood Urea Nitrogen 36 mg/dL (9-20); Calcium 7.9 mg/dL (8.4-10.2); Carbon Dioxide 18 mmol/L (22-30); Chloride 113 mmol/L (98-107); Estimated CRCL calculation 16 ml/min; Estimated Glomerular Filt Rate 20; Glucose 119 mg/dL (65-110); Magnesium 1.8 mg/dL (1.6-2.3); Potassium 4.6 mmol/L (3.4-5.0); Sodium 136 mmol/L (137-145)
[2025-05-09 05:04] LABS: Anisocytosis 1+; Crenated RBC 1+; Hypochromasia 1+; Microcytosis 1+ (NORMAL); Ovalocytes 1+; Poikilocytosis 1+
[2025-05-09 05:05] LABS: Schistocytes Rare
[2025-05-09] MEDS: ceFAZolin 2 GM in SODIUM CHLORIDE 0.9% IV 50 ML 100 ML IVPB ×2 (05:46→17:21)
[2025-05-09] MEDS: CENTRAL LINE FLUSH 10 ML IV PUSH ×3 (05:47→21:57)
[2025-05-09] MEDS: [UNRECOGNIZED DRUG - OTHER] 3 EACH PO ×2 (08:18→17:22)
[2025-05-09] MEDS: FINASTERIDE 5 MG TABLET PO (08:18)
[2025-05-09] MEDS: VITAMIN A 25000 UNIT PO (08:18)
[2025-05-09] MEDS: [UNRECOGNIZED DRUG - OTHER] PO (08:18)
[2025-05-09] MEDS: SODIUM BICARBONATE TAB 650 MG TABLET 1300 MG PO ×2 (08:18→17:21)
[2025-05-09] MEDS: FOLIC ACID 1 MG TABLET PO (08:18)
[2025-05-09] MEDS: EPOETIN ALFA-EPBX 10,000 UNITS/ML VIAL 10000 UNITS SUB-Q (08:19)
--- NOTE | 2025-05-09 10:13 | P.PNNP_ITS ---
Progress Note: A&P Assessment and Plan (1) Acute kidney injury: Code(s): N17.9 - Acute kidney failure, unspecified Status: Acute Assessment and Plan: * slow improvement noted (if not back to baseline) * as noted by trend of labs on 05/03 * suspect due to several issues: * prerenal factors * continued ARB use * sepsis/infection/bacteremia * other(?) * evaluation to date noted: * renal ultrasound with solitary right kidney without obstruction * urine electrolytes prerenal * urine eosinophils negative * ++ proteinuria * CPK low * continues to make reasonable urine output * follow trend of repeat labs and UOP 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) * previous obstruction with bouts of nephrolithiasis (s/p lithotripsy) * recurrent infections/bacteremia & hospitalizations with associated LILLY/ARF episodes * previous history of DM (resolved with weight loss) * hypertension * age-related change * follows with [facility] for CKD management (3) Hyperkalemia: Code(s): E87.5 - Hyperkalemia Status: Acute Assessment and Plan: * relatively stable * suspect due to several issues: * ARB use * worsening CKD * TPN * infection * TSH okay and cortisol lowish * stimulation test noted * off losartan * off TPN * off lokelma * oral sodium bicarbonate may be helping control as well * follow trend of repeat K+ levels (4) Sepsis: Qualifiers: Sepsis acute organ dysfunction status: unspecified Sepsis type: sepsis due to unspecified organism Qualified Code(s): A41.9 - Sepsis, unspecified organism Code(s): A41.9 - Sepsis, unspecified organism Status: Acute Assessment and Plan: * presumed secondary to pneumonia and/or bacteremia * culture data noted (see #5) * stable hemodynamics noted * continue current therapy (5) Bacteremia: Code(s): R78.81 - Bacteremia Status: Acute Assessment and Plan: * suspected source is pneumonia versus central line * culture data noted: * blood cultures from 04/25 -- 4/4 positive for DANE * blood culture from 04/27 -- 1/3 positive for DANE * blood culture from 05/01 -- 1/2 positive for DANE in one of the aerobic bottles * blood culture from 05/05 -- no growth 48 hours * blood cultures from 05/07 -- no growth to date * Infectious Disease following * on antibiotics * attempting line salvage since very limited option for IV access * TTE (on 05/01) and TIMUR (on 05/05) - both negative for endocarditis/vegetations * continue current therapy (6) Pneumonia: Qualifiers: Laterality: right Lung location: lower lobe of lung Pneumonia type: d ue to unspecified organism Qualified Code(s): J18.9 - Pneumonia, unspecified organism Code(s): J18.9 - Pneumonia, unspecified organism Status: Acute Assessment and Plan: * CT of chest showing focal consolidation in the RLL * culture data as already noted (see #5) * contine current therapy (7) Hyponatremia: Code(s): E87.1 - Hypo-osmolality and hyponatremia Status: Acute Assessment and Plan: * acute versus chronic versus acute on chronic?? * no issue with this during February 2025 hospitalization at [facility] * TSH and cortisol okay; extensive malignancy history noted (but no active issues) * pneumonia playing a role as well(?) * porbably more related to TPN, CKD, and now LILLY * follow trend of sodium (8) Anemia: Code(s): D64.9 - Anemia, unspecified Status: Acute Assessment and Plan: * probably related to known CKD worsened by LILLY and acute illness * anemia studies with iron deficiency with normal b12 and folate * unable to give IV iron in the context of infection/bacteremia * PRBC transfusion per protocol * follow trend of H/H (9) On total parenteral nutrition (TPN): Code(s): Z78.9 - Other specified health status Status: Acute Assessment and Plan: * chronic issue. * takes TPN 4x/week * TPN on hold as unable to remove potassium from TPN (10) Diabetes: Code(s): E11.9 - Type 2 diabetes mellitus without complications Status: Chronic Assessment and Plan: * controlled by diet * improved/stabilized with weight loss * follow accu-cheks * glycemic control per hospitalist Will continue to follow. L Subjective Date/time seen: 05/09/25 10:13 Interval history: Follow-up for acute kidney injury/acute renal failure on chronic kidney disease and hyperkalemia. Chart reviewed since last seen -- appears to be doing reasonably well at the time of my visit; renal function/creatinine continues to improve (if not back to baseline) with supportive therapy; no other issues/events overnight or earlier this morning. Exam 2 Narrative: General: elderly but WD/WN male in NAD Heart: tachycardic, normal S1 and S2; no rub Lungs: clear anteriorly; few crackles at right base Abdomen: soft, nontender, nondistended, positive bowel sounds; + RLQ colostomy Extremities: no cyanosis or clubbing; no edema Skin: warm and intact Objective Data Vital Signs Vital Signs: Vital Signs Temp Pulse Resp BP Pulse Ox O2 Del Method 05/09/25 08:00 Room Air 05/09/25 08:00 91 05/09/25 05:11 98.0 F 83 20 129/74 99 05/09/25 04:00 83 05/09/25 00:00 80 05/08/25 20:39 98.0 F 82 20 151/71 H 100 05/08/25 20:00 Room Air 05/08/25 16:00 77 05/08/25 13:54 98.9 F 94 18 137/76 100 Intake/Output Intake/Output: Intake & Output 05/06/25 05/07/25 05/08/25 05/09/25 23:59 23:59 23:59 23:59 Intake Total 3273 3168 2635 240 Output Total 100 1000 2300 Balance 3173 2168 335 240 Meds/Results Medications: Active Medications Generic Name Dose Route Start Last Admin Trade Name Freq PRN Reason Stop Dose Admin Acetaminophen 650 mg 04/25/25 22:50 Acetaminophen 650 Mg Suppository RECTAL Q6H PRN Mild Pain (1-3) or Fever Acetaminophen 650 mg 05/06/25 00:58 05/06/25 01:09 Acetaminophen 325 Mg Tablet PO 650 mg Q4H PRN Administration Mild Pain (1-3) or Fever Allopurinol 100 mg 04/27/25 09:00 05/09/25 08:18 Allopurinol 100 Mg Tablet PO 100 mg DAILY ZHANNA Administration Cyanocobalamin 1,000 mcg 05/26/25 09:00 Cyanocobalamin Inj 1,000 Mcg/Ml Vial IM MONTHLY ZHANNA Cyclobenzaprine HCl 10 mg 04/26/25 13:46 05/05/25 09:06 Cyclobenzaprine Hcl 10 Mg Tablet PO 10 mg TID PRN Administration Muscle Spasm Dextrose 12.5 gm 04/27/25 08:27 Dextrose 50% 25 Gm/50 Ml Syringe IV PUSH PRN PRN Hypoglycemia Protocol Enoxaparin Sodium 30 mg 04/27/25 09:00 05/05/25 07:51 Enoxaparin 30 Mg/0.3 Ml Syringe SUB-Q Not Given On Hold: 05/05/25 09:00 DAILY [facility]ANNA Resume: 05/12/25 09:00 Epoetin Vic-epbx 10,000 units 05/06/25 10:55 05/09/25 08:19 Epoetin Vic-Epbx 10,000 Units/Ml Vial SUB-Q 10,000 units TUTHSA@09 [facility]ANNA Administration Finasteride 5 mg 04/27/25 09:00 05/09/25 08:18 Finasteride 5 Mg Tablet PO 5 mg DAILY [facility]ANNA Administration Folic Acid 1 mg 04/27/25 09:00 05/09/25 08:18 Folic Acid 1 Mg Tablet PO 1 mg DAILY [facility]ANNA Administration Glucagon 1 mg 04/27/25 08:27 Glucagon For Inj 1 Mg Vial IM PRN PRN Hypoglycemia Protocol Glucose 15 gm 04/27/25 08:27 Glucose Oral Gel 15 Gm Of Glucse In 37.5 Gm Tube PO PRN PRN Hypoglycemia Protocol Dextrose 1,000 mls @ 50 mls/hr 04/26/25 13:47 Dextrose 10% IV CONT .Q20H PRN if PN is interrupted Dextrose 1,000 mls @ 100 mls/hr 04/27/25 08:27 Dextrose 5% 1,000 Ml IVPB PRN PRN Hypoglycemia Protocol Cefazolin Sodium 2 gm/ Sodium 50 mls @ 100 mls/hr 04/30/25 18:00 05/09/25 05:46 Chloride IVPB 100 mls/hr Q12H Z[facility]ANNA Administration Multivitamins 1.25 ml/ 1,002.5 mls @ 70 mls/hr 05/05/25 20:00 Multivitamins 1.25 ml/ Amino IV CONT Acids/Electrolytes/Dextrose [id number] Z[facility]ANNA On Hold: 05/05/25 20:00 Protocol Daptomycin 500 mg/ Sodium 50 mls @ 100 mls/hr 05/05/25 16:00 05/07/25 16:27 Chloride IVPB 100 mls/hr Q48H Z[facility]ANNA Administration Dextrose/Sodium Chloride 1,000 mls @ 60 mls/hr 05/06/25 14:10 05/08/25 21:51 Dextrose 5% Sodium Chloride 0.9% IV CONT 60 mls/hr .[id number] Z[facility]ANNA Administration Insulin Aspart 1 - 2 units 04/27/25 21:00 05/08/25 21:53 Insulin Aspart (*Bkc) 100 Units/Ml SUB-Q Not Given HS [facility] Protocol Insulin Aspart 2 - 5 units 04/27/25 12:00 05/09/25 11:55 Insulin Aspart (*Bkc) 100 Units/Ml SUB-Q Not Given TIDWM [facility] Protocol Miscellaneous Information 0 each 05/07/25 00:01 05/07/25 18:13 Please Enter Order For Patient To Take Home Vitamin D 66739 Units. XX 06/06/25 00:00 Not Given On Hold: 05/07/25 17:30 CLARIFY ZHANNA Nonformulary Drug 3 tab 05/07/25 17:00 05/09/25 08:18 Coral Calcium Plus PO 06/06/25 16:59 3 tab Plant Enzymes BID Z[facility]ANNA Administration Nonformulary Drug 0 units 05/08/25 09:00 05/09/25 08:18 Vitamin A 25,000 PO 06/07/25 08:59 25,000 units Units DAILY [facility] Administration Sodium Bicarbonate 1,300 mg 05/08/25 09:00 05/09/25 08:18 Sodium Bicarbonate Tab 650 Mg Tablet PO 1,300 mg BID [facility]ANNA Administration Sodium Chloride 10 ml 04/29/25 14:00 05/09/25 05:47 Central Line Flush IV PUSH 10 ml Q8HR [facility]ANNA Administration Sodium Chloride 10 ml 04/29/25 07:58 Central Line Flush IV PUSH PRN PRN with TPN bag changes Sodium Chloride 20 ml 04/29/25 07:58 05/05/25 05:22 Central Line Flush IV PUSH 20 ml PRN PRN Administration after blood draws Trazodone HCl 25 mg 05/01/25 21:00 05/08/25 21:51 Trazodone Hcl 25 Mg Tablet PO 25 mg HS [facility]NA Administration Radiology Results: ITS Impressions Chest X-Ray 04/25/25 18:06 Impression: 1: Diffuse bilateral interstitial infiltrates which may represent edema or atypical pneumonia. Head CT 04/25/25 20:26 IMPRESSION: 1. No acute intracranial abnormality. Chest/Abdomen/Pelvis CT 04/25/25 20:28 IMPRESSION: 1. Focal consolidation right lower lobe, suspicious for pneumonia. 2: Increased size of ascending thoracic aortic aneurysm measuring 4.8 cm. 3: Splenomegaly. 4: Stable sclerotic lesions or spine and pelvis, suspicious for stable osseous metastases. Correlate for history of malignancy. Renal Ultrasound 05/03/25 18:21 IMPRESSION: 1. A couple small right renal cysts. No hydronephrosis. 2. Status post left nephrectomy. Labs Labs: Laboratory Tests 05/09/25 04:20 05/09/25 04:20 Calcium 7.9 L Phosphorus 3.2 Magnesium 1.8 Albumin 2.8 L Microbiology 05/07/25 04:32 Blood Blood Culture - Preliminary 05/07/25 04:32 Blood Blood Culture - Preliminary 05/05/25 05:01 Blood Blood Culture - Preliminary 05/05/25 04:46 Blood Blood Culture - Preliminary
--- NOTE | 2025-05-09 10:23 | PCNFU ---
Nutrition Follow-Up Complete: Inability to meet nutrition needs PO related to altered GI function as evidenced by need for partial TPN Meet estimated nutrition needs - Progressing. Eating 90-100% on diabetic diet Goal: Pt current nutrition is Diabetic consistent carb diet, Glucerna BID (220 kcal, 10 g protein),. TPN on hold Nutrition recommendation: Resume TPN when medically appropriate: Can use plain formula without electrolytes. Resume lipids. Clinmix Plain 01/19 with lipids: 1 bag 4x per week. Run 70 ml/h for 14 hours. Diabetic consistent carbs diet. Last recorded weight is 71.3 kg. Down 7.5 lb since admission. Bowel Motility: +3 BM 05/08. P says food goes right through him because of extensive gastric surgeries Labs Reviewed: Hgb 7.6, Hct 24.5, Alb 2.8, Na 136, BUN 36, Cre 3.05, Glu 119 Meds Noted: B12, Novolog, Zofran Skin: WNL Additional Notes: Eating 90-100% diabetic diet. 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 Current orders are 1 bag TPN 3x week, without lipids. 1 bag provides 710 kcal, 50 g protein. Recommending adding lipids with each bag. said pt told him he runs TPn 4 days a week and not 3. Can increase to 4x week if desired. Can use plain Clinmix without electrolytes if still concerned about hypokalemia Monitoring intakes, weights, labs, TPN tolerance, plan of care Follow up Thursday/Thursday/
--- NOTE | 2025-05-09 10:28 | WPDINFPN2 ---
Progress Note: A&P Assessment and Plan (1) MSSA bacteremia: Code(s): R78.81 - Bacteremia; B95.61 - Methicillin susceptible Staphylococcus aureus infection as the cause of diseases classified elsewhere Status: Acute (2) CLABSI (central line-associated bloodstream infection): Code(s): T80.211A - Bloodstream infection due to central venous catheter, initial encounter Status: Acute (3) On total parenteral nutrition (TPN): Code(s): Z78.9 - Other specified health status Status: Acute (4) CKD (chronic kidney disease): Qualifiers: Chronic kidney disease stage: unspecified stage Qualified Code(s): N18.9 - Chronic kidney disease, unspecified Code(s): N18.9 - Chronic kidney disease, unspecified Status: Acute (5) Sepsis: Qualifiers: Sepsis acute organ dysfunction status: unspecified Sepsis type: sepsis due to unspecified organism Qualified Code(s): A41.9 - Sepsis, unspecified organism Code(s): A41.9 - Sepsis, unspecified organism Status: Acute Plan # MSSA bacteremia present on admission. Likely secondary to longstanding PICC ( CLABSI ). -- blood cultures positive through 05/01. As of 05/05 cultures are preliminarily negative. -- TIMUR performed 05/05 negative for vegetations. # Chronic PICC use for supplemental TPN in the setting of distal esophageal and total gastrectomy. -- History of prior PICC CLABSI's. -- may have limited access sites for new PICC placement. 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 # Chronic kidney disease stage 4. Plan: -- continue cefazolin 2 g IV q.12 hours and daptomycin 500 mg IV Q 48 hours. -- monitor blood cultures from 05/05 which are negative to date as well as 05/07. -- typically, staphylococcus aureus-associated CLABSI warrants line removal and replacement. This has been delayed pending response to therapy given patient's report of limited further access sites. Continue to attempt line salvage. This approach has been supported by his physicians at [facility]. Patient was seen via video telehealth consultation with the assistance of staff. Chart, data, and patient independently reviewed. Patient was located at [facility] while I was located in my [place] office. Received verbal consent from patient. Subjective Date/time seen: 05/09/25 10:28 Interval history: 05/02/2025: afebrile and with stable vital signs. Repeat blood cultures pending. at bedside and confirms patient's prior CLABSI's have involved multiple organisms over time. However, last line infection appears to also have involved MSSA in December or January and PICC was changed at that time. 05/03/2025: No new complaints today. 05/01 blood cultures reported as preliminarily negative. 05/04/2025: Afebrile with resolving leukocytosis. / blood cultures negative at 24 hours. Feels better. 05/05/2025: Afebrile. Slight increase in white blood cell count. Most recent blood culture performed 05/01 now with report of delayed growth Staph coccus aureus in 1 of 2 bottles. the plan 05/09/2025: Afebrile and feels better. Still with low-grade leukocytosis. Blood cultures reported as negative to date as of 05/05. Due to known limited access sites with this patient, [facility] is in agreement with attempting line salvage at this time. Blood cultures 04/25: Positive MSSA In multiple bottles. Blood cultures 04/27: Positive MSSA in 1/4 bottles. Blood cultures 05/01: delayed positive growth of MSSA in 1 of 3 bottles. Blood cultures 05/05: Negative at 48 hours. Blood cultures 05/07: Pending Review of Systems Review of Systems: Improved weakness. No pain to left chest PICC site. All systems reviewed & are unremarkable except as noted in HPI and below Exam Narrative: Awake and alert and interactive. Normocephalic and without conjunctivitis. Nonlabored respirations. Abdomen without significant distention. No rash. Left upper chest PICC site without inflammation. Objective Data Vital Signs Vital Signs: Vital Signs - 24 hr 05/08/25 12:00 05/08/25 13:54 05/08/25 16:00 Temperature 98.9 F Pulse Rate 88 94 77 Respiratory Rate 18 Blood Pressure 137/76 Pulse Oximetry 100 Oxygen Delivery 05/08/25 20:00 05/08/25 20:39 05/09/25 00:00 Temperature 98.0 F Pulse Rate 82 80 Respiratory Rate 20 Blood Pressure 151/71 H Pulse Oximetry 100 Oxygen Delivery Room Air 05/09/25 04:00 05/09/25 05:11 05/09/25 08:00 Temperature 98.0 F Pulse Rate 83 83 91 Respiratory Rate 20 Blood Pressure 129/74 Pulse Oximetry 99 Oxygen Delivery 05/09/25 08:00 Temperature Pulse Rate Respiratory Rate Blood Pressure Pulse Oximetry Oxygen Delivery Room Air Intake/Output Intake/Output: Intake & Output 05/06/25 05/07/25 05/08/25 05/09/25 23:59 23:59 23:59 23:59 Intake Total 3273 3168 2635 240 Output Total 100 1000 2300 Balance 3173 2168 335 240 Meds/Results Medications: Active Medications Generic Name Dose Route Start Last Admin Trade Name Freq PRN Reason Stop Dose Admin Acetaminophen 650 mg 04/25/25 22:50 Acetaminophen 650 Mg Suppository RECTAL Q6H PRN Mild Pain (1-3) or Fever Acetaminophen 650 mg 05/06/25 00:58 05/06/25 01:09 Acetaminophen 325 Mg Tablet PO 650 mg Q4H PRN Administration Mild Pain (1-3) or Fever Allopurinol 100 mg 04/27/25 09:00 05/09/25 08:18 Allopurinol 100 Mg Tablet PO 100 mg DAILY [facility] Administration Cyanocobalamin 1,000 mcg 05/26/25 09:00 Cyanocobalamin Inj 1,000 Mcg/Ml Vial IM MONTHLY [facility] Cyclobenzaprine HCl 10 mg 04/26/25 13:46 05/05/25 09:06 Cyclobenzaprine Hcl 10 Mg Tablet PO 10 mg TID PRN Administration Muscle Spasm Dextrose 12.5 gm 04/27/25 08:27 Dextrose 50% 25 Gm/50 Ml Syringe IV PUSH PRN PRN Hypoglycemia Protocol Enoxaparin Sodium 30 mg 04/27/25 09:00 05/05/25 07:51 Enoxaparin 30 Mg/0.3 Ml Syringe SUB-Q Not Given On Hold: 05/05/25 09:00 DAILY [facility] Resume: 05/12/25 09:00 Epoetin Vic-epbx 10,000 units 05/06/25 10:55 05/09/25 08:19 Epoetin Vic-Epbx 10,000 Units/Ml Vial SUB-Q 10,000 units TUTA@09 [facility] Administration Finasteride 5 mg 04/27/25 09:00 05/09/25 08:18 Finasteride 5 Mg Tablet PO 5 mg DAILY [facility] Administration Folic Acid 1 mg 04/27/25 09:00 05/09/25 08:18 Folic Acid 1 Mg Tablet PO 1 mg DAILY [facility]ANNA Administration Glucagon 1 mg 04/27/25 08:27 Glucagon For Inj 1 Mg Vial IM PRN PRN Hypoglycemia Protocol Glucose 15 gm 04/27/25 08:27 Glucose Oral Gel 15 Gm Of Glucse In 37.5 Gm Tube PO PRN PRN Hypoglycemia Protocol Dextrose 1,000 mls @ 50 mls/hr 04/26/25 13:47 Dextrose 10% IV CONT .Q20H PRN if PN is interrupted Dextrose 1,000 mls @ 100 mls/hr 04/27/25 08:27 Dextrose 5% 1,000 Ml IVPB PRN PRN Hypoglycemia Protocol Cefazolin Sodium 2 gm/ Sodium 50 mls @ 100 mls/hr 04/30/25 18:00 05/09/25 05:46 Chloride IVPB 100 mls/hr Q12H [facility] Administration Multivitamins 1.25 ml/ 1,002.5 mls @ 70 mls/hr 05/05/25 20:00 Multivitamins 1.25 ml/ Amino IV CONT Acids/Electrolytes/Dextrose [id number]@2000 ZHANNA On Hold: 05/05/25 20:00 Protocol Daptomycin 500 mg/ Sodium 50 mls @ 100 mls/hr 05/05/25 16:00 05/07/25 16:27 Chloride IVPB 100 mls/hr Q48H [facility]NA Administration Dextrose/Sodium Chloride 1,000 mls @ 60 mls/hr 05/06/25 14:10 05/08/25 21:51 Dextrose 5% Sodium Chloride 0.9% IV CONT 60 mls/hr .[id number] [facility]NA Administration Insulin Aspart 1 - 2 units 04/27/25 21:00 05/08/25 21:53 Insulin Aspart (*Bkc) 100 Units/Ml SUB-Q Not Given HS [facility] Protocol Insulin Aspart 2 - 5 units 04/27/25 12:00 05/09/25 08:02 Insulin Aspart (*Bkc) 100 Units/Ml SUB-Q Not Given TIDWM [facility] Protocol Miscellaneous Information 0 each 05/07/25 00:01 05/07/25 18:13 Please Enter Order For Patient To Take Home Vitamin D 34594 Units. XX 06/06/25 00:00 Not Given On Hold: 05/07/25 17:30 CLARIFY ZHANNA Nonformulary Drug 3 tab 05/07/25 17:00 05/09/25 08:18 Coral Calcium Plus PO 06/06/25 16:59 3 tab Plant Enzymes BID [facility]ANNA Administration Nonformulary Drug 0 units 05/08/25 09:00 05/09/25 08:18 Vitamin A 25,000 PO 06/07/25 08:59 25,000 units Units DAILY [facility]ANNA Administration Sodium Bicarbonate 1,300 mg 05/08/25 09:00 05/09/25 08:18 Sodium Bicarbonate Tab 650 Mg Tablet PO 1,300 mg BID ZHANNA Administration Sodium Chloride 10 ml 04/29/25 14:00 05/09/25 05:47 Central Line Flush IV PUSH 10 ml Q8HR [facility]NA Administration Sodium Chloride 10 ml 04/29/25 07:58 Central Line Flush IV PUSH PRN PRN with TPN bag changes Sodium Chloride 20 ml 04/29/25 07:58 05/05/25 05:22 Central Line Flush IV PUSH 20 ml PRN PRN Administration after blood draws Trazodone HCl 25 mg 05/01/25 21:00 05/08/25 21:51 Trazodone Hcl 25 Mg Tablet PO 25 mg HS [facility]ANNA Administration Radiology Results: ITS Impressions Chest X-Ray 04/25/25 18:06 Impression: 1: Diffuse bilateral interstitial infiltrates which may represent edema or atypical pneumonia. Head CT 04/25/25 20:26 IMPRESSION: 1. No acute intracranial abnormality. Chest/Abdomen/Pelvis CT 04/25/25 20:28 IMPRESSION: 1. Focal consolidation right lower lobe, suspicious for pneumonia. 2: Increased size of ascending thoracic aortic aneurysm measuring 4.8 cm. 3: Splenomegaly. 4: Stable sclerotic lesions or spine and pelvis, suspicious for stable osseous metastases. Correlate for history of malignancy. Renal Ultrasound 05/03/25 18:21 IMPRESSION: 1. A couple small right renal cysts. No hydronephrosis. 2. Status post left nephrectomy. Labs Labs: Laboratory Results - last 24 hr 05/08/25 05/08/25 05/08/25 10:11 10:45 11:15 WBC RBC Hgb Hct MCV MCH MCHC RDW Plt Count MPV Immature Gran % (Auto) Neut % (Auto) Lymph % (Auto) [place] % (Auto) Eos % (Auto) Baso % (Auto) Lymph # (Auto) [place] # (Auto) Eos # (Auto) Baso # (Auto) Abs Immat Gran (auto) Absolute Neuts (auto) Absolute Nucleated RBC Band Neutrophils % Nucleated RBC % Platelet Estimate % Immature Plt Fraction Hypochromasia Poikilocytosis Anisocytosis Microcytosis Ovalocytes Crenated Cell Schistocytes Sodium Potassium Chloride Carbon Dioxide Anion Gap BUN Creatinine Estim Creat Clear Calc Estimated GFR Glucose POC Capillary Glucose Calcium Phosphorus Magnesium Albumin Cortisol Baseline 11.80 Cortisol Resp 30 Min 20.00 Cortisol Resp 60 Min 23.20 05/08/25 05/08/25 05/08/25 11:21 16:30 20:37 WBC RBC Hgb Hct MCV MCH MCHC RDW Plt Count MPV Immature Gran % (Auto) Neut % (Auto) Lymph % (Auto) [place] % (Auto) Eos % (Auto) Baso % (Auto) Lymph # (Auto) [place] # (Auto) Eos # (Auto) Baso # (Auto) Abs Immat Gran (auto) Absolute Neuts (auto) Absolute Nucleated RBC Band Neutrophils % Nucleated RBC % Platelet Estimate % Immature Plt Fraction Hypochromasia Poikilocytosis Anisocytosis Microcytosis Ovalocytes Crenated Cell Schistocytes Sodium Potassium Chloride Carbon Dioxide Anion Gap BUN Creatinine Estim Creat Clear Calc Estimated GFR Glucose POC Capillary Glucose 107 H 133 H 133 H Calcium Phosphorus Magnesium Albumin Cortisol Baseline Cortisol Resp 30 Min Cortisol Resp 60 Min 05/09/25 05/09/25 04:20 07:49 WBC 14.7 H RBC 2.96 L Hgb 7.6 L Hct 24.5 L MCV 82.8 MCH 25.7 L MCHC 31.0 L RDW 14.3 Plt Count 79 L MPV 10.2 Immature Gran % (Auto) 1.6 H Neut % (Auto) 87.3 H Lymph % (Auto) 7.0 L [place] % (Auto) 3.2 Eos % (Auto) 0.6 Baso % (Auto) 0.3 Lymph # (Auto) 1.03 [place] # (Auto) 0.5 Eos # (Auto) 0.1 Baso # (Auto) 0.0 Abs Immat Gran (auto) 0.23 H Absolute Neuts (auto) 12.8 H Absolute Nucleated RBC 0.000 Band Neutrophils % Not Reportable Nucleated RBC % 0.0 Platelet Estimate Decreased % Immature Plt Fraction 3.6 Hypochromasia 1+ Poikilocytosis 1+ Anisocytosis 1+ Microcytosis 1+ Ovalocytes 1+ Crenated Cell 1+ Schistocytes Rare Sodium 136 L Potassium 4.6 Chloride 113 H Carbon Dioxide 18 L Anion Gap 5 BUN 36 H Creatinine 3.05 H Estim Creat Clear Calc 16 Estimated GFR 20 L Glucose 119 H POC Capillary Glucose 101 Calcium 7.9 L Phosphorus 3.2 Magnesium 1.8 Albumin 2.8 L Cortisol Baseline Cortisol Resp 30 Min Cortisol Resp 60 Min
--- NOTE | 2025-05-09 14:57 | PC.NURSE ---
On 05/09/25, the student, [Monica Solano], provided care and completed [facility] documentation on this patient. I have reviewed the student's documentation and agree with the findings.
[2025-05-09] MEDS: DAPTOmycin 500 MG in SODIUM CHLORIDE 0.9% IV 50 ML 100 MG IVPB (15:28)
[2025-05-09] MEDS: DEXTROSE 5%/0.9% SOD CHL 1,000 ML 60 ML IV CONT (15:29)
--- NOTE | 2025-05-09 17:15 | PM.IMPN ---
Progress Note: A&P Assessment and Plan (1) Hyperkalemia: Code(s): E87.5 - Hyperkalemia Status: Acute Assessment and Plan: Potassium was elevated to 6.6 treated appropriately with improvement. TSH normal. Cortisol normal. Cozaar stopped. TPN held Lokelma started and Potassium better Lokelma stopped. Potassium remains normal. Nephrology consulted and appreciate their input. Oral bicarb started. Follow potassium level. Continue low potassium diet. Continue oral bicarb. Follow closely. (2) Sepsis: Qualifiers: Sepsis acute organ dysfunction status: unspecified Sepsis type: sepsis due to unspecified organism Qualified Code(s): A41.9 - Sepsis, unspecified organism Code(s): A41.9 - Sepsis, unspecified organism Status: Acute Assessment and Plan: Secondary to pneumonia and/or bacteremia. Blood cultures growing oxacillin sensitive Staph aureus. Continue with IV antibiotic ID consulted and appreciate their input. Follow cultures as below Continue to monitor (3) Bacteremia: Code(s): R78.81 - Bacteremia Status: Acute Assessment and Plan: Possible source PNA versus central line. BCx 04/25 4/4 positive for DANE BCx 04/27 1/3 positive for DANE BCx 05/01 1/2 positive for DANE in one of the aerobic bottles BCx 05/05 1/ positive for gram positive cocci. BCx 05/07 NGTD Started Vancomycin but now discontinued. Abx switched to Ancef Attempting line salvage since very limited option for IV access No fevers. WBC stable at 11-14K Cardiology consulted and appreciate their input. TTE 05/01 with no endocarditis. TIMUR 05/05 again showing no vegetations. Discussed with ID: Daptomycin added (05/05) Spoke with [facility] 05/05 about transfer for central line exchange but they felt that since patient does not have great options for line exchange, they recommended continuing current plan. If BCx drawn 05/07 return positive despite Daptomycin, then transfer to [place] for line exchange. Continue Ancef and Dapto. Monitor BCx results. Monitor WBC. (4) Pneumonia: Qualifiers: Laterality: right Lung location: lower lobe of lung Pneumonia type: due to unspecified organism Qualified Code(s): J18.9 - Pneumonia, unspecified organism Code(s): J18.9 - Pneumonia, unspecified organism Status: Acute Assessment and Plan: CT of chest showing focal consolidation in the RLL. Bedside swallow evaluation showing no concerns As above (5) CKD (chronic kidney disease): Qualifiers: Chronic kidney disease stage: unspecified stage Qualified Code(s): N18.9 - Chronic kidney disease, unspecified Code(s): N18.9 - Chronic kidney disease, unspecified Status: Acute Assessment and Plan: Patient s/p left nephrectomy. Baseline creatinine 2.9 but worsened to 3.6 Complement normal. Urine eos negative. Prot/Cr ratio 2.3gm. FENa 0.7%. TPN stopped. Started IV fluids. Oral bicarb added. Cr better at 3.05. Bicarb 18 Nephrology consulted and appreciate their input. Continue to monitor. Continue oral bicarb. (6) On total parenteral nutrition (TPN): Code(s): Z78.9 - Other specified health status Status: Acute Assessment and Plan: Patient on chronic TPN use related to gastrectomy. Takes TPN 4x/week. Dietitian on board. TPN on hold because can't remove potassium from TPN Continue to monitor. Discussed with Nephrology - continue to hold TPN for now (7) Hyponatremia: Code(s): E87.1 - Hypo-osmolality and hyponatremia Status: Acute Assessment and Plan: Sodium was low but improved up to 139 TSH and cortisol okay. Cosyntropin test showing peak cortisol >18 which is an appropriate response. Nephrology following Monitor for now (8) AMS (altered mental status): Qualifiers: Altered mental status type: unspecified Qualified Code(s): R41.82 - Altered mental status, unspecified Code(s): R41.82 - Altered mental status, unspecified Status: Acute Assessment and Plan: Patient with episode of confusion Head CT showing no acute process. TSH, B12, folate levels okay Probably related to bacteremia. Mental status much better. Follow for now (9) Anemia: Code(s): D64.9 - Anemia, unspecified Status: Acute Assessment and Plan: Acute on chronic anemia. Hgb low but stable in the 8-9 range. B12, folate normal. Iron studies consistent with iron deficiency. Related to poor dietary iron absorption? Hgb dropped to 7.6 but may have been drawn out of the line. Transfuse if Hgb<7 to a stable Hgb. IV iron when okay with others and BCx clear Continue to monitor. (10) NSVT (nonsustained ventricular tachycardia): Code(s): I47.29 - Other ventricular tachycardia Status: Acute Assessment and Plan: Patient with 2 runs of NSVT on 05/05. Potassium 5. Mag >2. Echo as above. Recurrence of narrow complex probably SVT. Monitor on tele. Plan Thrombocytopenia - Platelet count 70-90K past few yrs. Plt count 47K on admission and dropped to 33K before rebounding back up to 70K range. Novelty drop related to sepsis. Etiology of chronic TCP unclear. Follow DM2 - A1c 5.6%. Diet controlled. The patient's blood glucose was reviewed Glucose remains well controlled. Continue AccuCheks covering with sliding scale. Hypoglycemia protocol available as needed. 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 Eating okay here. [employer] following Monitor calorie intake off TPN Thyroid carcinoma - status post partial thyroid resection Not on levothyroxine TSH okay. 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 No obvious evidence of dumping. 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 No problems overnight. No CP or SOB. No n/v. No large volume stool output. Eating okay and eating smaller, frequent meals. Exam Narrative: AF 98.0 144/76 74 16 100% ra Gen - NARD Chest - CTA bilaterally. Left upper chest tunneled dual lumen catheter CV - RRR S1/S. Tele showing 7b run of probably SVT Abd - Soft, NT/ND, RLQ ostomy noted Ext - No pedal edema Psych - pleasant and cooperative Skin - warm and dry Objective Data Vital Signs Vital Signs: Vital Signs - 24 hr 05/08/25 20:00 05/08/25 20:39 05/09/25 00:00 Temperature 98.0 F Pulse Rate 82 80 Respiratory Rate 20 Blood Pressure 151/71 H Pulse Oximetry 100 Oxygen Delivery Room Air 05/09/25 04:00 05/09/25 05:11 05/09/25 08:00 Temperature 98.0 F Pulse Rate 83 83 91 Respiratory Rate 20 Blood Pressure 129/74 Pulse Oximetry 99 Oxygen Delivery 05/09/25 08:00 05/09/25 12:00 05/09/25 14:11 Temperature 98 F Pulse Rate 97 82 Respiratory Rate 16 Blood Pressure 144/76 H Pulse Oximetry 100 Oxygen Delivery Room Air 05/09/25 16:00 Temperature Pulse Rate 74 Respiratory Rate Blood Pressure Pulse Oximetry Oxygen Delivery Intake/Output Intake/Output: Intake & Output 05/06/25 05/07/25 05/08/25 05/09/25 23:59 23:59 23:59 23:59 Intake Total 3273 3218 2635 2660 Output Total 100 1000 2300 1225 Balance 3173 2218 335 1435 Meds/Results Medications: Active Medications Generic Name Dose Route Start Last Admin Trade Name Freq PRN Reason Stop Dose Admin Acetaminophen 650 mg 04/25/25 22:50 Acetaminophen 650 Mg Suppository RECTAL Q6H PRN Mild Pain (1-3) or Fever Acetaminophen 650 mg 05/06/25 00:58 05/06/25 01:09 Acetaminophen 325 Mg Tablet PO 650 mg Q4H PRN Administration Mild Pain (1-3) or Fever Allopurinol 100 mg 04/27/25 09:00 05/09/25 08:18 Allopurinol 100 Mg Tablet PO 100 mg DAILY ZHANNA Administration Cyanocobalamin 1,000 mcg 05/26/25 09:00 Cyanocobalamin Inj 1,000 Mcg/Ml Vial IM MONTHLY ZHANNA Cyclobenzaprine HCl 10 mg 04/26/25 13:46 05/05/25 09:06 Cyclobenzaprine Hcl 10 Mg Tablet PO 10 mg TID PRN Administration Muscle Spasm Dextrose 12.5 gm 04/27/25 08:27 Dextrose 50% 25 Gm/50 Ml Syringe IV PUSH PRN PRN Hypoglycemia Protocol Enoxaparin Sodium 30 mg 04/27/25 09:00 05/05/25 07:51 Enoxaparin 30 Mg/0.3 Ml Syringe SUB-Q Not Given On Hold: 05/05/25 09:00 DAILY ZHANNA Resume: 05/12/25 09:00 Epoetin Vic-epbx 10,000 units 05/06/25 10:55 05/09/25 08:19 Epoetin Vic-Epbx 10,000 Units/Ml Vial SUB-Q 10,000 units TUTHSA@09 ZHANNA Administration Finasteride 5 mg 04/27/25 09:00 05/09/25 08:18 Finasteride 5 Mg Tablet PO 5 mg DAILY ZHANNA Administration Folic Acid 1 mg 04/27/25 09:00 05/09/25 08:18 Folic Acid 1 Mg Tablet PO 1 mg DAILY ZHANNA Administration Glucagon 1 mg 04/27/25 08:27 Glucagon For Inj 1 Mg Vial IM PRN PRN Hypoglycemia Protocol Glucose 15 gm 04/27/25 08:27 Glucose Oral Gel 15 Gm Of Glucse In 37.5 Gm Tube PO PRN PRN Hypoglycemia Protocol Dextrose 1,000 mls @ 50 mls/hr 04/26/25 13:47 Dextrose 10% IV CONT .Q20H PRN if PN is interrupted Dextrose 1,000 mls @ 100 mls/hr 04/27/25 08:27 Dextrose 5% 1,000 Ml IVPB PRN PRN Hypoglycemia Protocol Cefazolin Sodium 2 gm/ Sodium 50 mls @ 100 mls/hr 04/30/25 18:00 05/09/25 05:46 Chloride IVPB 100 mls/hr Q12H ZHANNA Administration Multivitamins 1.25 ml/ 1,002.5 mls @ 70 mls/hr 05/05/25 20:00 Multivitamins 1.25 ml/ Amino IV CONT Acids/Electrolytes/Dextrose [id number] [facility] On Hold: 05/05/25 20:00 Protocol Daptomycin 500 mg/ Sodium 50 mls @ 100 mls/hr 05/05/25 16:00 05/09/25 15:28 Chloride IVPB 100 mls/hr Q48H ZHANNA Administration Dextrose/Sodium Chloride 1,000 mls @ 60 mls/hr 05/06/25 14:10 05/09/25 15:29 Dextrose 5% Sodium Chloride 0.9% IV CONT 60 mls/hr .[id number] ZHANNA Administration Insulin Aspart 1 - 2 units 04/27/25 21:00 05/08/25 21:53 Insulin Aspart (*Bkc) 100 Units/Ml SUB-Q Not Given HS [facility] Protocol Insulin Aspart 2 - 5 units 04/27/25 12:00 05/09/25 17:07 Insulin Aspart (*Bkc) 100 Units/Ml SUB-Q Not Given TIDWM [facility] Protocol Miscellaneous Information 0 each 05/07/25 00:01 05/07/25 18:13 Please Enter Order For Patient To Take Home Vitamin D 63655 Units. XX 06/06/25 00:00 Not Given On Hold: 05/07/25 17:30 CLARIFY ZHANNA Nonformulary Drug 3 tab 05/07/25 17:00 05/09/25 08:18 Coral Calcium Plus PO 06/06/25 16:59 3 tab Plant Enzymes BID ZHANNA Administration Nonformulary Drug 0 units 05/08/25 09:00 05/09/25 08:18 Vitamin A 25,000 PO 06/07/25 08:59 25,000 units Units DAILY ZHANNA Administration Sodium Bicarbonate 1,300 mg 05/08/25 09:00 05/09/25 08:18 Sodium Bicarbonate Tab 650 Mg Tablet PO 1,300 mg BID ZHANNA Administration Sodium Chloride 10 ml 04/29/25 14:00 05/09/25 15:30 Central Line Flush IV PUSH 10 ml Q8HR ZHANNA Administration Sodium Chloride 10 ml 04/29/25 07:58 Central Line Flush IV PUSH PRN PRN with TPN bag changes Sodium Chloride 20 ml 04/29/25 07:58 05/05/25 05:22 Central Line Flush IV PUSH 20 ml PRN PRN Administration after blood draws Trazodone HCl 25 mg 05/01/25 21:00 05/08/25 21:51 Trazodone Hcl 25 Mg Tablet PO 25 mg HS ZHANNA Administration Radiology Results: ITS Impressions Chest X-Ray 04/25/25 18:06 Impression: 1: Diffuse bilateral interstitial infiltrates which may represent edema or atypical pneumonia. Head CT 04/25/25 20:26 IMPRESSION: 1. No acute intracranial abnormality. Chest/Abdomen/Pelvis CT 04/25/25 20:28 IMPRESSION: 1. Focal consolidation right lower lobe, suspicious for pneumonia. 2: Increased size of ascending thoracic aortic aneurysm measuring 4.8 cm. 3: Splenomegaly. 4: Stable sclerotic lesions or spine and pelvis, suspicious for stable osseous metastases. Correlate for history of malignancy. Renal Ultrasound 05/03/25 18:21 IMPRESSION: 1. A couple small right renal cysts. No hydronephrosis. 2. Status post left nephrectomy. Labs Labs: Laboratory Results - last 24 hr 05/08/25 05/09/25 05/09/25 20:37 04:20 07:49 WBC 14.7 H RBC 2.96 L Hgb 7.6 L Hct 24.5 L MCV 82.8 MCH 25.7 L MCHC 31.0 L RDW 14.3 Plt Count 79 L MPV 10.2 Immature Gran % (Auto) 1.6 H Neut % (Auto) 87.3 H Lymph % (Auto) 7.0 L [place] % (Auto) 3.2 Eos % (Auto) 0.6 Baso % (Auto) 0.3 Lymph # (Auto) 1.03 [place] # (Auto) 0.5 Eos # (Auto) 0.1 Baso # (Auto) 0.0 Abs Immat Gran (auto) 0.23 H Absolute Neuts (auto) 12.8 H Absolute Nucleated RBC 0.000 Band Neutrophils % Not Reportable Nucleated RBC % 0.0 Platelet Estimate Decreased % Immature Plt Fraction 3.6 Hypochromasia 1+ Poikilocytosis 1+ Anisocytosis 1+ Microcytosis 1+ Ovalocytes 1+ Crenated Cell 1+ Schistocytes Rare Sodium 136 L Potassium 4.6 Chloride 113 H Carbon Dioxide 18 L Anion Gap 5 BUN 36 H Creatinine 3.05 H Estim Creat Clear Calc 16 Estimated GFR 20 L Glucose 119 H POC Capillary Glucose 133 H 101 Calcium 7.9 L Phosphorus 3.2 Magnesium 1.8 Albumin 2.8 L 05/09/25 05/09/25 11:40 16:52 WBC RBC Hgb Hct MCV MCH MCHC RDW Plt Count MPV Immature Gran % (Auto) Neut % (Auto) Lymph % (Auto) [place] % (Auto) Eos % (Auto) Baso % (Auto) Lymph # (Auto) [place] # (Auto) Eos # (Auto) Baso # (Auto) Abs Immat Gran (auto) Absolute Neuts (auto) Absolute Nucleated RBC Band Neutrophils % Nucleated RBC % Platelet Estimate % Immature Plt Fraction Hypochromasia Poikilocytosis Anisocytosis Microcytosis Ovalocytes Crenated Cell Schistocytes Sodium Potassium Chloride Carbon Dioxide Anion Gap BUN Creatinine Estim Creat Clear Calc Estimated GFR Glucose POC Capillary Glucose 104 101 Calcium Phosphorus Magnesium Albumin
[2025-05-09 18:35] LABS: Hematocrit 26.8 % (42.0-52.0); Hemoglobin 8.4 g/dL (14.0-18.0)
[2025-05-10] VITALS (10 sets, daily range): BP systolic 145–156; BP diastolic 73–89; PULSE 70–100; RESP 16–18; TEMP 36.4–36.7; O2SAT 99–100
[2025-05-10 05:07] LABS: Hematocrit 25.4 % (42.0-52.0); Hemoglobin 8.0 g/dL (14.0-18.0); Mean Corpuscular HGB Conc 31.5 g/dl (32-36); Mean Corpuscular Hemoglobin 26.1 pg (26-34); Mean Corpuscular Volume 83.0 fl (80-100); Platelet Count Result 89 k/mm3 (150-375); Red Blood Count 3.06 M/mm3 (4.6-6.20); White Blood Count 12.2 K/mm3 (4.5-10.0)
[2025-05-10 05:29] LABS: Albumin Level 2.9 g/dL (3.5-5.1); Anion Gap 6 mmol/L (4-12); Blood Urea Nitrogen 28 mg/dL (9-20); Calcium 8.0 mg/dL (8.4-10.2); Carbon Dioxide 18 mmol/L (22-30); Chloride 111 mmol/L (98-107); Estimated CRCL calculation 18 ml/min; Estimated Glomerular Filt Rate 22; Glucose 102 mg/dL (65-110); Magnesium 1.6 mg/dL (1.6-2.3); Potassium 4.4 mmol/L (3.4-5.0); Sodium 135 mmol/L (137-145)
[2025-05-10] MEDS: ceFAZolin 2 GM in SODIUM CHLORIDE 0.9% IV 50 ML 100 ML IVPB ×2 (06:04→17:02)
[2025-05-10] MEDS: CENTRAL LINE FLUSH 10 ML IV PUSH ×3 (06:04→21:00)
[2025-05-10] MEDS: DEXTROSE 5%/0.9% SOD CHL 1,000 ML 60 ML IV CONT (08:19)
[2025-05-10] MEDS: SODIUM BICARBONATE TAB 650 MG TABLET 1300 MG PO ×2 (08:20→16:26)
[2025-05-10] MEDS: FINASTERIDE 5 MG TABLET PO (08:20)
[2025-05-10] MEDS: FOLIC ACID 1 MG TABLET PO (08:20)
[2025-05-10] MEDS: [UNRECOGNIZED DRUG - OTHER] 3 EACH PO ×2 (08:22→16:26)
[2025-05-10] MEDS: VITAMIN A 25000 UNIT PO (08:23)
[2025-05-10] MEDS: [UNRECOGNIZED DRUG - OTHER] PO (08:23)
--- NOTE | 2025-05-10 13:07 | PM.PNNEP ---
Progress Note: A&P Assessment and Plan (1) Acute kidney injury: Code(s): N17.9 - Acute kidney failure, unspecified Status: Acute Assessment and Plan: slow improvement noted (if not back to baseline) as noted by trend of labs on 05/03 suspect due to several issues: prerenal factors continued ARB use sepsis/infection/bacteremia other(?) evaluation to date noted: renal ultrasound with solitary right kidney without obstruction urine electrolytes prerenal urine eosinophils negative ++ proteinuria CPK low continues to make reasonable urine output follow trend of repeat labs and UOP (2) Stage 4 chronic kidney disease: Code(s): N18.4 - Chronic kidney disease, stage 4 (severe) Status: Chronic Assessment and Plan: baseline creatinine seems to run ~ 2.5 - 3.2mg/dL since September 2024 however, with acute hospitalizations, has been as high as 4.0mg/dL due to several issues/problems: 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) previous obstruction with bouts of nephrolithiasis (s/p lithotripsy) recurrent infections/bacteremia & hospitalizations with associated LILLY/ARF episodes previous history of DM (resolved with weight loss) hypertension age-related change follows with [facility] for CKD management (3) Hyperkalemia: Code(s): E87.5 - Hyperkalemia Status: Acute Assessment and Plan: relatively stable suspect due to several issues: ARB use worsening CKD TPN infection TSH okay and cortisol lowish stimulation test noted off losartan off TPN off lokelma oral sodium bicarbonate may be helping control as well follow trend of repeat K+ levels (4) Sepsis: Qualifiers: Sepsis acute organ dysfunction status: unspecified Sepsis type: sepsis due to unspecified organism Qualified Code(s): A41.9 - Sepsis, unspecified organism Code(s): A41.9 - Sepsis, unspecified organism Status: Acute Assessment and Plan: presumed secondary to pneumonia and/or bacteremia culture data noted (see #5) stable hemodynamics noted continue current therapy (5) Bacteremia: Code(s): R78.81 - Bacteremia Status: Acute Assessment and Plan: suspected source is pneumonia versus central line culture data noted: blood cultures from 04/25 -- 12/09 positive for DANE blood culture from 04/27 -- 09/09 positive for DANE blood culture from 05/01 -- 1/2 positive for DANE in one of the aerobic bottles blood culture from 05/05 -- 1/3 positive for Staph Aureus blood cultures from 05/07 -- no growth to date Infectious Disease following on antibiotics attempting line salvage since very limited option for IV access TTE (on 05/01) and TIMUR (on 05/05) - both negative for endocarditis/vegetations continue current therapy (6) Pneumonia: Qualifiers: Laterality: right Lung location: lower lobe of lung Pneumonia type: due to unspecified organism Qualified Code(s): J18.9 - Pneumonia, unspecified organism Code(s): J18.9 - Pneumonia, unspecified organism Status: Acute Assessment and Plan: CT of chest showing focal consolidation in the RLL culture data as already noted (see #5) contine current therapy (7) Hyponatremia: Code(s): E87.1 - Hypo-osmolality and hyponatremia Status: Acute Assessment and Plan: acute versus chronic versus acute on chronic?? no issue with this during February 2025 hospitalization at [facility] TSH and cortisol okay; extensive malignancy history noted (but no active issues) pneumonia playing a role as well(?) porbably more related to TPN, CKD, and now LILLY follow trend of sodium (8) Anemia: Code(s): D64.9 - Anemia, unspecified Status: Acute Assessment and Plan: probably related to known CKD worsened by LILLY and acute illness anemia studies with iron deficiency with normal b12 and folate unable to give IV iron in the context of infection/bacteremia PRBC transfusion per protocol follow trend of H/H (9) On total parenteral nutrition (TPN): Code(s): Z78.9 - Other specified health status Status: Acute Assessment and Plan: chronic issue takes TPN 4x/week TPN on hold as unable to remove potassium from TPN (10) Diabetes: Code(s): E11.9 - Type 2 diabetes mellitus without complications Status: Chronic Assessment and Plan: controlled by diet improved/stabilized with weight loss follow accu-cheks glycemic control per hospitalist Will continue to follow. Subjective Date/time seen: 05/10/25 13:07 Interval history: Follow-up for acute kidney injury/acute renal failure on chronic kidney disease and hyperkalemia. No acute issues or problems noted overnight, this morning, or at the time of my visit; renal function/creatinine as well as potassium are stable if not improving; remains on antibiotic therapy as outlined by Infectious Disease with blood culture results noted. Exam Narrative: General: elderly but WD/WN male in NAD Heart: tachycardic, normal S1 and S2; no rub Lungs: clear anteriorly; few crackles at right base Abdomen: soft, nontender, nondistended, positive bowel sounds; + RLQ colostomy Extremities: no cyanosis or clubbing; no edema Skin: no rash Objective Data Vital Signs Vital Signs: Vital Signs Temp Pulse Resp BP Pulse Ox O2 Del Method FiO2 05/10/25 12:03 97.6 F 86 18 156/81 H 100 05/10/25 08:22 16 99 Room Air 05/10/25 08:04 84 05/10/25 05:22 98.0 F 86 16 145/73 H 99 05/10/25 04:00 100 05/10/25 00:00 75 05/09/25 22:12 98.1 F 74 14 144/83 H 98 05/09/25 20:00 75 05/09/25 20:00 Room Air 21 Intake/Output Intake/Output: Intake & Output 05/07/25 05/08/25 05/09/25 05/10/25 23:59 23:59 23:59 23:59 Intake Total 3218 2635 3000 1960 Output Total 1000 2300 1225 2475 Balance 2218 335 1775 -749 Meds/Results Medications: Active Medications Generic Name Dose Route Start Last Admin Trade Name Freq PRN Reason Stop Dose Admin Acetaminophen 650 mg 04/25/25 22:50 Acetaminophen 650 Mg Suppository RECTAL Q6H PRN Mild Pain (1-3) or Fever Acetaminophen 650 mg 05/06/25 00:58 05/06/25 01:09 Acetaminophen 325 Mg Tablet PO 650 mg Q4H PRN Administration Mild Pain (1-3) or Fever Allopurinol 100 mg 04/27/25 09:00 05/10/25 08:20 Allopurinol 100 Mg Tablet PO 100 mg DAILY ZHANNA Administration Cyanocobalamin 1,000 mcg 05/26/25 09:00 Cyanocobalamin Inj 1,000 Mcg/Ml Vial IM MONTHLY ZHANNA Cyclobenzaprine HCl 10 mg 04/26/25 13:46 05/05/25 09:06 Cyclobenzaprine Hcl 10 Mg Tablet PO 10 mg TID PRN Administration Muscle Spasm Dextrose 12.5 gm 04/27/25 08:27 Dextrose 50% 25 Gm/50 Ml Syringe IV PUSH PRN PRN Hypoglycemia Protocol Epoetin Vic-epbx 10,000 units 05/06/25 10:55 05/09/25 08:19 Epoetin Vic-Epbx 10,000 Units/Ml Vial SUB-Q 10,000 units TUTHSA@09 ZHANNA Administration Finasteride 5 mg 04/27/25 09:00 05/10/25 08:20 Finasteride 5 Mg Tablet PO 5 mg DAILY ZHANNA Administration Folic Acid 1 mg 04/27/25 09:00 05/10/25 08:20 Folic Acid 1 Mg Tablet PO 1 mg DAILY ZHANNA Administration Glucagon 1 mg 04/27/25 08:27 Glucagon For Inj 1 Mg Vial IM PRN PRN Hypoglycemia Protocol Glucose 15 gm 04/27/25 08:27 Glucose Oral Gel 15 Gm Of Glucse In 37.5 Gm Tube PO PRN PRN Hypoglycemia Protocol Dextrose 1,000 mls @ 50 mls/hr 04/26/25 13:47 Dextrose 10% IV CONT .Q20H PRN if PN is interrupted Dextrose 1,000 mls @ 100 mls/hr 04/27/25 08:27 Dextrose 5% 1,000 Ml IVPB PRN PRN Hypoglycemia Protocol Cefazolin Sodium 2 gm/ Sodium 50 mls @ 100 mls/hr 04/30/25 18:00 05/10/25 06:34 Chloride IVPB Infused Q12H ZHANNA Infusion Multivitamins 1.25 ml/ 1,002.5 mls @ 70 mls/hr 05/05/25 20:00 Multivitamins 1.25 ml/ Amino IV CONT Acids/Electrolytes/Dextrose [id number]@2000 [facility] On Hold: 05/05/25 20:00 Protocol Daptomycin 500 mg/ Sodium 50 mls @ 100 mls/hr 05/05/25 16:00 05/09/25 15:28 Chloride IVPB 100 mls/hr Q48H ZHANNA Administration Dextrose/Sodium Chloride 1,000 mls @ 60 mls/hr 05/06/25 14:10 05/10/25 08:19 Dextrose 5% Sodium Chloride 0.9% IV CONT 60 mls/hr .[id number] ZHANNA Administration Insulin Aspart 1 - 2 units 04/27/25 21:00 05/09/25 22:04 Insulin Aspart (*Bkc) 100 Units/Ml SUB-Q Not Given HS [facility] Protocol Insulin Aspart 2 - 5 units 04/27/25 12:00 05/10/25 16:35 Insulin Aspart (*Bkc) 100 Units/Ml SUB-Q Not Given TIDWM [facility] Protocol Miscellaneous Information 0 each 05/07/25 00:01 05/07/25 18:13 Please Enter Order For Patient To Take Home Vitamin D 51745 Units. XX 06/06/25 00:00 Not Given On Hold: 05/07/25 17:30 CLARIFY ZHANNA Nonformulary Drug 3 tab 05/07/25 17:00 05/10/25 16:26 Coral Calcium Plus PO 06/06/25 16:59 3 tab Plant Enzymes BID ZHANNA Administration Nonformulary Drug 0 units 05/08/25 09:00 05/10/25 08:23 Vitamin A 25,000 PO 06/07/25 08:59 25,000 units Units DAILY ZHANNA Administration Sodium Bicarbonate 1,300 mg 05/08/25 09:00 05/10/25 16:26 Sodium Bicarbonate Tab 650 Mg Tablet PO 1,300 mg BID ZHANNA Administration Sodium Chloride 10 ml 04/29/25 14:00 05/10/25 13:10 Central Line Flush IV PUSH 10 ml Q8HR ZHANNA Administration Sodium Chloride 10 ml 04/29/25 07:58 Central Line Flush IV PUSH PRN PRN with TPN bag changes Sodium Chloride 20 ml 04/29/25 07:58 05/05/25 05:22 Central Line Flush IV PUSH 20 ml PRN PRN Administration after blood draws Trazodone HCl 25 mg 05/01/25 21:00 05/09/25 21:57 Trazodone Hcl 25 Mg Tablet PO 25 mg HS ZHANNA Administration Radiology Results: ITS Impressions Chest X-Ray 04/25/25 18:06 Impression: 1: Diffuse bilateral interstitial infiltrates which may represent edema or atypical pneumonia. Head CT 04/25/25 20:26 IMPRESSION: 1. No acute intracranial abnormality. Chest/Abdomen/Pelvis CT 04/25/25 20:28 IMPRESSION: 1. Focal consolidation right lower lobe, suspicious for pneumonia. 2: Increased size of ascending thoracic aortic aneurysm measuring 4.8 cm. 3: Splenomegaly. 4: Stable sclerotic lesions or spine and pelvis, suspicious for stable osseous metastases. Correlate for history of malignancy. Renal Ultrasound 05/03/25 18:21 IMPRESSION: 1. A couple small right renal cysts. No hydronephrosis. 2. Status post left nephrectomy. Labs Labs: Laboratory Tests 05/10/25 04:59 05/10/25 04:59 Calcium 8.0 L Phosphorus 3.0 Magnesium 1.6 Albumin 2.9 L Microbiology 05/07/25 04:32 Blood Blood Culture - Preliminary 05/07/25 04:32 Blood Blood Culture - Preliminary 05/05/25 05:01 Blood Blood Culture - Preliminary Staphylococcus aureus
--- NOTE | 2025-05-10 13:07 | P.PNNP_ITS ---
Progress Note: A&P Assessment and Plan (1) Acute kidney injury: Code(s): N17.9 - Acute kidney failure, unspecified Status: Acute Assessment and Plan: * slow improvement noted (if not back to baseline) * as noted by trend of labs on 05/03 * suspect due to several issues: * prerenal factors * continued ARB use * sepsis/infection/bacteremia * other(?) * evaluation to date noted: * renal ultrasound with solitary right kidney without obstruction * urine electrolytes prerenal * urine eosinophils negative * ++ proteinuria * CPK low * continues to make reasonable urine output * follow trend of repeat labs and UOP 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) * previous obstruction with bouts of nephrolithiasis (s/p lithotripsy) * recurrent infections/bacteremia & hospitalizations with associated LILLY/ARF episodes * previous history of DM (resolved with weight loss) * hypertension * age-related change * follows with [facility] for CKD management (3) Hyperkalemia: Code(s): E87.5 - Hyperkalemia Status: Acute Assessment and Plan: * relatively stable * suspect due to several issues: * ARB use * worsening CKD * TPN * infection * TSH okay and cortisol lowish * stimulation test noted * off losartan * off TPN * off lokelma * oral sodium bicarbonate may be helping control as well * follow trend of repeat K+ levels (4) Sepsis: Qualifiers: Sepsis acute organ dysfunction status: unspecified Sepsis type: sepsis due to unspecified organism Qualified Code(s): A41.9 - Sepsis, unspecified organism Code(s): A41.9 - Sepsis, unspecified organism Status: Acute Assessment and Plan: * presumed secondary to pneumonia and/or bacteremia * culture data noted (see #5) * stable hemodynamics noted * continue current therapy (5) Bacteremia: Code(s): R78.81 - Bacteremia Status: Acute Assessment and Plan: * suspected source is pneumonia versus central line * culture data noted: * blood cultures from 04/25 -- 4/ positive for DANE * blood culture from 04/27 -- 1/ positive for DANE * blood culture from 05/01 -- 1/ positive for DANE in one of the aerobic bottles * blood culture from 05/05 -- 1/ positive for Staph Aureus * blood cultures from 05/07 -- no growth to date * Infectious Disease following * on antibiotics * attempting line salvage since very limited option for IV access * TTE (on 05/01) and TIMUR (on 05/05) - both negative for endocarditis/vegetations * continue current therapy (6) Pneumonia: Qualifiers: Laterality: right Lung location: lower lobe of lung Pneumonia type: d ue to unspecified organism Qualified Code(s): J18.9 - Pneumonia, unspecified organism Code(s): J18.9 - Pneumonia, unspecified organism Status: Acute Assessment and Plan: * CT of chest showing focal consolidation in the RLL * culture data as already noted (see #5) * contine current therapy (7) Hyponatremia: Code(s): E87.1 - Hypo-osmolality and hyponatremia Status: Acute Assessment and Plan: * acute versus chronic versus acute on chronic?? * no issue with this during February 2025 hospitalization at [facility] * TSH and cortisol okay; extensive malignancy history noted (but no active issues) * pneumonia playing a role as well(?) * porbably more related to TPN, CKD, and now LILLY * follow trend of sodium (8) Anemia: Code(s): D64.9 - Anemia, unspecified Status: Acute Assessment and Plan: * probably related to known CKD worsened by LILLY and acute illness * anemia studies with iron deficiency with normal b12 and folate * unable to give IV iron in the context of infection/bacteremia * PRBC transfusion per protocol * follow trend of H/H (9) On total parenteral nutrition (TPN): Code(s): Z78.9 - Other specified health status Status: Acute Assessment and Plan: * chronic issue * takes TPN 4x/week * TPN on hold as unable to remove potassium from TPN (10) Diabetes: Code(s): E11.9 - Type 2 diabetes mellitus without complications Status: Chronic Assessment and Plan: * controlled by diet * improved/stabilized with weight loss * follow accu-cheks * glycemic control per hospitalist Will continue to follow. L Subjective Date/time seen: 05/10/25 13:07 Interval history: Follow-up for acute kidney injury/acute renal failure on chronic kidney disease and hyperkalemia. No acute issues or problems noted overnight, this morning, or at the time of my visit; renal function/creatinine as well as potassium are stable if not improving; remains on antibiotic therapy as outlined by Infectious Disease with blood culture results noted. Exam 2 Narrative: General: elderly but WD/WN male in NAD Heart: tachycardic, normal S1 and S2; no rub Lungs: clear anteriorly; few crackles at right base Abdomen: soft, nontender, nondistended, positive bowel sounds; + RLQ colostomy Extremities: no cyanosis or clubbing; no edema Skin: no rash Objective Data Vital Signs Vital Signs: Vital Signs Temp Pulse Resp BP Pulse Ox O2 Del Method FiO2 05/10/25 12:03 97.6 F 86 18 156/81 H 100 05/10/25 08:22 16 99 Room Air 05/10/25 08:04 84 05/10/25 05:22 98.0 F 86 16 145/73 H 99 05/10/25 04:00 100 05/10/25 00:00 75 05/09/25 22:12 98.1 F 74 14 144/83 H 98 05/09/25 20:00 75 05/09/25 20:00 Room Air 21 Intake/Output Intake/Output: Intake & Output 05/07/25 05/08/25 05/09/25 05/10/25 23:59 23:59 23:59 23:59 Intake Total 3218 2635 3000 1960 Output Total 1000 2300 1225 2475 Balance 2218 394 1775 -712 Meds/Results Medications: Active Medications Generic Name Dose Route Start Last Admin Trade Name Freq PRN Reason Stop Dose Admin Acetaminophen 650 mg 04/25/25 22:50 Acetaminophen 650 Mg Suppository RECTAL Q6H PRN Mild Pain (1-3) or Fever Acetaminophen 650 mg 05/06/25 00:58 05/06/25 01:09 Acetaminophen 325 Mg Tablet PO 650 mg Q4H PRN Administration Mild Pain (1-3) or Fever Allopurinol 100 mg 04/27/25 09:00 05/10/25 08:20 Allopurinol 100 Mg Tablet PO 100 mg DAILY [facility] Administration Cyanocobalamin 1,000 mcg 05/26/25 09:00 Cyanocobalamin Inj 1,000 Mcg/Ml Vial IM MONTHLY [facility] Cyclobenzaprine HCl 10 mg 04/26/25 13:46 05/05/25 09:06 Cyclobenzaprine Hcl 10 Mg Tablet PO 10 mg TID PRN Administration Muscle Spasm Dextrose 12.5 gm 04/27/25 08:27 Dextrose 50% 25 Gm/50 Ml Syringe IV PUSH PRN PRN Hypoglycemia Protocol Epoetin Vic-epbx 10,000 units 05/06/25 10:55 05/09/25 08:19 Epoetin Vic-Epbx 10,000 Units/Ml Vial SUB-Q 10,000 units TUTHSA@09 [facility] Administration Finasteride 5 mg 04/27/25 09:00 05/10/25 08:20 Finasteride 5 Mg Tablet PO 5 mg DAILY [facility] Administration Folic Acid 1 mg 04/27/25 09:00 05/10/25 08:20 Folic Acid 1 Mg Tablet PO 1 mg DAILY [facility] Administration Glucagon 1 mg 04/27/25 08:27 Glucagon For Inj 1 Mg Vial IM PRN PRN Hypoglycemia Protocol Glucose 15 gm 04/27/25 08:27 Glucose Oral Gel 15 Gm Of Glucse In 37.5 Gm Tube PO PRN PRN Hypoglycemia Protocol Dextrose 1,000 mls @ 50 mls/hr 04/26/25 13:47 Dextrose 10% IV CONT .Q20H PRN if PN is interrupted Dextrose 1,000 mls @ 100 mls/hr 04/27/25 08:27 Dextrose 5% 1,000 Ml IVPB PRN PRN Hypoglycemia Protocol Cefazolin Sodium 2 gm/ Sodium 50 mls @ 100 mls/hr 04/30/25 18:00 05/10/25 06:34 Chloride IVPB Infused Q12H [facility] Infusion Multivitamins 1.25 ml/ 1,002.5 mls @ 70 mls/hr 05/05/25 20:00 Multivitamins 1.25 ml/ Amino IV CONT Acids/Electrolytes/Dextrose [id number]@2000 [facility] On Hold: 05/05/25 20:00 Protocol Daptomycin 500 mg/ Sodium 50 mls @ 100 mls/hr 05/05/25 16:00 05/09/25 15:28 Chloride IVPB 100 mls/hr Q48H [facility] Administration Dextrose/Sodium Chloride 1,000 mls @ 60 mls/hr 05/06/25 14:10 05/10/25 08:19 Dextrose 5% Sodium Chloride 0.9% IV CONT 60 mls/hr .[id number] [facility] Administration Insulin Aspart 1 - 2 units 04/27/25 21:00 05/09/25 22:04 Insulin Aspart (*Bkc) 100 Units/Ml SUB-Q Not Given HS [facility] Protocol Insulin Aspart 2 - 5 units 04/27/25 12:00 05/10/25 16:35 Insulin Aspart (*Bkc) 100 Units/Ml SUB-Q Not Given TIDWM [facility] Protocol Miscellaneous Information 0 each 05/07/25 00:01 05/07/25 18:13 Please Enter Order For Patient To Take Home Vitamin D 70016 Units. XX 06/06/25 00:00 Not Given On Hold: 05/07/25 17:30 CLARIFY [facility] Nonformulary Drug 3 tab 05/07/25 17:00 05/10/25 16:26 Coral Calcium Plus PO 06/06/25 16:59 3 tab Plant Enzymes BID [facility] Administration Nonformulary Drug 0 units 05/08/25 09:00 05/10/25 08:23 Vitamin A 25,000 PO 06/07/25 08:59 25,000 units Units DAILY [facility] Administration Sodium Bicarbonate 1,300 mg 05/08/25 09:00 05/10/25 16:26 Sodium Bicarbonate Tab 650 Mg Tablet PO 1,300 mg BID [facility] Administration Sodium Chloride 10 ml 04/29/25 14:00 05/10/25 13:10 Central Line Flush IV PUSH 10 ml Q8HR [facility] Administration Sodium Chloride 10 ml 04/29/25 07:58 Central Line Flush IV PUSH PRN PRN with TPN bag changes Sodium Chloride 20 ml 04/29/25 07:58 05/05/25 05:22 Central Line Flush IV PUSH 20 ml PRN PRN Administration after blood draws Trazodone HCl 25 mg 05/01/25 21:00 05/09/25 21:57 Trazodone Hcl 25 Mg Tablet PO 25 mg HS [facility] Administration Radiology Results: ITS Impressions Chest X-Ray 04/25/25 18:06 Impression: 1: Diffuse bilateral interstitial infiltrates which may represent edema or atypical pneumonia. Head CT 04/25/25 20:26 IMPRESSION: 1. No acute intracranial abnormality. Chest/Abdomen/Pelvis CT 04/25/25 20:28 IMPRESSION: 1. Focal consolidation right lower lobe, suspicious for pneumonia. 2: Increased size of ascending thoracic aortic aneurysm measuring 4.8 cm. 3: Splenomegaly. 4: Stable sclerotic lesions or spine and pelvis, suspicious for stable osseous metastases. Correlate for history of malignancy. Renal Ultrasound 05/03/25 18:21 IMPRESSION: 1. A couple small right renal cysts. No hydronephrosis. 2. Status post left nephrectomy. Labs Labs: Laboratory Tests 05/10/25 04:59 05/10/25 04:59 Calcium 8.0 L Phosphorus 3.0 Magnesium 1.6 Albumin 2.9 L Microbiology 05/07/25 04:32 Blood Blood Culture - Preliminary 05/07/25 04:32 Blood Blood Culture - Preliminary 05/05/25 05:01 Blood Blood Culture - Preliminary Staphylococcus aureus
--- NOTE | 2025-05-10 14:08 | WPDINFPN2 ---
Progress Note: A&P Assessment and Plan (1) MSSA bacteremia: Code(s): R78.81 - Bacteremia; B95.61 - Methicillin susceptible Staphylococcus aureus infection as the cause of diseases classified elsewhere Status: Acute (2) CLABSI (central line-associated bloodstream infection): Code(s): T80.211A - Bloodstream infection due to central venous catheter, initial encounter Status: Acute (3) On total parenteral nutrition (TPN): Code(s): Z78.9 - Other specified health status Status: Acute (4) CKD (chronic kidney disease): Qualifiers: Chronic kidney disease stage: unspecified stage Qualified Code(s): N18.9 - Chronic kidney disease, unspecified Code(s): N18.9 - Chronic kidney disease, unspecified Status: Acute (5) Sepsis: Qualifiers: Sepsis acute organ dysfunction status: unspecified Sepsis type: sepsis due to unspecified organism Qualified Code(s): A41.9 - Sepsis, unspecified organism Code(s): A41.9 - Sepsis, unspecified organism Status: Acute Plan # MSSA bacteremia present on admission. Likely secondary to longstanding PICC ( CLABSI ). -- blood cultures positive through 05/05 And before daptomycin was added to cefazolin later that day. 05/07 blood cultures obtained while patient was receiving both daptomycin and cefazolin reported as negative at 48 hours. -- TIMUR performed 05/05 negative for vegetations. # Chronic PICC use for supplemental TPN in the setting of distal esophageal and total gastrectomy. -- History of prior PICC CLABSI's. -- may have limited access sites for new PICC placement. 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 # Chronic kidney disease stage 4. Plan: -- continue cefazolin 2 g IV q.12 hours and daptomycin 500 mg IV Q 48 hours. -- monitor blood cultures from 05/07 which are negative to date. -- typically, staphylococcus aureus-associated CLABSI warrants line removal and replacement. This has been delayed pending response to therapy given patient's report of limited further access sites. Continue to attempt line salvage. This approach has been supported by his physicians at [facility]. -- discussed with Dr. Jacinto. Patient was seen via video telehealth consultation with the assistance of staff. Chart, data, and patient independently reviewed. Patient was located at [facility] while I was located in my [place] office. Received verbal consent from patient. Subjective Date/time seen: 05/10/25 14:08 Interval history: 05/02/2025: afebrile and with stable vital signs. Repeat blood cultures pending. at bedside and confirms patient's prior CLABSI's have involved multiple organisms over time. However, last line infection appears to also have involved MSSA in December or January and PICC was changed at that time. 05/03/2025: No new complaints today. 05/01 blood cultures reported as preliminarily negative. 05/04/2025: Afebrile with resolving leukocytosis. 05/01 blood cultures negative at 24 hours. Feels better. 05/05/2025: Afebrile. Slight increase in white blood cell count. Most recent blood culture performed 05/01 now with report of delayed growth Staph coccus aureus in 1 of 2 bottles. the plan 05/09/2025: Afebrile and feels better. Still with low-grade leukocytosis. Blood cultures reported as negative to date as of 05/05. Due to known limited access sites with this patient, [facility] is in agreement with attempting line salvage at this time. 05/10/2025: Afebrile with normal white blood cell count. 05/05 blood culture again positive via delayed growth in 1/3 bottles for MSSA. Note: Blood cultures were drawn in the early intervention specialist of 05/05 and before daptomycin was added to cefazolin later that day. Blood cultures 04/25: Positive MSSA In multiple bottles. Blood cultures 04/27: Positive MSSA in 1/4 bottles. Blood cultures 05/01: delayed positive growth of MSSA in 1 of 3 bottles. Blood cultures 05/05: Delayed positive growth of MSSA in 1 of 3 bottles. Blood cultures 05/07: Negative at 48 hours. Review of Systems Review of Systems: No new complaints. No pain to left chest PICC site. All systems reviewed & are unremarkable except as noted in HPI and below Exam Narrative: Awake and alert and interactive. Normocephalic and without conjunctivitis. Nonlabored respirations. Abdomen without significant distention. No rash. Left upper chest PICC site without inflammation. Objective Data Vital Signs Vital Signs: Vital Signs - 24 hr 05/09/25 14:11 05/09/25 16:00 05/09/25 20:00 Temperature 98 F Pulse Rate 82 74 Respiratory Rate 16 Blood Pressure 144/76 H Pulse Oximetry 100 Oxygen Delivery Room Air Fraction of Inspired Oxygen 21 05/09/25 20:00 05/09/25 22:12 05/10/25 00:00 Temperature 98.1 F Pulse Rate 75 74 75 Respiratory Rate 14 Blood Pressure 144/83 H Pulse Oximetry 98 Oxygen Delivery Fraction of Inspired Oxygen 05/10/25 04:00 05/10/25 05:22 05/10/25 08:04 Temperature 98.0 F Pulse Rate 100 86 84 Respiratory Rate 16 Blood Pressure 145/73 H Pulse Oximetry 99 Oxygen Delivery Fraction of Inspired Oxygen 05/10/25 08:22 05/10/25 12:03 Temperature Pulse Rate 79 Respiratory Rate 16 Blood Pressure Pulse Oximetry 99 Oxygen Delivery Room Air Fraction of Inspired Oxygen Intake/Output Intake/Output: Intake & Output 05/07/25 05/08/25 05/09/25 05/10/25 23:59 23:59 23:59 23:59 Intake Total 3218 2635 3000 1410 Output Total 1000 2300 1225 1275 Balance 2218 335 1775 135 Meds/Results Medications: Active Medications Generic Name Dose Route Start Last Admin Trade Name Freq PRN Reason Stop Dose Admin Acetaminophen 650 mg 04/25/25 22:50 Acetaminophen 650 Mg Suppository RECTAL Q6H PRN Mild Pain (1-3) or Fever Acetaminophen 650 mg 05/06/25 00:58 05/06/25 01:09 Acetaminophen 325 Mg Tablet PO 650 mg Q4H PRN Administration Mild Pain (1-3) or Fever Allopurinol 100 mg 04/27/25 09:00 05/10/25 08:20 Allopurinol 100 Mg Tablet PO 100 mg DAILY [facility] Administration Cyanocobalamin 1,000 mcg 05/26/25 09:00 Cyanocobalamin Inj 1,000 Mcg/Ml Vial IM MONTHLY [facility] Cyclobenzaprine HCl 10 mg 04/26/25 13:46 05/05/25 09:06 Cyclobenzaprine Hcl 10 Mg Tablet PO 10 mg TID PRN Administration Muscle Spasm Dextrose 12.5 gm 04/27/25 08:27 Dextrose 50% 25 Gm/50 Ml Syringe IV PUSH PRN PRN Hypoglycemia Protocol Enoxaparin Sodium 30 mg 04/27/25 09:00 05/05/25 07:51 Enoxaparin 30 Mg/0.3 Ml Syringe SUB-Q Not Given On Hold: 05/05/25 09:00 DAILY [facility] Resume: 05/12/25 09:00 Epoetin Vic-epbx 10,000 units 05/06/25 10:55 05/09/25 08:19 Epoetin Vic-Epbx 10,000 Units/Ml Vial SUB-Q 10,000 units TUTHSA@09 [facility] Administration Finasteride 5 mg 04/27/25 09:00 05/10/25 08:20 Finasteride 5 Mg Tablet PO 5 mg DAILY [facility] Administration Folic Acid 1 mg 04/27/25 09:00 05/10/25 08:20 Folic Acid 1 Mg Tablet PO 1 mg DAILY [facility] Administration Glucagon 1 mg 04/27/25 08:27 Glucagon For Inj 1 Mg Vial IM PRN PRN Hypoglycemia Protocol Glucose 15 gm 04/27/25 08:27 Glucose Oral Gel 15 Gm Of Glucse In 37.5 Gm Tube PO PRN PRN Hypoglycemia Protocol Dextrose 1,000 mls @ 50 mls/hr 04/26/25 13:47 Dextrose 10% IV CONT .Q20H PRN if PN is interrupted Dextrose 1,000 mls @ 100 mls/hr 04/27/25 08:27 Dextrose 5% 1,000 Ml IVPB PRN PRN Hypoglycemia Protocol Cefazolin Sodium 2 gm/ Sodium 50 mls @ 100 mls/hr 04/30/25 18:00 05/10/25 06:34 Chloride IVPB Infused Q12H [facility] Infusion Multivitamins 1.25 ml/ 1,002.5 mls @ 70 mls/hr 05/05/25 20:00 Multivitamins 1.25 ml/ Amino IV CONT Acids/Electrolytes/Dextrose MoWeFr@2000 [facility] On Hold: 05/05/25 20:00 Protocol Daptomycin 500 mg/ Sodium 50 mls @ 100 mls/hr 05/05/25 16:00 05/09/25 15:28 Chloride IVPB 100 mls/hr Q48H [facility] Administration Dextrose/Sodium Chloride 1,000 mls @ 60 mls/hr 05/06/25 14:10 05/10/25 08:19 Dextrose 5% Sodium Chloride 0.9% IV CONT 60 mls/hr .[id number] [facility] Administration Insulin Aspart 1 - 2 units 04/27/25 21:00 05/09/25 22:04 Insulin Aspart (*Bkc) 100 Units/Ml SUB-Q Not Given HS [facility] Protocol Insulin Aspart 2 - 5 units 04/27/25 12:00 05/10/25 11:45 Insulin Aspart (*Bkc) 100 Units/Ml SUB-Q Not Given TIDWM [facility] Protocol Miscellaneous Information 0 each 05/07/25 00:01 05/07/25 18:13 Please Enter Order For Patient To Take Home Vitamin D 01920 Units. XX 06/06/25 00:00 Not Given On Hold: 05/07/25 17:30 CLARIFY [facility]ANNA Miscellaneous Information 1 each 05/10/25 00:01 Ancef Needs To Be Renewed Or It Will Automatically Discontinue. XX 06/09/25 00:00 CLARIFY [facility] Nonformulary Drug 3 tab 05/07/25 17:00 05/10/25 08:22 Coral Calcium Plus PO 06/06/25 16:59 3 tab Plant Enzymes BID [facility] Administration Nonformulary Drug 0 units 05/08/25 09:00 05/10/25 08:23 Vitamin A 25,000 PO 06/07/25 08:59 25,000 units Units DAILY [facility] Administration Sodium Bicarbonate 1,300 mg 05/08/25 09:00 05/10/25 08:20 Sodium Bicarbonate Tab 650 Mg Tablet PO 1,300 mg BID [facility] Administration Sodium Chloride 10 ml 04/29/25 14:00 05/10/25 13:10 Central Line Flush IV PUSH 10 ml Q8HR [facility] Administration Sodium Chloride 10 ml 04/29/25 07:58 Central Line Flush IV PUSH PRN PRN with TPN bag changes Sodium Chloride 20 ml 04/29/25 07:58 05/05/25 05:22 Central Line Flush IV PUSH 20 ml PRN PRN Administration after blood draws Trazodone HCl 25 mg 05/01/25 21:00 05/09/25 21:57 Trazodone Hcl 25 Mg Tablet PO 25 mg HS [facility] Administration Radiology Results: ITS Impressions Chest X-Ray 04/25/25 18:06 Impression: 1: Diffuse bilateral interstitial infiltrates which may represent edema or atypical pneumonia. Head CT 04/25/25 20:26 IMPRESSION: 1. No acute intracranial abnormality. Chest/Abdomen/Pelvis CT 04/25/25 20:28 IMPRESSION: 1. Focal consolidation right lower lobe, suspicious for pneumonia. 2: Increased size of ascending thoracic aortic aneurysm measuring 4.8 cm. 3: Splenomegaly. 4: Stable sclerotic lesions or spine and pelvis, suspicious for stable osseous metastases. Correlate for history of malignancy. Renal Ultrasound 05/03/25 18:21 IMPRESSION: 1. A couple small right renal cysts. No hydronephrosis. 2. Status post left nephrectomy. Labs Labs: Laboratory Results - last 24 hr 05/09/25 05/09/25 05/09/25 16:52 18:24 22:03 WBC RBC Hgb 8.4 L Hct 26.8 L MCV MCH MCHC RDW Plt Count MPV Sodium Potassium Chloride Carbon Dioxide Anion Gap BUN Creatinine Estim Creat Clear Calc Estimated GFR Glucose POC Capillary Glucose 101 102 Calcium Phosphorus Magnesium Albumin 05/10/25 05/10/25 05/10/25 04:59 07:53 11:40 WBC 12.2 H RBC 3.06 L Hgb 8.0 L Hct 25.4 L MCV 83.0 MCH 26.1 MCHC 31.5 L RDW 14.5 Plt Count 89 L MPV 10.5 H Sodium 135 L Potassium 4.4 Chloride 111 H Carbon Dioxide 18 L Anion Gap 6 BUN 28 H Creatinine 2.81 H Estim Creat Clear Calc 18 Estimated GFR 22 L Glucose 102 POC Capillary Glucose 87 98 Calcium 8.0 L Phosphorus 3.0 Magnesium 1.6 Albumin 2.9 L
--- NOTE | 2025-05-10 16:32 | PM.IMPN ---
Progress Note: A&P Assessment and Plan (1) Hyperkalemia: Code(s): E87.5 - Hyperkalemia Status: Acute Assessment and Plan: Potassium was elevated to 6.6 treated appropriately with improvement. TSH normal. Cortisol normal. Cozaar stopped. TPN held Lokelma started and Potassium better Lokelma stopped. Potassium remains normal. Nephrology consulted and appreciate their input. Oral bicarb started. Follow potassium level. Continue low potassium diet. Continue oral bicarb. Follow closely. (2) Sepsis: Qualifiers: Sepsis acute organ dysfunction status: unspecified Sepsis type: sepsis due to unspecified organism Qualified Code(s): A41.9 - Sepsis, unspecified organism Code(s): A41.9 - Sepsis, unspecified organism Status: Acute Assessment and Plan: Secondary to pneumonia and/or bacteremia. Blood cultures growing oxacillin sensitive Staph aureus. Continue with IV antibiotic ID consulted and appreciate their input. Leukocytosis improving Follow cultures as below Continue to monitor (3) Bacteremia: Code(s): R78.81 - Bacteremia Status: Acute Assessment and Plan: Possible source PNA versus central line. BCx 04/25 4/4 positive for DANE BCx 04/27 1/3 positive for DANE BCx 05/01 1/2 positive for DANE in one of the aerobic bottles BCx 05/05 1/ positive for gram positive cocci. BCx 05/07 NGTD Started Vancomycin but now discontinued. Abx switched to Ancef Attempting line salvage since very limited option for IV access No fevers. WBC stable at 11-14K Cardiology consulted and appreciate their input. TTE 05/01 with no endocarditis. TIMUR 05/05 again showing no vegetations. Discussed with ID: Daptomycin added (05/05) Spoke with [facility] 05/05 about transfer for central line exchange but they felt that since patient does not have great options for line exchange, they recommended continuing current plan. If BCx drawn 05/07 return positive despite Daptomycin, then transfer to [place] for line exchange. Continue Ancef and Dapto. Monitor BCx results. Monitor WBC. (4) Pneumonia: Qualifiers: Laterality: right Lung location: lower lobe of lung Pneumonia type: due to unspecified organism Qualified Code(s): J18.9 - Pneumonia, unspecified organism Code(s): J18.9 - Pneumonia, unspecified organism Status: Acute Assessment and Plan: CT of chest showing focal consolidation in the RLL. Bedside swallow evaluation showing no concerns As above (5) CKD (chronic kidney disease): Qualifiers: Chronic kidney disease stage: unspecified stage Qualified Code(s): N18.9 - Chronic kidney disease, unspecified Code(s): N18.9 - Chronic kidney disease, unspecified Status: Acute Assessment and Plan: Patient s/p left nephrectomy. Baseline creatinine 2.9 but worsened to 3.6 Complement normal. Urine eos negative. Prot/Cr ratio 2.3gm. FENa 0.7%. TPN stopped. Started IV fluids. Oral bicarb added. Cr better at 3.05. Bicarb 18 Nephrology consulted and appreciate their input. Continue to monitor. Continue oral bicarb. Currently on D5 normal saline at 60 cc/hour. (6) On total parenteral nutrition (TPN): Code(s): Z78.9 - Other specified health status Status: Acute Assessment and Plan: Patient on chronic TPN use related to gastrectomy. Takes TPN 4x/week. Dietitian on board. TPN on hold because can't remove potassium from TPN Continue to monitor. Discussed with Nephrology - continue to hold TPN for now (7) Hyponatremia: Code(s): E87.1 - Hypo-osmolality and hyponatremia Status: Acute Assessment and Plan: Sodium was low but improved up to 139 TSH and cortisol okay. Cosyntropin test showing peak cortisol >18 which is an appropriate response. Nephrology following Monitor for now (8) AMS (altered mental status): Qualifiers: Altered mental status type: unspecified Qualified Code(s): R41.82 - Altered mental status, unspecified Code(s): R41.82 - Altered mental status, unspecified Status: Acute Assessment and Plan: Patient with episode of confusion Head CT showing no acute process. TSH, B12, folate levels okay Probably related to bacteremia. Mental status much better. Follow for now (9) Anemia: Code(s): D64.9 - Anemia, unspecified Status: Acute Assessment and Plan: Acute on chronic anemia. Hgb low but stable in the 8-9 range. B12, folate normal. Iron studies consistent with iron deficiency. Related to poor dietary iron absorption? Hgb dropped to 7.6 but may have been drawn out of the line. Transfuse if Hgb<7 to a stable Hgb. IV iron when okay with others and BCx clear Continue to monitor. (10) NSVT (nonsustained ventricular tachycardia): Code(s): I47.29 - Other ventricular tachycardia Status: Acute Assessment and Plan: Patient with 2 runs of NSVT on 05/05. Potassium 5. Mag >2. Echo as above. Recurrence of narrow complex probably SVT. Monitor on tele. Plan Thrombocytopenia - Platelet count 70-90K past few yrs. Plt count 47K on admission and dropped to 33K before rebounding back up to 70K range. [place] drop related to sepsis. Etiology of chronic TCP unclear. Follow DM2 - A1c 5.6%. Diet controlled. The patient's blood glucose was reviewed Glucose remains well controlled. Continue AccuCheks covering with sliding scale. Hypoglycemia protocol available as needed. 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 Eating okay here. [employer] following Monitor calorie intake off TPN Thyroid carcinoma - status post partial thyroid resection Not on levothyroxine TSH okay. 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 No obvious evidence of dumping. 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 Contributing to his CKD Assuming care on 05/10/2025: Spoke with Infectious Disease. Continue to monitor blood cultures from 05/07/2025, continue ceftriaxone and daptomycin. Administer TPN and iron if okay with Nephrology and Infectious Disease. At this time he is eating 90-100% of diabetic diet. As well, hemoglobin has stabilized around 8. Platelets stabilized. Lovenox order, which was held, now discontinued. When/if restarting DVT prophylaxis use heparin in the setting of advanced CKD. D5 normal saline at 60 cc/hour. 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 No major acute overnight events. Patient denies any pain, nausea vomiting or diarrhea. Review of Systems Review of Systems: All systems reviewed & are unremarkable except as noted in HPI and below (Subjective) Exam Const: General: comfortable and no acute distress Other: Left upper chest tunneled catheter Eyes: Pupils: Equal, round and reactive pupils present Neck: Neck: supple Resp: Effort & Inspection: normal respiratory effort Auscultation: clear to auscultation bilaterally Cardio: Rate: regular rate Rhythm: regular rhythm GI: GI Palp: Yes Soft to palpation Extrem: General: no edema Objective Data Vital Signs Vital Signs: Vital Signs - 24 hr 05/09/25 20:00 05/09/25 20:00 05/09/25 22:12 Temperature 98.1 F Pulse Rate 75 74 Respiratory Rate 14 Blood Pressure 144/83 H Pulse Oximetry 98 Oxygen Delivery Room Air Fraction of Inspired Oxygen 05/10/25 00:00 05/10/25 04:00 05/10/25 05:22 Temperature 98.0 F Pulse Rate 75 100 86 Respiratory Rate 16 Blood Pressure 145/73 H Pulse Oximetry 99 Oxygen Delivery Fraction of Inspired Oxygen 05/10/25 08:04 05/10/25 08:22 05/10/25 12:03 Temperature Pulse Rate 84 79 Respiratory Rate 16 Blood Pressure Pulse Oximetry 99 Oxygen Delivery Room Air Fraction of Inspired Oxygen 05/10/25 14:23 Temperature 97.6 F Pulse Rate 86 Respiratory Rate 18 Blood Pressure 156/81 H Pulse Oximetry 100 Oxygen Delivery Fraction of Inspired Oxygen Intake/Output Intake/Output: Intake & Output 05/07/25 05/08/25 05/09/25 05/10/25 23:59 23:59 23:59 23:59 Intake Total 3218 2635 3000 1960 Output Total 1000 2300 1225 2475 Balance 2218 335 0551 -096 Meds/Results Medications: Active Medications Generic Name Dose Route Start Last Admin Trade Name Freq PRN Reason Stop Dose Admin Acetaminophen 650 mg 04/25/25 22:50 Acetaminophen 650 Mg Suppository RECTAL Q6H PRN Mild Pain (1-3) or Fever Acetaminophen 650 mg 05/06/25 00:58 05/06/25 01:09 Acetaminophen 325 Mg Tablet PO 650 mg Q4H PRN Administration Mild Pain (1-3) or Fever Allopurinol 100 mg 04/27/25 09:00 05/10/25 08:20 Allopurinol 100 Mg Tablet PO 100 mg DAILY ZHANNA Administration Cyanocobalamin 1,000 mcg 05/26/25 09:00 Cyanocobalamin Inj 1,000 Mcg/Ml Vial IM MONTHLY ZHANNA Cyclobenzaprine HCl 10 mg 04/26/25 13:46 05/05/25 09:06 Cyclobenzaprine Hcl 10 Mg Tablet PO 10 mg TID PRN Administration Muscle Spasm Dextrose 12.5 gm 04/27/25 08:27 Dextrose 50% 25 Gm/50 Ml Syringe IV PUSH PRN PRN Hypoglycemia Protocol Enoxaparin Sodium 30 mg 04/27/25 09:00 05/05/25 07:51 Enoxaparin 30 Mg/0.3 Ml Syringe SUB-Q Not Given On Hold: 05/05/25 09:00 DAILY ZHANNA Resume: 05/12/25 09:00 Epoetin Vic-epbx 10,000 units 05/06/25 10:55 05/09/25 08:19 Epoetin Vic-Epbx 10,000 Units/Ml Vial SUB-Q 10,000 units TUTHSA@09 ZHANNA Administration Finasteride 5 mg 04/27/25 09:00 05/10/25 08:20 Finasteride 5 Mg Tablet PO 5 mg DAILY ZHANNA Administration Folic Acid 1 mg 04/27/25 09:00 05/10/25 08:20 Folic Acid 1 Mg Tablet PO 1 mg DAILY ZHANNA Administration Glucagon 1 mg 04/27/25 08:27 Glucagon For Inj 1 Mg Vial IM PRN PRN Hypoglycemia Protocol Glucose 15 gm 04/27/25 08:27 Glucose Oral Gel 15 Gm Of Glucse In 37.5 Gm Tube PO PRN PRN Hypoglycemia Protocol Dextrose 1,000 mls @ 50 mls/hr 04/26/25 13:47 Dextrose 10% IV CONT .Q20H PRN if PN is interrupted Dextrose 1,000 mls @ 100 mls/hr 04/27/25 08:27 Dextrose 5% 1,000 Ml IVPB PRN PRN Hypoglycemia Protocol Cefazolin Sodium 2 gm/ Sodium 50 mls @ 100 mls/hr 04/30/25 18:00 05/10/25 06:34 Chloride IVPB Infused Q12H ZHANNA Infusion Multivitamins 1.25 ml/ 1,002.5 mls @ 70 mls/hr 05/05/25 20:00 Multivitamins 1.25 ml/ Amino IV CONT Acids/Electrolytes/Dextrose [id number] [facility] On Hold: 05/05/25 20:00 Protocol Daptomycin 500 mg/ Sodium 50 mls @ 100 mls/hr 05/05/25 16:00 05/09/25 15:28 Chloride IVPB 100 mls/hr Q48H ZHANNA Administration Dextrose/Sodium Chloride 1,000 mls @ 60 mls/hr 05/06/25 14:10 05/10/25 08:19 Dextrose 5% Sodium Chloride 0.9% IV CONT 60 mls/hr .[id number] [facility] Administration Insulin Aspart 1 - 2 units 04/27/25 21:00 05/09/25 22:04 Insulin Aspart (*Bkc) 100 Units/Ml SUB-Q Not Given HS [facility] Protocol Insulin Aspart 2 - 5 units 04/27/25 12:00 05/10/25 11:45 Insulin Aspart (*Bkc) 100 Units/Ml SUB-Q Not Given TIDWM [facility] Protocol Miscellaneous Information 0 each 05/07/25 00:01 05/07/25 18:13 Please Enter Order For Patient To Take Home Vitamin D 27529 Units. XX 06/06/25 00:00 Not Given On Hold: 05/07/25 17:30 CLARIFY ZHANNA Nonformulary Drug 3 tab 05/07/25 17:00 05/10/25 16:26 Coral Calcium Plus PO 06/06/25 16:59 3 tab Plant Enzymes BID ZHANNA Administration Nonformulary Drug 0 units 05/08/25 09:00 05/10/25 08:23 Vitamin A 25,000 PO 06/07/25 08:59 25,000 units Units DAILY ZHANNA Administration Sodium Bicarbonate 1,300 mg 05/08/25 09:00 05/10/25 16:26 Sodium Bicarbonate Tab 650 Mg Tablet PO 1,300 mg BID ZHANNA Administration Sodium Chloride 10 ml 04/29/25 14:00 05/10/25 13:10 Central Line Flush IV PUSH 10 ml Q8HR ZHANNA Administration Sodium Chloride 10 ml 04/29/25 07:58 Central Line Flush IV PUSH PRN PRN with TPN bag changes Sodium Chloride 20 ml 04/29/25 07:58 05/05/25 05:22 Central Line Flush IV PUSH 20 ml PRN PRN Administration after blood draws Trazodone HCl 25 mg 05/01/25 21:00 05/09/25 21:57 Trazodone Hcl 25 Mg Tablet PO 25 mg HS ZHANNA Administration Radiology Results: ITS Impressions Chest X-Ray 04/25/25 18:06 Impression: 1: Diffuse bilateral interstitial infiltrates which may represent edema or atypical pneumonia. Head CT 04/25/25 20:26 IMPRESSION: 1. No acute intracranial abnormality. Chest/Abdomen/Pelvis CT 04/25/25 20:28 IMPRESSION: 1. Focal consolidation right lower lobe, suspicious for pneumonia. 2: Increased size of ascending thoracic aortic aneurysm measuring 4.8 cm. 3: Splenomegaly. 4: Stable sclerotic lesions or spine and pelvis, suspicious for stable osseous metastases. Correlate for history of malignancy. Renal Ultrasound 05/03/25 18:21 IMPRESSION: 1. A couple small right renal cysts. No hydronephrosis. 2. Status post left nephrectomy. Labs Labs: Laboratory Results - last 24 hr 05/09/25 05/09/25 05/09/25 16:52 18:24 22:03 WBC RBC Hgb 8.4 L Hct 26.8 L MCV MCH MCHC RDW Plt Count MPV Sodium Potassium Chloride Carbon Dioxide Anion Gap BUN Creatinine Estim Creat Clear Calc Estimated GFR Glucose POC Capillary Glucose 101 102 Calcium Phosphorus Magnesium Albumin 05/10/25 05/10/25 05/10/25 04:59 07:53 11:40 WBC 12.2 H RBC 3.06 L Hgb 8.0 L Hct 25.4 L MCV 83.0 MCH 26.1 MCHC 31.5 L RDW 14.5 Plt Count 89 L MPV 10.5 H Sodium 135 L Potassium 4.4 Chloride 111 H Carbon Dioxide 18 L Anion Gap 6 BUN 28 H Creatinine 2.81 H Estim Creat Clear Calc 18 Estimated GFR 22 L Glucose 102 POC Capillary Glucose 87 98 Calcium 8.0 L Phosphorus 3.0 Magnesium 1.6 Albumin 2.9 L
[2025-05-10] MEDS: CYCLOBENZAPRINE HCL 10 MG TABLET PO (23:05)
[2025-05-11] VITALS (11 sets, daily range): BP systolic 139–154; BP diastolic 74–81; PULSE 68–90; RESP 14–16; TEMP 36.4–36.7; O2SAT 97–100
[2025-05-11] MEDS: DEXTROSE 5%/0.9% SOD CHL 1,000 ML 60 ML IV CONT ×2 (02:18→20:13)
[2025-05-11] MEDS: CENTRAL LINE FLUSH 10 ML IV PUSH ×3 (05:49→22:51)
[2025-05-11] MEDS: ceFAZolin 2 GM in SODIUM CHLORIDE 0.9% IV 50 ML 100 ML IVPB ×2 (05:49→17:03)
[2025-05-11] MEDS: CENTRAL LINE FLUSH 20 ML IV PUSH (05:50)
[2025-05-11 06:09] LABS: Hematocrit 25.6 % (42.0-52.0); Hemoglobin 8.0 g/dL (14.0-18.0); Immature Granulocyte Percent A 1.0 % (0-0.5); Immature Platelet Fraction Pct 3.6 % (0.9-11.2); Lymphocytes Absolute Auto 0.98 K/mm3 (0.9-3.2); Mean Corpuscular HGB Conc 31.3 g/dl (32-36); Mean Corpuscular Hemoglobin 26.1 pg (26-34); Mean Corpuscular Volume 83.7 fl (80-100); Nucleated Red Blood Cells Absolute Auto 0.000 K/mm3 (0.0-0.012); Nucleated Red Blood Cells Perc 0.0 % (0.0-0.2); Platelet Count Result 99 k/mm3 (150-375); Red Blood Count 3.06 M/mm3 (4.6-6.20); White Blood Count 10.2 K/mm3 (4.5-10.0)
[2025-05-11 06:33] LABS: Albumin Level 2.9 g/dL (3.5-5.1); Anion Gap 5 mmol/L (4-12); Blood Urea Nitrogen 25 mg/dL (9-20); Calcium 8.0 mg/dL (8.4-10.2); Carbon Dioxide 19 mmol/L (22-30); Chloride 112 mmol/L (98-107); Estimated CRCL calculation 18 ml/min; Estimated Glomerular Filt Rate 22; Glucose 93 mg/dL (65-110); Magnesium 1.6 mg/dL (1.6-2.3); Potassium 4.4 mmol/L (3.4-5.0); Sodium 136 mmol/L (137-145)
[2025-05-11] MEDS: FINASTERIDE 5 MG TABLET PO (08:52)
[2025-05-11] MEDS: SODIUM BICARBONATE TAB 650 MG TABLET 1300 MG PO ×2 (08:52→16:38)
[2025-05-11] MEDS: FOLIC ACID 1 MG TABLET PO (08:52)
[2025-05-11] MEDS: VITAMIN A 25000 UNIT PO (08:53)
[2025-05-11] MEDS: [UNRECOGNIZED DRUG - OTHER] 3 EACH PO ×2 (08:53→16:38)
[2025-05-11] MEDS: [UNRECOGNIZED DRUG - OTHER] PO (08:53)
[2025-05-11] MEDS: EPOETIN ALFA-EPBX 10,000 UNITS/ML VIAL 10000 UNITS SUB-Q (08:56)
--- NOTE | 2025-05-11 11:01 | WPDINFPN2 ---
Progress Note: A&P Assessment and Plan (1) MSSA bacteremia: Code(s): R78.81 - Bacteremia; B95.61 - Methicillin susceptible Staphylococcus aureus infection as the cause of diseases classified elsewhere Status: Acute (2) CLABSI (central line-associated bloodstream infection): Code(s): T80.211A - Bloodstream infection due to central venous catheter, initial encounter Status: Acute (3) On total parenteral nutrition (TPN): Code(s): Z78.9 - Other specified health status Status: Acute (4) CKD (chronic kidney disease): Qualifiers: Chronic kidney disease stage: unspecified stage Qualified Code(s): N18.9 - Chronic kidney disease, unspecified Code(s): N18.9 - Chronic kidney disease, unspecified Status: Acute (5) Sepsis: Qualifiers: Sepsis acute organ dysfunction status: unspecified Sepsis type: sepsis due to unspecified organism Qualified Code(s): A41.9 - Sepsis, unspecified organism Code(s): A41.9 - Sepsis, unspecified organism Status: Acute Plan # MSSA bacteremia present on admission. Likely secondary to longstanding PICC ( CLABSI ). -- blood cultures positive through 05/05 and before daptomycin was added to cefazolin later that day. 05/07 blood cultures obtained while patient was receiving both daptomycin and cefazolin reported as negative at 48 hours. -- TIMUR performed 05/05 negative for vegetations. # Chronic PICC use for supplemental TPN in the setting of distal esophageal and total gastrectomy. -- History of prior PICC CLABSI's. -- may have limited access sites for new PICC placement. 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 # Chronic kidney disease stage 4. Plan: -- continue cefazolin 2 g IV q.12 hours and daptomycin 500 mg IV Q 48 hours. -- monitor blood cultures from 05/07 which are negative to date. -- typically, staphylococcus aureus-associated CLABSI warrants line removal and replacement. This has been delayed pending response to therapy given patient's report of limited further access sites. Continue to attempt line salvage as long as 05/07 blood cultures finalized as negative. This approach has been supported by his physicians at [facility]. Patient was seen via video telehealth consultation with the assistance of staff. Chart, data, and patient independently reviewed. Patient was located at [facility] while I was located in my [place] office. Received verbal consent from patient. Subjective Date/time seen: 05/11/25 11:01 Interval history: 05/02/2025: afebrile and with stable vital signs. Repeat blood cultures pending. at bedside and confirms patient's prior CLABSI's have involved multiple organisms over time. However, last line infection appears to also have involved MSSA in December or January and PICC was changed at that time. 05/03/2025: No new complaints today. 05/01 blood cultures reported as preliminarily negative. 05/04/2025: Afebrile with resolving leukocytosis. 05/01 blood cultures negative at 24 hours. Feels better. 05/05/2025: Afebrile. Slight increase in white blood cell count. Most recent blood culture performed 05/01 now with report of delayed growth Staph coccus aureus in 1 of 2 bottles. the plan 05/09/2025: Afebrile and feels better. Still with low-grade leukocytosis. Blood cultures reported as negative to date as of 05/05. Due to known limited access sites with this patient, [facility] is in agreement with attempting line salvage at this time. 05/10/2025: Afebrile with normal white blood cell count. 05/05 blood culture again positive via delayed growth in 1/3 bottles for MSSA. 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 05/11/2025: Afebrile with white blood cell count decreased to 10.2. Blood cultures from 05/07 still being reported as negative at 48 hours. Blood cultures 04/25: Positive MSSA In multiple bottles. Blood cultures 04/27: Positive MSSA in 1/4 bottles. Blood cultures 05/01: delayed positive growth of MSSA in 1 of 3 bottles. Blood cultures 05/05: Delayed positive growth of Staphylococcus aureus in 1 of 3 bottles. Sensitivities pending Blood cultures 05/07: Negative at 48 hours reported in 3/3 bottles. Review of Systems Review of Systems: No new complaints. No pain to left chest PICC site. All systems reviewed & are unremarkable except as noted in HPI and below Exam Narrative: Awake and alert and interactive. Normocephalic and without conjunctivitis. Nonlabored respirations. Abdomen without significant distention. No rash. Left upper chest PICC site without inflammation. Objective Data Vital Signs Vital Signs: Vital Signs - 24 hr 05/10/25 12:03 05/10/25 14:23 05/10/25 16:04 Temperature 97.6 F Pulse Rate 79 86 71 Respiratory Rate 18 Blood Pressure 156/81 H Pulse Oximetry 100 Oxygen Delivery 05/10/25 20:00 05/10/25 20:00 05/10/25 21:21 Temperature 98.0 F Pulse Rate 72 70 Respiratory Rate 16 Blood Pressure 152/89 H Pulse Oximetry 100 Oxygen Delivery Room Air 05/11/25 00:00 05/11/25 04:00 05/11/25 05:41 Temperature 97.7 F Pulse Rate 81 76 82 Respiratory Rate 14 Blood Pressure 139/74 Pulse Oximetry 97 Oxygen Delivery 05/11/25 08:00 05/11/25 08:58 Temperature Pulse Rate 90 Respiratory Rate 16 Blood Pressure Pulse Oximetry 97 Oxygen Delivery Room Air Intake/Output Intake/Output: Intake & Output 05/08/25 05/09/25 05/10/25 05/11/25 23:59 23:59 23:59 23:59 Intake Total 2635 3000 3014 1156 Output Total 2300 1225 3225 Balance 335 1775 -211 1156 Meds/Results Medications: Active Medications Generic Name Dose Route Start Last Admin Trade Name Freq PRN Reason Stop Dose Admin Acetaminophen 650 mg 04/25/25 22:50 Acetaminophen 650 Mg Suppository RECTAL Q6H PRN Mild Pain (1-3) or Fever Acetaminophen 650 mg 05/06/25 00:58 05/06/25 01:09 Acetaminophen 325 Mg Tablet PO 650 mg Q4H PRN Administration Mild Pain (1-3) or Fever Allopurinol 100 mg 04/27/25 09:00 05/11/25 08:52 Allopurinol 100 Mg Tablet PO 100 mg DAILY ZHANNA Administration Cyanocobalamin 1,000 mcg 05/26/25 09:00 Cyanocobalamin Inj 1,000 Mcg/Ml Vial IM MONTHLY ZHANNA Cyclobenzaprine HCl 10 mg 04/26/25 13:46 05/10/25 23:05 Cyclobenzaprine Hcl 10 Mg Tablet PO 10 mg TID PRN Administration Muscle Spasm Dextrose 12.5 gm 04/27/25 08:27 Dextrose 50% 25 Gm/50 Ml Syringe IV PUSH PRN PRN Hypoglycemia Protocol Epoetin Vic-epbx 10,000 units 05/06/25 10:55 05/11/25 08:56 Epoetin Vic-Epbx 10,000 Units/Ml Vial SUB-Q 10,000 units TUTHSA@09 ZHANNA Administration Finasteride 5 mg 04/27/25 09:00 05/11/25 08:52 Finasteride 5 Mg Tablet PO 5 mg DAILY ZHANNA Administration Folic Acid 1 mg 04/27/25 09:00 05/11/25 08:52 Folic Acid 1 Mg Tablet PO 1 mg DAILY ZHANNA Administration Glucagon 1 mg 04/27/25 08:27 Glucagon For Inj 1 Mg Vial IM PRN PRN Hypoglycemia Protocol Glucose 15 gm 04/27/25 08:27 Glucose Oral Gel 15 Gm Of Glucse In 37.5 Gm Tube PO PRN PRN Hypoglycemia Protocol Dextrose 1,000 mls @ 50 mls/hr 04/26/25 13:47 Dextrose 10% IV CONT .Q20H PRN if PN is interrupted Dextrose 1,000 mls @ 100 mls/hr 04/27/25 08:27 Dextrose 5% 1,000 Ml IVPB PRN PRN Hypoglycemia Protocol Cefazolin Sodium 2 gm/ Sodium 50 mls @ 100 mls/hr 04/30/25 18:00 05/11/25 05:49 Chloride IVPB 100 mls/hr Q12H ZHANNA Administration Multivitamins 1.25 ml/ 1,002.5 mls @ 70 mls/hr 05/05/25 20:00 Multivitamins 1.25 ml/ Amino IV CONT Acids/Electrolytes/Dextrose [id number]@2000 ZHANNA On Hold: 05/05/25 20:00 Protocol Daptomycin 500 mg/ Sodium 50 mls @ 100 mls/hr 05/05/25 16:00 05/09/25 15:28 Chloride IVPB 100 mls/hr Q48H ZHANNA Administration Dextrose/Sodium Chloride 1,000 mls @ 60 mls/hr 05/06/25 14:10 05/11/25 02:18 Dextrose 5% Sodium Chloride 0.9% IV CONT 60 mls/hr .[id number] ZHANNA Administration Insulin Aspart 1 - 2 units 04/27/25 21:00 05/10/25 21:24 Insulin Aspart (*Bkc) 100 Units/Ml SUB-Q Not Given HS [facility] Protocol Insulin Aspart 2 - 5 units 04/27/25 12:00 05/11/25 07:48 Insulin Aspart (*Bkc) 100 Units/Ml SUB-Q Not Given TIDWM [facility] Protocol Miscellaneous Information 0 each 05/07/25 00:01 05/07/25 18:13 Please Enter Order For Patient To Take Home Vitamin D 89530 Units. XX 06/06/25 00:00 Not Given On Hold: 05/07/25 17:30 CLARIFY ZHANNA Nonformulary Drug 3 tab 05/07/25 17:00 05/11/25 08:53 Coral Calcium Plus PO 06/06/25 16:59 3 tab Plant Enzymes BID ZHANNA Administration Nonformulary Drug 0 units 05/08/25 09:00 05/11/25 08:53 Vitamin A 25,000 PO 06/07/25 08:59 25,000 units Units DAILY ZHANNA Administration Sodium Bicarbonate 1,300 mg 05/08/25 09:00 05/11/25 08:52 Sodium Bicarbonate Tab 650 Mg Tablet PO 1,300 mg BID ZHANNA Administration Sodium Chloride 10 ml 04/29/25 14:00 05/11/25 05:49 Central Line Flush IV PUSH 10 ml Q8HR ZHANNA Administration Sodium Chloride 10 ml 04/29/25 07:58 Central Line Flush IV PUSH PRN PRN with TPN bag changes Sodium Chloride 20 ml 04/29/25 07:58 05/11/25 05:50 Central Line Flush IV PUSH 20 ml PRN PRN Administration after blood draws Trazodone HCl 25 mg 05/01/25 21:00 05/10/25 23:05 Trazodone Hcl 25 Mg Tablet PO 25 mg HS ZHANNA Administration Radiology Results: ITS Impressions Chest X-Ray 04/25/25 18:06 Impression: 1: Diffuse bilateral interstitial infiltrates which may represent edema or atypical pneumonia. Head CT 04/25/25 20:26 IMPRESSION: 1. No acute intracranial abnormality. Chest/Abdomen/Pelvis CT 04/25/25 20:28 IMPRESSION: 1. Focal consolidation right lower lobe, suspicious for pneumonia. 2: Increased size of ascending thoracic aortic aneurysm measuring 4.8 cm. 3: Splenomegaly. 4: Stable sclerotic lesions or spine and pelvis, suspicious for stable osseous metastases. Correlate for history of malignancy. Renal Ultrasound 05/03/25 18:21 IMPRESSION: 1. A couple small right renal cysts. No hydronephrosis. 2. Status post left nephrectomy. Labs Labs: Laboratory Results - last 24 hr 05/10/25 05/10/25 05/10/25 11:40 16:24 21:20 WBC RBC Hgb Hct MCV MCH MCHC RDW Plt Count MPV Immature Gran % (Auto) Neut % (Auto) Lymph % (Auto) [place] % (Auto) Eos % (Auto) Baso % (Auto) Lymph # (Auto) [place] # (Auto) Eos # (Auto) Baso # (Auto) Abs Immat Gran (auto) Absolute Neuts (auto) Absolute Nucleated RBC Nucleated RBC % % Immature Plt Fraction Sodium Potassium Chloride Carbon Dioxide Anion Gap BUN Creatinine Estim Creat Clear Calc Estimated GFR Glucose POC Capillary Glucose 98 98 85 Calcium Phosphorus Magnesium Albumin 05/11/25 05/11/25 05/11/25 05:55 05:56 07:42 WBC 10.2 H RBC 3.06 L Hgb 8.0 L Hct 25.6 L MCV 83.7 MCH 26.1 MCHC 31.3 L RDW 14.8 H Plt Count 99 L MPV 10.4 Immature Gran % (Auto) 1.0 H Neut % (Auto) 84.5 H Lymph % (Auto) 9.[address] [place] % (Auto) 3.4 Eos % (Auto) 1.0 Baso % (Auto) 0.5 Lymph # (Auto) 0.98 [place] # (Auto) 0.4 Eos # (Auto) 0.1 Baso # (Auto) 0.1 Abs Immat Gran (auto) 0.10 H Absolute Neuts (auto) 8.6 H Absolute Nucleated RBC 0.000 Nucleated RBC % 0.0 % Immature Plt Fraction 3.6 Sodium 136 L Cancelled Potassium 4.4 Cancelled Chloride 112 H Cancelled Carbon Dioxide 19 L Cancelled Anion Gap 5 Cancelled BUN 25 H Cancelled Creatinine 2.79 H Cancelled Estim Creat Clear Calc 18 Cancelled Estimated GFR 22 L Cancelled Glucose 93 Cancelled POC Capillary Glucose 96 Calcium 8.0 L Cancelled Phosphorus 3.3 Magnesium 1.6 Cancelled Albumin 2.9 L
--- NOTE | 2025-05-11 14:15 | P.PNNP_ITS ---
Progress Note: A&P Assessment and Plan (1) Acute kidney injury: Code(s): N17.9 - Acute kidney failure, unspecified Status: Acute Assessment and Plan: * resolved/if not back to baseline * as initially noted by trend of labs on 05/03 * suspect due to several issues: * prerenal factors * continued ARB use * sepsis/infection/bacteremia * other(?) * evaluation to date noted: * renal ultrasound with solitary right kidney without obstruction * urine electrolytes prerenal * urine eosinophils negative * ++ proteinuria * CPK low * continues to make reasonable urine output * follow trend of repeat labs and UOP 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) * previous obstruction with bouts of nephrolithiasis (s/p lithotripsy) * recurrent infections/bacteremia & hospitalizations with associated LILLY/ARF episodes * previous history of DM (resolved with weight loss) * hypertension * age-related change * follows with [facility] for CKD management (3) Hyperkalemia: Code(s): E87.5 - Hyperkalemia Status: Acute Assessment and Plan: * relatively stable * suspect due to several issues: * ARB use * worsening CKD * TPN * infection * TSH okay and cortisol lowish * stimulation test noted * off losartan * off TPN * off lokelma * oral sodium bicarbonate may be helping control as well * follow trend of repeat K+ levels (4) Sepsis: Qualifiers: Sepsis acute organ dysfunction status: unspecified Sepsis type: sepsis due to unspecified organism Qualified Code(s): A41.9 - Sepsis, unspecified organism Code(s): A41.9 - Sepsis, unspecified organism Status: Acute Assessment and Plan: * presumed secondary to pneumonia and/or bacteremia * culture data noted (see #5) * stable hemodynamics noted * continue current therapy (5) Bacteremia: Code(s): R78.81 - Bacteremia Status: Acute Assessment and Plan: * suspected source is pneumonia versus central line * culture data noted: * blood cultures from 04/25 -- 4/4 positive for DANE * blood culture from 04/27 -- 1/3 positive for DANE * blood culture from 05/01 -- 1/2 positive for DANE in one of the aerobic bottles * blood culture from 05/05 -- 1/ positive for Staph Aureus * blood cultures from 05/07 -- no growth to date * Infectious Disease following * on antibiotics * attempting line salvage since very limited option for IV access * TTE (on 05/01) and TIMUR (on 05/05) - both negative for endocarditis/vegetations * continue current therapy (6) Pneumonia: Qualifiers: Laterality: right Lung location: lower lobe of lung Pneumonia type: due to unspecified organism Qualified Code(s): J18.9 - Pneumonia, unspecified organism Code(s): J18.9 - Pneumonia, unspecified organism Status: Acute Assessment and Plan: * CT of chest showing focal consolidation in the RLL * culture data as already noted (see #5) * contine current therapy (7) Hyponatremia: Code(s): E87.1 - Hypo-osmolality and hyponatremia Status: Acute Assessment and Plan: * acute versus chronic versus acute on chronic?? * no issue with this during February 2025 hospitalization at [facility] * TSH and cortisol okay; extensive malignancy history noted (but no active issues) * pneumonia playing a role as well(?) * porbably more related to TPN, CKD, and now LILLY * follow trend of sodium (8) Anemia: Code(s): D64.9 - Anemia, unspecified Status: Acute Assessment and Plan: * probably related to known CKD worsened by LILLY and acute illness * anemia studies with iron deficiency with normal b12 and folate * unable to give IV iron in the context of infection/bacteremia * PRBC transfusion per protocol * follow trend of H/H (9) On total parenteral nutrition (TPN): Code(s): Z78.9 - Other specified health status Status: Acute Assessment and Plan: * chronic issue * takes TPN 4x/week * TPN on hold as unable to remove potassium from TPN (10) Diabetes: Code(s): E11.9 - Type 2 diabetes mellitus without complications Status: Chronic Assessment and Plan: * controlled by diet * improved/stabilized with weight loss * follow accu-cheks * glycemic control per hospitalist Not much else to add from a renal perspective since CKD appears stable -- will continue to follow from a distance. Subjective Date/time seen: 05/11/25 14:15 Interval history: Follow-up for acute kidney injury/acute renal failure on chronic kidney disease and hyperkalemia. Renal function/creatinine relatively stable at this time in association with good urine output; potassium remains stable as well; no apparent distress noted at this time; eating and drinking reasonably well; no other issues/events overnight or earlier this morning. Exam Narrative: General: elderly but WD/WN male in NAD Heart: tachycardic, normal S1 and S2; no rub Lungs: clear anteriorly; few crackles at right base Abdomen: soft, nontender, nondistended, positive bowel sounds; + RLQ colostomy Extremities: no cyanosis or clubbing; no edema Skin: no nodules Objective Data Vital Signs Vital Signs: Vital Signs Temp Pulse Resp BP Pulse Ox O2 Del Method 05/11/25 14:00 98.0 F 78 14 146/79 H 100 05/11/25 12:00 76 05/11/25 08:58 16 97 Room Air 05/11/25 08:00 90 05/11/25 05:41 97.7 F 82 14 139/74 97 05/11/25 04:00 76 05/11/25 00:00 81 05/10/25 21:21 98.0 F 70 16 152/89 H 100 05/10/25 20:00 72 05/10/25 20:00 Room Air Intake/Output Intake/Output: Intake & Output 05/08/25 05/09/25 05/10/25 05/11/25 23:59 23:59 23:59 23:59 Intake Total 2635 3050 3014 2438 Output Total 2300 1225 3225 950 Balance 335 1825 -211 5903 Meds/Results Medications: Active Medications Generic Name Dose Route Start Last Admin Trade Name Freq PRN Reason Stop Dose Admin Acetaminophen 650 mg 04/25/25 22:50 Acetaminophen 650 Mg Suppository RECTAL Q6H PRN Mild Pain (1-3) or Fever Acetaminophen 650 mg 05/06/25 00:58 05/06/25 01:09 Acetaminophen 325 Mg Tablet PO 650 mg Q4H PRN Administration Mild Pain (1-3) or Fever Allopurinol 100 mg 04/27/25 09:00 05/11/25 08:52 Allopurinol 100 Mg Tablet PO 100 mg DAILY ZHANNA Administration Cyanocobalamin 1,000 mcg 05/26/25 09:00 Cyanocobalamin Inj 1,000 Mcg/Ml Vial IM MONTHLY ZHANNA Cyclobenzaprine HCl 10 mg 04/26/25 13:46 05/10/25 23:05 Cyclobenzaprine Hcl 10 Mg Tablet PO 10 mg TID PRN Administration Muscle Spasm Dextrose 12.5 gm 04/27/25 08:27 Dextrose 50% 25 Gm/50 Ml Syringe IV PUSH PRN PRN Hypoglycemia Protocol Epoetin Vic-epbx 10,000 units 05/06/25 10:55 05/11/25 08:56 Epoetin Vic-Epbx 10,000 Units/Ml Vial SUB-Q 10,000 units TUTHSA@09 ZHANNA Administration Finasteride 5 mg 04/27/25 09:00 05/11/25 08:52 Finasteride 5 Mg Tablet PO 5 mg DAILY ZHANNA Administration Folic Acid 1 mg 04/27/25 09:00 05/11/25 08:52 Folic Acid 1 Mg Tablet PO 1 mg DAILY ZHANNA Administration Glucagon 1 mg 04/27/25 08:27 Glucagon For Inj 1 Mg Vial IM PRN PRN Hypoglycemia Protocol Glucose 15 gm 04/27/25 08:27 Glucose Oral Gel 15 Gm Of Glucse In 37.5 Gm Tube PO PRN PRN Hypoglycemia Protocol Dextrose 1,000 mls @ 50 mls/hr 04/26/25 13:47 Dextrose 10% IV CONT .Q20H PRN if PN is interrupted Dextrose 1,000 mls @ 100 mls/hr 04/27/25 08:27 Dextrose 5% 1,000 Ml IVPB PRN PRN Hypoglycemia Protocol Cefazolin Sodium 2 gm/ Sodium 50 mls @ 100 mls/hr 04/30/25 18:00 05/11/25 17:34 Chloride IVPB Infused Q12H ZHANNA Infusion Multivitamins 1.25 ml/ 1,002.5 mls @ 70 mls/hr 05/05/25 20:00 Multivitamins 1.25 ml/ Amino IV CONT Acids/Electrolytes/Dextrose MoWeFr@2000 [facility] On Hold: 05/05/25 20:00 Protocol Daptomycin 500 mg/ Sodium 50 mls @ 100 mls/hr 05/05/25 16:00 05/11/25 17:09 Chloride IVPB Infused Q48H ZHANNA Infusion Dextrose/Sodium Chloride 1,000 mls @ 60 mls/hr 05/06/25 14:10 05/11/25 17:33 Dextrose 5% Sodium Chloride 0.9% IV CONT 60 mls/hr .[id number] [facility] Infusion Insulin Aspart 1 - 2 units 04/27/25 21:00 05/10/25 21:24 Insulin Aspart (*Bkc) 100 Units/Ml SUB-Q Not Given HS [facility] Protocol Insulin Aspart 2 - 5 units 04/27/25 12:00 05/11/25 16:37 Insulin Aspart (*Bkc) 100 Units/Ml SUB-Q Not Given TIDWM [facility] Protocol Miscellaneous Information 0 each 05/07/25 00:01 05/07/25 18:13 Please Enter Order For Patient To Take Home Vitamin D 49336 Units. XX 06/06 00:00 Not Given On Hold: 05/07/25 17:30 CLARIFY ZHANNA Nonformulary Drug 3 tab 05/07/25 17:00 05/11/25 16:38 Coral Calcium Plus PO 06/06/25 16:59 3 tab Plant Enzymes BID ZHANNA Administration Nonformulary Drug 0 units 05/08/25 09:00 05/11/25 08:53 Vitamin A 25,000 PO 06/07/25 08:59 25,000 units Units DAILY ZHANNA Administration Sodium Bicarbonate 1,300 mg 05/08/25 09:00 05/11/25 16:38 Sodium Bicarbonate Tab 650 Mg Tablet PO 1,300 mg BID ZHANNA Administration Sodium Chloride 10 ml 04/29/25 14:00 05/11/25 13:04 Central Line Flush IV PUSH 10 ml Q8HR ZHANNA Administration Sodium Chloride 10 ml 04/29/25 07:58 Central Line Flush IV PUSH PRN PRN with TPN bag changes Sodium Chloride 20 ml 04/29/25 07:58 05/11/25 05:50 Central Line Flush IV PUSH 20 ml PRN PRN Administration after blood draws Trazodone HCl 25 mg 05/01/25 21:00 05/10/25 23:05 Trazodone Hcl 25 Mg Tablet PO 25 mg HS ZHANNA Administration Radiology Results: ITS Impressions Chest X-Ray 04/25/25 18:06 Impression: 1: Diffuse bilateral interstitial infiltrates which may represent edema or atypical pneumonia. Head CT 04/25/25 20:26 IMPRESSION: 1. No acute intracranial abnormality. Chest/Abdomen/Pelvis CT 04/25/25 20:28 IMPRESSION: 1. Focal consolidation right lower lobe, suspicious for pneumonia. 2: Increased size of ascending thoracic aortic aneurysm measuring 4.8 cm. 3: Splenomegaly. 4: Stable sclerotic lesions or spine and pelvis, suspicious for stable osseous metastases. Correlate for history of malignancy. Renal Ultrasound 05/03/25 18:21 IMPRESSION: 1. A couple small right renal cysts. No hydronephrosis. 2. Status post left nephrectomy. Labs Labs: Laboratory Tests 05/11/25 05:55 WBC 10.2 H Hgb 8.0 L Hct 25.6 L Plt Count 99 L Sodium 136 L Potassium 4.4 Chloride 112 H Carbon Dioxide 19 L Anion Gap 5 BUN 25 H Creatinine 2.79 H Estim Creat Clear Calc 18 Estimated GFR 22 L Glucose 93 Calcium 8.0 L Phosphorus 3.3 Magnesium 1.6 Albumin 2.9 L Microbiology 05/05/25 04:46 Blood Blood Culture - Final 05/05/25 05:01 Blood Blood Culture - Final Staphylococcus aureus 05/07/25 04:32 Blood Blood Culture - Preliminary 05/07/25 04:32 Blood Blood Culture - Preliminary
--- NOTE | 2025-05-11 14:18 | PM.IMPN ---
Progress Note: A&P Assessment and Plan (1) Hyperkalemia: Code(s): E87.5 - Hyperkalemia Status: Acute Assessment and Plan: Potassium was elevated to 6.6 treated appropriately with improvement. TSH normal. Cortisol normal. Cozaar stopped. TPN held Lokelma started and Potassium better Lokelma stopped. Potassium remains normal. Nephrology consulted and appreciate their input. Oral bicarb started. Follow potassium level. Continue low potassium diet. Continue oral bicarb. Follow closely. (2) Sepsis: Qualifiers: Sepsis acute organ dysfunction status: unspecified Sepsis type: sepsis due to unspecified organism Qualified Code(s): A41.9 - Sepsis, unspecified organism Code(s): A41.9 - Sepsis, unspecified organism Status: Acute Assessment and Plan: Secondary to pneumonia and/or bacteremia. Blood cultures growing oxacillin sensitive Staph aureus. Continue with IV antibiotic ID consulted and appreciate their input. Leukocytosis continues to improve. Appreciate ID recommendations. We are still monitoring blood cultures from 05/07/2025 which are negative to date from 3 bottles. Continue cefazolin, daptomycin. And discharged home once we have final antibiotic recommendations in place. The patient has manage TPN at home as well as IV antibiotics before he is confident he can do so again. (3) Bacteremia: Code(s): R78.81 - Bacteremia Status: Acute Assessment and Plan: Possible source PNA versus central line. BCx 04/25 4/4 positive for DANE BCx 04/27 1/3 positive for DANE BCx 05/01 1/2 positive for DANE in one of the aerobic bottles BCx 05/05 1/4 positive for gram positive cocci. BCx 05/07 NGTD Started Vancomycin but now discontinued. Abx switched to Ancef Attempting line salvage since very limited option for IV access No fevers. WBC stable at 11-14K Cardiology consulted and appreciate their input. TTE 05/01 with no endocarditis. TIMUR 05/05 again showing no vegetations. Discussed with ID: Daptomycin added (05/05) Spoke with Kyree 05/05 about transfer for central line exchange but they felt that since patient does not have great options for line exchange, they recommended continuing current plan. If BCx drawn 05/07 return positive despite Daptomycin, then transfer to [place] for line exchange. Continue Ancef and Dapto. Monitor BCx results. Monitor WBC. (4) Pneumonia: Qualifiers: Laterality: right Lung location: lower lobe of lung Pneumonia type: due to unspecified organism Qualified Code(s): J18.9 - Pneumonia, unspecified organism Code(s): J18.9 - Pneumonia, unspecified organism Status: Acute Assessment and Plan: CT of chest showing focal consolidation in the RLL. Bedside swallow evaluation showing no concerns As above (5) CKD (chronic kidney disease): Qualifiers: Chronic kidney disease stage: unspecified stage Qualified Code(s): N18.9 - Chronic kidney disease, unspecified Code(s): N18.9 - Chronic kidney disease, unspecified Status: Acute Assessment and Plan: Patient s/p left nephrectomy. Baseline creatinine 2.9 but worsened to 3.6 Complement normal. Urine eos negative. Prot/Cr ratio 2.3gm. FENa 0.7%. TPN stopped. Started IV fluids. Oral bicarb added. Serum creatinine and bicarb are improving. Currently on D5 normal saline at 60 cc/hour. Continue oral bicarb. Defer to Nephrology for fluid and acid-base management. Appreciate recommendations. (6) On total parenteral nutrition (TPN): Code(s): Z78.9 - Other specified health status Status: Acute Assessment and Plan: Patient on chronic TPN use related to gastrectomy. Takes TPN 4x/week. Dietitian on board. TPN on hold because can't remove potassium from TPN Continue to monitor. He is eating 90% to 100% of his meals. Patient does not think he needs TPN at this time. (7) Hyponatremia: Code(s): E87.1 - Hypo-osmolality and hyponatremia Status: Acute Assessment and Plan: TSH and cortisol okay. Cosyntropin test showing peak cortisol >18 which is an appropriate response. Nephrology following Monitor for now (8) AMS (altered mental status): Qualifiers: Altered mental status type: unspecified Qualified Code(s): R41.82 - Altered mental status, unspecified Code(s): R41.82 - Altered mental status, unspecified Status: Acute Assessment and Plan: Patient with episode of confusion Head CT showing no acute process. TSH, B12, folate levels okay Probably related to bacteremia. Mental status back to baseline, continue to monitor. (9) Anemia: Code(s): D64.9 - Anemia, unspecified Status: Acute Assessment and Plan: Acute on chronic anemia. Hgb low but stable in the 8-9 range. B12, folate normal. Iron studies consistent with iron deficiency. Related to poor dietary iron absorption? Hgb dropped to 7.6 but may have been drawn out of the line. Transfuse if Hgb<7 to a stable Hgb. IV iron when okay with others and BCx clear Continue to monitor. (10) NSVT (nonsustained ventricular tachycardia): Code(s): I47.29 - Other ventricular tachycardia Status: Acute Assessment and Plan: Patient with 2 runs of NSVT on 05/05. Potassium 5. Mag >2. Echo as above. Recurrence of narrow complex probably SVT. Monitor on tele. Magnesium 1.6 on 05/11/2025, giving 2 g rider. Plan Thrombocytopenia - Platelet count 70-90K past few yrs. Plt count 47K on admission and dropped to 33K before rebounding back up to 70K range. [place] drop related to sepsis. Etiology of chronic TCP unclear. Follow DM2 - A1c 5.6%. Diet controlled. The patient's blood glucose was reviewed Glucose remains well controlled. Continue AccuCheks covering with sliding scale. Hypoglycemia protocol available as needed. 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 Eating okay here. Manager Book following Monitor calorie intake off TPN Thyroid carcinoma - status post partial thyroid resection Not on levothyroxine TSH okay. 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 No obvious evidence of dumping. 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 Contributing to his CKD D5 normal saline at 60 cc/hour. DVT prophylaxis - SCDs. Lovenox discontinued due to anemia. Can resume pharmacological prophylaxis if hemoglobin remains stable and no overt bleeding. Code status - full code. Subjective Date/time seen: 05/11/25 14:18 Interval history: No major acute overnight events. Patient reports eating his full meals without any complications. Review of Systems Review of Systems: All systems reviewed & are unremarkable except as noted in HPI and below (Subjective) Exam Const: General: comfortable and no acute distress Eyes: Pupils: Equal, round and reactive pupils present Neck: Neck: supple Resp: Effort & Inspection: normal respiratory effort Auscultation: clear to auscultation bilaterally Cardio: Rate: regular rate Rhythm: regular rhythm Heart sounds: no murmurs GI: Inspection: non-distended GI Palp: Yes Soft to palpation Other: Loose brown stool in ostomy bag Extrem: General: no edema Objective Data Vital Signs Vital Signs: Vital Signs - 24 hr 05/10/25 14:23 05/10/25 16:04 05/10/25 20:00 Temperature 97.6 F Pulse Rate 86 71 Respiratory Rate 18 Blood Pressure 156/81 H Pulse Oximetry 100 Oxygen Delivery Room Air 05/10/25 20:00 05/10/25 21:21 05/11/25 00:00 Temperature 98.0 F Pulse Rate 72 70 81 Respiratory Rate 16 Blood Pressure 152/89 H Pulse Oximetry 100 Oxygen Delivery 05/11/25 04:00 05/11/25 05:41 05/11/25 08:00 Temperature 97.7 F Pulse Rate 76 82 90 Respiratory Rate 14 Blood Pressure 139/74 Pulse Oximetry 97 Oxygen Delivery 05/11/25 08:58 05/11/25 12:00 Temperature Pulse Rate 76 Respiratory Rate 16 Blood Pressure Pulse Oximetry 97 Oxygen Delivery Room Air Intake/Output Intake/Output: Intake & Output 05/08/25 05/09/25 05/10/25 05/11/25 23:59 23:59 23:59 23:59 Intake Total 2635 3000 3014 1396 Output Total 2300 1225 3225 Balance 335 1775 -211 1396 Meds/Results Medications: Active Medications Generic Name Dose Route Start Last Admin Trade Name Freq PRN Reason Stop Dose Admin Acetaminophen 650 mg 04/25/25 22:50 Acetaminophen 650 Mg Suppository RECTAL Q6H PRN Mild Pain (1-3) or Fever Acetaminophen 650 mg 05/06/25 00:58 05/06/25 01:09 Acetaminophen 325 Mg Tablet PO 650 mg Q4H PRN Administration Mild Pain (1-3) or Fever Allopurinol 100 mg 04/27/25 09:00 05/11/25 08:52 Allopurinol 100 Mg Tablet PO 100 mg DAILY ZHANNA Administration Cyanocobalamin 1,000 mcg 05/26/25 09:00 Cyanocobalamin Inj 1,000 Mcg/Ml Vial IM MONTHLY [facility] Cyclobenzaprine HCl 10 mg 04/26/25 13:46 05/10/25 23:05 Cyclobenzaprine Hcl 10 Mg Tablet PO 10 mg TID PRN Administration Muscle Spasm Dextrose 12.5 gm 04/27/25 08:27 Dextrose 50% 25 Gm/50 Ml Syringe IV PUSH PRN PRN Hypoglycemia Protocol Epoetin Vic-epbx 10,000 units 05/06/25 10:55 05/11/25 08:56 Epoetin Vic-Epbx 10,000 Units/Ml Vial SUB-Q 10,000 units [id number]@09 [facility] Administration Finasteride 5 mg 04/27/25 09:00 05/11/25 08:52 Finasteride 5 Mg Tablet PO 5 mg DAILY ZHANNA Administration Folic Acid 1 mg 04/27/25 09:00 05/11/25 08:52 Folic Acid 1 Mg Tablet PO 1 mg DAILY ZHANNA Administration Glucagon 1 mg 04/27/25 08:27 Glucagon For Inj 1 Mg Vial IM PRN PRN Hypoglycemia Protocol Glucose 15 gm 04/27/25 08:27 Glucose Oral Gel 15 Gm Of Glucse In 37.5 Gm Tube PO PRN PRN Hypoglycemia Protocol Dextrose 1,000 mls @ 50 mls/hr 04/26/25 13:47 Dextrose 10% IV CONT .Q20H PRN if PN is interrupted Dextrose 1,000 mls @ 100 mls/hr 04/27/25 08:27 Dextrose 5% 1,000 Ml IVPB PRN PRN Hypoglycemia Protocol Cefazolin Sodium 2 gm/ Sodium 50 mls @ 100 mls/hr 04/30/25 18:00 05/11/25 05:49 Chloride IVPB 100 mls/hr Q12H ZHANNA Administration Multivitamins 1.25 ml/ 1,002.5 mls @ 70 mls/hr 05/05/25 20:00 Multivitamins 1.25 ml/ Amino IV CONT Acids/Electrolytes/Dextrose [id number] [facility] On Hold: 05/05/25 20:00 Protocol Daptomycin 500 mg/ Sodium 50 mls @ 100 mls/hr 05/05/25 16:00 05/09/25 15:28 Chloride IVPB 100 mls/hr Q48H ZHANNA Administration Dextrose/Sodium Chloride 1,000 mls @ 60 mls/hr 05/06/25 14:10 05/11/25 02:18 Dextrose 5% Sodium Chloride 0.9% IV CONT 60 mls/hr .[id number] ZHANNA Administration Insulin Aspart 1 - 2 units 04/27/25 21:00 05/10/25 21:24 Insulin Aspart (*Bkc) 100 Units/Ml SUB-Q Not Given HS ZHANNA Protocol Insulin Aspart 2 - 5 units 04/27/25 12:00 05/11/25 11:45 Insulin Aspart (*Bkc) 100 Units/Ml SUB-Q Not Given TIDWM ZHANNA Protocol Miscellaneous Information 0 each 05/07/25 00:01 05/07/25 18:13 Please Enter Order For Patient To Take Home Vitamin D 63163 Units. XX 06/06/25 00:00 Not Given On Hold: 05/07/25 17:30 CLARIFY ZHANNA Nonformulary Drug 3 tab 05/07/25 17:00 05/11/25 08:53 Coral Calcium Plus PO 06/06/25 16:59 3 tab Plant Enzymes BID ZHANNA Administration Nonformulary Drug 0 units 05/08/25 09:00 05/11/25 08:53 Vitamin A 25,000 PO 06/07/25 08:59 25,000 units Units DAILY ZHANNA Administration Sodium Bicarbonate 1,300 mg 05/08/25 09:00 05/11/25 08:52 Sodium Bicarbonate Tab 650 Mg Tablet PO 1,300 mg BID ZHANNA Administration Sodium Chloride 10 ml 04/29/25 14:00 05/11/25 13:04 Central Line Flush IV PUSH 10 ml Q8HR ZHANNA Administration Sodium Chloride 10 ml 04/29/25 07:58 Central Line Flush IV PUSH PRN PRN with TPN bag changes Sodium Chloride 20 ml 04/29/25 07:58 05/11/25 05:50 Central Line Flush IV PUSH 20 ml PRN PRN Administration after blood draws Trazodone HCl 25 mg 05/01/25 21:00 05/10/25 23:05 Trazodone Hcl 25 Mg Tablet PO 25 mg HS ZHANNA Administration Radiology Results: ITS Impressions Chest X-Ray 04/25/25 18:06 Impression: 1: Diffuse bilateral interstitial infiltrates which may represent edema or atypical pneumonia. Head CT 04/25/25 20:26 IMPRESSION: 1. No acute intracranial abnormality. Chest/Abdomen/Pelvis CT 04/25/25 20:28 IMPRESSION: 1. Focal consolidation right lower lobe, suspicious for pneumonia. 2: Increased size of ascending thoracic aortic aneurysm measuring 4.8 cm. 3: Splenomegaly. 4: Stable sclerotic lesions or spine and pelvis, suspicious for stable osseous metastases. Correlate for history of malignancy. Renal Ultrasound 05/03/25 18:21 IMPRESSION: 1. A couple small right renal cysts. No hydronephrosis. 2. Status post left nephrectomy. Labs Labs: Laboratory Results - last 24 hr 05/10/25 05/10/25 05/11/25 16:24 21:20 05:55 WBC 10.2 H RBC 3.06 L Hgb 8.0 L Hct 25.6 L MCV 83.7 MCH 26.1 MCHC 31.3 L RDW 14.8 H Plt Count 99 L MPV 10.4 Immature Gran % (Auto) 1.0 H Neut % (Auto) 84.5 H Lymph % (Auto) 9.6 L Dale % (Auto) 3.4 Eos % (Auto) 1.0 Baso % (Auto) 0.5 Lymph # (Auto) 0.98 Dale # (Auto) 0.4 Eos # (Auto) 0.1 Baso # (Auto) 0.1 Abs Immat Gran (auto) 0.10 H Absolute Neuts (auto) 8.6 H Absolute Nucleated RBC 0.000 Nucleated RBC % 0.0 % Immature Plt Fraction 3.6 Sodium 136 L Potassium 4.4 Chloride 112 H Carbon Dioxide 19 L Anion Gap 5 BUN 25 H Creatinine 2.79 H Estim Creat Clear Calc 18 Estimated GFR 22 L Glucose 93 POC Capillary Glucose 98 85 Calcium 8.0 L Phosphorus 3.3 Magnesium 1.6 Albumin 2.9 L 05/11/25 05/11/25 05/11/25 05:56 07:42 11:39 WBC RBC Hgb Hct MCV MCH MCHC RDW Plt Count MPV Immature Gran % (Auto) Neut % (Auto) Lymph % (Auto) Dale % (Auto) Eos % (Auto) Baso % (Auto) Lymph # (Auto) Dale # (Auto) Eos # (Auto) Baso # (Auto) Abs Immat Gran (auto) Absolute Neuts (auto) Absolute Nucleated RBC Nucleated RBC % % Immature Plt Fraction Sodium Cancelled Potassium Cancelled Chloride Cancelled Carbon Dioxide Cancelled Anion Gap Cancelled BUN Cancelled Creatinine Cancelled Estim Creat Clear Calc Cancelled Estimated GFR Cancelled Glucose Cancelled POC Capillary Glucose 96 86 Calcium Cancelled Phosphorus Magnesium Cancelled Albumin
[2025-05-11] MEDS: MAGNESIUM SULF 2 GM/WATER 50ML 2 GM/50 ML BAG IVPB (14:43)
[2025-05-11] MEDS: DAPTOmycin 500 MG in SODIUM CHLORIDE 0.9% IV 50 ML 100 MG IVPB (16:39)
[2025-05-11] MEDS: CYCLOBENZAPRINE HCL 10 MG TABLET PO (22:51)
[2025-05-12] VITALS (9 sets, daily range): BP systolic 145–149; BP diastolic 81–84; PULSE 75–94; RESP 14–16; TEMP 36.8; O2SAT 99–100
[2025-05-12] MEDS: ceFAZolin 2 GM in SODIUM CHLORIDE 0.9% IV 50 ML 100 ML IVPB ×2 (05:36→17:03)
[2025-05-12] MEDS: CENTRAL LINE FLUSH 10 ML IV PUSH ×3 (05:42→23:39)
[2025-05-12 05:48] LABS: Hematocrit 25.9 % (42.0-52.0); Hemoglobin 8.1 g/dL (14.0-18.0); Immature Granulocyte Percent A 1.2 % (0-0.5); Lymphocytes Absolute Auto 0.92 K/mm3 (0.9-3.2); Mean Corpuscular HGB Conc 31.3 g/dl (32-36); Mean Corpuscular Hemoglobin 25.9 pg (26-34); Mean Corpuscular Volume 82.7 fl (80-100); Nucleated Red Blood Cells Absolute Auto 0.000 K/mm3 (0.0-0.012); Nucleated Red Blood Cells Perc 0.0 % (0.0-0.2); Platelet Count Result 105 k/mm3 (150-375); Red Blood Count 3.13 M/mm3 (4.6-6.20); White Blood Count 9.5 K/mm3 (4.5-10.0)
[2025-05-12 05:59] LABS: Albumin Level 2.8 g/dL (3.5-5.1); Anion Gap 5 mmol/L (4-12); Blood Urea Nitrogen 21 mg/dL (9-20); Calcium 7.9 mg/dL (8.4-10.2); Carbon Dioxide 19 mmol/L (22-30); Chloride 111 mmol/L (98-107); Creatine Kinase 23 U/L (55-170); Estimated CRCL calculation 18 ml/min; Estimated Glomerular Filt Rate 23; Glucose 89 mg/dL (65-110); Magnesium 1.9 mg/dL (1.6-2.3); Potassium 4.4 mmol/L (3.4-5.0); Sodium 135 mmol/L (137-145)
[2025-05-12] MEDS: SODIUM BICARBONATE TAB 650 MG TABLET 1300 MG PO ×2 (08:28→16:33)
[2025-05-12] MEDS: FINASTERIDE 5 MG TABLET PO (08:28)
[2025-05-12] MEDS: FOLIC ACID 1 MG TABLET PO (08:28)
[2025-05-12] MEDS: [UNRECOGNIZED DRUG - OTHER] PO (08:29)
[2025-05-12] MEDS: VITAMIN A 25000 UNIT PO (08:29)
[2025-05-12] MEDS: [UNRECOGNIZED DRUG - OTHER] 3 EACH PO ×2 (08:29→16:34)
--- NOTE | 2025-05-12 11:01 | PCNFU ---
Nutrition Follow-Up Complete: Inability to meet nutrition needs PO related to altered GI function as evidenced by need for full TPN Meet estimated nutrition needs Goal: Pt current nutrition is DBCC with diet supplements. Last recorded weight is 75.1 kg, up from 74.7 kg on admit. Bowel Motility: Last reported BM 05/11 Labs Reviewed:Cr 2.73, BUN 21, Alb 2.8, Na 135 Meds Noted:NovoLog, B12, Folic Acid. Skin: WNL Additional Notes: Patient is eating > 75% of diabetic diet. 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 TPN has been on hold since 05/05. We do have an option of Clinimix solution with no electrolytes that we can be ordered for additional kcal and protein needs if MD wishes to restart TPN. Monitoring intakes, weights, labs, TPN tolerance, plan of care Follow up Thursday/Thursday.
--- NOTE | 2025-05-12 11:04 | P.PNINF_ITS ---
Progress Note: A&P Assessment and Plan (1) MSSA bacteremia: Code(s): R78.81 - Bacteremia; B95.61 - Methicillin susceptible Staphylococcus aureus infection as the cause of diseases classified elsewhere Status: Acute (2) CLABSI (central line-associated bloodstream infection): Code(s): T80.211A - Bloodstream infection due to central venous catheter, initial encounter Status: Acute (3) On total parenteral nutrition (TPN): Code(s): Z78.9 - Other specified health status Status: Acute (4) CKD (chronic kidney disease): Qualifiers: Chronic kidney disease stage: unspecified stage Qualified Code(s): N18.9 - Chronic kidney disease, unspecified Code(s): N18.9 - Chronic kidney disease, unspecified Status: Acute (5) Sepsis: Qualifiers: Sepsis acute organ dysfunction status: unspecified Sepsis type: sepsis due to unspecified organism Qualified Code(s): A41.9 - Sepsis, unspecified organism Code(s): A41.9 - Sepsis, unspecified organism Status: Acute Plan # MSSA bacteremia present on admission. Likely secondary to longstanding PICC ( CLABSI ). -- blood cultures positive through 05/05 and before daptomycin was added to cefazolin later that day. 05/07 blood cultures obtained while patient was receiving both daptomycin and cefazolin are still being reported as negative at 48 hours. -- TIMUR performed 05/05 negative for vegetations. # Chronic PICC use for supplemental TPN in the setting of distal esophageal and total gastrectomy. -- History of prior PICC CLABSI's. -- may have limited access sites for new PICC placement. Attempting line salvage with the addition of daptomycin to cefazolin. However, if most recent blood culture from 05/07 again positive will need to proceed toward line change. 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 # Chronic kidney disease stage 4. Plan: -- continue cefazolin 2 g IV q.12 hours and daptomycin 500 mg IV Q 48 hours. -- monitor blood cultures from 05/07 which are negative to date. -- if 05/07 blood cultures finalized as negative would continue with daptomycin Q 48 hours through 05/20/2025. -- if 05/07 blood cultures finalized as negative would discontinue cefazolin and begin oral cephalexin 1 g q.12 hours through 06/03/2025. -- Note:typically, staphylococcus aureus-associated CLABSI warrants line removal and replacement. This has been delayed pending response to therapy given patient's report of limited further access sites. Continue to attempt line salvage as long as 05/07 blood cultures finalized as negative. This approach has been supported by his physicians at [facility]. Patient was seen via video telehealth consultation with the assistance of staff. Chart, data, and patient independently reviewed. Patient was located at [facility] while I was located in my [place] office. Received verbal consent from patient. Subjective Date/time seen: 05/12/25 11:04 Interval history: 05/02/2025: afebrile and with stable vital signs. Repeat blood cultures pendin slime ramsay at bedside and confirms patient's prior CLABSI's have involved multiple organisms over time. However, last line infection appears to also have involved MSSA in December or January and PICC was changed at that time. 05/03/2025: No new complaints today. 05/01 blood cultures reported as preliminarily negative. 05/04/2025: Afebrile with resolving leukocytosis. 05/01 blood cultures negative at 24 hours. Feels better. 05/05/2025: Afebrile. Slight increase in white blood cell count. Most recent blood culture performed 05/01 now with report of delayed growth Staph coccus aureus in 1 of 2 bottles. the plan 05/09/2025: Afebrile and feels better. Still with low-grade leukocytosis. Blood cultures reported as negative to date as of 05/05. Due to known limited access sites with this patient, [facility] is in agreement with attempting line salvage at this time. 05/10/2025: Afebrile with normal white blood cell count. 05/05 blood culture again positive via delayed growth in 1/3 bottles for MSSA. Note: Blood cultures were drawn in the block layer of 05/05 and before daptomycin was added to cefazolin later that day. 05/11/2025: Afebrile with white blood cell count decreased to 10.2. Blood cultures from 05/07 still being reported as negative at 48 hours. 05/12/2025: Afebrile with normal white blood cell count. Creatinine remains II 0.73. Still awaiting further information on 05/07 blood cultures. Blood cultures 04/25: Positive MSSA In multiple bottles. Blood cultures 04/27: Positive MSSA in 1/4 bottles. Blood cultures 05/01: delayed positive growth of MSSA in 1 of 3 bottles. Blood cultures 05/05: Delayed positive growth of MSSA in 1 of 3 bottles. Blood cultures 05/07: Negative at 48 hours reported in 3/3 bottles. Review of Systems Review of Systems: No new complaints. No pain to left chest PICC site. All systems reviewed & are unremarkable except as noted in HPI and below Exam Narrative: Awake and alert and interactive. Normocephalic and without conjunctivitis. Nonlabored respirations. Abdomen without significant distention. No rash. Left upper chest PICC site without inflammation. Objective Data Vital Signs Vital Signs: Vital Signs - 24 hr 05/11/25 12:00 05/11/25 14:00 05/11/25 16:09 Temperature 98.0 F Pulse Rate 76 78 70 Respiratory Rate 14 Blood Pressure 146/79 H Pulse Oximetry 100 Oxygen Delivery 05/11/25 20:00 05/11/25 20:00 05/11/25 21:20 Temperature 97.5 F L Pulse Rate 68 72 Respiratory Rate 16 Blood Pressure 154/81 H Pulse Oximetry 100 Oxygen Delivery Room Air 05/11/25 21:48 05/12/25 00:00 05/12/25 04:00 Temperature Pulse Rate 76 94 Respiratory Rate Blood Pressure Pulse Oximetry 99 Oxygen Delivery Room Air 05/12/25 08:03 05/12/25 08:32 Temperature Pulse Rate 92 92 Respiratory Rate 16 Blood Pressure Pulse Oximetry 99 Oxygen Delivery Room Air Intake/Output Intake/Output: Intake & Output 05/09/25 05/10/25 05/11/25 05/12/25 23:59 23:59 23:59 23:59 Intake Total 3050 3014 2956 490 Output Total 1220 0059 1950 1600 Balance 1825 -211 1006 1110 Meds/Results Medications: Active Medications Generic Name Dose Route Start Last Admin Trade Name Freq PRN Reason Stop Dose Admin Acetaminophen 650 mg 04/25/25 22:50 Acetaminophen 650 Mg Suppository RECTAL Q6H PRN Mild Pain (1-3) or Fever Acetaminophen 650 mg 05/06/25 00:58 05/06/25 01:09 Acetaminophen 325 Mg Tablet PO 650 mg Q4H PRN Administration Mild Pain (1-3) or Fever Allopurinol 100 mg 04/27/25 09:00 05/12/25 08:28 Allopurinol 100 Mg Tablet PO 100 mg DAILY ZHANNA Administration Cyanocobalamin 1,000 mcg 05/26/25 09:00 Cyanocobalamin Inj 1,000 Mcg/Ml Vial IM MONTHLY ZHANNA Cyclobenzaprine HCl 10 mg 04/26/25 13:46 05/11/25 22:51 Cyclobenzaprine Hcl 10 Mg Tablet PO 10 mg TID PRN Administration Muscle Spasm Dextrose 12.5 gm 04/27/25 08:27 Dextrose 50% 25 Gm/50 Ml Syringe IV PUSH PRN PRN Hypoglycemia Protocol Epoetin Vic-epbx 10,000 units 05/06/25 10:55 05/11/25 08:56 Epoetin Vic-Epbx 10,000 Units/Ml Vial SUB-Q 10,000 units TUTHSA@09 ZHANNA Administration Finasteride 5 mg 04/27/25 09:00 05/12/25 08:28 Finasteride 5 Mg Tablet PO 5 mg DAILY ZHANNA Administration Folic Acid 1 mg 04/27/25 09:00 05/12/25 08:28 Folic Acid 1 Mg Tablet PO 1 mg DAILY ZHANNA Administration Glucagon 1 mg 04/27/25 08:27 Glucagon For Inj 1 Mg Vial IM PRN PRN Hypoglycemia Protocol Glucose 15 gm 04/27/25 08:27 Glucose Oral Gel 15 Gm Of Glucse In 37.5 Gm Tube PO PRN PRN Hypoglycemia Protocol Dextrose 1,000 mls @ 50 mls/hr 04/26/25 13:47 Dextrose 10% IV CONT .Q20H PRN if PN is interrupted Dextrose 1,000 mls @ 100 mls/hr 04/27/25 08:27 Dextrose 5% 1,000 Ml IVPB PRN PRN Hypoglycemia Protocol Cefazolin Sodium 2 gm/ Sodium 50 mls @ 100 mls/hr 04/30/25 18:00 05/12/25 06:06 Chloride IVPB Infused Q12H ZHANNA Infusion Multivitamins 1.25 ml/ 1,002.5 mls @ 70 mls/hr 05/05/25 20:00 Multivitamins 1.25 ml/ Amino IV CONT Acids/Electrolytes/Dextrose [id number] ZHANNA On Hold: 05/05/25 20:00 Protocol Daptomycin 500 mg/ Sodium 50 mls @ 100 mls/hr 05/05/25 16:00 05/11/25 17:09 Chloride IVPB Infused Q48H ZHANNA Infusion Dextrose/Sodium Chloride 1,000 mls @ 60 mls/hr 05/06/25 14:10 05/11/25 20:13 Dextrose 5% Sodium Chloride 0.9% IV CONT 60 mls/hr .[id number] ZHANNA Administration Insulin Aspart 1 - 2 units 04/27/25 21:00 05/11/25 20:16 Insulin Aspart (*Bkc) 100 Units/Ml SUB-Q Not Given HS [facility] Protocol Insulin Aspart 2 - 5 units 04/27/25 12:00 05/12/25 07:45 Insulin Aspart (*Bkc) 100 Units/Ml SUB-Q Not Given TIDWM [facility] Protocol Miscellaneous Information 0 each 05/07/25 00:01 05/07/25 18:13 Please Enter Order For Patient To Take Home Vitamin D 98108 Units. XX 06/06/25 00:00 Not Given On Hold: 05/07/25 17:30 CLARIFY ZHANNA Nonformulary Drug 3 tab 05/07/25 17:00 05/12/25 08:29 Coral Calcium Plus PO 06/06/25 16:59 3 tab Plant Enzymes BID ZHANNA Administration Nonformulary Drug 0 units 05/08/25 09:00 05/12/25 08:29 Vitamin A 25,000 PO 06/07/25 08:59 25,000 units Units DAILY ZHANNA Administration Sodium Bicarbonate 1,300 mg 05/08/25 09:00 05/12/25 08:28 Sodium Bicarbonate Tab 650 Mg Tablet PO 1,300 mg BID ZHANNA Administration Sodium Chloride 10 ml 04/29/25 14:00 05/12/25 05:42 Central Line Flush IV PUSH 10 ml Q8HR ZHANNA Administration Sodium Chloride 10 ml 04/29/25 07:58 Central Line Flush IV PUSH PRN PRN with TPN bag changes Sodium Chloride 20 ml 04/29/25 07:58 05/11/25 05:50 Central Line Flush IV PUSH 20 ml PRN PRN Administration after blood draws Trazodone HCl 25 mg 05/01/25 21:00 09/04/25 22:51 Trazodone Hcl 25 Mg Tablet PO 25 mg HS ZHANNA Administration Radiology Results: ITS Impressions Chest X-Ray 04/25/25 18:06 Impression: 1: Diffuse bilateral interstitial infiltrates which may represent edema or atypical pneumonia. Head CT 04/25/25 20:26 IMPRESSION: 1. No acute intracranial abnormality. Chest/Abdomen/Pelvis CT 04/25/25 20:28 IMPRESSION: 1. Focal consolidation right lower lobe, suspicious for pneumonia. 2: Increased size of ascending thoracic aortic aneurysm measuring 4.8 cm. 3: Splenomegaly. 4: Stable sclerotic lesions or spine and pelvis, suspicious for stable osseous metastases. Correlate for history of malignancy. Renal Ultrasound 05/03/25 18:21 IMPRESSION: 1. A couple small right renal cysts. No hydronephrosis. 2. Status post left nephrectomy. Labs Labs: Laboratory Results - last 24 hr 05/11/25 05/11/25 05/11/25 11:39 16:30 20:15 WBC RBC Hgb Hct MCV MCH MCHC RDW Plt Count MPV Immature Gran % (Auto) Neut % (Auto) Lymph % (Auto) [place] % (Auto) Eos % (Auto) Baso % (Auto) Lymph # (Auto) [place] # (Auto) Eos # (Auto) Baso # (Auto) Abs Immat Gran (auto) Absolute Neuts (auto) Absolute Nucleated RBC Nucleated RBC % Sodium Potassium Chloride Carbon Dioxide Anion Gap BUN Creatinine Estim Creat Clear Calc Estimated GFR Glucose POC Capillary Glucose 86 105 95 Calcium Phosphorus Magnesium Total Creatine Kinase Albumin 05/12/25 05/12/25 05:36 07:43 WBC 9.5 RBC 3.13 L Hgb 8.1 L Hct 25.9 L MCV 82.7 MCH 25.9 L MCHC 31.3 L RDW 14.8 H Plt Count 105 L MPV 11.3 H Immature Gran % (Auto) 1.2 H Neut % (Auto) 83.7 H Lymph % (Auto) 9.7 L [place] % (Auto) 3.9 Eos % (Auto) 1.2 Baso % (Auto) 0.3 Lymph # (Auto) 0.92 [place] # (Auto) 0.4 Eos # (Auto) 0.1 Baso # (Auto) 0.0 Abs Immat Gran (auto) 0.11 H Absolute Neuts (auto) 8.0 H Absolute Nucleated RBC 0.000 Nucleated RBC % 0.0 Sodium 135 L Potassium 4.4 Chloride 111 H Carbon Dioxide 19 L Anion Gap 5 BUN 21 H Creatinine 2.73 H Estim Creat Clear Calc 18 Estimated GFR 23 L Glucose 89 POC Capillary Glucose 87 Calcium 7.9 L Phosphorus 3.1 Magnesium 1.9 Total Creatine Kinase 23 L Albumin 2.8 L
[2025-05-12] MEDS: DEXTROSE 5%/0.9% SOD CHL 1,000 ML 60 ML IV CONT (12:33)
--- NOTE | 2025-05-12 12:44 | P.PNIM_ITS ---
Progress Note: A&P Assessment and Plan (1) Hyperkalemia: Code(s): E87.5 - Hyperkalemia Status: Acute Assessment and Plan: Potassium was elevated to 6.6 treated appropriately with improvement. TSH normal. Cortisol normal. Cozaar stopped. TPN held Lokelma started and Potassium better Lokelma stopped. Potassium remains normal. Nephrology consulted and appreciate their input. Oral bicarb started. Follow potassium level. Continue low potassium diet. Continue oral bicarb. Follow closely. (2) Sepsis: Qualifiers: Sepsis acute organ dysfunction status: unspecified Sepsis type: sepsis due to unspecified organism Qualified Code(s): A41.9 - Sepsis, unspecified organism Code(s): A41.9 - Sepsis, unspecified organism Status: Acute Assessment and Plan: Secondary to pneumonia and/or bacteremia. Blood cultures growing oxacillin sensitive Staph aureus. Continue with IV antibiotic ID consulted and appreciate their input. Leukocytosis continues to improve. Appreciate ID recommendations. We are still monitoring blood cultures from 05/07/2025 which are negative to date from 3 bottles. Continue cefazolin, daptomycin. And discharged home once we have final antibiotic recommendations in place. The patient has manage TPN at home as well as IV antibiotics before he is confident he can do so again. (3) Bacteremia: Code(s): R78.81 - Bacteremia Status: Acute Assessment and Plan: Possible source PNA versus central line. BCx 04/25 4/4 positive for DANE BCx 04/27 1/3 positive for DANE BCx 05/01 1/2 positive for DANE in one of the aerobic bottles BCx 05/05 1/4 positive for gram positive cocci. BCx 05/07 NGTD Started Vancomycin but now discontinued. Abx switched to Ancef Attempting line salvage since very limited option for IV access No fevers. WBC stable at 11-14K Cardiology consulted and appreciate their input. TTE 05/01 with no endocarditis. TIMUR 05/05 again showing no vegetations. Discussed with ID: Daptomycin added (05/05) Spoke with Kyree 05/05 about transfer for central line exchange but they felt that since patient does not have great options for line exchange, they recommended continuing current plan. If BCx drawn 05/07 return positive despite Daptomycin, then transfer to [place] for line exchange. Continue Ancef and Dapto. Monitor BCx results. Monitor WBC. (4) Pneumonia: Qualifiers: Laterality: right Lung location: lower lobe of lung Pneumonia type: du e to unspecified organism Qualified Code(s): J18.9 - Pneumonia, unspecified organism Code(s): J18.9 - Pneumonia, unspecified organism Status: Acute Assessment and Plan: CT of chest showing focal consolidation in the RLL. Bedside swallow evaluation showing no concerns As above (5) CKD (chronic kidney disease): Qualifiers: Chronic kidney disease stage: unspecified stage Qualified Code(s): N18.9 - Chronic kidney disease, unspecified Code(s): N18.9 - Chronic kidney disease, unspecified Status: Acute Assessment and Plan: Patient s/p left nephrectomy. Baseline creatinine 2.9 but worsened to 3.6 Complement normal. Urine eos negative. Prot/Cr ratio 2.3gm. FENa 0.7%. TPN stopped. Started IV fluids. Oral bicarb added. Serum creatinine and bicarb are improving. Currently on D5 normal saline at 60 cc/hour. Continue oral bicarb. Defer to Nephrology for fluid and acid-base management. Appreciate recommendations. (6) On total parenteral nutrition (TPN): Code(s): Z78.9 - Other specified health status Status: Acute Assessment and Plan: Patient on chronic TPN use related to gastrectomy. Takes TPN 4x/week. Dietitian on board. TPN on hold because can't remove potassium from TPN Continue to monitor. He is eating 90% to 100% of his meals. Patient does not think he needs TPN at this time. (7) Hyponatremia: Code(s): E87.1 - Hypo-osmolality and hyponatremia Status: Acute Assessment and Plan: TSH and cortisol okay. Cosyntropin test showing peak cortisol >18 which is an appropriate response. Nephrology following Monitor for now (8) AMS (altered mental status): Qualifiers: Altered mental status type: unspecified Qualified Code(s): R41.82 - Altered mental status, unspecified Code(s): R41.82 - Altered mental status, unspecified Status: Acute Assessment and Plan: Patient with episode of confusion Head CT showing no acute process. TSH, B12, folate levels okay Probably related to bacteremia. Mental status back to baseline, continue to monitor. (9) Anemia: Code(s): D64.9 - Anemia, unspecified Status: Acute Assessment and Plan: Acute on chronic anemia. Hgb low but stable in the 8-9 range. B12, folate normal. Iron studies consistent with iron deficiency. Related to poor dietary iron absorption? Hgb dropped to 7.6 but may have been drawn out of the line. Transfuse if Hgb<7 to a stable Hgb. IV iron when okay with others and BCx clear Continue to monitor. (10) NSVT (nonsustained ventricular tachycardia): Code(s): I47.29 - Other ventricular tachycardia Status: Acute Assessment and Plan: Patient with 2 runs of NSVT on 05/05. Potassium 5. Mag >2. Echo as above. Recurrence of narrow complex probably SVT. Monitor on tele. Magnesium 1.6 on 05/11/2025, giving 2 g rider. Plan Thrombocytopenia - Platelet count 70-90K past few yrs. Plt count 47K on admission and dropped to 33K before rebounding back up to 70K range. [place] drop related to sepsis. Etiology of chronic TCP unclear. Follow DM2 - A1c 5.6%. Diet controlled. The patient's blood glucose was reviewed Glucose remains well controlled. Continue AccuCheks covering with sliding scale. Hypoglycemia protocol available as needed. 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 Eating okay here. Rehabilitation Assistant following Monitor calorie intake off TPN Thyroid carcinoma - status post partial thyroid resection Not on levothyroxine TSH okay. 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 No obvious evidence of dumping. 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 Contributing to his CKD D5 normal saline at 60 cc/hour. DVT prophylaxis - SCDs. Lovenox discontinued due to anemia. Can resume pharmacological prophylaxis if hemoglobin remains stable and no overt bleeding. Code status - full code. Subjective Date/time seen: 05/12/25 12:44 Interval history: No overnight events. Feels well. Remains afebrile. Cultures negative to date. Tolerating antibiotics. Discussed with the family. Review of Systems Review of Systems: All systems reviewed & are unremarkable except as noted in HPI and below (Subjective) Exam Narrative: Gen - NARD Chest - CTA bilaterally. Left upper chest tunneled dual lumen catheter CV - RRR S1/S. Abd - Soft, NT/ND, RLQ ostomy noted Ext - No pedal edema Psych - pleasant and cooperative Skin - warm and dry Objective Data Vital Signs Vital Signs: Vital Signs - 24 hr 05/11/25 14:00 05/11/25 16:09 05/11/25 20:00 Temperature 98.0 F Pulse Rate 78 70 Respiratory Rate 14 Blood Pressure 146/79 H Pulse Oximetry 100 Oxygen Delivery Room Air 05/11/25 20:00 05/11/25 21:20 05/11/25 21:48 Temperature 97.5 F L Pulse Rate 68 72 Respiratory Rate 16 Blood Pressure 154/81 H Pulse Oximetry 100 99 Oxygen Delivery Room Air 05/12/25 00:00 05/12/25 04:00 05/12/25 08:03 Temperature Pulse Rate 76 94 92 Respiratory Rate Blood Pressure Pulse Oximetry Oxygen Delivery 05/12/25 08:32 05/12/25 12:03 Temperature Pulse Rate 92 76 Respiratory Rate 16 Blood Pressure Pulse Oximetry 99 Oxygen Delivery Room Air Intake/Output Intake/Output: Intake & Output 05/09/25 05/10/25 05/11/25 05/12/25 23:59 23:59 23:59 23:59 Intake Total 3050 3014 2956 1470 Output Total 1225 3225 1950 1600 Balance 1825 -211 1006 -130 Meds/Results Medications: Active Medications Generic Name Dose Route Start Last Admin Trade Name Freq PRN Reason Stop Dose Admin Acetaminophen 650 mg 04/25/25 22:50 Acetaminophen 650 Mg Suppository RECTAL Q6H PRN Mild Pain (1-3) or Fever Acetaminophen 650 mg 05/06/25 00:58 05/06/25 01:09 Acetaminophen 325 Mg Tablet PO 650 mg Q4H PRN Administration Mild Pain (1-3) or Fever Allopurinol 100 mg 04/27/25 09:00 05/12/25 08:28 Allopurinol 100 Mg Tablet PO 100 mg DAILY ZHANNA Administration Cyanocobalamin 1,000 mcg 05/26/25 09:00 Cyanocobalamin Inj 1,000 Mcg/Ml Vial IM MONTHLY ZHANNA Cyclobenzaprine HCl 10 mg 04/26/25 13:46 05/11/25 22:51 Cyclobenzaprine Hcl 10 Mg Tablet PO 10 mg TID PRN Administration Muscle Spasm Dextrose 12.5 gm 04/27/25 08:27 Dextrose 50% 25 Gm/50 Ml Syringe IV PUSH PRN PRN Hypoglycemia Protocol Epoetin Vic-epbx 10,000 units 05/06/25 10:55 05/11/25 08:56 Epoetin Vic-Epbx 10,000 Units/Ml Vial SUB-Q 10,000 units TUTHSA@09 ZHANNA Administration Finasteride 5 mg 04/27/25 09:00 05/12/25 08:28 Finasteride 5 Mg Tablet PO 5 mg DAILY ZHANNA Administration Folic Acid 1 mg 04/27/25 09:00 05/12/25 08:28 Folic Acid 1 Mg Tablet PO 1 mg DAILY ZHANNA Administration Glucagon 1 mg 04/27/25 08:27 Glucagon For Inj 1 Mg Vial IM PRN PRN Hypoglycemia Protocol Glucose 15 gm 04/27/25 08:27 Glucose Oral Gel 15 Gm Of Glucse In 37.5 Gm Tube PO PRN PRN Hypoglycemia Protocol Dextrose 1,000 mls @ 50 mls/hr 04/26/25 13:47 Dextrose 10% IV CONT .Q20H PRN if PN is interrupted Dextrose 1,000 mls @ 100 mls/hr 04/27/25 08:27 Dextrose 5% 1,000 Ml IVPB PRN PRN Hypoglycemia Protocol Cefazolin Sodium 2 gm/ Sodium 50 mls @ 100 mls/hr 04/30/25 18:00 05/12/25 06:06 Chloride IVPB Infused Q12H ZHANNA Infusion Multivitamins 1.25 ml/ 1,002.5 mls @ 70 mls/hr 05/05/25 20:00 Multivitamins 1.25 ml/ Amino IV CONT Acids/Electrolytes/Dextrose [id number] [facility] On Hold: 05/05/25 20:00 Protocol Daptomycin 500 mg/ Sodium 50 mls @ 100 mls/hr 05/05/25 16:00 05/11/25 17:09 Chloride IVPB Infused Q48H ZHANNA Infusion Dextrose/Sodium Chloride 1,000 mls @ 60 mls/hr 05/06/25 14:10 05/12/25 12:33 Dextrose 5% Sodium Chloride 0.9% IV CONT 60 mls/hr .[id number] ZHANNA Administration Insulin Aspart 1 - 2 units 04/27/25 21:00 05/11/25 20:16 Insulin Aspart (*Bkc) 100 Units/Ml SUB-Q Not Given HS [facility] Protocol Insulin Aspart 2 - 5 units 04/27/25 12:00 05/12/25 11:56 Insulin Aspart (*Bkc) 100 Units/Ml SUB-Q Not Given TIDWM [facility] Protocol Miscellaneous Information 0 each 05/07/25 00:01 05/07/25 18:13 Please Enter Order For Patient To Take Home Vitamin D 60012 Units. XX 06/06/25 00:00 Not Given On Hold: 05/07/25 17:30 CLARIFY ZHANNA Nonformulary Drug 3 tab 05/07/25 17:00 05/12/25 08:29 Coral Calcium Plus PO 06/06/25 16:59 3 tab Plant Enzymes BID ZHANNA Administration Nonformulary Drug 0 units 05/08/25 09:00 05/12/25 08:29 Vitamin A 25,000 PO 06/07/25 08:59 25,000 units Units DAILY ZHANNA Administration Sodium Bicarbonate 1,300 mg 05/08/25 09:00 05/12/25 08:28 Sodium Bicarbonate Tab 650 Mg Tablet PO 1,300 mg BID ZHANNA Administration Sodium Chloride 10 ml 04/29/25 14:00 05/12/25 12:34 Central Line Flush IV PUSH 10 ml Q8HR ZHANNA Administration Sodium Chloride 10 ml 04/29/25 07:58 Central Line Flush IV PUSH PRN PRN with TPN bag changes Sodium Chloride 20 ml 04/29/25 07:58 05/11/25 05:50 Central Line Flush IV PUSH 20 ml PRN PRN Administration after blood draws Trazodone HCl 25 mg 05/01/25 21:00 05/11/25 22:51 Trazodone Hcl 25 Mg Tablet PO 25 mg HS ZHANNA Administration Radiology Results: ITS Impressions Chest X-Ray 04/25/25 18:06 Impression: 1: Diffuse bilateral interstitial infiltrates which may represent edema or atypical pneumonia. Head CT 04/25/25 20:26 IMPRESSION: 1. No acute intracranial abnormality. Chest/Abdomen/Pelvis CT 04/25/25 20:28 IMPRESSION: 1. Focal consolidation right lower lobe, suspicious for pneumonia. 2: Increased size of ascending thoracic aortic aneurysm measuring 4.8 cm. 3: Splenomegaly. 4: Stable sclerotic lesions or spine and pelvis, suspicious for stable osseous metastases. Correlate for history of malignancy. Renal Ultrasound 05/03/25 18:21 IMPRESSION: 1. A couple small right renal cysts. No hydronephrosis. 2. Status post left nephrectomy. Labs Labs: Laboratory Results - last 24 hr 05/11/25 05/11/25 05/12/25 16:30 20:15 05:36 WBC 9.5 RBC 3.13 L Hgb 8.1 L Hct 25.9 L MCV 82.7 MCH 25.9 L MCHC 31.3 L RDW 14.8 H Plt Count 105 L MPV 11.3 H Immature Gran % (Auto) 1.2 H Neut % (Auto) 83.7 H Lymph % (Auto) 9.7 L [place] % (Auto) 3.9 Eos % (Auto) 1.2 Baso % (Auto) 0.3 Lymph # (Auto) 0.92 [place] # (Auto) 0.4 Eos # (Auto) 0.1 Baso # (Auto) 0.0 Abs Immat Gran (auto) 0.11 H Absolute Neuts (auto) 8.0 H Absolute Nucleated RBC 0.000 Nucleated RBC % 0.0 Sodium 135 L Potassium 4.4 Chloride 111 H Carbon Dioxide 19 L Anion Gap 5 BUN 21 H Creatinine 2.73 H Estim Creat Clear Calc 18 Estimated GFR 23 L Glucose 89 POC Capillary Glucose 105 95 Calcium 7.9 L Phosphorus 3.1 Magnesium 1.9 Total Creatine Kinase 23 L Albumin 2.8 L 05/12/25 05/12/25 07:43 11:52 WBC RBC Hgb Hct MCV MCH MCHC RDW Plt Count MPV Immature Gran % (Auto) Neut % (Auto) Lymph % (Auto) [place] % (Auto) Eos % (Auto) Baso % (Auto) Lymph # (Auto) [place] # (Auto) Eos # (Auto) Baso # (Auto) Abs Immat Gran (auto) Absolute Neuts (auto) Absolute Nucleated RBC Nucleated RBC % Sodium Potassium Chloride Carbon Dioxide Anion Gap BUN Creatinine Estim Creat Clear Calc Estimated GFR Glucose POC Capillary Glucose 87 95 Calcium Phosphorus Magnesium Total Creatine Kinase Albumin
[2025-05-12] MEDS: CYCLOBENZAPRINE HCL 10 MG TABLET PO (23:39)
[2025-05-13] VITALS: PULSE 84
[2025-05-13 04:00] VITALS: PULSE 83
[2025-05-13] MEDS: DEXTROSE 5%/0.9% SOD CHL 1,000 ML 60 ML IV CONT (05:49)
[2025-05-13] MEDS: ceFAZolin 2 GM in SODIUM CHLORIDE 0.9% IV 50 ML 100 ML IVPB (05:49)
[2025-05-13] MEDS: CENTRAL LINE FLUSH 20 ML IV PUSH (05:50)
[2025-05-13] MEDS: CENTRAL LINE FLUSH 10 ML IV PUSH (05:50)
[2025-05-13 06:00] VITALS: BP 146/74; PULSE 86; RESP 18; TEMP 36.6; O2SAT 99
[2025-05-13 06:23] LABS: Albumin Level 2.9 g/dL (3.5-5.1); Anion Gap 5 mmol/L (4-12); Blood Urea Nitrogen 23 mg/dL (9-20); Calcium 7.7 mg/dL (8.4-10.2); Carbon Dioxide 19 mmol/L (22-30); Chloride 112 mmol/L (98-107); Estimated CRCL calculation 18 ml/min; Estimated Glomerular Filt Rate 22; Glucose 87 mg/dL (65-110); Potassium 4.6 mmol/L (3.4-5.0); Sodium 136 mmol/L (137-145)
[2025-05-13 08:00] VITALS: PULSE 90
[2025-05-13] MEDS: FINASTERIDE 5 MG TABLET PO (09:09)
[2025-05-13] MEDS: FOLIC ACID 1 MG TABLET PO (09:09)
[2025-05-13] MEDS: SODIUM BICARBONATE TAB 650 MG TABLET 1300 MG PO (09:10)
[2025-05-13] MEDS: EPOETIN ALFA-EPBX 10,000 UNITS/ML VIAL 10000 UNITS SUB-Q (09:21)
[2025-05-13] MEDS: VITAMIN A 25000 UNIT PO (09:21)
[2025-05-13] MEDS: [UNRECOGNIZED DRUG - OTHER] PO (09:21)
[2025-05-13] MEDS: [UNRECOGNIZED DRUG - OTHER] 3 EACH PO (09:21)
[2025-05-13 12:00] VITALS: PULSE 81
--- NOTE | 2025-05-13 12:45 | P.DS_ITS ---
DS: Admitting Diagnosis Discharge Date 05/13/2025 Admitting Diagnosis Fever DS: Discharge Diagnosis Discharge Diagnosis (1) Hyperkalemia: Code(s): E87.5 - Hyperkalemia Status: Acute (2) Sepsis: Qualifiers: Sepsis acute organ dysfunction status: unspecified Sepsis type: sepsis due to unspecified organism Qualified Code(s): A41.9 - Sepsis, unspecified organism Code(s): A41.9 - Sepsis, unspecified organism Status: Acute (3) Bacteremia: Code(s): R78.81 - Bacteremia Status: Acute (4) Pneumonia: Qualifiers: Laterality: right Lung location: lower lobe of lung Pneumonia type: due to unspecified organism Qualified Code(s): J18.9 - Pneumonia, unspecified organism Code(s): J18.9 - Pneumonia, unspecified organism Status: Acute (5) CKD (chronic kidney disease): Qualifiers: Chronic kidney disease stage: unspecified stage Qualified Code(s): N18.9 - Chronic kidney disease, unspecified Code(s): N18.9 - Chronic kidney disease, unspecified Status: Acute (6) On total parenteral nutrition (TPN): Code(s): Z78.9 - Other specified health status Status: Acute (7) Hyponatremia: Code(s): E87.1 - Hypo-osmolality and hyponatremia Status: Acute (8) AMS (altered mental status): Qualifiers: Altered mental status type: unspecified Qualified Code(s): R41.82 - Altered mental status, unspecified Code(s): R41.82 - Altered mental status, unspecified Status: Acute (9) Anemia: Code(s): D64.9 - Anemia, unspecified Status: Acute (10) NSVT (nonsustained ventricular tachycardia): Code(s): I47.29 - Other ventricular tachycardia Status: Acute DS: Summary Hospital Course Hospital Course: # Hyperkalemia: Potassium was elevated to 6.6 treated appropriately with improvement. TSH normal. Cortisol normal. Cozaar stopped. TPN held Lokelma started and Potassium better Lokelma stopped. Potassium remains normal. Nephrology consulted and appreciate their input. Oral bicarb started. Follow potassium level. Continue low potassium diet. Continue oral bicarb. Follow closely. # Sepsis: Secondary to pneumonia and/or bacteremia. Blood cultures growing oxacillin sensitive Staph aureus. Continue with IV antibiotic ID consulted and appreciate their input. Leukocytosis continues to improve. Appreciate ID recommendations. We are still monitoring blood cultures from 05/07/2025 which are negative to date from 3 bottles. Continue cefazolin, daptomycin. Patient will be switched to cephalexin at discharge along with daptomycin every 48 hours through 05/20/2025. Continue cephalexin through 06/03/2025. The patient has managed TPN at home as well as IV antibiotics before he is confident he can do so again. # Bacteremia: Possible source PNA versus central line. BCx 04/25 4/4 positive for DANE BCx 04/27 1/3 positive for DANE BCx 05/01 1/2 positive for DANE in one of the aerobic bottles BCx 05/05 1/4 positive for gram positive cocci. BCx 05/07 NGTD Started Vancomycin but now discontinued. Abx switched to Ancef Attempting line salvage since very limited option for IV access No fevers. WBC stable at 11-14K Cardiology consulted and appreciate their input. TTE 05/01 with no endocarditis. TIMUR 05/05 again showing no vegetations. Discussed with ID: Daptomycin added (05/05) Spoke with [facility] 05/05 about transfer for central line exchange but they felt that since patient does not have great options for line exchange, they recommended continuing current plan. If BCx drawn 05/07 return positive despite Daptomycin, then transfer to [facility] for line exchange. Continue Ancef and Dapto. Monitor BCx results. Monitor WBC. Patient will be switched to cephalexin at discharge along with daptomycin every 48 hours through 05/20/2025. Continue cephalexin through 06/03/2025. # Pneumonia: CT of chest showing focal consolidation in the RLL. Bedside swallow evaluation showing no concerns As above # CKD (chronic kidney disease): Patient s/p left nephrectomy. Baseline creatinine 2.9 but worsened to 3.6 Complement normal. Urine eos negative. Prot/Cr ratio 2.3gm. FENa 0.7%. TPN stopped. Started IV fluids. Oral bicarb added. Serum creatinine and bicarb are improving. Currently on D5 normal saline at 60 cc/hour. Continue oral bicarb. Defer to Nephrology for fluid and acid-base management. Appreciate recommendations. # On total parenteral nutrition (TPN): Patient on chronic TPN use related to gastrectomy. Takes TPN 4x/week. Dietitian on board. TPN on hold because can't remove potassium from TPN Continue to monitor. He is eating 90% to 100% of his meals. Patient does not think he needs TPN at this time. # Hyponatremia: TSH and cortisol okay. Cosyntropin test showing peak cortisol >18 which is an appropriate response. Nephrology following Monitor for now # AMS (altered mental status): Patient with episode of confusion Head CT showing no acute process. TSH, B12, folate levels okay Probably related to bacteremia. Mental status back to baseline, continue to monitor. # Anemia: Acute on chronic anemia. Hgb low but stable in the 8-9 range. B12, folate normal. Iron studies consistent with iron deficiency. Related to poor dietary iron absorption? Hgb dropped to 7.6 but may have been drawn out of the line. Transfuse if Hgb<7 to a stable Hgb. IV iron when okay with others and BCx clear Continue to monitor. # NSVT (nonsustained ventricular tachycardia): Patient with 2 runs of NSVT on 05/05. Potassium 5. Mag >2. Echo as above. Recurrence of narrow complex probably SVT. Monitor on tele. Magnesium 1.6 on 05/11/2025, giving 2 g rider. # Thrombocytopenia - Platelet count 70-90K past few yrs. Plt count 47K on admission and dropped to 33K before rebounding back up to 70K range. [place] drop related to sepsis. Etiology of chronic TCP unclear. Follow # DM2 - A1c 5.6%. Diet controlled. The patient's blood glucose was reviewed Glucose remains well controlled. Continue AccuCheks covering with sliding scale. Hypoglycemia protocol available as needed. 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 Eating okay here. 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 No obvious evidence of dumping. # Renal cell carcinoma - RCC status post left radical nephrectomy in 2006. Contributing to his CKD # DVT prophylaxis - SCDs. Lovenox discontinued due to anemia. Can resume pharmacological prophylaxis if hemoglobin remains stable and no overt bleeding. # Code status - full code. Time Spent with Patient Time attestation: Total time spent providing and/or coordinating discharge services: 40 minutes Exam Narrative: Gen - NARD Chest - CTA bilaterally. Left upper chest tunneled dual lumen catheter CV - RRR S1/S. Abd - Soft, NT/ND, RLQ ostomy noted Ext - No pedal edema Psych - pleasant and cooperative Skin - warm and dry DS: Data Data Completed and Pending Completed studies during hospitalization: Exam Type: CA echo doppler color flow Complete two-dimensional, color flow and Doppler transthoracic echocardiogram is performed. Staff Referring Physician: Allison Torres [employer] Agent [employer]: Anamaria Villarreal Attending Provider: Leticia Reese DO Summary 1. Complete two-dimensional, color flow and Doppler transthoracic echocardiogram is performed. 2. Left ventricular chamber dimension is normal. 3. Left ventricular systolic function is normal, estimated at 60-65. 4. There is mild concentric increased left ventricular wall thickness. 5. The left ventricular diastolic function is grade I diastolic dysfunction. 6. E/e' 6 is not elevated. 7. There is trace mitral valve regurgitation. 8. There is mild tricuspid valve regurgitation. 9. No pulmonary hypertension, estimated pulmonary arterial systolic pressure is 30 mmHg. 10. The aortic root size at the sinus of Valsalva is borderline dilated at 4.2 cm. Left Ventricle E/e' 6 is not elevated. Left ventricular chamber dimension is normal. Left ventricular systolic function is normal, estimated at 60-65. There is mild concentric increased left ventricular wall thickness. The left ventricular diastolic function is grade I diastolic dysfunction. Right Ventricle Right ventricular chamber dimension is normal. Right ventricular systolic function is normal. Left Atria Left atrial chamber dimension is normal. Right Atria Right atrial chamber dimension is normal. Aortic Valve The aortic valve is trileaflet. There is no aortic valve stenosis. There is no aortic valve regurgitation. No aortic valve vegetation visualized. Pulmonic Valve There is no pulmonic regurgitation. No pulmonic valve vegetation visualized. Mitral Valve There is no mitral valve stenosis. There is trace mitral valve regurgitation. No mitral valve vegetation visualized. Tricuspid Valve There is mild tricuspid valve regurgitation. No pulmonary hypertension, estimated pulmonary arterial systolic pressure is 30 mmHg. No tricuspid valve vegetation visualized. Pericardium/Pleural There is no pericardial effusion. Inferior Vena Cava Normal inferior vena cava with >50% collapse upon inspiration consistent with normal right atrial pressure, 5 mmHg. Aorta The aortic root size at the sinus of Valsalva is borderline dilated at 4.2 cm. Exam Type: CA echo transesophageal Complete two-dimensional, color flow and Doppler transesophageal study is performed. Staff Referring Physician: Jerald Jimenes MD [employer] Agent [employer]: Maribell Moore Attending Provider: Leticia Reese DO Summary 1. Left ventricular chamber dimension is normal. 2. Left ventricular systolic function is normal with an ejection fraction of 60-65% by visual estimation. 3. The left ventricular diastolic function is indeterminate as it was not assessed. 4. Left atrial chamber dimension is mildly enlarged. 5. There is mild mitral valve regurgitation. 6. There is trace tricuspid valve regurgitation. Procedure Details Risks/benefits/alternative to TIMUR discuss with patient and he gave informed consent. He was monitored electrocardiographically, vitals and pulse ox. He was in normal rhythm HR 95 bpm, BP 150/80 mmHg, pulse ox 95% on NC. Cetcaine spray x 1 to posterior oropharynx. Versed 2 mg and Fentanyl 50 mcg IV given for conscious sedation. TIMUR probe advanced without incident but could not get images of the heart. TIMUR probe withdrawn and reinserted and he swallowed without incident into esophagus. Multiple images obtained. TIMUR probe withdrawn and no blood noted on TIMUR probe tip. He tolerated procedure well with no complications. Left Ventricle Left ventricular chamber dimension is normal. Left ventricular systolic function is normal with an ejection fraction of 60-65% by visual estimation. The left ventricular diastolic function is indeterminate as it was not assessed. Right Ventricle Right ventricular chamber dimension is normal. Right ventricular systolic function is normal. Left Atria Left atrial chamber dimension is mildly enlarged. Right Atria Right atrial chamber dimension is normal. Atrial Septum Intact interatrial septum visualized by 2D and color flow imaging. Atrial Appendage There is no mass visualized in the left atrial appendage. Aortic Valve The aortic valve is trileaflet. There is no aortic valve stenosis. There is no aortic valve regurgitation. No aortic valve vegetation visualized. Pulmonic Valve There is no pulmonic regurgitation. No pulmonic valve vegetation visualized. Mitral Valve There is no mitral valve stenosis. There is mild mitral valve regurgitation. No mitral valve vegetation visualized. Tricuspid Valve There is trace tricuspid valve regurgitation. RVSP is not measured. Pericardium/Pleural There is no pericardial effusion. Inferior Vena Cava Inferior vena cava is not well visualized. Aorta The aortic root size at the sinus of Valsalva is not well visualized. Labs on day of discharge: Labs from last 24 hours 05/13/25 05/13/25 05/13/25 11:42 08:11 05:55 Sodium 136 L Potassium 4.6 Chloride 112 H Carbon Dioxide 19 L Anion Gap 5 BUN 23 H Creatinine 2.75 H Estim Creat Clear Calc 18 Estimated GFR 22 L Glucose 87 POC Capillary Glucose 82 82 Calcium 7.7 L Phosphorus 3.5 Albumin 2.9 L 05/12/25 05/12/25 19:44 15:48 Sodium Potassium Chloride Carbon Dioxide Anion Gap BUN Creatinine Estim Creat Clear Calc Estimated GFR Glucose POC Capillary Glucose 115 H 106 H Calcium Phosphorus Albumin Imaging Radiologist's impression: ITS Impressions Chest X-Ray 04/25/25 18:06 Impression: 1: Diffuse bilateral interstitial infiltrates which may represent edema or atypical pneumonia. Head CT 04/25/25 20:26 IMPRESSION: 1. No acute intracranial abnormality. Chest/Abdomen/Pelvis CT 04/25/25 20:28 IMPRESSION: 1. Focal consolidation right lower lobe, suspicious for pneumonia. 2: Increased size of ascending thoracic aortic aneurysm measuring 4.8 cm. 3: Splenomegaly. 4: Stable sclerotic lesions or spine and pelvis, suspicious for stable osseous metastases. Correlate for history of malignancy. Renal Ultrasound 05/03/25 18:21 IMPRESSION: 1. A couple small right renal cysts. No hydronephrosis. 2. Status post left nephrectomy. Discharge Plan Discharge Attending physician on discharge: Javy Bourgeois Consulting providers: Merry Olivier; Jass Vieira; Bharathi Nesbitt; Misa Arreola Discharging Clinician: Javy Bourgeois Anticipated Discharge Date/Time: 05/13/25 12:50 Patient Disposition: Home with Home Health Service Activity: as tolerated Diet: heart healthy Discharge Instructions: Per Care Coordination: Patient to resume home TPN services, IV fluids, and new IV antibiotics through [facility] Infusion at discharge. RN Please fax discharge instructions to [phone] Patient also to resume home health services through [facility] for bottom sander line care at home. [facility] Home Health office can be contacted directly at [phone]. Nursing please fax discharge paperwork to [phone]. Daptomycin 500 mg iv q 48hrs through 05/20/2025. (infusions on thursday, thursday and thursday) 3 more infusions Patient Instructions: Antibiotic Form Patient Language: Japanese Stand Alone Forms: General Discharge Information Follow-up/Referrals: Alka Erazo MD [Primary Care Provider, Family Practice] - 1 Week Discharge Medications: New sodium bicarbonate 650 mg Tablet 1,300 mg PO BID Qty: 60 0RF cephalexin 500 mg tablet 1,000 mg PO Q12H 22 Days Qty: 88 0RF daptomycin 500 mg recon soln 500 mg IV Q48H Rx Instructions: administer over 30 mins On Thursday05/15/2025Thursday05/17/2025 and Thursday05/19/2025 Continued cyanocobalamin (vitamin B-12) 1,000 mcg/mL solution 100 mcg IM MONTHLY Patient Comments: Already taken this month. folic acid 1 mg tablet 1 mg PO DAILY Qty: 90 3RF tramadol 50 mg tablet 50 mg PO Q6H PRN (Reason: pain) Qty: 30 0RF cyclobenzaprine 10 mg tablet 10 mg PO TID PRN (Reason: muscle spasm) Qty: 60 0RF opium tincture 10 mg/mL (morphine) tincture 10 mg PO TIDWMEAL Rx Instructions: Pt takes before meals if eating PO VITAMIN D3 WITH CALCIUM CARBONATE 1 tablet PO DAILY coral calcium plus plant enzymes See Rx Instructions PO BID Rx Instructions: 3 capsules orally twice a day; vitamin A 25,000 units PO DAILY (DME) holister bags #[id number] See Rx Instructions .Route .MEDSUPPLY Qty: 40 0RF Rx Instructions: As directed daily. 40 bags monthly (DME) Brava strip paste #[id number] See Rx Instructions .Route .MEDSUPPLY Qty: 1 0RF Rx Instructions: As directed daily (DME) Ostomy pouch deodorant SafeNSimple unscented See Rx Instructions .Route .MEDSUPPLY Qty: 1 0RF Rx Instructions: As directed daily (DME) Martinez[employer]Nephew Skin Prep 4 oz bottle #[id number] See Rx Instructions .Route .MEDSUPPLY Qty: 1 0RF Rx Instructions: As directed every 3 months (DME) Perfect Choice Barrier rings jar of 10 BR 1001 See Rx Instructions .Route .MEDSUPPLY Qty: 1 0RF Rx Instructions: As directed every month (DME) Uni-solve adhesive remover Martinez[employer]Nephew [id number] See Rx Instructions .Route .MEDSUPPLY Qty: 8 0RF Rx Instructions: As directed monthly (8 ounce bottle) (DME) Unisolve pads in box [id number] See Rx Instructions .Route .MEDSUPPLY Qty: 1 0RF Rx Instructions: As directed monthly (DME) Brava Elastic Barrier strip XL [id number] See Rx Instructions .Route .MEDSUPPLY Qty: 1 0RF Rx Instructions: As directed monthly (DME) Brava Elastic barrier Y shape [id number] See Rx Instructions .Route .MEDSUPPLY Qty: 1 0RF Rx Instructions: As directed 3 months allopurinol 100 mg tablet 100 mg PO DAILY Qty: 90 1RF (DME) Brava Elastic Strip See Rx Instructions .Route .MEDSUPPLY Qty: 1 0RF Rx Instructions: As directed monthly (DME) Hy-tape pink tape 1 inch and 1.5 inch See Rx Instructions .Route .MEDSUPPLY Qty: 1 0RF Rx Instructions: As directed daily (DME) Martinez[employer]ephew Skin prep pads See Rx Instructions .Route .MEDSUPPLY Qty: 1 0RF Rx Instructions: As directed dispense 1 box (DME) Convatec Stomadhesive paste #[id number] See Rx Instructions .Route .MEDSUPPLY Qty: 2 0RF Rx Instructions: As directed daily. 2 tubes monthly (DME) Holister New Image Ostomy Skin Barrier 22888 See Rx Instructions .Route .MEDSUPPLY Qty: 4 0RF Rx Instructions: As directed daily. Dispense 4 boxes with 2 boxes of bags (DME) Ostomy Belt Medium Misc See Rx Instructions .ROUTE .COMPLEX Qty: 1 10RF Dose Instruction: USE DIRECTED Rx Instructions: USE DIRECTED ([facility] [place] [facility] [place] New Image Lock'n Roll Pouch 1 3/4 misc See Rx Instructions .ROUTE .COMPLEX Qty: 40 10RF Dose Instruction: USE DIRECTED Rx Instructions: USE DIRECTED finasteride 5 mg tablet 5 mg PO DAILY Qty: 30 5RF Discontinued losartan 25 mg tablet 25 mg PO DAILY Qty: 90 3RF Other Ambulatory Orders: Complete Blood Count with Diff (Routine) Timeframe: 1 Week Location: Determined by Patient Ordered By: Javy Bourgeois Comprehensive Metabolic Panel (Routine) Timeframe: 1 Week Location: Determined by Patient Ordered By: Javy Bourgeois Date of admission: 04/25/25 22:51 Primary Care Provider: Alka Erazo Admitting Provider: Leticia Reese Attending physician on admission: Leticia Reese Condition: Stable
[2025-05-13 13:50] VITALS: BP 144/79; PULSE 87; RESP 18; TEMP 36.6; O2SAT 100
== END 2025-05-13 15:52 | disposition home health service (06) | DRG 871 ==
LOC: ANHED 20:50 → ANH3MEDSUR 23:26 → ANH2MED 04-26 00:10
PROVIDERS: Emergency Medicine; General Practice; Internal Medicine; Internal Medicine Cardiovascular Disease; Internal Medicine Nephrology; Nurse Practitioner Gerontology; Admitting Provider Internal Medicine; Emergency Provider Physician Assistant; PCP Family Medicine; Visit Provider Internal Medicine
PROC: B24BZZ4 Ultrasonography of Heart with Aorta, Transesophageal (ICD-10-PCS; CPT 93312; principal; 2025-05-05 11:15)
DX: A41.01 Sepsis due to Methicillin susceptible Staphylococcus aureus (principal); J18.9 Pneumonia, unspecified organism; T80.211A Bloodstream infection due to central venous catheter, initial encounter; E87.1 Hypo-osmolality and hyponatremia; N18.4 Chronic kidney disease, stage 4 (severe); N17.9 Acute kidney failure, unspecified; I47.29 Other ventricular tachycardia; D69.6 Thrombocytopenia, unspecified; D63.1 Anemia in chronic kidney disease; E11.22 Type 2 diabetes mellitus with diabetic chronic kidney disease; E87.5 Hyperkalemia; I12.9 Hypertensive chronic kidney disease with stage 1 through stage 4 chronic kidney disease, or unspecified chronic kidney disease; Z90.49 Acquired absence of other specified parts of digestive tract; Z90.5 Acquired absence of kidney; Z93.3 Colostomy status; Z20.822 Contact with and (suspected) exposure to COVID-19; Z85.828 Personal history of other malignant neoplasm of skin; Z85.850 Personal history of malignant neoplasm of thyroid; Z95.828 Presence of other vascular implants and grafts; Z88.0 Allergy status to penicillin; Z85.528 Personal history of other malignant neoplasm of kidney
CPT/HCPCS: 36415; 36600; 70450; 71045; 71250; 74176; 76770; 80048; 80053; 80069; 80202; 81001; 82040; 82375; 82533; 82550; 82565; 82570; 82607; 82728; 82746; 82805; 82948; 83036; 83050; 83540; 83550; 83605; 83690; 83735; 83880; 84100; 84132; 84156; 84300; 84443; 84466; 84478; 84484; 85014; 85018; 85025; 85027; 85055; 85610; 85730; 85999; 86140; 86160; 86162; 87040; 87186; 87637; 92610; 93005; 93306; 93312; 93320; 93325; 96361; 96365; 96366; 96367; 97110; 97116; 97161; 97165; 97530; 97535; 99285; J0690; A9270; J0612; J0692; J0834; J0878; J1650; J1815; J1938; J2250; J3010; J3373; J3475; J7030; J7040; J7042; J7050; Q5105

== ENCOUNTER 2025-05-18 11:50 | Outpatient (CLI) | payer MEDICARE, OTHER, SELFPAY ==
[2025-05-18 12:25] LABS: Hematocrit 29.2 % (42.0-52.0); Hemoglobin 9.0 g/dL (14.0-18.0); Immature Granulocyte Percent A 0.4 % (0-0.5); Immature Platelet Fraction Pct 4.7 % (0.9-11.2); Lymphocytes Absolute Auto 1.25 K/mm3 (0.9-3.2); Mean Corpuscular HGB Conc 30.8 g/dl (32-36); Mean Corpuscular Hemoglobin 24.9 pg (26-34); Mean Corpuscular Volume 80.9 fl (80-100); Nucleated Red Blood Cells Absolute Auto 0.000 K/mm3 (0.0-0.012); Nucleated Red Blood Cells Perc 0.0 % (0.0-0.2); Platelet Count Result 113 k/mm3 (150-375); Red Blood Count 3.61 M/mm3 (4.6-6.20); White Blood Count 10.1 K/mm3 (4.5-10.0)
[2025-05-18 12:49] LABS: Alanine Aminotransferase 8 U/L (6-50); Albumin Level 3.7 g/dL (3.5-5.1); Alkaline Phosphatase 89 U/L (38-126); Anion Gap 9 mmol/L (4-12); Aspartate Amino Transferase 22 U/L (17-59); Bilirubin,Total 0.5 mg/dL (0.2-1.3); Blood Urea Nitrogen 57 mg/dL (9-20); Calcium 8.8 mg/dL (8.4-10.2); Carbon Dioxide 22 mmol/L (22-30); Chloride 102 mmol/L (98-107); Estimated Glomerular Filt Rate 19; Glucose 122 mg/dL (65-110); Potassium 5.2 mmol/L (3.4-5.0); Sodium 133 mmol/L (137-145); Total Protein 6.7 g/dL (6.3-8.2)
== END 2025-05-18 11:51 | disposition home or self-care (01) ==
PROVIDERS: PCP Family Medicine; Visit Provider Student in an Organized Health Care Education/Training Program
DX: I12.9 Hypertensive chronic kidney disease with stage 1 through stage 4 chronic kidney disease, or unspecified chronic kidney disease (principal); N18.30 Chronic kidney disease, stage 3 unspecified; I47.29 Other ventricular tachycardia; E87.1 Hypo-osmolality and hyponatremia; E87.5 Hyperkalemia; Z78.9 Other specified health status
CPT/HCPCS: 36415; 36591; 80053; 85025; 85055; 85652; 99212; G0463